=== PATIENT | male | born 1955 | race Hispanic/Latino ===

== ENCOUNTER 2016-11-27 16:11 | Emergency (ER) | payer BC ==
[2016-11-27 16:12] VITALS: BMI 24.2
[2016-11-27] MEDS ORDERED: Lidocaine 1% Inj (20ml) INFIL STA (16:31)
[2016-11-27] MEDS ORDERED: Bacitracin 500 Units/gm Oint Foilpak UD TOP STA (16:31)
[2016-11-27] MEDS ORDERED: Tetanus/Diphtheria Toxoids 0.5 ml Syringe IM ONE ×2 (16:31→16:36)
[2016-11-27 16:34] VITALS: BP 160/99; PULSE 103; RESP 20; TEMP 97.9; O2SAT 100
[2016-11-27] MEDS ORDERED: Bacitracin 500 Units/gm Oint Foilpak UD ONE (16:36)
[2016-11-27] MEDS ORDERED: Lidocaine 1% Inj (20ml) ONE (16:36)
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
== END 2016-11-27 17:47 | disposition home or self-care (01) ==
LOC: C.ER 16:11
DX: S51.812A Laceration without foreign body of left forearm, initial encounter (principal); X99.1XXA Assault by knife, initial encounter; Y92.89 Other specified places as the place of occurrence of the external cause; Z23 Encounter for immunization

== ENCOUNTER 2016-12-01 19:01 | Emergency (ER) | payer BC ==
[2016-12-01 19:01] VITALS: BMI 24.2
[2016-12-01] MEDS ORDERED: Albuterol 0.083% Inhal Sol (2.5 mg/3 mL) UD INH STA (20:12)
--- NOTE | 2016-12-01 20:19 | C.PDOC ---
History Of Present Illness 61 y/o male, past medical history of COPD, notes he ran out of medications and presents to emergency department with c/o shortness of breath. Denies any pain or fever. Chief Complaint (Nursing): Shortness Of Breath History Per: Patient History/Exam Limitations: no limitations Onset/Duration Of Symptoms: Days Current Symptoms Are (Timing): Still Present Pain Scale Rating Of: 0 Associated Symptoms: denies: Fever, Chest Pain Recent travel outside of the [place]: No Past Medical History Reviewed: Historical Data, Nursing Documentation, Vital Signs Vital Signs: Last Vital Signs Temp 97.5 F L 12/01/16 22:50 Pulse 84 12/01/16 22:50 Resp 14 12/01/16 22:50 BP 130/80 12/01/16 22:50 Pulse Ox 98 12/01/16 22:50 - Medical History PMH: Asthma, CAD, COPD, Diabetes, HTN, Hypercholesterolemia, Pancreatitis, Pneumonia - [facility] Procedures OTHER ENDOSCOPY OF SM INTEST (03/26/15) VACCINATION NEC (03/11/15) Family History: States: Hypertension - Social History Hx Tobacco Use: No Hx Alcohol Use: Yes (drinks on weekends) Hx Substance Use: No (denies plus denies smoking) - Immunization History Hx Tetanus Toxoid Vaccination: No Hx Influenza Vaccination: Yes Hx Pneumococcal Vaccination: Yes Review Of Systems Except As Marked, All Systems Reviewed And Found Negative. Constitutional: Negative for: Fever Cardiovascular: Negative for: Chest Pain Respiratory: Positive for: Shortness of Breath. Negative for: Cough Gastrointestinal: Negative for: Nausea, Vomiting, Abdominal Pain Skin: Negative for: Rash Neurological: Negative for: Headache Physical Exam - Physical Exam Appears: Non-toxic, No Acute Distress Skin: Warm, Dry Head: Atraumatic, Normacephalic Chest: Symmetrical Cardiovascular: Rhythm Regular Respiratory: Decreased Breath Sounds, Rhonchi (occasional ), No Wheezing Gastrointestinal/Abdominal: Soft, No Tenderness Extremity: Normal ROM Neurological/Psych: Oriented x3, Normal Speech ED Course And Treatment - Laboratory Results Result Diagrams: 12/01/16 20:33 12/01/16 20:33 Disposition Counseled Patient/Family Regarding: Diagnosis - Disposition Referrals: [facility] [Outside] Disposition: HOME/ ROUTINE Disposition Time: 22:37 Condition: IMPROVED Prescriptions: Albuterol Sulfate [Proventil Hfa] 6.7 gm IH Q4 #1 [id number] Instructions: Asthma (DC), Diabetes Mellitus Type 2 in Adults (DC) - Clinical Impression Clinical Impression: Asthma, Diabetes mellitus - Scribe Statement The provider has reviewed the documentation as recorded by the Scribarvind Russell All medical record entries made by the Scribe were at my direction and personally dictated by me. I have reviewed the chart and agree that the record accurately reflects my personal performance of the history, physical exam, medical decision making, and the department course for this patient. I have also personally directed, reviewed, and agree with the discharge instructions and disposition.
[2016-12-01] MEDS ORDERED: Bacitracin 500 Units/gm Oint Foilpak UD ONE (20:37)
[2016-12-01 20:38] LABS: BASO % 0.6 % (0.0-2.0); EOS # 0.2 K/uL (0.0-0.7); EOS % 3.6 % (0.0-4.0); HEMATOCRIT 44.9 % (35.0-51.0); LYMPH % 31.9 % (20.0-40.0); MEAN CELL VOLUME 89.5 fL (80.0-94.0); MEAN CORPUSCULAR HEMOGLOBIN 30.6 pg (27.0-31.0); MEAN CORPUSCULAR HGB CONC 34.1 g/dL (33.0-37.0); MEAN PLATELET VOLUME 8.5 fL (7.2-11.7); MONO # 0.5 K/uL (0.0-0.8); MONO % 7.5 % (0.0-10.0); RED CELL DISTRIBUTION WIDTH 13.3 % (11.5-14.5); WHITE BLOOD COUNT 6.2 K/uL (4.8-10.8)
[2016-12-01 20:44] LABS: CHLORIDE 93 mmol/L (98-107)
[2016-12-01 20:45] LABS: POTASSIUM 3.8 mmol/L (3.6-5.2); SODIUM 132 mmol/L (132-148)
[2016-12-01 20:47] LABS: ALB/GLOB RATIO 1.2 (1.0-2.1); ALKALINE PHOSPHATASE 97 U/L (38-126); ALT/SGPT 31 U/L (21-72); AST/SGOT 22 U/L (17-59); BILIRUBIN,TOTAL 0.6 mg/dL (0.2-1.3); BLOOD UREA NITROGEN 15 mg/dL (9-20); CARBON DIOXIDE 29 mmol/L (22-30); GFR AFRICAN-AMERICAN > 60; TOTAL PROTEIN 6.3 g/dL (6.3-8.3)
[2016-12-01 20:48] LABS: CALCIUM 8.9 mg/dl (8.6-10.4)
[2016-12-01 20:49] LABS: GLUCOSE,RANDOM 440 mg/dL (75-110)
[2016-12-01] MEDS ORDERED: Sodium Chloride 0.9% 1,000 ML IV ONE (20:51)
[2016-12-01] MEDS ORDERED: (Novolin R) Insulin Human Regular 100 units/ml vial SC ONE (20:51)
[2016-12-01 20:56] VITALS: RESP 14
[2016-12-01] MEDS ORDERED: (Novolin R) Insulin Human Regular 100 units/ml vial ONE (21:02)
[2016-12-01 22:50] VITALS: BP 130/80; PULSE 84; TEMP 97.5; O2SAT 98
--- NOTE | 2016-12-02 08:09 | RAD ---
HISTORY: COPD/ SOB COMPARISON: 07/15/2015 TECHNIQUE: Chest PA and lateral FINDINGS: LUNGS: No active pulmonary disease. PLEURA: No significant pleural effusion identified. No pneumothorax apparent. CARDIOVASCULAR: Normal. OSSEOUS STRUCTURES: Minimal thoracic inferior spondylosis - abort right lateral marginal osteophyte VISUALIZED UPPER ABDOMEN: Normal. OTHER FINDINGS: None. IMPRESSION: No active disease.
== END 2016-12-01 22:51 | disposition home or self-care (01) ==
LOC: C.ER 19:01
DX: J45.909 Unspecified asthma, uncomplicated (principal); E11.65 Type 2 diabetes mellitus with hyperglycemia
CPT/HCPCS: 71020; 80053; 82948; 83880; 85025; 96372; 99284; J7040

== ENCOUNTER 2016-12-08 09:39 | Emergency (ER) | payer BC ==
[2016-12-08 09:39] VITALS: BMI 24.2
[2016-12-08 10:00] VITALS: BP 181/102; PULSE 109; RESP 20; TEMP 98.6; O2SAT 96
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
== END 2016-12-08 11:07 | disposition home or self-care (01) ==
LOC: C.ER 09:39
DX: Z48.02 Encounter for removal of sutures (principal)

== ENCOUNTER 2017-04-13 23:46 | Emergency (ER) | payer BC ==
[2017-04-13 23:47] VITALS: BMI 24.2
[2017-04-14 00:07] VITALS: BP 162/101; PULSE 96; RESP 18; TEMP 98.6; O2SAT 97
--- NOTE | 2017-04-14 01:00 | C.PDOC ---
History Of Present Illness 62 year old male with history of HTN, Diabetes, and Asthma presents to the ED with complaints of difficulty breathing. Patient states he has had several days of trouble breathing and today went to [email or web address] to [facility] prescription but medications were not there. He notes his doctor "refuses to send the prescriptions" because he has not been seen in the office for a while. Patient denies chest pain, cough, or other associated complaints. Time Seen by Provider: 04/14/17 00:21 Chief Complaint (Nursing): Medical Clearance History Per: Patient, EMS History/Exam Limitations: no limitations Onset/Duration Of Symptoms: Intermittent Episodes (patient has history of ) Current Symptoms Are (Timing): Still Present Recent travel outside of the [place]: No Past Medical History Reviewed: Historical Data, Nursing Documentation, Vital Signs Vital Signs: Last Vital Signs Temp 98.6 F 04/14/17 00:03 Pulse 96 H 04/14/17 00:03 Resp 18 04/14/17 00:03 BP 162/101 H 04/14/17 00:03 Pulse Ox 97 04/14/17 01:06 - Medical History PMH: Asthma, CAD, COPD, Diabetes, HTN, Hypercholesterolemia, Pancreatitis, Pneumonia - [facility] Procedures OTHER ENDOSCOPY OF SM INTEST (03/26/15) VACCINATION NEC (03/11/15) Family History: States: Unknown Family Hx, Hypertension - Social History Hx Tobacco Use: No Hx Alcohol Use: Yes (drinks on weekends) Hx Substance Use: No (denies plus denies smoking) - Immunization History Hx Tetanus Toxoid Vaccination: No Hx Influenza Vaccination: No Hx Pneumococcal Vaccination: No Review Of Systems Constitutional: Negative for: Fever, Chills Respiratory: Positive for: Shortness of Breath (notes trouble breathing ). Negative for: Cough Gastrointestinal: Negative for: Nausea, Vomiting Neurological: Negative for: Weakness, Numbness Physical Exam - Physical Exam Appears: Non-toxic, No Acute Distress, Other (Patient does not appear to be in respitarory distress. He is lying completely supine in stretcher and speaking on his cell phone. ) Skin: Warm, Dry Head: Atraumatic, Normacephalic Eye(s): bilateral: Normal Inspection, PERRL, EOMI Oral Mucosa: Moist Neck: Supple Chest: Symmetrical, No Deformity Cardiovascular: Rhythm Regular, No Murmur Respiratory: Rales (left base rales ), No Rhonchi, No Wheezing Gastrointestinal/Abdominal: Soft, No Tenderness, No Distention, No Guarding, No Rebound Extremity: Normal ROM, No Tenderness Neurological/Psych: Oriented x3 Gait: Steady ED Course And Treatment O2 Sat by Pulse Oximetry: 97 (RA) Progress Note: Patient refused blood work and CXR. Patient instructed to follow up with PMD tomorrow. Disposition - Disposition Referrals: Cedric Ken MD [Staff Provider] - Disposition: HOME/ ROUTINE Disposition Time: 01:07 Condition: STABLE Instructions: Hypertension (ED), Diabetes Mellitus Type 2 in Adults (ED) Forms: [employer] (Urdu) Print Language: ALGERIAN - Clinical Impression Clinical Impression: Hypertension, Diabetes, Dyspnea - Scribe Statement The provider has reviewed the documentation as recorded by the Scribe Criselda Mejia All medical record entries made by the Scribe were at my direction and personally dictated by me. I have reviewed the chart and agree that the record accurately reflects my personal performance of the history, physical exam, medical decision making, and the department course for this patient. I have also personally directed, reviewed, and agree with the discharge instructions and disposition.
== END 2017-04-14 01:25 | disposition home or self-care (01) ==
LOC: C.ER 23:46
DX: R06.00 Dyspnea, unspecified (principal); I10 Essential (primary) hypertension; E11.9 Type 2 diabetes mellitus without complications

== ENCOUNTER 2017-04-20 17:56 | Emergency (ER) | payer BC ==
[2017-04-20 17:56] VITALS: BMI 24.2
[2017-04-20 18:01] VITALS: RESP 16; TEMP 98.4
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
[2017-04-20 19:30] VITALS: BP 122/85; PULSE 78
[2017-04-20 21:09] VITALS: O2SAT 95
== END 2017-04-20 19:29 | disposition home or self-care (01) ==
LOC: C.ER 17:56
DX: G57.92 Unspecified mononeuropathy of left lower limb (principal)

== ENCOUNTER 2017-09-02 00:21 | Emergency (ER) | payer BC ==
[2017-09-02 00:21] VITALS: BMI 24.2
[2017-09-02 00:55] VITALS: RESP 20; TEMP 98
--- NOTE | 2017-09-02 01:23 | C.PDOC ---
History Of Present Illness 62 year old male presents to the Ed c/o right costal margin and left inguinal pain for past couple of days. Patient states he was not able to sleep tonight due to his pain. While in the ED patient states he has no pain at this time. Patient denies trauma, injury, fall, nausea, vomit, diarrhea. Chief Complaint (Nursing): Abdominal Pain History Per: Patient History/Exam Limitations: no limitations Onset/Duration Of Symptoms: Days Current Symptoms Are (Timing): Still Present Location Of Pain/Discomfort: Diffuse Radiation Of Pain To:: None Quality Of Discomfort: "Pain" Exacerbating Factors: None Alleviating Factors: None Recent travel outside of the [place]: No Additional History Per: Patient Past Medical History Reviewed: Historical Data, Nursing Documentation, Vital Signs Vital Signs: Last Vital Signs Temp 98 F 09/02/17 02:51 Pulse 82 09/02/17 02:51 Resp 20 09/02/17 02:51 BP 130/78 09/02/17 02:51 Pulse Ox 94 L 09/02/17 03:24 - Medical History PMH: Asthma, CAD, COPD, Diabetes, HTN, Hypercholesterolemia, Pancreatitis, Pneumonia Denies: Chronic Kidney Disease Surgical History: No Surg Hx - [facility] Procedures OTHER ENDOSCOPY OF SM INTEST (03/26/15) VACCINATION NEC (03/11/15) Family History: States: Unknown Family Hx, Hypertension - Social History Hx Tobacco Use: No Hx Alcohol Use: Yes (drinks on weekends) Hx Substance Use: No (denies plus denies smoking) - Immunization History Hx Tetanus Toxoid Vaccination: No Hx Influenza Vaccination: No Hx Pneumococcal Vaccination: No Review Of Systems Constitutional: Negative for: Fever, Chills Cardiovascular: Positive for: Chest Pain. Negative for: Palpitations Respiratory: Negative for: Cough, Shortness of Breath Gastrointestinal: Negative for: Nausea, Vomiting, Abdominal Pain Skin: Negative for: Rash Physical Exam - Physical Exam Appears: Non-toxic, No Acute Distress Skin: Normal Color, Warm, Dry Head: Atraumatic, Normacephalic Eye(s): bilateral: Normal Inspection Nose: No Discharge, No Deformity Oral Mucosa: Moist Neck: Normal ROM, Supple Chest: Symmetrical Cardiovascular: Rhythm Regular, No Murmur Respiratory: Normal Breath Sounds, No Rales, No Rhonchi, No Wheezing Gastrointestinal/Abdominal: Soft, No Tenderness, No Guarding, No Rebound Male Genital: Normal Inspection, No Inguinal Tenderness, No Inguinal Swelling Extremity: Normal ROM, No Tenderness, No Swelling Neurological/Psych: Oriented x3, Normal Speech, Normal Cognition Gait: Steady ED Course And Treatment - Laboratory Results Result Diagrams: 09/02/17 02:07 09/02/17 02:07 O2 Sat by Pulse Oximetry: 94 (On RA) Pulse Ox Interpretation: Normal Medical Decision Making Medical Decision Making: Impresion: right costal margin pain Plan: * EKG * Labs * CXR * Potassium chloride 40 meq PO Disposition - Disposition Referrals: [facility] at [facility] [Outside] Disposition: HOME/ ROUTINE Disposition Time: 04:17 Condition: GOOD Instructions: Chest Pain That Is Not Caused by the Heart (DC) Forms: [employer] (Polish) Print Language: ZAMBIAN - Clinical Impression Clinical Impression: Atypical chest pain - Scribe Statement The provider has reviewed the documentation as recorded by the Scribe Fabian Linton All medical record entries made by the Scribe were at my direction and personally dictated by me. I have reviewed the chart and agree that the record accurately reflects my personal performance of the history, physical exam, medical decision making, and the department course for this patient. I have also personally directed, reviewed, and agree with the discharge instructions and disposition.
[2017-09-02 02:11] LABS: BASO # 0.1 K/uL (0.0-0.2); BASO % 1.4 % (0.0-2.0); EOS # 0.4 K/uL (0.0-0.7); EOS % 6.7 % (0.0-4.0); HEMOGLOBIN 14.6 g/dL (12.0-18.0); LYMPH # 1.7 K/uL (1.0-4.3); LYMPH % 32.9 % (20.0-40.0); MEAN CELL VOLUME 88.9 fL (80.0-94.0); MEAN CORPUSCULAR HEMOGLOBIN 31.6 pg (27.0-31.0); MEAN CORPUSCULAR HGB CONC 35.5 g/dL (33.0-37.0); MEAN PLATELET VOLUME 8.7 fL (7.2-11.7); MONO # 0.4 K/uL (0.0-0.8); MONO % 6.9 % (0.0-10.0); NEUT # 2.7 K/uL (1.8-7.0); NEUT % 52.1 % (50.0-75.0); RBC 4.63 Mil/uL (4.40-5.90); RED CELL DISTRIBUTION WIDTH 12.9 % (11.5-14.5); WHITE BLOOD COUNT 5.2 K/uL (4.8-10.8)
[2017-09-02 02:21] LABS: ALB/GLOB RATIO 1.2 (1.0-2.1); ALBUMIN 3.3 g/dL (3.5-5.0); ALT/SGPT 24 U/L (21-72); AST/SGOT 21 U/L (17-59); BLOOD UREA NITROGEN 19 mg/dL (9-20); CALCIUM 9.1 mg/dl (8.6-10.4); GFR AFRICAN-AMERICAN > 60; GFR NON-AFRICAN AMERICAN > 60
[2017-09-02] MEDS ORDERED: Potassium Chloride 20 mEq/15 ml LIQ UD PO STA (02:23)
[2017-09-02 02:57] VITALS: BP 130/78; PULSE 82
[2017-09-02 03:14] VITALS: O2SAT 94
== END 2017-09-02 02:51 | disposition home or self-care (01) ==
LOC: C.ER 00:21
DX: R07.89 Other chest pain (principal); I10 Essential (primary) hypertension; Z87.891 Personal history of nicotine dependence

== ENCOUNTER 2017-12-18 11:38 | Inpatient (IN) | payer BC ==
[2017-12-18 11:38] VITALS: BMI 24.2
--- NOTE | 2017-12-18 12:06 | C.PDOC ---
History Of Present Illness 62 y/o male with PMHx of asthma, COPD, hypertension, high cholesterol, and diabetes, presents to the ED complaining of chest pain that started this morning. Patient states he was lying in bed, and felt a heaviness in the middle of his chest associated with shortness of breath. Currently chest pain and SOB have improved. Patient admits to noncompliance with chronic medications since a few months ago secondary to insurance. Otherwise denies any fever, cough, dizziness, weakness, numbness, headaches, or leg pain/swelling. Patient is a very poor historian. Time Seen by Provider: 12/18/17 11:40 Chief Complaint (Nursing): Shortness Of Breath History Per: Patient History/Exam Limitations: no limitations Onset/Duration Of Symptoms: Hrs Current Symptoms Are (Timing): Better Past Medical History Reviewed: Historical Data, Nursing Documentation, Vital Signs Vital Signs: Last Vital Signs Temp 97.7 F 12/22/17 07:30 Pulse 92 H 12/22/17 07:30 Resp 20 12/22/17 07:30 BP 165/94 H 12/22/17 07:30 Pulse Ox 95 12/22/17 08:41 - Medical History PMH: Asthma, CAD, COPD, Diabetes, HTN, Hypercholesterolemia, Pancreatitis, Pneumonia Denies: Chronic Kidney Disease - [facility] Procedures OTHER ENDOSCOPY OF SM INTEST (03/26/15) VACCINATION NEC (03/11/15) Family History: States: Hypertension - Social History Hx Tobacco Use: No Hx Alcohol Use: Yes (drinks on weekends) Hx Substance Use: No (denies plus denies smoking) - Immunization History Hx Tetanus Toxoid Vaccination: No Hx Influenza Vaccination: No Hx Pneumococcal Vaccination: No Review Of Systems Except As Marked, All Systems Reviewed And Found Negative. Constitutional: Negative for: Fever Eyes: Negative for: Vision Change Cardiovascular: Negative for: Chest Pain Respiratory: Positive for: Shortness of Breath. Negative for: Cough Neurological: Negative for: Weakness, Numbness, Headache, Dizziness Physical Exam - Physical Exam Appears: Non-toxic, No Acute Distress Skin: Normal Color, Warm Head: Atraumatic, Normacephalic Eye(s): bilateral: Normal Inspection, EOMI Nose: Normal Oral Mucosa: Moist Neck: Normal ROM, Supple Chest: Symmetrical Cardiovascular: Rhythm Regular Respiratory: Decreased Breath Sounds, No Accessory Muscle Use Gastrointestinal/Abdominal: Soft, No Tenderness, No Distention Extremity: No Pedal Edema Extremity: Bilateral: Atraumatic, No Pedal Edema, Normal Color And Temperature, Normal ROM Pulses: Left Dorsalis Pedis: Normal, Right Dorsalis Pedis: Normal Neurological/Psych: Oriented x3, Normal Speech, Other (No focal deficits) ED Course And Treatment - Laboratory Results Result Diagrams: 12/19/17 17:31 12/20/17 07:52 ECG: Interpreted By Me, Viewed By Me ECG Rhythm: Sinus Rhythm (with T wave inversions), Nonspecific Changes Rate From EC O2 Sat by Pulse Oximetry: 95 (RA) Pulse Ox Interpretation: Normal - Other Rad CXR X-Ray: Read By Radiologist Interpretation: Accession No. : [id number]. Patient Name / ID : ANJU LOPEZ / [id number]. Exam Date : 12/18/2017 12:30:42 ( Approved ). Study Comment : Sex / Age : M / [id number]. Creator : Alexandr Grant MD. Dictator : Alexandr Grant MD. Track Car Operator : Head Of Ethics And Compliance : Alexandr Grant MD. Approver2 : Report Date : 12/18/2017 13:09:33. My Comment : . Chest x- ray single frontal view. History: Chest pain. Comparison: 12/01/2016. Findings: Diffuse increased interstitial lung markings in the right upper to mid lung zone and left lung base which may represent underlying interstitial infiltrate and or edema. Biapical pleural thickening with upper lobe granulomatous changes. Nodular density at the lateral aspect of the right lung base. Tortuous aorta. Degenerative changes in the spine. Impression: Diffuse increased interstitial lung markings in the right upper to mid lung zone and left lung base which may represent underlying interstitial infiltrate and or edema. Biapical pleural thickening with upper lobe granulomatous changes. Nodular density at the lateral aspect of the right lung base. Tortuous aorta. Progress Note: Initiated work up including labs, CXR, EKG, and VBG. Finger stick is 500. Patient given IV fluids and 5 units IV insulin. PO Aspirin and Norvasc 10 mg PO also given. Labs reviewed, BNP elevated at 1650. Trop negative. Repeat blood pressure remains elevated, 191/122. IV fluids discontinued. Discussed case with ED attending Dr. Lewis, who agrees with management. Ordered Clonidine 0.1 mg. Case discussed with Dr Ken, agreed upon plan and admission. Disposition Discussed With DrMilad: Cruz Frederick Comment: accepts patient for admission Counseled Patient/Family Regarding: Studies Performed, Diagnosis - Disposition Disposition: HOSPITALIZED Disposition Time: 14:37 Condition: STABLE - Clinical Impression Clinical Impression: Hypertensive emergency, Hyperglycemia, Chest pain, SOB (shortness of breath) - PA / [employer] SUPERVISOR / Resident Statement MD/DO has reviewed & agrees with the documentation as recorded. - Scribe Statement The provider has reviewed the documentation as recorded by the Scribe (Larisa Meza) All medical record entries made by the Scribe were at my direction and personally dictated by me. I have reviewed the chart and agree that the record accurately reflects my personal performance of the history, physical exam, medical decision making, and the department course for this patient. I have also personally directed, reviewed, and agree with the discharge instructions and disposition.
[2017-12-18] MEDS ORDERED: Sodium Chloride 0.9% 1,000 ML IV ONE ×2 (12:28→12:54)
[2017-12-18] MEDS ORDERED: (Novolin R) Insulin Human Regular 100 units/ml vial IV STA (12:29)
[2017-12-18 12:38] LABS: BASO % 0.9 % (0.0-2.0); EOS # 0.2 K/uL (0.0-0.7); EOS % 3.4 % (0.0-4.0); HEMOGLOBIN 13.9 g/dL (12.0-18.0); LYMPH # 1.3 K/uL (1.0-4.3); LYMPH % 25.8 % (20.0-40.0); MEAN CORPUSCULAR HEMOGLOBIN 31.7 pg (27.0-31.0); MEAN CORPUSCULAR HGB CONC 35.2 g/dL (33.0-37.0); MONO # 0.3 K/uL (0.0-0.8); MONO % 5.9 % (0.0-10.0); NEUT # 3.3 K/uL (1.8-7.0); NRBC % 0.1 % (0.0-2.0); RBC 4.39 Mil/uL (4.40-5.90); RED CELL DISTRIBUTION WIDTH 12.6 % (11.5-14.5); WHITE BLOOD COUNT 5.2 K/uL (4.8-10.8)
[2017-12-18] MEDS ORDERED: (Novolin R) Insulin Human Regular 100 units/ml vial IV ONE (12:44)
[2017-12-18 12:46] LABS: INR 0.9; PROTHROMBIN TIME 9.9 SECONDS (9.7-12.2)
[2017-12-18] MEDS ORDERED: (Novolin R) Insulin Human Regular 100 units/ml vial ONE ×3 (12:49→22:07)
[2017-12-18] MEDS ORDERED: Sodium Chloride 0.9% 1,000 ML ONE ×3 (12:49→16:25)
[2017-12-18 13:00] LABS: ALB/GLOB RATIO 0.9 (1.0-2.1); ALBUMIN 3.2 g/dL (3.5-5.0); ALT/SGPT 7 U/L (21-72); AST/SGOT 26 U/L (17-59); BLOOD UREA NITROGEN 19 mg/dL (9-20); CALCIUM 8.7 mg/dl (8.6-10.4); CK-MB 3.63 ng/mL (0.0-3.38); GFR AFRICAN-AMERICAN > 60; GFR NON-AFRICAN AMERICAN > 60; LIPASE 85 U/L (23-300)
[2017-12-18 13:04] LABS: VENOUS BLOOD GAS BASE EXCESS 8.2 mmol/L (0.0-2.0); VENOUS BLOOD GAS PCO2 60 mmHg (40-60); VENOUS BLOOD GAS PO2 25 mm/Hg (30-55); VENOUS BLOOD PH 7.38 (7.32-7.43)
--- NOTE | 2017-12-18 13:11 | RAD ---
Chest x-ray single frontal view History: Chest pain Comparison: 12/01/2016 Findings: Diffuse increased interstitial lung markings in the right upper to mid lung zone and left lung base which may represent underlying interstitial infiltrate and or edema. Biapical pleural thickening with upper lobe granulomatous changes. Nodular density at the lateral aspect of the right lung base. Tortuous aorta. Degenerative changes in the spine. Impression: Diffuse increased interstitial lung markings in the right upper to mid lung zone and left lung base which may represent underlying interstitial infiltrate and or edema. Biapical pleural thickening with upper lobe granulomatous changes. Nodular density at the lateral aspect of the right lung base. Tortuous aorta.
[2017-12-18 13:18] LABS: B-TYPE NATRIURETIC PEPTIDE 1650 pg/mL (0-900)
[2017-12-18] MEDS ORDERED: Albuterol 0.083% Inhal Sol (2.5 mg/3 mL) UD IH STA (14:39)
[2017-12-18] MEDS ORDERED: (Lantus) Insulin Glargine, Recombinant SC STA (15:28)
[2017-12-18] MEDS ORDERED: Albuterol 0.083% Inhal Sol (2.5 mg/3 mL) UD ONE (15:33)
[2017-12-18] MEDS: Sodium Chloride 0.9% 1,000 ML IV SCH (16:27)
[2017-12-18] MEDS: (Novolin R) Insulin Human Regular 100 units/ml vial SC SCH ×2 (16:27→22:02)
[2017-12-18] MEDS ORDERED: Nitroglycerin 2% Ointment Foilpak UD TOP ONE (16:30)
[2017-12-18] MEDS ORDERED: (Novolog Mix 70/30) Insulin Aspart/Insulin Aspar 100 units/ml SC ONE (17:47)
[2017-12-18] MEDS: (Novolog Mix 70/30) Insulin Aspart/Insulin Aspar 100 units/ml SC SCH (17:48)
[2017-12-18 19:33] LABS: CK-MB 2.72 ng/mL (0.0-3.38); TROPONIN I 0.045 ng/mL (0.00-0.120)
[2017-12-18] MEDS: Albuterol-Ipratrop 3 mg / 0.5 (3 ml) UD INH SCH (20:21)
[2017-12-19] MEDS: Sodium Chloride 0.9% 1,000 ML IV SCH ×2 (00:46→11:43)
[2017-12-19] MEDS ORDERED: Nitroglycerin 2% Ointment Foilpak UD TOP ONE (00:58)
[2017-12-19] MEDS ORDERED: Metoprolol Succinate 25 mg XL Tab PO ONE (01:00)
[2017-12-19 02:15] LABS: CK-MB 2.34 ng/mL (0.0-3.38); TROPONIN I 0.045 ng/mL (0.00-0.120)
[2017-12-19] MEDS ORDERED: Albuterol-Ipratrop 3 mg / 0.5 (3 ml) UD INH STA (02:37)
[2017-12-19] MEDS: Albuterol-Ipratrop 3 mg / 0.5 (3 ml) UD INH SCH ×4 (02:54→19:47)
--- NOTE | 2017-12-19 05:34 | CP.PCM.HP ---
History of Present Illness - History of Present Illness History of Present Illness: CC: shortness of breath HPI: 62 y/o male with PMHx of asthma, ? COPD, hypertension, high cholesterol, and diabetes, presents to the ED complaining of chest pain that started this morning. Patient states he was lying in bed, and felt a heaviness in the middle of his chest. At the time he also had shortness of breath. Currently chest pain and SOB have improved. Patient admits to noncompliance with chronic medications since a few months ago. Otherwise denies any fever, cough, dizziness, weakness, numbness, headaches, or leg pain/swelling. Patient is a very poor historian. Past Patient History - Infectious Disease Hx of Infectious Diseases: None - Tetanus Immunizations Tetanus Immunization: Unknown - Past Medical History & Family History Past Medical History?: Yes - Past Social History Smoking Status: Heavy Smoker > 10 Cigarettes Daily - CARDIAC Hx Hypercholesterolemia: Yes Hx Hypertension: Yes - PULMONARY Hx Asthma: Yes Hx Chronic Obstructive Pulmonary Disease (COPD): Yes Hx Pneumonia: Yes - NEUROLOGICAL Hx Neurological Disorder: No - HEENT Hx HEENT Problems: No - RENAL Hx Chronic Kidney Disease: No - ENDOCRINE/METABOLIC Hx Endocrine Disorders: Yes Hx Diabetes Mellitus Type 2: Yes - HEMATOLOGICAL/ONCOLOGICAL Hx Blood Disorders: No - INTEGUMENTARY Hx Dermatological Problems: No - MUSCULOSKELETAL/RHEUMATOLOGICAL Hx Musculoskeletal Disorders: No Hx Falls: No - GASTROINTESTINAL Hx Pancreatitis: Yes - GENITOURINARY/GYNECOLOGICAL Hx Genitourinary Disorders: No - PSYCHIATRIC Hx Substance Use: No (denies plus denies smoking) - SURGICAL HISTORY Hx Surgeries: No - ANESTHESIA Hx Anesthesia: No Hx Anesthesia Reactions: No Hx Malignant Hyperthermia: No Meds Allergies/Adverse Reactions: Allergies Allergy/AdvReac Type Severity Reaction Status Date / Time No Known Allergies Allergy Verified 12/18/17 12:12 Results - Vital Signs Recent Vital Signs: Last Vital Signs Temp 97.9 F 12/19/17 00:47 Pulse 86 12/19/17 04:00 Resp 20 12/19/17 03:13 BP 185/98 H 12/19/17 03:13 Pulse Ox 95 12/19/17 04:00 - Labs Result Diagrams: 12/18/17 12:25 12/18/17 12:25 Labs: Laboratory Results - last 24 hr 12/18/17 12/18/17 12/18/17 11:51 12:25 12:25 WBC 5.2 RBC 4.39 L Hgb 13.9 Hct 39.5 MCV 90.0 MCH 31.7 H MCHC 35.2 RDW 12.6 Plt Count 264 MPV 9.0 Neut % (Auto) 64.0 Lymph % (Auto) 25.8 Maries % (Auto) 5.9 Eos % (Auto) 3.4 Baso % (Auto) 0.9 Neut # (Auto) 3.3 Lymph # (Auto) 1.3 Maries # (Auto) 0.3 Eos # (Auto) 0.2 Baso # (Auto) 0.0 PT 9.9 INR 0.9 APTT 33 pO2 VBG pH VBG pCO2 VBG HCO3 VBG Total CO2 VBG O2 Sat (Calc) VBG Base Excess VBG Potassium Glucose Lactate Crit Value Called To Crit Value Called By Crit Value Read Back Blood Gas Notified Time Sodium Potassium Chloride Carbon Dioxide Anion Gap BUN Creatinine Est GFR ( Amer) Est GFR (Non-Af Amer) POC Glucose (mg/dL) > 500 H* Random Glucose Calcium Total Bilirubin AST ALT Alkaline Phosphatase Total Creatine Kinase CK-MB (Mass) Troponin I NT-Pro-B Natriuret Pep Total Protein Albumin Globulin Albumin/Globulin Ratio Lipase Venous Blood Potassium Alcohol, Quantitative B-Hydroxybutyrate 12/18/17 12/18/17 12/18/17 12:25 12:57 13:50 WBC RBC Hgb Hct MCV MCH MCHC RDW Plt Count MPV Neut % (Auto) Lymph % (Auto) Maries % (Auto) Eos % (Auto) Baso % (Auto) Neut # (Auto) Lymph # (Auto) Maries # (Auto) Eos # (Auto) Baso # (Auto) PT INR APTT pO2 25 L VBG pH 7.38 VBG pCO2 60 VBG HCO3 29.9 VBG Total CO2 37.3 H VBG O2 Sat (Calc) 50.4 VBG Base Excess 8.2 H VBG Potassium 4.4 Glucose 551 H* Lactate 2.1 Crit Value Called To David figueroa Crit Value Called By Eleazar walls rt Crit Value Read Back Y Blood Gas Notified Time 1303 Sodium 133 134.0 Potassium 3.7 Chloride 93 L 96.0 L Carbon Dioxide 33 H Anion Gap 11 BUN 19 Creatinine 0.8 Est GFR ( Amer) > 60 Est GFR (Non-Af Amer) > 60 POC Glucose (mg/dL) 353 H Random Glucose 527 H* D Calcium 8.7 Total Bilirubin 0.5 AST 26 ALT 7 L D Alkaline Phosphatase 101 Total Creatine Kinase 125 CK-MB (Mass) 3.63 H Troponin I 0.0440 NT-Pro-B Natriuret Pep 1650 H Total Protein 6.6 Albumin 3.2 L Globulin 3.4 Albumin/Globulin Ratio 0.9 L Lipase 85 Venous Blood Potassium 4.4 Alcohol, Quantitative < 10 B-Hydroxybutyrate 0.08 12/18/17 12/18/17 12/18/17 16:00 16:01 17:30 WBC RBC Hgb Hct MCV MCH MCHC RDW Plt Count MPV Neut % (Auto) Lymph % (Auto) Maries % (Auto) Eos % (Auto) Baso % (Auto) Neut # (Auto) Lymph # (Auto) Maries # (Auto) Eos # (Auto) Baso # (Auto) PT INR APTT pO2 VBG pH VBG pCO2 VBG HCO3 VBG Total CO2 VBG O2 Sat (Calc) VBG Base Excess VBG Potassium Glucose Lactate Crit Value Called To Crit Value Called By Crit Value Read Back Blood Gas Notified Time Sodium Potassium Chloride Carbon Dioxide Anion Gap BUN Creatinine Est GFR ( Amer) Est GFR (Non-Af Amer) POC Glucose (mg/dL) 428 H* 435 H* 492 H* Random Glucose Calcium Total Bilirubin AST ALT Alkaline Phosphatase Total Creatine Kinase CK-MB (Mass) Troponin I NT-Pro-B Natriuret Pep Total Protein Albumin Globulin Albumin/Globulin Ratio Lipase Venous Blood Potassium Alcohol, Quantitative B-Hydroxybutyrate 12/18/17 12/18/17 12/18/17 17:32 19:06 19:50 WBC RBC Hgb Hct MCV MCH MCHC RDW Plt Count MPV Neut % (Auto) Lymph % (Auto) Maries % (Auto) Eos % (Auto) Baso % (Auto) Neut # (Auto) Lymph # (Auto) Maries # (Auto) Eos # (Auto) Baso # (Auto) PT INR APTT pO2 VBG pH VBG pCO2 VBG HCO3 VBG Total CO2 VBG O2 Sat (Calc) VBG Base Excess VBG Potassium Glucose Lactate Crit Value Called To Crit Value Called By Crit Value Read Back Blood Gas Notified Time Sodium Potassium Chloride Carbon Dioxide Anion Gap BUN Creatinine Est GFR ( Amer) Est GFR (Non-Af Amer) POC Glucose (mg/dL) 481 H* 332 H Random Glucose Calcium Total Bilirubin AST ALT Alkaline Phosphatase Total Creatine Kinase 96 CK-MB (Mass) 2.72 Troponin I 0.0450 NT-Pro-B Natriuret Pep Total Protein Albumin Globulin Albumin/Globulin Ratio Lipase Venous Blood Potassium Alcohol, Quantitative B-Hydroxybutyrate 12/18/17 12/19/17 12/19/17 22:00 01:38 02:25 WBC RBC Hgb Hct MCV MCH MCHC RDW Plt Count MPV Neut % (Auto) Lymph % (Auto) Maries % (Auto) Eos % (Auto) Baso % (Auto) Neut # (Auto) Lymph # (Auto) Maries # (Auto) Eos # (Auto) Baso # (Auto) PT INR APTT pO2 VBG pH VBG pCO2 VBG HCO3 VBG Total CO2 VBG O2 Sat (Calc) VBG Base Excess VBG Potassium Glucose Lactate Crit Value Called To Crit Value Called By Crit Value Read Back Blood Gas Notified Time Sodium Potassium Chloride Carbon Dioxide Anion Gap BUN Creatinine Est GFR ( Amer) Est GFR (Non-Af Amer) POC Glucose (mg/dL) 314 H 213 H Random Glucose Calcium Total Bilirubin AST ALT Alkaline Phosphatase Total Creatine Kinase 93 CK-MB (Mass) 2.34 Troponin I 0.0450 NT-Pro-B Natriuret Pep Total Protein Albumin Globulin Albumin/Globulin Ratio Lipase Venous Blood Potassium Alcohol, Quantitative B-Hydroxybutyrate
[2017-12-19 07:08] LABS: BLOOD UREA NITROGEN 21 mg/dL (9-20); CALCIUM 8.3 mg/dl (8.6-10.4); GFR AFRICAN-AMERICAN > 60; GFR NON-AFRICAN AMERICAN > 60
[2017-12-19] MEDS: Tiotropium 18 mcg Cap For Inhalation INH SCH (07:22)
[2017-12-19] MEDS: (Novolin R) Insulin Human Regular 100 units/ml vial SC SCH ×4 (08:26→21:32)
--- NOTE | 2017-12-19 09:52 | CP.PCM.CON ---
<Gerry England - Last Filed: 12/19/17 21:58> History of Present Illness - History of Present Illness History of Present Illness: Pulmonology Consult Note- Dr. Ken's service Reason for consult: shortness of breath 62 year old male with past medical history significant for asthma/COPD, HTN, DM , hypercholesterolemia presented to the ER with complaints of shortness of breath which started a day earlier. Patient states that he was also experiencing a heaviness in his chest at the time. He states that this was occurring all at rest. He denies experiencing shortness of breath with activity. On evaluation today, patient states that his symptoms resolved. He was concerned however about elevated blood sugars. He states that he has not had any medications for the past couple of months because he has not followed with his doctor for some time. PMHx- refer to above PSHX- denies Fam Hx- denies Medications- Patient last filled medications April 2017: Symbicort 160 , Ventolin inhaler, Metformin 750 mg BID, Gabapentin 300mg daily, Norvasc 10 mg daily Social- Denies smoking, alcohol or illicit drug use. 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 Ken (Has not visited office for awhile) Review of Systems - EENT Eyes: absent: Blurred Vision, Change in Vision - Cardiovascular Cardiovascular: Dyspnea - Respiratory Respiratory: Cough. absent: Hemoptysis - Gastrointestinal Gastrointestinal: absent: Nausea, Vomiting - Psychiatric Psychiatric: absent: Anxiety, Other - Hematologic/Lymphatic Hematologic: absent: Easy Bruising, Lymphadenopathy Past Patient History - Infectious Disease Hx of Infectious Diseases: None - Tetanus Immunizations Tetanus Immunization: Unknown - Past Medical History & Family History Past Medical History?: Yes - Past Social History Smoking Status: Heavy Smoker > 10 Cigarettes Daily - CARDIAC Hx Hypercholesterolemia: Yes Hx Hypertension: Yes - PULMONARY Hx Asthma: Yes Hx Chronic Obstructive Pulmonary Disease (COPD): Yes Hx Pneumonia: Yes - NEUROLOGICAL Hx Neurological Disorder: No - HEENT Hx HEENT Problems: No - RENAL Hx Chronic Kidney Disease: No - ENDOCRINE/METABOLIC Hx Endocrine Disorders: Yes Hx Diabetes Mellitus Type 2: Yes - HEMATOLOGICAL/ONCOLOGICAL Hx Blood Disorders: No - INTEGUMENTARY Hx Dermatological Problems: No - MUSCULOSKELETAL/RHEUMATOLOGICAL Hx Musculoskeletal Disorders: No Hx Falls: No - GASTROINTESTINAL Hx Pancreatitis: Yes - GENITOURINARY/GYNECOLOGICAL Hx Genitourinary Disorders: No - PSYCHIATRIC Hx Substance Use: No (denies plus denies smoking) - SURGICAL HISTORY Hx Surgeries: No - ANESTHESIA Hx Anesthesia: No Hx Anesthesia Reactions: No Hx Malignant Hyperthermia: No Meds Allergies/Adverse Reactions: Allergies Allergy/AdvReac Type Severity Reaction Status Date / Time No Known Allergies Allergy Verified 12/18/17 12:12 - Medications Medications: Current Medications Albuterol/Ipratropium (Duoneb 3 Mg/0.5 Mg (3 Ml) Ud) 3 ml INH RQ6 [facility] Last Admin: 12/19/17 07:22 Dose: 3 ml Enoxaparin Sodium (Lovenox) 40 mg SC DAILY [facility] Gabapentin (Neurontin) 300 mg PO BID [facility] Last Admin: 12/18/17 17:52 Dose: 300 mg Sodium Chloride (Sodium Chloride 0.9%) 1,000 mls @ 100 mls/hr IV .Q10H [facility] Last Admin: 12/19/17 00:46 Dose: Not Given Insulin Aspart (Novolog Mix 70/30 (70/30 Units/Ml)) 15 units SC BID [facility] Last Admin: 12/18/17 17:48 Dose: 15 units Insulin Human Regular (Novolin R) 0 unit SC ACHS [facility] PRN Reason: Protocol Last Admin: 12/19/17 08:26 Dose: 4 unit Losartan Potassium (Cozaar) 100 mg PO DAILY [facility] Last Admin: 12/18/17 16:27 Dose: 100 mg Metformin HCl (Glucophage Xr) 750 mg PO BID [facility] Last Admin: 12/18/17 17:48 Dose: 750 mg Metoprolol Succinate (Toprol Xl) 25 mg PO DAILY [facility] Rosuvastatin Calcium (Crestor) 10 mg PO HS [facility] Last Admin: 12/18/17 22:02 Dose: 10 mg Tiotropium [place] (Spiriva) 18 mcg INH RQ24 [facility] Last Admin: 12/19/17 07:22 Dose: 18 mcg Physical Exam - Constitutional Appears: No Acute Distress - Head Exam Head Exam: ATRAUMATIC - Eye Exam Eye Exam: EOMI, Normal appearance - ENT Exam ENT Exam: Normal Exam - Neck Exam Neck exam: Positive for: Full Rom - Respiratory Exam Respiratory Exam: absent: Wheezes Additional comments: crackles noted in bilateral lung jennings - Cardiovascular Exam Cardiovascular Exam: +S1, +S2 - Extremities Exam Extremities exam: Positive for: full ROM - Back Exam Back exam: FULL ROM - Psychiatric Exam Psychiatric exam: Normal Affect, Normal Mood - Skin Skin Exam: Dry, Warm Results - Vital Signs Recent Vital Signs: Last Vital Signs Temp 97.8 F 12/19/17 07:25 Pulse 84 12/19/17 07:25 Resp 18 12/19/17 07:25 BP 161/84 H 12/19/17 07:25 Pulse Ox 97 12/19/17 07:25 - Labs Result Diagrams: 12/19/17 17:31 12/19/17 17:31 Labs: Laboratory Results - last 24 hr 12/18/17 12/18/17 12/18/17 11:51 12:25 12:25 WBC 5.2 RBC 4.39 L Hgb 13.9 Hct 39.5 MCV 90.0 MCH 31.7 H MCHC 35.2 RDW 12.6 Plt Count 264 MPV 9.0 Neut % (Auto) 64.0 Lymph % (Auto) 25.8 Jerome % (Auto) 5.9 Eos % (Auto) 3.4 Baso % (Auto) 0.9 Neut # (Auto) 3.3 Lymph # (Auto) 1.3 Jerome # (Auto) 0.3 Eos # (Auto) 0.2 Baso # (Auto) 0.0 PT 9.9 INR 0.9 APTT 33 pO2 VBG pH VBG pCO2 VBG HCO3 VBG Total CO2 VBG O2 Sat (Calc) VBG Base Excess VBG Potassium Glucose Lactate Crit Value Called To Crit Value Called By Crit Value Read Back Blood Gas Notified Time Sodium Potassium Chloride Carbon Dioxide Anion Gap BUN Creatinine Est GFR ( Amer) Est GFR (Non-Af Amer) POC Glucose (mg/dL) > 500 H* Random Glucose Calcium Total Bilirubin AST ALT Alkaline Phosphatase Total Creatine Kinase CK-MB (Mass) Troponin I NT-Pro-B Natriuret Pep Total Protein Albumin Globulin Albumin/Globulin Ratio Lipase Venous Blood Potassium Alcohol, Quantitative B-Hydroxybutyrate 12/18/17 12/18/17 12/18/17 12:25 12:57 13:50 WBC RBC Hgb Hct MCV MCH MCHC RDW Plt Count MPV Neut % (Auto) Lymph % (Auto) Jerome % (Auto) Eos % (Auto) Baso % (Auto) Neut # (Auto) Lymph # (Auto) Jerome # (Auto) Eos # (Auto) Baso # (Auto) PT INR APTT pO2 25 L VBG pH 7.38 VBG pCO2 60 VBG HCO3 29.9 VBG Total CO2 37.3 H VBG O2 Sat (Calc) 50.4 VBG Base Excess 8.2 H VBG Potassium 4.4 Glucose 551 H* Lactate 2.1 Crit Value Called To David figueroa Crit Value Called By Eleazar walls rt Crit Value Read Back Y Blood Gas Notified Time 1303 Sodium 133 134.0 Potassium 3.7 Chloride 93 L 96.0 L Carbon Dioxide 33 H Anion Gap 11 BUN 19 Creatinine 0.8 Est GFR ( Amer) > 60 Est GFR (Non-Af Amer) > 60 POC Glucose (mg/dL) 353 H Random Glucose 527 H* D Calcium 8.7 Total Bilirubin 0.5 AST 26 ALT 7 L D Alkaline Phosphatase 101 Total Creatine Kinase 125 CK-MB (Mass) 3.63 H Troponin I 0.0440 NT-Pro-B Natriuret Pep 1650 H Total Protein 6.6 Albumin 3.2 L Globulin 3.4 Albumin/Globulin Ratio 0.9 L Lipase 85 Venous Blood Potassium 4.4 Alcohol, Quantitative < 10 B-Hydroxybutyrate 0.08 12/18/17 12/18/17 12/18/17 16:00 16:01 17:30 WBC RBC Hgb Hct MCV MCH MCHC RDW Plt Count MPV Neut % (Auto) Lymph % (Auto) Jerome % (Auto) Eos % (Auto) Baso % (Auto) Neut # (Auto) Lymph # (Auto) Jerome # (Auto) Eos # (Auto) Baso # (Auto) PT INR APTT pO2 VBG pH VBG pCO2 VBG HCO3 VBG Total CO2 VBG O2 Sat (Calc) VBG Base Excess VBG Potassium Glucose Lactate Crit Value Called To Crit Value Called By Crit Value Read Back Blood Gas Notified Time Sodium Potassium Chloride Carbon Dioxide Anion Gap BUN Creatinine Est GFR ( Amer) Est GFR (Non-Af Amer) POC Glucose (mg/dL) 428 H* 435 H* 492 H* Random Glucose Calcium Total Bilirubin AST ALT Alkaline Phosphatase Total Creatine Kinase CK-MB (Mass) Troponin I NT-Pro-B Natriuret Pep Total Protein Albumin Globulin Albumin/Globulin Ratio Lipase Venous Blood Potassium Alcohol, Quantitative B-Hydroxybutyrate 12/18/17 12/18/1718 17:32 19:06 19:50 WBC RBC Hgb Hct MCV MCH MCHC RDW Plt Count MPV Neut % (Auto) Lymph % (Auto) Jerome % (Auto) Eos % (Auto) Baso % (Auto) Neut # (Auto) Lymph # (Auto) Jerome # (Auto) Eos # (Auto) Baso # (Auto) PT INR APTT pO2 VBG pH VBG pCO2 VBG HCO3 VBG Total CO2 VBG O2 Sat (Calc) VBG Base Excess VBG Potassium Glucose Lactate Crit Value Called To Crit Value Called By Crit Value Read Back Blood Gas Notified Time Sodium Potassium Chloride Carbon Dioxide Anion Gap BUN Creatinine Est GFR ( Amer) Est GFR (Non-Af Amer) POC Glucose (mg/dL) 481 H* 332 H Random Glucose Calcium Total Bilirubin AST ALT Alkaline Phosphatase Total Creatine Kinase 96 CK-MB (Mass) 2.72 Troponin I 0.0450 NT-Pro-B Natriuret Pep Total Protein Albumin Globulin Albumin/Globulin Ratio Lipase Venous Blood Potassium Alcohol, Quantitative B-Hydroxybutyrate 12/18/17 12/19/17 12/19/17 22:00 01:38 02:25 WBC RBC Hgb Hct MCV MCH MCHC RDW Plt Count MPV Neut % (Auto) Lymph % (Auto) Jerome % (Auto) Eos % (Auto) Baso % (Auto) Neut # (Auto) Lymph # (Auto) Jerome # (Auto) Eos # (Auto) Baso # (Auto) PT INR APTT pO2 VBG pH VBG pCO2 VBG HCO3 VBG Total CO2 VBG O2 Sat (Calc) VBG Base Excess VBG Potassium Glucose Lactate Crit Value Called To Crit Value Called By Crit Value Read Back Blood Gas Notified Time Sodium Potassium Chloride Carbon Dioxide Anion Gap BUN Creatinine Est GFR ( Amer) Est GFR (Non-Af Amer) POC Glucose (mg/dL) 314 H 213 H Random Glucose Calcium Total Bilirubin AST ALT Alkaline Phosphatase Total Creatine Kinase 93 CK-MB (Mass) 2.34 Troponin I 0.0450 NT-Pro-B Natriuret Pep Total Protein Albumin Globulin Albumin/Globulin Ratio Lipase Venous Blood Potassium Alcohol, Quantitative B-Hydroxybutyrate 12/19/17 12/19/17 06:22 06:48 WBC RBC Hgb Hct MCV MCH MCHC RDW Plt Count MPV Neut % (Auto) Lymph % (Auto) Jerome % (Auto) Eos % (Auto) Baso % (Auto) Neut # (Auto) Lymph # (Auto) Jerome # (Auto) Eos # (Auto) Baso # (Auto) PT INR APTT pO2 VBG pH VBG pCO2 VBG HCO3 VBG Total CO2 VBG O2 Sat (Calc) VBG Base Excess VBG Potassium Glucose Lactate Crit Value Called To Crit Value Called By Crit Value Read Back Blood Gas Notified Time Sodium 139 Potassium 3.3 L Chloride 102 Carbon Dioxide 27 Anion Gap 14 BUN 21 H Creatinine 0.9 Est GFR ( Amer) > 60 Est GFR (Non-Af Amer) > 60 POC Glucose (mg/dL) 301 H Random Glucose 301 H Calcium 8.3 L Total Bilirubin AST ALT Alkaline Phosphatase Total Creatine Kinase CK-MB (Mass) Troponin I NT-Pro-B Natriuret Pep Total Protein Albumin Globulin Albumin/Globulin Ratio Lipase Venous Blood Potassium Alcohol, Quantitative B-Hydroxybutyrate Assessment & Plan (1) Asthma with COPD Assessment and Plan: afebrile, no leukocytosis Chest XRAY confirms biapical pleural thickening with upper lobe granulomatous changes; nodular densities noted at the right lung base Pt on Duonebs and spiriva currently- Improved clinical presentation Patient has been noncompliant in following up with outpatient doctor.- Discussed importance of following up with primary physician . Status: Chronic (2) Dyspnea Assessment and Plan: On Duonebs and Spiriva- May need to adjust depending on clinical presentation EVELYNE negative x3 (though upper limits of normal) Elevated BNP F/U Echo report Mine Safety Engineer (Dr. Perez) on the case- F/U recommendations Status: Acute (3) Diabetes Assessment and Plan: Elevated blood sugars Last Hgba1c in 2014 was 12.3 Will recheck HgbA1c in the AM Status: Chronic <Cedric Ken S - Last Filed: 12/20/17 16:53> Meds - Medications Medications: Current Medications Acetaminophen (Tylenol 325mg Tab) 650 mg PO Q6 PRN PRN Reason: Pain, moderate (4-7) Last Admin: 12/19/17 10:38 Dose: 650 mg Albuterol/Ipratropium (Duoneb 3 Mg/0.5 Mg (3 Ml) Ud) 3 ml INH RQ4 [facility] Last Admin: 12/20/17 15:24 Dose: 3 ml Dextrose (Dextrose 50% Inj) 0 ml IV STAT PRN; Protocol PRN Reason: Hypoglycemia Protocol Dextrose (Glutose 15) 0 gm PO ONCE PRN; Protocol PRN Reason: Hypoglycemia Protocol Enoxaparin Sodium (Lovenox) 40 mg SC DAILY [facility] Last Admin: 12/20/17 09:50 Dose: Not Given Gabapentin (Neurontin) 300 mg PO BID [facility] Last Admin: 12/20/17 09:47 Dose: 300 mg Glucagon (Glucagen Diagnostic Kit) 0 mg IM STAT PRN; Protocol PRN Reason: Hypoglycemia Protocol Sodium Chloride (Sodium Chloride 0.9%) 1,000 mls @ 100 mls/hr IV .Q10H [facility] Last Admin: 12/19/17 11:43 Dose: Not Given Ceftriaxone Sodium 1 gm/ (Sodium Chloride) 100 mls @ 100 mls/hr IVPB DAILY [facility] PRN Reason: Protocol Last Admin: 12/20/17 09:49 Dose: Not Given Azithromycin 500 mg/ Sodium (Chloride) 250 mls @ 250 mls/hr IVPB DAILY [facility] PRN Reason: Protocol Last Admin: 12/20/17 11:00 Dose: Not Given Dextrose (Dextrose 5% In Water 1000 Ml) 1,000 mls @ 0 mls/hr IV .Q0M PRN; Protocol; Per Protocol PRN Reason: Hypoglycemia Protocol Insulin Aspart (Novolog Mix 70/30 (70/30 Units/Ml)) 20 units SC AMPM [facility] Last Admin: 12/20/17 09:48 Dose: 20 units Insulin Human Regular (Novolin R) 0 unit SC ACHS [facility] PRN Reason: Protocol Last Admin: 12/20/17 12:23 Dose: 2 unit Ipratropium [place] (Atrovent) 0.5 mg IH RQ6 PRN PRN Reason: Shortness of Breath Last Admin: 12/20/17 05:55 Dose: 0.5 mg Losartan Potassium (Cozaar) 100 mg PO DAILY [facility] Last Admin: 12/20/17 09:50 Dose: 100 mg Metformin HCl (Glucophage Xr) 750 mg PO BID [facility] Last Admin: 12/19/17 10:37 Dose: 750 mg Methylprednisolone (Solu-Medrol) 40 mg IVP Q8H [facility] Last Admin: 12/20/17 12:24 Dose: 40 mg Metoprolol Succinate (Toprol Xl) 50 mg PO DAILY [facility] Last Admin: 12/20/17 09:47 Dose: 50 mg Nitroglycerin (Nitrostat Sl Tab) 0.4 mg SL Q5M PRN PRN Reason: chest pain Last Admin: 12/19/17 17:49 Dose: 0.4 mg Rosuvastatin Calcium (Crestor) 10 mg PO HS [facility] Last Admin: 12/19/17 21:34 Dose: 10 mg Tiotropium [place] (Spiriva) 18 mcg INH RQ24 [facility] Last Admin: 12/20/17 10:18 Dose: 18 mcg Results - Vital Signs Recent Vital Signs: Last Vital Signs Temp 99.3 F 12/20/17 07:20 Pulse 87 12/20/17 15:03 Resp 22 12/20/17 13:49 BP 159/85 H 12/20/17 07:20 Pulse Ox 97 12/20/17 13:49 - Labs Result Diagrams: 12/19/17 17:31 12/20/17 07:52 Labs: Laboratory Results - last 24 hr 12/19/17 12/19/17 12/19/17 16:48 17:31 17:31 WBC 4.5 L RBC 4.31 L Hgb 13.6 Hct 38.8 MCV 90.0 MCH 31.7 H MCHC 35.2 RDW 13.0 Plt Count 283 MPV 8.4 Neut % (Auto) 76.5 H Lymph % (Auto) 16.1 L Jerome % (Auto) 6.8 Eos % (Auto) 0.2 Baso % (Auto) 0.4 Neut # (Auto) 3.4 Lymph # (Auto) 0.7 L Jerome # (Auto) 0.3 Eos # (Auto) 0.0 Baso # (Auto) 0.0 Puncture Site pCO2 pO2 HCO3 ABG pH ABG Total CO2 ABG O2 Saturation ABG Base Excess Dre Test ABG Potassium A-a O2 Difference Respiratory Index Glucose Lactate Liter Flow FiO2 Sodium 140 Potassium 3.5 L Chloride 101 Carbon Dioxide 28 Anion Gap 15 BUN 27 H Creatinine 1.0 Est GFR ( Amer) > 60 Est GFR (Non-Af Amer) > 60 POC Glucose (mg/dL) 257 H Random Glucose 239 H Hemoglobin A1c Calcium 9.3 Total Bilirubin 0.6 AST 17 D ALT 16 L D Alkaline Phosphatase 105 Total Creatine Kinase 110 CK-MB (Mass) 3.90 H Troponin I 0.0360 NT-Pro-B Natriuret Pep 1590 H Total Protein 6.7 Albumin 3.3 L Globulin 3.4 Albumin/Globulin Ratio 1.0 Arterial Blood Potassium 12/19/17 12/19/17 12/20/17 17:39 21:01 05:59 WBC RBC Hgb Hct MCV MCH MCHC RDW Plt Count MPV Neut % (Auto) Lymph % (Auto) Jerome % (Auto) Eos % (Auto) Baso % (Auto) Neut # (Auto) Lymph # (Auto) Jerome # (Auto) Eos # (Auto) Baso # (Auto) Puncture Site Right rad pCO2 33 L pO2 105 H HCO3 26.2 ABG pH 7.48 H ABG Total CO2 25.6 ABG O2 Saturation 98.7 H ABG Base Excess 1.6 Dre Test Na ABG Potassium 3.0 L A-a O2 Difference 139.0 Respiratory Index 1.3 Glucose 206 H Lactate 1.9 Liter Flow 5.0 FiO2 40.0 Sodium 139.0 Potassium Chloride 107.0 Carbon Dioxide Anion Gap BUN Creatinine Est GFR ( Amer) Est GFR (Non-Af Amer) POC Glucose (mg/dL) 258 H 110 Random Glucose Hemoglobin A1c Calcium Total Bilirubin AST ALT Alkaline Phosphatase Total Creatine Kinase CK-MB (Mass) Troponin I NT-Pro-B Natriuret Pep Total Protein Albumin Globulin Albumin/Globulin Ratio Arterial Blood Potassium 3.0 L 12/20/17 12/20/17 12/20/17 07:52 07:52 11:16 WBC RBC Hgb Hct MCV MCH MCHC RDW Plt Count MPV Neut % (Auto) Lymph % (Auto) Jerome % (Auto) Eos % (Auto) Baso % (Auto) Neut # (Auto) Lymph # (Auto) Jerome # (Auto) Eos # (Auto) Baso # (Auto) Puncture Site pCO2 pO2 HCO3 ABG pH ABG Total CO2 ABG O2 Saturation ABG Base Excess Dre Test ABG Potassium A-a O2 Difference Respiratory Index Glucose Lactate Liter Flow FiO2 Sodium 141 Potassium 4.1 Chloride 106 Carbon Dioxide 28 Anion Gap 11 BUN 32 H Creatinine 1.0 Est GFR ( Amer) > 60 Est GFR (Non-Af Amer) > 60 POC Glucose (mg/dL) 203 H Random Glucose 174 H Hemoglobin A1c 13.1 H Calcium 9.0 Total Bilirubin AST ALT Alkaline Phosphatase Total Creatine Kinase CK-MB (Mass) Troponin I NT-Pro-B Natriuret Pep Total Protein Albumin Globulin Albumin/Globulin Ratio Arterial Blood Potassium Attending/Attestation - Attestation I have personally seen and examined this patient.: Yes I have fully participated in the care of the patient.: Yes I have reviewed all pertinent clinical information: Yes Notes (Text): Patient seen and examined. 62-year-old male admitted with uncontrolled diabetes, shortness of breath and chest pain On IV steroids, nebulizer treatment and IV antibiotics Glycemic control Cardiology evaluation for chest pain
[2017-12-19] MEDS: (Novolog Mix 70/30) Insulin Aspart/Insulin Aspar 100 units/ml SC SCH ×2 (10:39→17:55)
[2017-12-19] MEDS: Enoxaparin 40 mg Syringe SC SCH (10:40)
[2017-12-19] MEDS ORDERED: (Novolog Mix 70/30) Insulin Aspart/Insulin Aspar 100 units/ml SC SCH (13:15)
[2017-12-19] MEDS ORDERED: Potassium Chloride 20 mEq ER Tab PO ONE (16:24)
[2017-12-19] MEDS ORDERED: Glucagon Recombinant 1 mg Inj IM PRN (17:17)
[2017-12-19] MEDS ORDERED: Dextrose 50% SYRINGE Inj (50 ml) IV PRN (17:17)
[2017-12-19] MEDS: Ipratropium 0.02% Inhal Soln (0.5 mg/2.5 ml) UD IH PRN (17:20)
--- NOTE | 2017-12-19 17:23 | PCM.RRT ---
<Kunalmandie,Raudel - Last Filed: 12/19/17 17:20> BORDER INSPECTOR Nurses Assessment - Situation Date: 12/19/17 Time BORDER INSPECTOR was called: 17:20 BORDER INSPECTOR Location:: T Med/Surg BORDER INSPECTOR Reason for Call: Chest Pain, Respiratory Distress - IV IV Inserted during BORDER INSPECTOR?: No - Respiratory BORDER INSPECTOR Delivery Method: Nasal Cannula @L/min, Face Mask @% Oxygen Flow Rate: 100 Received Nebulizer Treatments: Yes (atrovent) Was the Patient Ventilated with Bag/Mask 100% O2?: Yes - Medication Medications Administered During BORDER INSPECTOR: solumedrol 125mg, Nitro .4mg sublingual atrovent breathing tx - Diagnostic Test Ordered EKG: Yes Chest X-Ray: Yes CT Scan: No - Stat Labs Ordered BORDER INSPECTOR Stat Labs Ordered: TROPONIN, LACTIC ACID, ABG CPR started during BORDER INSPECTOR?: No - Cowan Coma Scale Coma Scale Eye Opening: Spontaneous Coma Scale Motor: Obeys Commands Movement Coma Scale Verbal: Oriented Coma Scale Total: 15 - Recommendations 5) BORDER INSPECTOR Level of Care Recommendations: Remain in current setting Notifications: Attending Physician, Consultations I.Reason for BORDER INSPECTOR - A) Acute Change in Patient: (Select all that apply): Staff member or family is worried about patient - Constitutional Appears: Non-toxic - Head Head Exam: ATRAUMATIC - Eyes Eye Exam: EOMI - Respiratory Exam Respiratory Exam: Wheezes (extremely tight ). absent: Clear to Ausculation Bilateral - Cardiovascular Exam Cardiovascular Exam: Tachycardia, +S1, +S2 - GI/Abdominal Exam GI & Abdominal Exam: Soft, Normal Bowel Sounds - Neurological Exam Neurological Exam: Alert, Awake, Oriented x3 - Extremities Exam Extremities Exam: Normal Inspection. absent: Calf Tenderness, Pedal Edema Plan - Assessment of Findings&Treatment Plan EKG EVELYNE ABG/shock Chest X-Ray BNP CBC CMP Gave .4 sublingual nitro gave 125mg IV Solumedrol Atrovent breathing Inital Evelyne .0440; no elevations or decreases T wave inversions on two previous EKG with LVH; no evolution of T wave changes glucose 257 echo was already done; has not been read yet will give amlodipine 10mg now solumedro 40mg Q8H as per Dr. Ken repeat EKG shows similar LVH and T wave changes breathing is better after atrovent and steroids chest sounds more open on exam <Anna Iniguez - Last Filed: 12/19/17 18:08> Attending/Attestation - Attestation I have personally seen and examined this patient.: Yes I have fully participated in the care of the patient.: Yes I have reviewed all pertinent clinical information, including history, physical exam and plan: Yes Notes (Text): Patient was seen and examined by me. BORDER INSPECTOR was called for chest pain and sob. has history of copd On examination patient was short of breath with abdominal breathing. talking in sentence. complaining of chest tightness. His BP was high and tachycardic solumedrol and Nitro s/l given. patient improve with treatment. he was feeling better.chest x ray and ABG noted. Dr Cisneros spoke to Dr Ken and Dr Perez. we will follow troponin.EKG sinus tachy with T wave abnormality.D/w The resident. i agree with the documentation
[2017-12-19 17:34] LABS: BASO % 0.4 % (0.0-2.0); EOS % 0.2 % (0.0-4.0); HEMOGLOBIN 13.6 g/dL (12.0-18.0); LYMPH # 0.7 K/uL (1.0-4.3); LYMPH % 16.1 % (20.0-40.0); MEAN CORPUSCULAR HEMOGLOBIN 31.7 pg (27.0-31.0); MEAN CORPUSCULAR HGB CONC 35.2 g/dL (33.0-37.0); MEAN PLATELET VOLUME 8.4 fL (7.2-11.7); MONO # 0.3 K/uL (0.0-0.8); MONO % 6.8 % (0.0-10.0); NEUT # 3.4 K/uL (1.8-7.0); NEUT % 76.5 % (50.0-75.0); RBC 4.31 Mil/uL (4.40-5.90); WHITE BLOOD COUNT 4.5 K/uL (4.8-10.8)
[2017-12-19 17:42] LABS: ARTERIAL BLOOD GAS HCO3 26.2 mmol/L (21-28); ARTERIAL BLOOD GAS O2 SAT 98.7 % (95-98); ARTERIAL BLOOD GAS PCO2 33 mm/Hg (35-45); ARTERIAL BLOOD GAS PH 7.48 (7.35-7.45); ARTERIAL BLOOD GAS PO2 105 mm/Hg (80-100); ARTERIAL BLOOD GAS TCO2 25.6 mmol/L (22-28)
[2017-12-19 17:46] LABS: ALBUMIN 3.3 g/dL (3.5-5.0); ALT/SGPT 16 U/L (21-72); AST/SGOT 17 U/L (17-59); BLOOD UREA NITROGEN 27 mg/dL (9-20); CALCIUM 9.3 mg/dl (8.6-10.4); GFR AFRICAN-AMERICAN > 60; GFR NON-AFRICAN AMERICAN > 60
[2017-12-19 17:57] LABS: B-TYPE NATRIURETIC PEPTIDE 1590 pg/mL (0-900)
--- NOTE | 2017-12-19 18:21 | RAD ---
HISTORY: Chest pain. COMPARISON: December 18, 2017. FINDINGS: LUNGS: Involving right upper lobe infiltrate more confluent compared to the prior study. Increased interstitial markings left upper lobe and both lower lobes are also more prominent. PLEURA: No significant pleural effusion identified, no pneumothorax apparent. CARDIOVASCULAR: Normal. OSSEOUS STRUCTURES: No significant abnormalities. VISUALIZED UPPER ABDOMEN: Normal. OTHER FINDINGS: None. IMPRESSION: Evolving, more confluent right upper lobe infiltrate suspicious for pneumonia. More prominent interstitial lung disease described in greater detail above.
[2017-12-19] MEDS: Azithromycin 500 MG in Sodium Chloride 0.9% 250 ML IVPB SCH (18:56)
--- NOTE | 2017-12-19 20:07 | CARD ---
APPROVED REPORT EXAM: Two-dimensional and M-mode echocardiogram with Doppler and color Doppler. Other Information Quality : GoodRhythm : INDICATION Chest Pain Palpitations RISK FACTORS Hyperlipidemia 2D DIMENSIONS IVSd1.0 (0.7-1.1cm)LVDd4.0 (3.9-5.9cm) PWd1.1 (0.7-1.1cm)LVDs2.7 (2.5-4.0cm) FS (%) 31.2 %LVEF (%)59.6 (>50%) M-Mode DIMENSIONS RVDd1.73 (2.1-3.2cm)Left Atrium (MM)4.32 (2.5-4.0cm) IVSd0.91 (0.7-1.1cm)Aortic Root2.48 (2.2-3.7cm) LVDd5.01 (4.0-5.6cm)Aortic Cusp Exc.1.51 (1.5-2.0cm) PWd1.06 (0.7-1.1cm)FS (%) 49 % LVDs2.55 (2.0-3.8cm)LVEF (%)80 (>50%) Aortic Valve AoV Peak Dbdaflsv169.8cm/sAoV VTI43.5cmAO Peak GR.15mmHg AO Mean GR.10mmHgAI P 1/2 Cstt001kb Mitral Valve MV E Xvanogsf030.9cm/sMV A Azdixwvj793.8cm/sE/A ratio1.3 TDI E/Lateral E'0.0E/Medial E'0.0 Tricuspid Valve TR Peak Liljgahu382aq/sTR Peak Gr.49euMvGVVV09tcZv LEFT VENTRICLE The left ventricle is normal size. There is borderline concentric left ventricular hypertrophy. Left ventricle systolic function is normal. The Ejection Fraction is 60-65%. There is normal LV segmental wall motion. The left ventricular diastolic function is normal. There is no ventricular septal defect visualized. RIGHT VENTRICLE The right ventricle is normal size. The right ventricular systolic function is normal. ATRIA The left atrium is mildly dilated. The right atrium size is normal. AORTIC VALVE The aortic valve is mildly to moderately sclerotic. The aortic valve is tri-cuspid. There is mild aortic regurgitation. There is no aortic valvular stenosis. MITRAL VALVE Mitral annular calcification is mild. There is no evidence of mitral valve prolapse. Mitral regurgitation is mild. TRICUSPID VALVE The tricuspid valve is normal in structure. There is mild tricuspid regurgitation. Right ventricular systolic pressure is estimated at 40-50 mmHg. There is moderate pulmonary hypertension. PULMONIC VALVE The pulmonary valve is normal in structure. There is no pulmonic valvular regurgitation. GREAT VESSELS The aortic root is normal in size. The ascending aorta is normal in size. The IVC is normal in size and collapses >50% with inspiration. PERICARDIAL EFFUSION There is no pericardial effusion. <Conclusion> There is borderline concentric left ventricular hypertrophy. Left ventricle systolic function is normal. The Ejection Fraction is 60-65%. The left ventricular diastolic function is normal. There is mild aortic regurgitation. Mitral regurgitation is mild. There is moderate pulmonary hypertension.
[2017-12-19] MEDS ORDERED: Metoprolol Succinate 25 mg XL Tab PO SCH (22:00)
[2017-12-19] MEDS ORDERED: (Novolog) Insulin Aspart, Recombinant 100 u/ml 10 ml vial SC SCH (22:00)
--- NOTE | 2017-12-19 23:14 | CARD ---
APPROVED REPORT EKG Measurement Heart [id number] <Conclusion> Normal sinus rhythm Possible Left atrial enlargement Left ventricular hypertrophy T wave abnormality, consider lateral ischemia Abnormal ECG
--- NOTE | 2017-12-19 23:14 | CARD ---
APPROVED REPORT EKG Measurement Heart [id number] <Conclusion> Normal sinus rhythm Possible Left atrial enlargement Left ventricular hypertrophy T wave abnormality, consider lateral ischemia Prolonged QT Abnormal ECG
--- NOTE | 2017-12-20 | CP.PCM.CON ---
History of Present Illness - History of Present Illness History of Present Illness: Patient seen and evaluated Chest pain likely Bronchitis ECHO shows normal EF Will follow Past Patient History - Infectious Disease Hx of Infectious Diseases: None - Tetanus Immunizations Tetanus Immunization: Unknown - Past Medical History & Family History Past Medical History?: Yes - Past Social History Smoking Status: Heavy Smoker > 10 Cigarettes Daily - CARDIAC Hx Hypercholesterolemia: Yes Hx Hypertension: Yes - PULMONARY Hx Asthma: Yes Hx Chronic Obstructive Pulmonary Disease (COPD): Yes Hx Pneumonia: Yes - NEUROLOGICAL Hx Neurological Disorder: No - HEENT Hx HEENT Problems: No - RENAL Hx Chronic Kidney Disease: No - ENDOCRINE/METABOLIC Hx Endocrine Disorders: Yes Hx Diabetes Mellitus Type 2: Yes - HEMATOLOGICAL/ONCOLOGICAL Hx Blood Disorders: No - INTEGUMENTARY Hx Dermatological Problems: No - MUSCULOSKELETAL/RHEUMATOLOGICAL Hx Musculoskeletal Disorders: No Hx Falls: No - GASTROINTESTINAL Hx Pancreatitis: Yes - GENITOURINARY/GYNECOLOGICAL Hx Genitourinary Disorders: No - PSYCHIATRIC Hx Substance Use: No (denies plus denies smoking) - SURGICAL HISTORY Hx Surgeries: No - ANESTHESIA Hx Anesthesia: No Hx Anesthesia Reactions: No Hx Malignant Hyperthermia: No Meds Allergies/Adverse Reactions: Allergies Allergy/AdvReac Type Severity Reaction Status Date / Time No Known Allergies Allergy Verified 12/18/17 12:12 - Medications Medications: Current Medications Acetaminophen (Tylenol 325mg Tab) 650 mg PO Q6 PRN PRN Reason: Pain, moderate (4-7) Last Admin: 12/19/17 10:38 Dose: 650 mg Albuterol/Ipratropium (Duoneb 3 Mg/0.5 Mg (3 Ml) Ud) 3 ml INH RQ6 [facility] Last Admin: 12/19/17 19:47 Dose: Not Given Dextrose (Dextrose 50% Inj) 0 ml IV STAT PRN; Protocol PRN Reason: Hypoglycemia Protocol Dextrose (Glutose 15) 0 gm PO ONCE PRN; Protocol PRN Reason: Hypoglycemia Protocol Enoxaparin Sodium (Lovenox) 40 mg SC DAILY [facility] Last Admin: 12/19/17 10:40 Dose: 40 mg Gabapentin (Neurontin) 300 mg PO BID [facility] Last Admin: 12/19/17 17:49 Dose: 300 mg Glucagon (Glucagen Diagnostic Kit) 0 mg IM STAT PRN; Protocol PRN Reason: Hypoglycemia Protocol Sodium Chloride (Sodium Chloride 0.9%) 1,000 mls @ 100 mls/hr IV .Q10H [facility] Last Admin: 12/19/17 11:43 Dose: Not Given Ceftriaxone Sodium 1 gm/ (Sodium Chloride) 100 mls @ 100 mls/hr IVPB DAILY [facility] PRN Reason: Protocol Last Admin: 12/19/17 18:56 Dose: 100 mls/hr Azithromycin 500 mg/ Sodium (Chloride) 250 mls @ 250 mls/hr IVPB DAILY [facility] PRN Reason: Protocol Last Admin: 12/19/17 18:56 Dose: 250 mls/hr Dextrose (Dextrose 5% In Water 1000 Ml) 1,000 mls @ 0 mls/hr IV .Q0M PRN; Protocol; Per Protocol PRN Reason: Hypoglycemia Protocol Insulin Aspart (Novolog Mix 70/30 (70/30 Units/Ml)) 20 units SC AMPM [facility] Last Admin: 12/19/17 17:55 Dose: 20 units Insulin Human Regular (Novolin R) 0 unit SC ACHS [facility] PRN Reason: Protocol Last Admin: 12/19/17 21:32 Dose: Not Given Ipratropium [place] (Atrovent) 0.5 mg IH RQ6 PRN PRN Reason: Shortness of Breath Last Admin: 12/19/17 17:20 Dose: 0.5 mg Losartan Potassium (Cozaar) 100 mg PO DAILY [facility] Last Admin: 12/19/17 10:37 Dose: 100 mg Metformin HCl (Glucophage Xr) 750 mg PO BID [facility] Last Admin: 12/19/17 10:37 Dose: 750 mg Methylprednisolone (Solu-Medrol) 40 mg IVP Q8H [facility] Metoprolol Succinate (Toprol Xl) 25 mg PO DAILY [facility] Last Admin: 12/19/17 21:34 Dose: 25 mg Nitroglycerin (Nitrostat Sl Tab) 0.4 mg SL Q5M PRN PRN Reason: chest pain Last Admin: 12/19/17 17:49 Dose: 0.4 mg Rosuvastatin Calcium (Crestor) 10 mg PO HS [facility] Last Admin: 12/19/17 21:34 Dose: 10 mg Tiotropium [place] (Spiriva) 18 mcg INH RQ24 [facility] Last Admin: 12/19/17 07:22 Dose: 18 mcg Results - Vital Signs Recent Vital Signs: Last Vital Signs Temp 98.2 F 12/19/17 17:00 Pulse 101 H 12/19/17 21:34 Resp 20 12/19/17 17:00 BP 157/87 H 12/19/17 21:34 Pulse Ox 98 12/19/17 17:00 - Labs Result Diagrams: 12/19/17 17:31 12/19/17 17:31 Labs: Laboratory Results - last 24 hr 12/19/17 12/19/17 12/19/17 01:38 02:25 06:22 WBC RBC Hgb Hct MCV MCH MCHC RDW Plt Count MPV Neut % (Auto) Lymph % (Auto) [place] % (Auto) Eos % (Auto) Baso % (Auto) Neut # (Auto) Lymph # (Auto) [place] # (Auto) Eos # (Auto) Baso # (Auto) Puncture Site pCO2 pO2 HCO3 ABG pH ABG Total CO2 ABG O2 Saturation ABG Base Excess Dre Test ABG Potassium A-a O2 Difference Respiratory Index Glucose Lactate Liter Flow FiO2 Sodium Potassium Chloride Carbon Dioxide Anion Gap BUN Creatinine Est GFR ( Amer) Est GFR (Non-Af Amer) POC Glucose (mg/dL) 213 H 301 H Random Glucose Calcium Total Bilirubin AST ALT Alkaline Phosphatase Total Creatine Kinase 93 CK-MB (Mass) 2.34 Troponin I 0.0450 NT-Pro-B Natriuret Pep Total Protein Albumin Globulin Albumin/Globulin Ratio Arterial Blood Potassium 12/19/17 12/19/17 12/19/17 06:48 12:00 16:48 WBC RBC Hgb Hct MCV MCH MCHC RDW Plt Count MPV Neut % (Auto) Lymph % (Auto) [place] % (Auto) Eos % (Auto) Baso % (Auto) Neut # (Auto) Lymph # (Auto) [place] # (Auto) Eos # (Auto) Baso # (Auto) Puncture Site pCO2 pO2 HCO3 ABG pH ABG Total CO2 ABG O2 Saturation ABG Base Excess Dre Test ABG Potassium A-a O2 Difference Respiratory Index Glucose Lactate Liter Flow FiO2 Sodium 139 Potassium 3.3 L Chloride 102 Carbon Dioxide 27 Anion Gap 14 BUN 21 H Creatinine 0.9 Est GFR ( Amer) > 60 Est GFR (Non-Af Amer) > 60 POC Glucose (mg/dL) 384 H 257 H Random Glucose 301 H Calcium 8.3 L Total Bilirubin AST ALT Alkaline Phosphatase Total Creatine Kinase CK-MB (Mass) Troponin I NT-Pro-B Natriuret Pep Total Protein Albumin Globulin Albumin/Globulin Ratio Arterial Blood Potassium 12/19/17 12/19/17 12/19/17 17:31 17:31 17:39 WBC 4.5 L RBC 4.31 L Hgb 13.6 Hct 38.8 MCV 90.0 MCH 31.7 H MCHC 35.2 RDW 13.0 Plt Count 283 MPV 8.4 Neut % (Auto) 76.5 H Lymph % (Auto) 16.1 L [place] % (Auto) 6.8 Eos % (Auto) 0.2 Baso % (Auto) 0.4 Neut # (Auto) 3.4 Lymph # (Auto) 0.7 L [place] # (Auto) 0.3 Eos # (Auto) 0.0 Baso # (Auto) 0.0 Puncture Site Right rad pCO2 33 L pO2 105 H HCO3 26.2 ABG pH 7.48 H ABG Total CO2 25.6 ABG O2 Saturation 98.7 H ABG Base Excess 1.6 Dre Test Na ABG Potassium 3.0 L A-a O2 Difference 139.0 Respiratory Index 1.3 Glucose 206 H Lactate 1.9 Liter Flow 5.0 FiO2 40.0 Sodium 140 139.0 Potassium 3.5 L Chloride 101 107.0 Carbon Dioxide 28 Anion Gap 15 BUN 27 H Creatinine 1.0 Est GFR ( Amer) > 60 Est GFR (Non-Af Amer) > 60 POC Glucose (mg/dL) Random Glucose 239 H Calcium 9.3 Total Bilirubin 0.6 AST 17 D ALT 16 L D Alkaline Phosphatase 105 Total Creatine Kinase 110 CK-MB (Mass) 3.90 H Troponin I 0.0360 NT-Pro-B Natriuret Pep 1590 H Total Protein 6.7 Albumin 3.3 L Globulin 3.4 Albumin/Globulin Ratio 1.0 Arterial Blood Potassium 3.0 L 12/19/17 21:01 WBC RBC Hgb Hct MCV MCH MCHC RDW Plt Count MPV Neut % (Auto) Lymph % (Auto) [place] % (Auto) Eos % (Auto) Baso % (Auto) Neut # (Auto) Lymph # (Auto) [place] # (Auto) Eos # (Auto) Baso # (Auto) Puncture Site pCO2 pO2 HCO3 ABG pH ABG Total CO2 ABG O2 Saturation ABG Base Excess Dre Test ABG Potassium A-a O2 Difference Respiratory Index Glucose Lactate Liter Flow FiO2 Sodium Potassium Chloride Carbon Dioxide Anion Gap BUN Creatinine Est GFR ( Amer) Est GFR (Non-Af Amer) POC Glucose (mg/dL) 258 H Random Glucose Calcium Total Bilirubin AST ALT Alkaline Phosphatase Total Creatine Kinase CK-MB (Mass) Troponin I NT-Pro-B Natriuret Pep Total Protein Albumin Globulin Albumin/Globulin Ratio Arterial Blood Potassium
[2017-12-20] MEDS: Albuterol-Ipratrop 3 mg / 0.5 (3 ml) UD INH SCH ×6 (02:20→23:44)
[2017-12-20] MEDS: MethylPREDNISolone 40 mg Vial IVP SCH ×3 (04:22→19:17)
[2017-12-20] MEDS: Ipratropium 0.02% Inhal Soln (0.5 mg/2.5 ml) UD IH PRN (05:55)
[2017-12-20 08:13] LABS: BLOOD UREA NITROGEN 32 mg/dL (9-20); GFR AFRICAN-AMERICAN > 60; GFR NON-AFRICAN AMERICAN > 60
[2017-12-20] MEDS: (Novolin R) Insulin Human Regular 100 units/ml vial SC SCH ×4 (08:25→22:17)
[2017-12-20] MEDS: Metoprolol Succinate 50 mg XL Tab PO SCH (09:47)
[2017-12-20] MEDS: (Novolog Mix 70/30) Insulin Aspart/Insulin Aspar 100 units/ml SC SCH ×2 (09:48→17:36)
[2017-12-20] MEDS: Enoxaparin 40 mg Syringe SC SCH (09:50)
[2017-12-20] MEDS: Tiotropium 18 mcg Cap For Inhalation INH SCH (10:18)
--- NOTE | 2017-12-20 10:18 | CP.PCM.PN ---
<Gerry England - Last Filed: 12/20/17 14:06> Subjective - Date & Time of Evaluation Date of Evaluation: 12/20/17 Time of Evaluation: 09:50 - Subjective Subjective: Pulmonology Progress Note- Dr. Ken's service Patient seen and examined in no acute distress. ANAESTHETIC TECHNICIAN was called on the patient last evening after patient experienced shortness of breath. Patient states that it felt as if an elephant was sitting on his chest. He states that he still feels this from time to time. On later evaluation at 13:15, patient states that his breathing improved. Objective - Vital Signs/Intake and Output Vital Signs (last 24 hours): Temp Pulse Resp BP Pulse Ox 99.3 F 91 H 18 159/85 H 94 L 12/20/17 07:20 12/20/17 07:20 12/20/17 07:20 12/20/17 07:20 12/20/17 07:20 Intake and Output: 12/20/17 12/20/17 06:59 18:59 Intake Total 900 Output Total 800 Balance 100 - Medications Medications: Current Medications Acetaminophen (Tylenol 325mg Tab) 650 mg PO Q6 PRN PRN Reason: Pain, moderate (4-7) Last Admin: 12/19/17 10:38 Dose: 650 mg Albuterol/Ipratropium (Duoneb 3 Mg/0.5 Mg (3 Ml) Ud) 3 ml INH RQ4 [facility] Dextrose (Dextrose 50% Inj) 0 ml IV STAT PRN; Protocol PRN Reason: Hypoglycemia Protocol Dextrose (Glutose 15) 0 gm PO ONCE PRN; Protocol PRN Reason: Hypoglycemia Protocol Enoxaparin Sodium (Lovenox) 40 mg SC DAILY [facility] Last Admin: 12/20/17 09:50 Dose: Not Given Gabapentin (Neurontin) 300 mg PO BID [facility] Last Admin: 12/20/17 09:47 Dose: 300 mg Glucagon (Glucagen Diagnostic Kit) 0 mg IM STAT PRN; Protocol PRN Reason: Hypoglycemia Protocol Sodium Chloride (Sodium Chloride 0.9%) 1,000 mls @ 100 mls/hr IV .Q10H [facility] Last Admin: 12/19/17 11:43 Dose: Not Given Ceftriaxone Sodium 1 gm/ (Sodium Chloride) 100 mls @ 100 mls/hr IVPB DAILY [facility] PRN Reason: Protocol Last Admin: 12/20/17 09:49 Dose: Not Given Azithromycin 500 mg/ Sodium (Chloride) 250 mls @ 250 mls/hr IVPB DAILY [facility] PRN Reason: Protocol Last Admin: 12/19/17 18:56 Dose: 250 mls/hr Dextrose (Dextrose 5% In Water 1000 Ml) 1,000 mls @ 0 mls/hr IV .Q0M PRN; Protocol; Per Protocol PRN Reason: Hypoglycemia Protocol Insulin Aspart (Novolog Mix 70/30 (70/30 Units/Ml)) 20 units SC AMPM [facility] Last Admin: 12/20/17 09:48 Dose: 20 units Insulin Human Regular (Novolin R) 0 unit SC ACHS [facility] PRN Reason: Protocol Last Admin: 12/20/17 08:25 Dose: Not Given Ipratropium [place] (Atrovent) 0.5 mg IH RQ6 PRN PRN Reason: Shortness of Breath Last Admin: 12/20/17 05:55 Dose: 0.5 mg Losartan Potassium (Cozaar) 100 mg PO DAILY [facility] Last Admin: 12/20/17 09:50 Dose: 100 mg Metformin HCl (Glucophage Xr) 750 mg PO BID [facility] Last Admin: 12/19/17 10:37 Dose: 750 mg Methylprednisolone (Solu-Medrol) 40 mg IVP Q8H [facility] Last Admin: 12/20/17 04:22 Dose: 40 mg Metoprolol Succinate (Toprol Xl) 50 mg PO DAILY [facility] Last Admin: 12/20/17 09:47 Dose: 50 mg Nitroglycerin (Nitrostat Sl Tab) 0.4 mg SL Q5M PRN PRN Reason: chest pain Last Admin: 12/19/17 17:49 Dose: 0.4 mg Rosuvastatin Calcium (Crestor) 10 mg PO HS [facility] Last Admin: 12/19/17 21:34 Dose: 10 mg Tiotropium [place] (Spiriva) 18 mcg INH RQ24 [facility] Last Admin: 12/19/17 07:22 Dose: 18 mcg - Labs Labs: 12/19/17 17:31 12/20/17 07:52 PT 9.9 SECONDS (9.7-12.2) 12/18/17 12:25 INR 0.9 12/18/17 12:25 APTT 33 SECONDS (21-34) 12/18/17 12:25 - Constitutional Appears: Non-toxic, No Acute Distress - Head Exam Head Exam: ATRAUMATIC, NORMAL INSPECTION - Eye Exam Eye Exam: EOMI - ENT Exam ENT Exam: Mucous Membranes Moist - Neck Exam Neck Exam: Full ROM - Respiratory Exam Respiratory Exam: Decreased Breath Sounds, Rhonchi (faint). absent: Wheezes, Respiratory Distress - Cardiovascular Exam Cardiovascular Exam: +S1, +S2 - GI/Abdominal Exam GI & Abdominal Exam: Soft - Extremities Exam Extremities Exam: Full ROM - Back Exam Back Exam: Full ROM - Neurological Exam Neurological Exam: Alert, Awake, Oriented x3 - Psychiatric Exam Psychiatric exam: Agitated - Skin Skin Exam: Dry, Warm Assessment and Plan (1) Asthma with COPD Status: Chronic (2) Dyspnea Status: Acute (3) Diabetes Status: Chronic - Assessment and Plan (Free Text) Assessment: (1) Asthma with COPD Assessment and Plan: afebrile, no leukocytosis Chest XRAY confirms biapical pleural thickening with upper lobe granulomatous changes; nodular densities noted at the right lung base Duonebs frequency increased to Q4 Solumedrol Q8H Patient has been noncompliant in following up with outpatient doctor.- Discussed importance of following up with primary physician . Monitor Status: Chronic (2) Dyspnea Assessment and Plan: On Duonebs and Spiriva- May need to adjust depending on clinical presentation EVELYNE negative x3 (though upper limits of normal) Repeat EVELYNE negative ( downtrending) Elevated BNP Echo EF 80% Employee Benefits Director (Dr. Perez) on the case- F/U recommendations Status: Acute (3) Diabetes Assessment and Plan: Elevated blood sugars Hgba1c 13.1 Patient needs better outpatient control. Will need to be on insulin therapy at home. Status: Chronic <Cedric Ken S - Last Filed: 12/20/17 16:51> Objective - Vital Signs/Intake and Output Vital Signs (last 24 hours): Temp Pulse Resp BP Pulse Ox 99.3 F 87 22 159/85 H 97 12/20/17 07:20 12/20/17 15:03 12/20/17 13:49 12/20/17 07:20 12/20/17 13:49 Intake and Output: 12/20/17 12/20/17 06:59 18:59 Intake Total 900 Output Total 800 Balance 100 - Medications Medications: Current Medications Acetaminophen (Tylenol 325mg Tab) 650 mg PO Q6 PRN PRN Reason: Pain, moderate (4-7) Last Admin: 12/19/17 10:38 Dose: 650 mg Albuterol/Ipratropium (Duoneb 3 Mg/0.5 Mg (3 Ml) Ud) 3 ml INH RQ4 [facility] Last Admin: 12/20/17 15:24 Dose: 3 ml Dextrose (Dextrose 50% Inj) 0 ml IV STAT PRN; Protocol PRN Reason: Hypoglycemia Protocol Dextrose (Glutose 15) 0 gm PO ONCE PRN; Protocol PRN Reason: Hypoglycemia Protocol Enoxaparin Sodium (Lovenox) 40 mg SC DAILY [facility] Last Admin: 12/20/17 09:50 Dose: Not Given Gabapentin (Neurontin) 300 mg PO BID [facility] Last Admin: 12/20/17 09:47 Dose: 300 mg Glucagon (Glucagen Diagnostic Kit) 0 mg IM STAT PRN; Protocol PRN Reason: Hypoglycemia Protocol Sodium Chloride (Sodium Chloride 0.9%) 1,000 mls @ 100 mls/hr IV .Q10H [facility] Last Admin: 12/19/17 11:43 Dose: Not Given Ceftriaxone Sodium 1 gm/ (Sodium Chloride) 100 mls @ 100 mls/hr IVPB DAILY [facility] PRN Reason: Protocol Last Admin: 12/20/17 09:49 Dose: Not Given Azithromycin 500 mg/ Sodium (Chloride) 250 mls @ 250 mls/hr IVPB DAILY [facility] PRN Reason: Protocol Last Admin: 12/20/17 11:00 Dose: Not Given Dextrose (Dextrose 5% In Water 1000 Ml) 1,000 mls @ 0 mls/hr IV .Q0M PRN; Protocol; Per Protocol PRN Reason: Hypoglycemia Protocol Insulin Aspart (Novolog Mix 70/30 (70/30 Units/Ml)) 20 units SC AMPM [facility] Last Admin: 12/20/17 09:48 Dose: 20 units Insulin Human Regular (Novolin R) 0 unit SC ACHS [facility] PRN Reason: Protocol Last Admin: 12/20/17 12:23 Dose: 2 unit Ipratropium [place] (Atrovent) 0.5 mg IH RQ6 PRN PRN Reason: Shortness of Breath Last Admin: 12/20/17 05:55 Dose: 0.5 mg Losartan Potassium (Cozaar) 100 mg PO DAILY [facility] Last Admin: 12/20/17 09:50 Dose: 100 mg Metformin HCl (Glucophage Xr) 750 mg PO BID [facility] Last Admin: 12/19/17 10:37 Dose: 750 mg Methylprednisolone (Solu-Medrol) 40 mg IVP Q8H [facility] Last Admin: 12/20/17 12:24 Dose: 40 mg Metoprolol Succinate (Toprol Xl) 50 mg PO DAILY [facility] Last Admin: 12/20/17 09:47 Dose: 50 mg Nitroglycerin (Nitrostat Sl Tab) 0.4 mg SL Q5M PRN PRN Reason: chest pain Last Admin: 12/19/17 17:49 Dose: 0.4 mg Rosuvastatin Calcium (Crestor) 10 mg PO HS [facility] Last Admin: 12/19/17 21:34 Dose: 10 mg Tiotropium [place] (Spiriva) 18 mcg INH RQ24 [facility] Last Admin: 12/20/17 10:18 Dose: 18 mcg - Labs Labs: 12/19/17 17:31 12/20/17 07:52 PT 9.9 SECONDS (9.7-12.2) 12/18/17 12:25 INR 0.9 12/18/17 12:25 APTT 33 SECONDS (21-34) 12/18/17 12:25 Attending/Attestation - Attestation I have personally seen and examined this patient.: Yes I have fully participated in the care of the patient.: Yes I have reviewed all pertinent clinical information, including history, physical exam and plan: Yes Notes (Text): 12/20/17 16:49 Patient seen and examined Status post rapid response yesterday for shortness of breath On IV steroids Continue nebulizer treatment Glycemic control Seen by cardiology On IV antibiotics for possible pneumonia
[2017-12-20] MEDS: Azithromycin 500 MG in Sodium Chloride 0.9% 250 ML IVPB SCH (11:00)
--- NOTE | 2017-12-20 12:36 | CARD ---
APPROVED REPORT EKG Measurement Heart [id number] <Conclusion> Sinus tachycardia Minimal voltage criteria for LVH, may be normal variant Nonspecific T wave abnormality Abnormal ECG
--- NOTE | 2017-12-20 13:54 | CP.PCM.PN ---
Subjective - Date & Time of Evaluation Date of Evaluation: 12/19/17 Time of Evaluation: 19:00 - Subjective Subjective: Patient seen and examined in no acute distress. CAR MECHANIC HELPER was called on the patient last evening after patient experienced shortness of breath. Patient states that it felt as if an elephant was sitting on his chest. He states that he still feels this from time to time. Objective - Vital Signs/Intake and Output Vital Signs (last 24 hours): Temp Pulse Resp BP Pulse Ox 99.3 F 91 H 18 159/85 H 94 L 12/20/17 07:20 12/20/17 07:20 12/20/17 07:20 12/20/17 07:20 12/20/17 07:20 Intake and Output: 12/20/17 12/20/17 06:59 18:59 Intake Total 900 Output Total 800 Balance 100 - Medications Medications: Current Medications Acetaminophen (Tylenol 325mg Tab) 650 mg PO Q6 PRN PRN Reason: Pain, moderate (4-7) Last Admin: 12/19/17 10:38 Dose: 650 mg Albuterol/Ipratropium (Duoneb 3 Mg/0.5 Mg (3 Ml) Ud) 3 ml INH RQ4 [facility] Last Admin: 12/20/17 11:00 Dose: Not Given Dextrose (Dextrose 50% Inj) 0 ml IV STAT PRN; Protocol PRN Reason: Hypoglycemia Protocol Dextrose (Glutose 15) 0 gm PO ONCE PRN; Protocol PRN Reason: Hypoglycemia Protocol Enoxaparin Sodium (Lovenox) 40 mg SC DAILY [facility] Last Admin: 12/20/17 09:50 Dose: Not Given Gabapentin (Neurontin) 300 mg PO BID [facility] Last Admin: 12/20/17 09:47 Dose: 300 mg Glucagon (Glucagen Diagnostic Kit) 0 mg IM STAT PRN; Protocol PRN Reason: Hypoglycemia Protocol Sodium Chloride (Sodium Chloride 0.9%) 1,000 mls @ 100 mls/hr IV .Q10H [facility] Last Admin: 12/19/17 11:43 Dose: Not Given Ceftriaxone Sodium 1 gm/ (Sodium Chloride) 100 mls @ 100 mls/hr IVPB DAILY [facility] PRN Reason: Protocol Last Admin: 12/20/17 09:49 Dose: Not Given Azithromycin 500 mg/ Sodium (Chloride) 250 mls @ 250 mls/hr IVPB DAILY [facility] PRN Reason: Protocol Last Admin: 12/20/17 11:00 Dose: Not Given Dextrose (Dextrose 5% In Water 1000 Ml) 1,000 mls @ 0 mls/hr IV .Q0M PRN; Protocol; Per Protocol PRN Reason: Hypoglycemia Protocol Insulin Aspart (Novolog Mix 70/30 (70/30 Units/Ml)) 20 units SC AMPM [facility] Last Admin: 12/20/17 09:48 Dose: 20 units Insulin Human Regular (Novolin R) 0 unit SC ACHS [facility] PRN Reason: Protocol Last Admin: 12/20/17 12:23 Dose: 2 unit Ipratropium [place] (Atrovent) 0.5 mg IH RQ6 PRN PRN Reason: Shortness of Breath Last Admin: 12/20/17 05:55 Dose: 0.5 mg Losartan Potassium (Cozaar) 100 mg PO DAILY [facility] Last Admin: 12/20/17 09:50 Dose: 100 mg Metformin HCl (Glucophage Xr) 750 mg PO BID [facility] Last Admin: 12/19/17 10:37 Dose: 750 mg Methylprednisolone (Solu-Medrol) 40 mg IVP Q8H [facility] Last Admin: 12/20/17 12:24 Dose: 40 mg Metoprolol Succinate (Toprol Xl) 50 mg PO DAILY [facility] Last Admin: 12/20/17 09:47 Dose: 50 mg Nitroglycerin (Nitrostat Sl Tab) 0.4 mg SL Q5M PRN PRN Reason: chest pain Last Admin: 12/19/17 17:49 Dose: 0.4 mg Rosuvastatin Calcium (Crestor) 10 mg PO HS [facility] Last Admin: 12/19/17 21:34 Dose: 10 mg Tiotropium [place] (Spiriva) 18 mcg INH RQ24 [facility] Last Admin: 12/20/17 10:18 Dose: 18 mcg - Labs Labs: 12/19/17 17:31 12/20/17 07:52 PT 9.9 SECONDS (9.7-12.2) 12/18/17 12:25 INR 0.9 12/18/17 12:25 APTT 33 SECONDS (21-34) 12/18/17 12:25
--- NOTE | 2017-12-20 18:22 | CT ---
PROCEDURE: CT Chest without contrast HISTORY: Pneumonia. COMPARISON: 04/02/2015 CT thorax 12/19/2017 single-view chest TECHNIQUE: Contiguous axial images were obtained through the chest without intravenous contrast enhancement. Sagittal and coronal reconstructions were performed. Radiation dose (DLP): 295.66 mGy-cm. This CT exam was performed using one or more of the following dose reduction techniques: Automated exposure control, adjustment of the mA and/or kV according to patient size, and/or use of iterative reconstruction technique. FINDINGS: LUNGS: Alveolar consolidative changes primarily affecting posterior segment right upper lobe. Sparing of the right middle lobe. Consolidative changes are present both lower lobes. Underlying parabronchial thickening/bronchitic changes a finding identified on the prior CT scan. MEDIASTINUM: Unremarkable thoracic aorta. No aneurysm. Normal sized heart. Main pulmonary artery unremarkable. No vascular congestion. No significant lymphadenopathy. Small mediastinal lymph nodes again identified unchanged compared to the prior study. PLEURA: Small bilateral pleural effusions. BONES: No fracture. No destructive lesion. UPPER ABDOMEN: Grossly unremarkable. OTHER FINDINGS: None. IMPRESSION: Multifocal infiltrates/pneumonia affecting right upper lobe and both lower lobes. Small bilateral pleural effusions.
[2017-12-21] MEDS: Albuterol-Ipratrop 3 mg / 0.5 (3 ml) UD INH SCH ×6 (03:13→19:26)
[2017-12-21] MEDS: MethylPREDNISolone 40 mg Vial IVP SCH ×3 (04:11→20:20)
[2017-12-21] MEDS: Sodium Chloride 0.9% 1,000 ML IV SCH (04:14)
[2017-12-21] MEDS: Tiotropium 18 mcg Cap For Inhalation INH SCH (07:27)
--- NOTE | 2017-12-21 07:53 | CP.PCM.PN ---
Subjective - Date & Time of Evaluation Date of Evaluation: 12/20/17 Time of Evaluation: 15:55 - Subjective Subjective: Patient seen and evaluated Better No cardiac intervention at this time Objective - Vital Signs/Intake and Output Vital Signs (last 24 hours): Temp Pulse Resp BP Pulse Ox 97.8 F 82 20 169/90 H 95 12/21/17 04:10 12/21/17 04:10 12/21/17 04:10 12/21/17 04:10 12/21/17 04:10 - Medications Medications: Current Medications Acetaminophen (Tylenol 325mg Tab) 650 mg PO Q6 PRN PRN Reason: Pain, moderate (4-7) Last Admin: 12/19/17 10:38 Dose: 650 mg Albuterol/Ipratropium (Duoneb 3 Mg/0.5 Mg (3 Ml) Ud) 3 ml INH RQ4 [facility] Last Admin: 12/21/17 07:27 Dose: 3 ml Dextrose (Dextrose 50% Inj) 0 ml IV STAT PRN; Protocol PRN Reason: Hypoglycemia Protocol Dextrose (Glutose 15) 0 gm PO ONCE PRN; Protocol PRN Reason: Hypoglycemia Protocol Enoxaparin Sodium (Lovenox) 40 mg SC DAILY [facility] Last Admin: 12/20/17 09:50 Dose: Not Given Gabapentin (Neurontin) 300 mg PO BID [facility] Last Admin: 12/20/17 17:36 Dose: 300 mg Glucagon (Glucagen Diagnostic Kit) 0 mg IM STAT PRN; Protocol PRN Reason: Hypoglycemia Protocol Sodium Chloride (Sodium Chloride 0.9%) 1,000 mls @ 100 mls/hr IV .Q10H [facility] Last Admin: 12/21/17 04:14 Dose: Not Given Ceftriaxone Sodium 1 gm/ (Sodium Chloride) 100 mls @ 100 mls/hr IVPB DAILY [facility] PRN Reason: Protocol Last Admin: 12/20/17 09:49 Dose: Not Given Azithromycin 500 mg/ Sodium (Chloride) 250 mls @ 250 mls/hr IVPB DAILY [facility] PRN Reason: Protocol Last Admin: 12/20/17 11:00 Dose: Not Given Dextrose (Dextrose 5% In Water 1000 Ml) 1,000 mls @ 0 mls/hr IV .Q0M PRN; Protocol; Per Protocol PRN Reason: Hypoglycemia Protocol Insulin Aspart (Novolog Mix 70/30 (70/30 Units/Ml)) 20 units SC AMPM [facility] Last Admin: 12/20/17 17:36 Dose: 20 units Insulin Human Regular (Novolin R) 0 unit SC ACHS [facility] PRN Reason: Protocol Last Admin: 12/20/17 22:17 Dose: Not Given Ipratropium [place] (Atrovent) 0.5 mg IH RQ6 PRN PRN Reason: Shortness of Breath Last Admin: 12/20/17 05:55 Dose: 0.5 mg Losartan Potassium (Cozaar) 100 mg PO DAILY [facility] Last Admin: 12/20/17 09:50 Dose: 100 mg Metformin HCl (Glucophage Xr) 750 mg PO BID [facility] Last Admin: 12/19/17 10:37 Dose: 750 mg Methylprednisolone (Solu-Medrol) 40 mg IVP Q8H [facility] Last Admin: 12/21/17 04:11 Dose: 40 mg Metoprolol Succinate (Toprol Xl) 50 mg PO DAILY [facility] Last Admin: 12/20/17 09:47 Dose: 50 mg Nitroglycerin (Nitrostat Sl Tab) 0.4 mg SL Q5M PRN PRN Reason: chest pain Last Admin: 12/19/17 17:49 Dose: 0.4 mg Rosuvastatin Calcium (Crestor) 10 mg PO HS [facility] Last Admin: 12/20/17 22:08 Dose: 10 mg Tiotropium [place] (Spiriva) 18 mcg INH RQ24 [facility] Last Admin: 12/21/17 07:27 Dose: 18 mcg - Labs Labs: 12/19/17 17:31 12/20/17 07:52 PT 9.9 SECONDS (9.7-12.2) 12/18/17 12:25 INR 0.9 12/18/17 12:25 APTT 33 SECONDS (21-34) 12/18/17 12:25
[2017-12-21] MEDS: (Novolin R) Insulin Human Regular 100 units/ml vial SC SCH ×4 (08:39→22:16)
--- NOTE | 2017-12-21 09:14 | CP.PCM.PN ---
Subjective - Date & Time of Evaluation Date of Evaluation: 12/20/17 Time of Evaluation: 18:00 - Subjective Subjective: Pt is seen and examined, feeling [place], less cough, less sob, Echo shows normal LV EF, no fever, chills Objective - Vital Signs/Intake and Output Vital Signs (last 24 hours): Temp Pulse Resp BP Pulse Ox 98.1 F 93 H 20 171/98 H 98 12/21/17 07:10 12/21/17 07:10 12/21/17 07:10 12/21/17 07:10 12/21/17 07:10 - Medications Medications: Current Medications Acetaminophen (Tylenol 325mg Tab) 650 mg PO Q6 PRN PRN Reason: Pain, moderate (4-7) Last Admin: 12/19/17 10:38 Dose: 650 mg Albuterol/Ipratropium (Duoneb 3 Mg/0.5 Mg (3 Ml) Ud) 3 ml INH RQ4 [facility] Last Admin: 12/21/17 07:27 Dose: 3 ml Dextrose (Dextrose 50% Inj) 0 ml IV STAT PRN; Protocol PRN Reason: Hypoglycemia Protocol Dextrose (Glutose 15) 0 gm PO ONCE PRN; Protocol PRN Reason: Hypoglycemia Protocol Enoxaparin Sodium (Lovenox) 40 mg SC DAILY [facility] Last Admin: 12/20/17 09:50 Dose: Not Given Gabapentin (Neurontin) 300 mg PO BID [facility] Last Admin: 12/20/17 17:36 Dose: 300 mg Glucagon (Glucagen Diagnostic Kit) 0 mg IM STAT PRN; Protocol PRN Reason: Hypoglycemia Protocol Sodium Chloride (Sodium Chloride 0.9%) 1,000 mls @ 100 mls/hr IV .Q10H [facility] Last Admin: 12/21/17 04:14 Dose: Not Given Ceftriaxone Sodium 1 gm/ (Sodium Chloride) 100 mls @ 100 mls/hr IVPB DAILY [facility] PRN Reason: Protocol Last Admin: 12/20/17 09:49 Dose: Not Given Azithromycin 500 mg/ Sodium (Chloride) 250 mls @ 250 mls/hr IVPB DAILY [facility] PRN Reason: Protocol Last Admin: 12/20/17 11:00 Dose: Not Given Dextrose (Dextrose 5% In Water 1000 Ml) 1,000 mls @ 0 mls/hr IV .Q0M PRN; Protocol; Per Protocol PRN Reason: Hypoglycemia Protocol Insulin Aspart (Novolog Mix 70/30 (70/30 Units/Ml)) 20 units SC AMPM [facility] Last Admin: 12/20/17 17:36 Dose: 20 units Insulin Human Regular (Novolin R) 0 unit SC ACHS [facility] PRN Reason: Protocol Last Admin: 12/21/17 08:39 Dose: 3 unit Ipratropium [place] (Atrovent) 0.5 mg IH RQ6 PRN PRN Reason: Shortness of Breath Last Admin: 12/20/17 05:55 Dose: 0.5 mg Losartan Potassium (Cozaar) 100 mg PO DAILY [facility] Last Admin: 12/20/17 09:50 Dose: 100 mg Metformin HCl (Glucophage Xr) 750 mg PO BID [facility] Last Admin: 12/19/17 10:37 Dose: 750 mg Methylprednisolone (Solu-Medrol) 40 mg IVP Q8H [facility] Last Admin: 12/21/17 04:11 Dose: 40 mg Metoprolol Succinate (Toprol Xl) 50 mg PO DAILY [facility] Last Admin: 12/20/17 09:47 Dose: 50 mg Nitroglycerin (Nitrostat Sl Tab) 0.4 mg SL Q5M PRN PRN Reason: chest pain Last Admin: 12/19/17 17:49 Dose: 0.4 mg Rosuvastatin Calcium (Crestor) 10 mg PO HS [facility] Last Admin: 12/20/17 22:08 Dose: 10 mg Tiotropium [place] (Spiriva) 18 mcg INH RQ24 [facility] Last Admin: 12/21/17 07:27 Dose: 18 mcg - Labs Labs: 12/19/17 17:31 12/20/17 07:52 PT 9.9 SECONDS (9.7-12.2) 12/18/17 12:25 INR 0.9 12/18/17 12:25 APTT 33 SECONDS (21-34) 12/18/17 12:25 - Constitutional Appears: No Acute Distress - Head Exam Head Exam: ATRAUMATIC, NORMAL INSPECTION, NORMOCEPHALIC - Eye Exam Eye Exam: EOMI, Normal appearance, PERRL Pupil Exam: NORMAL ACCOMODATION, PERRL - Respiratory Exam Respiratory Exam: Decreased Breath Sounds, Rales, Rhonchi - Cardiovascular Exam Cardiovascular Exam: REGULAR RHYTHM, +S1, +S2. absent: Murmur - GI/Abdominal Exam GI & Abdominal Exam: Soft, Normal Bowel Sounds. absent: Tenderness - Rectal Exam Rectal Exam: Deferred Assessment and Plan (1) Asthma with COPD Assessment & Plan: rule out pnemonia/ interstitial lung disease antibiotics steroids nebulizer Rx Status: Chronic (2) COPD exacerbation Status: Acute (3) Diabetes mellitus Assessment & Plan: Accucheck, sliding scale insuli Status: Acute (4) Hypertension Status: Chronic
--- NOTE | 2017-12-21 09:32 | CP.PCM.PN ---
<Gerry England - Last Filed: 12/21/17 14:23> Subjective - Date & Time of Evaluation Date of Evaluation: 12/21/17 Time of Evaluation: 09:55 - Subjective Subjective: Pulmonology Progress Note- Dr. Ken's service Patient seen and examined in no apparent acute distress. Patient states that he feels better today. He states that he does experience intermittent chest tightness off and on. He has been obtaining nebulizer treatments. Patient inquired about when he will be discharged home. Objective - Vital Signs/Intake and Output Vital Signs (last 24 hours): Temp Pulse Resp BP Pulse Ox 98.1 F 93 H 20 171/98 H 98 12/21/17 07:10 12/21/17 07:10 12/21/17 07:10 12/21/17 07:10 12/21/17 07:10 - Medications Medications: Current Medications Acetaminophen (Tylenol 325mg Tab) 650 mg PO Q6 PRN PRN Reason: Pain, moderate (4-7) Last Admin: 12/19/17 10:38 Dose: 650 mg Albuterol/Ipratropium (Duoneb 3 Mg/0.5 Mg (3 Ml) Ud) 3 ml INH RQ4 [facility] Last Admin: 12/21/17 07:27 Dose: 3 ml Dextrose (Dextrose 50% Inj) 0 ml IV STAT PRN; Protocol PRN Reason: Hypoglycemia Protocol Dextrose (Glutose 15) 0 gm PO ONCE PRN; Protocol PRN Reason: Hypoglycemia Protocol Enoxaparin Sodium (Lovenox) 40 mg SC DAILY [facility] Last Admin: 12/20/17 09:50 Dose: Not Given Gabapentin (Neurontin) 300 mg PO BID [facility] Last Admin: 12/20/17 17:36 Dose: 300 mg Glucagon (Glucagen Diagnostic Kit) 0 mg IM STAT PRN; Protocol PRN Reason: Hypoglycemia Protocol Sodium Chloride (Sodium Chloride 0.9%) 1,000 mls @ 100 mls/hr IV .Q10H [facility] Last Admin: 12/21/17 04:14 Dose: Not Given Ceftriaxone Sodium 1 gm/ (Sodium Chloride) 100 mls @ 100 mls/hr IVPB DAILY [facility] PRN Reason: Protocol Last Admin: 12/20/17 09:49 Dose: Not Given Azithromycin 500 mg/ Sodium (Chloride) 250 mls @ 250 mls/hr IVPB DAILY [facility] PRN Reason: Protocol Last Admin: 12/20/17 11:00 Dose: Not Given Dextrose (Dextrose 5% In Water 1000 Ml) 1,000 mls @ 0 mls/hr IV .Q0M PRN; Protocol; Per Protocol PRN Reason: Hypoglycemia Protocol Insulin Aspart (Novolog Mix 70/30 (70/30 Units/Ml)) 20 units SC AMPM [facility] Last Admin: 12/20/17 17:36 Dose: 20 units Insulin Human Regular (Novolin R) 0 unit SC ACHS [facility] PRN Reason: Protocol Last Admin: 12/21/17 08:39 Dose: 3 unit Ipratropium [place] (Atrovent) 0.5 mg IH RQ6 PRN PRN Reason: Shortness of Breath Last Admin: 12/20/17 05:55 Dose: 0.5 mg Losartan Potassium (Cozaar) 100 mg PO DAILY [facility] Last Admin: 12/20/17 09:50 Dose: 100 mg Metformin HCl (Glucophage Xr) 750 mg PO BID [facility] Last Admin: 12/19/17 10:37 Dose: 750 mg Methylprednisolone (Solu-Medrol) 40 mg IVP Q8H [facility] Last Admin: 12/21/17 04:11 Dose: 40 mg Metoprolol Succinate (Toprol Xl) 50 mg PO DAILY [facility] Last Admin: 12/20/17 09:47 Dose: 50 mg Nitroglycerin (Nitrostat Sl Tab) 0.4 mg SL Q5M PRN PRN Reason: chest pain Last Admin: 12/19/17 17:49 Dose: 0.4 mg Rosuvastatin Calcium (Crestor) 10 mg PO HS [facility] Last Admin: 12/20/17 22:08 Dose: 10 mg Tiotropium [place] (Spiriva) 18 mcg INH RQ24 [facility] Last Admin: 12/21/17 07:27 Dose: 18 mcg - Labs Labs: 12/19/17 17:31 12/20/17 07:52 PT 9.9 SECONDS (9.7-12.2) 12/18/17 12:25 INR 0.9 12/18/17 12:25 APTT 33 SECONDS (21-34) 12/18/17 12:25 - Constitutional Appears: Non-toxic, No Acute Distress - Head Exam Head Exam: ATRAUMATIC, NORMAL INSPECTION - Eye Exam Eye Exam: EOMI - ENT Exam ENT Exam: Mucous Membranes Moist - Neck Exam Neck Exam: Full ROM - Respiratory Exam Respiratory Exam: Decreased Breath Sounds, Rhonchi (slight). absent: Prolonged Expiratory Phase, Wheezes, Respiratory Distress - Cardiovascular Exam Cardiovascular Exam: +S1, +S2 - Extremities Exam Extremities Exam: Full ROM - Neurological Exam Neurological Exam: Alert, Awake, Oriented x3 - Psychiatric Exam Psychiatric exam: Normal Affect, Normal Mood - Skin Skin Exam: Dry, Warm Assessment and Plan (1) Asthma with COPD Status: Chronic (2) Dyspnea Status: Acute (3) Diabetes Status: Chronic - Assessment and Plan (Free Text) Assessment: (1) Asthma with COPD Assessment and Plan: afebrile, no leukocytosis Chest XRAY- biapical pleural thickening with upper lobe granulomatous changes; nodular densities noted at the right lung base Duonebs Q4 Solumedrol Q8H Patient has been noncompliant in following up with outpatient doctor. Discussed importance of following up with primary physician . Monitor Patient needs prescriptions upon discharge. Status: Chronic (2) Dyspnea Assessment and Plan: On Duonebs and Spiriva - Monitor EVELYNE negative x4 Elevated BNP Echo EF 80% 3Rd Grade Reading Teacher (Dr. Perez) on the case- F/U recommendations Status: Acute (3) Diabetes Assessment and Plan: Blood sugars improving Hgba1c 13.1 Patient needs better outpatient control. Will need to be on insulin therapy at home. Status: Chronic <Cedric Ken S - Last Filed: 12/21/17 17:49> Objective - Vital Signs/Intake and Output Vital Signs (last 24 hours): Temp Pulse Resp BP Pulse Ox 97.9 F 82 19 163/86 H 90 L 12/21/17 16:00 12/21/17 16:00 12/21/17 16:00 12/21/17 16:00 12/21/17 16:00 - Medications Medications: Current Medications Acetaminophen (Tylenol 325mg Tab) 650 mg PO Q6 PRN PRN Reason: Pain, moderate (4-7) Last Admin: 12/19/17 10:38 Dose: 650 mg Albuterol/Ipratropium (Duoneb 3 Mg/0.5 Mg (3 Ml) Ud) 3 ml INH RQ4 [facility] Last Admin: 12/21/17 16:05 Dose: 3 ml Azithromycin (Zithromax) 500 mg PO DAILY [facility] PRN Reason: Protocol Last Admin: 12/21/17 12:17 Dose: 500 mg Dextrose (Dextrose 50% Inj) 0 ml IV STAT PRN; Protocol PRN Reason: Hypoglycemia Protocol Dextrose (Glutose 15) 0 gm PO ONCE PRN; Protocol PRN Reason: Hypoglycemia Protocol Enoxaparin Sodium (Lovenox) 40 mg SC DAILY [facility] Last Admin: 12/21/17 10:26 Dose: 40 mg Gabapentin (Neurontin) 300 mg PO BID [facility] Last Admin: 12/21/17 10:27 Dose: 300 mg Glucagon (Glucagen Diagnostic Kit) 0 mg IM STAT PRN; Protocol PRN Reason: Hypoglycemia Protocol Sodium Chloride (Sodium Chloride 0.9%) 1,000 mls @ 100 mls/hr IV .Q10H [facility] Last Admin: 12/21/17 04:14 Dose: Not Given Ceftriaxone Sodium 1 gm/ (Sodium Chloride) 100 mls @ 100 mls/hr IVPB DAILY [facility] PRN Reason: Protocol Last Admin: 12/21/17 10:27 Dose: 100 mls/hr Dextrose (Dextrose 5% In Water 1000 Ml) 1,000 mls @ 0 mls/hr IV .Q0M PRN; Protocol; Per Protocol PRN Reason: Hypoglycemia Protocol Insulin Aspart (Novolog Mix 70/30 (70/30 Units/Ml)) 20 units SC AMPM [facility] Last Admin: 12/21/17 10:30 Dose: 20 units Insulin Human Regular (Novolin R) 0 unit SC ACHS [facility] PRN Reason: Protocol Last Admin: 12/21/17 12:18 Dose: 6 unit Ipratropium [place] (Atrovent) 0.5 mg IH RQ6 PRN PRN Reason: Shortness of Breath Last Admin: 12/20/17 05:55 Dose: 0.5 mg Losartan Potassium (Cozaar) 100 mg PO DAILY [facility] Last Admin: 12/21/17 10:27 Dose: 100 mg Metformin HCl (Glucophage Xr) 750 mg PO BID [facility] Last Admin: 12/21/17 10:26 Dose: 750 mg Methylprednisolone (Solu-Medrol) 40 mg IVP Q8H [facility] Last Admin: 12/21/17 12:59 Dose: 40 mg Metoprolol Succinate (Toprol Xl) 50 mg PO DAILY [facility] Last Admin: 12/21/17 10:27 Dose: 50 mg Nitroglycerin (Nitrostat Sl Tab) 0.4 mg SL Q5M PRN PRN Reason: chest pain Last Admin: 12/19/17 17:49 Dose: 0.4 mg Rosuvastatin Calcium (Crestor) 10 mg PO HS [facility] Last Admin: 12/20/17 22:08 Dose: 10 mg Tiotropium [place] (Spiriva) 18 mcg INH RQ24 [facility] Last Admin: 12/21/17 07:27 Dose: 18 mcg - Labs Labs: 12/19/17 17:31 12/20/17 07:52 PT 9.9 SECONDS (9.7-12.2) 12/18/17 12:25 INR 0.9 12/18/17 12:25 APTT 33 SECONDS (21-34) 12/18/17 12:25 Attending/Attestation - Attestation I have personally seen and examined this patient.: Yes I have fully participated in the care of the patient.: Yes I have reviewed all pertinent clinical information, including history, physical exam and plan: Yes Notes (Text): 12/21/17 17:48 Patient seen and examined Breathing much improved Stable from pulmonary standpoint
[2017-12-21] MEDS: Enoxaparin 40 mg Syringe SC SCH (10:26)
[2017-12-21] MEDS: Metoprolol Succinate 50 mg XL Tab PO SCH (10:27)
[2017-12-21] MEDS: (Novolog Mix 70/30) Insulin Aspart/Insulin Aspar 100 units/ml SC SCH ×2 (10:30→17:59)
[2017-12-21] MEDS ORDERED: Metoprolol Succinate 100 mg XL Tab PO SCH (18:04)
[2017-12-21] MEDS: Piperacill/Tazo 3.375gm in Dex 3.375 GM/50 ML BAG IVPB SCH (19:30)
--- NOTE | 2017-12-21 23:06 | CP.PCM.PN ---
Subjective - Date & Time of Evaluation Date of Evaluation: 12/21/17 Time of Evaluation: 15:10 - Subjective Subjective: Patient seen and evaluated Feels better Denies chest pain Objective - Vital Signs/Intake and Output Vital Signs (last 24 hours): Temp Pulse Resp BP Pulse Ox 97.9 F 82 19 163/86 H 90 L 12/21/17 16:00 12/21/17 16:00 12/21/17 16:00 12/21/17 16:00 12/21/17 16:00 - Medications Medications: Current Medications Acetaminophen (Tylenol 325mg Tab) 650 mg PO Q6 PRN PRN Reason: Pain, moderate (4-7) Last Admin: 12/19/17 10:38 Dose: 650 mg Albuterol/Ipratropium (Duoneb 3 Mg/0.5 Mg (3 Ml) Ud) 3 ml INH RQ4 [facility] Last Admin: 12/21/17 19:26 Dose: 3 ml Azithromycin (Zithromax) 500 mg PO DAILY [facility] PRN Reason: Protocol Last Admin: 12/21/17 12:17 Dose: 500 mg Dextrose (Dextrose 50% Inj) 0 ml IV STAT PRN; Protocol PRN Reason: Hypoglycemia Protocol Dextrose (Glutose 15) 0 gm PO ONCE PRN; Protocol PRN Reason: Hypoglycemia Protocol Enoxaparin Sodium (Lovenox) 40 mg SC DAILY [facility] Last Admin: 12/21/17 10:26 Dose: 40 mg Gabapentin (Neurontin) 300 mg PO BID [facility] Last Admin: 12/21/17 17:58 Dose: 300 mg Glucagon (Glucagen Diagnostic Kit) 0 mg IM STAT PRN; Protocol PRN Reason: Hypoglycemia Protocol Dextrose (Dextrose 5% In Water 1000 Ml) 1,000 mls @ 0 mls/hr IV .Q0M PRN; Protocol; Per Protocol PRN Reason: Hypoglycemia Protocol Piperacillin Sod/Tazobactam Sod (Zosyn 3.375 Gm Iv Premix) 3.375 gm in 50 mls @ 100 mls/hr IVPB Q6H [facility] PRN Reason: Protocol Last Admin: 12/21/17 19:30 Dose: 100 mls/hr Insulin Aspart (Novolog Mix 70/30 (70/30 Units/Ml)) 20 units SC AMPM [facility] Last Admin: 12/21/17 17:59 Dose: 20 units Insulin Human Regular (Novolin R) 0 unit SC ACHS [facility] PRN Reason: Protocol Last Admin: 12/21/17 22:16 Dose: Not Given Ipratropium [place] (Atrovent) 0.5 mg IH RQ6 PRN PRN Reason: Shortness of Breath Last Admin: 12/20/17 05:55 Dose: 0.5 mg Losartan Potassium (Cozaar) 100 mg PO DAILY [facility] Last Admin: 12/21/17 10:27 Dose: 100 mg Metformin HCl (Glucophage Xr) 750 mg PO BID [facility] Last Admin: 12/21/17 17:58 Dose: 750 mg Methylprednisolone (Solu-Medrol) 40 mg IVP Q8H [facility] Last Admin: 12/21/17 20:20 Dose: 40 mg Metoprolol Succinate (Toprol Xl) 100 mg PO DAILY [facility] Nitroglycerin (Nitrostat Sl Tab) 0.4 mg SL Q5M PRN PRN Reason: chest pain Last Admin: 12/19/17 17:49 Dose: 0.4 mg Rosuvastatin Calcium (Crestor) 10 mg PO HS [facility] Last Admin: 12/21/17 22:16 Dose: 10 mg Tiotropium [place] (Spiriva) 18 mcg INH RQ24 [facility] Last Admin: 12/21/17 07:27 Dose: 18 mcg - Labs Labs: 12/19/17 17:31 12/20/17 07:52 PT 9.9 SECONDS (9.7-12.2) 12/18/17 12:25 INR 0.9 12/18/17 12:25 APTT 33 SECONDS (21-34) 12/18/17 12:25
[2017-12-22] MEDS: Albuterol-Ipratrop 3 mg / 0.5 (3 ml) UD INH SCH ×4 (00:13→13:00)
[2017-12-22] MEDS: Piperacill/Tazo 3.375gm in Dex 3.375 GM/50 ML BAG IVPB SCH ×4 (00:46→13:27)
[2017-12-22 01:42] VITALS: RESP 20
[2017-12-22] MEDS: MethylPREDNISolone 40 mg Vial IVP SCH (04:36)
[2017-12-22] MEDS: Tiotropium 18 mcg Cap For Inhalation INH SCH (07:25)
[2017-12-22 08:08] VITALS: TEMP 97.7
[2017-12-22] MEDS ORDERED: Promethazine DM 6.25 mg-15 mg/5 ml Syrup PO PRN (08:24)
--- NOTE | 2017-12-22 08:31 | CP.PCM.PN ---
Subjective - Date & Time of Evaluation Date of Evaluation: 12/21/17 Time of Evaluation: 19:00 - Subjective Subjective: Pt is seen and examined, less coug, less shortnes of breath, pt is awake alert, his B.p is hogh Objective - Vital Signs/Intake and Output Vital Signs (last 24 hours): Temp Pulse Resp BP Pulse Ox 97.7 F 92 H 20 165/94 H 96 12/22/17 07:30 12/22/17 07:30 12/22/17 07:30 12/22/17 07:30 12/22/17 07:30 Intake and Output: 12/22/17 12/22/17 06:59 18:59 Intake Total 50 Balance 50 - Medications Medications: Current Medications Acetaminophen (Tylenol 325mg Tab) 650 mg PO Q6 PRN PRN Reason: Pain, moderate (4-7) Last Admin: 12/19/17 10:38 Dose: 650 mg Albuterol/Ipratropium (Duoneb 3 Mg/0.5 Mg (3 Ml) Ud) 3 ml INH RQ4 [facility] Last Admin: 12/22/17 07:25 Dose: 3 ml Azithromycin (Zithromax) 500 mg PO DAILY [facility] PRN Reason: Protocol Last Admin: 12/21/17 12:17 Dose: 500 mg Benzocaine/Menthol (Cepacol Sore Throat) 1 sundar MT Q2 [facility] Dextrose (Dextrose 50% Inj) 0 ml IV STAT PRN; Protocol PRN Reason: Hypoglycemia Protocol Dextrose (Glutose 15) 0 gm PO ONCE PRN; Protocol PRN Reason: Hypoglycemia Protocol Enoxaparin Sodium (Lovenox) 40 mg SC DAILY [facility] Last Admin: 12/21/17 10:26 Dose: 40 mg Gabapentin (Neurontin) 300 mg PO BID [facility] Last Admin: 12/21/17 17:58 Dose: 300 mg Glucagon (Glucagen Diagnostic Kit) 0 mg IM STAT PRN; Protocol PRN Reason: Hypoglycemia Protocol Dextrose (Dextrose 5% In Water 1000 Ml) 1,000 mls @ 0 mls/hr IV .Q0M PRN; Protocol; Per Protocol PRN Reason: Hypoglycemia Protocol Piperacillin Sod/Tazobactam Sod (Zosyn 3.375 Gm Iv Premix) 3.375 gm in 50 mls @ 100 mls/hr IVPB Q6H [facility] PRN Reason: Protocol Last Admin: 12/22/17 06:32 Dose: Not Given Insulin Aspart (Novolog Mix 70/30 (70/30 Units/Ml)) 20 units SC AMPM [facility] Last Admin: 12/21/17 17:59 Dose: 20 units Insulin Human Regular (Novolin R) 0 unit SC ACHS [facility] PRN Reason: Protocol Last Admin: 12/21/17 22:16 Dose: Not Given Ipratropium [place] (Atrovent) 0.5 mg IH RQ6 PRN PRN Reason: Shortness of Breath Last Admin: 12/20/17 05:55 Dose: 0.5 mg Losartan Potassium (Cozaar) 100 mg PO DAILY [facility] Last Admin: 12/21/17 10:27 Dose: 100 mg Metformin HCl (Glucophage Xr) 750 mg PO BID [facility] Last Admin: 12/21/17 17:58 Dose: 750 mg Methylprednisolone (Solu-Medrol) 40 mg IVP Q8H [facility] Last Admin: 12/22/17 04:36 Dose: 40 mg Metoprolol Succinate (Toprol Xl) 100 mg PO DAILY [facility] Nitroglycerin (Nitrostat Sl Tab) 0.4 mg SL Q5M PRN PRN Reason: chest pain Last Admin: 12/19/17 17:49 Dose: 0.4 mg Prednisone (Prednisone Tab) 40 mg PO DAILY [facility] Promethazine HCl/Dextromethorphan (Phenergan Dm Syrup) 5 ml PO Q6H PRN PRN Reason: Cough Rosuvastatin Calcium (Crestor) 10 mg PO HS [facility] Last Admin: 12/21/17 22:16 Dose: 10 mg Tiotropium [place] (Spiriva) 18 mcg INH RQ24 [facility] Last Admin: 12/22/17 07:25 Dose: 18 mcg - Labs Labs: 12/19/17 17:31 12/20/17 07:52 PT 9.9 SECONDS (9.7-12.2) 12/18/17 12:25 INR 0.9 12/18/17 12:25 APTT 33 SECONDS (21-34) 12/18/17 12:25 - Constitutional Appears: No Acute Distress - Head Exam Head Exam: ATRAUMATIC, NORMAL INSPECTION, NORMOCEPHALIC - Eye Exam Eye Exam: EOMI, Normal appearance, PERRL Pupil Exam: NORMAL ACCOMODATION, PERRL - Respiratory Exam Respiratory Exam: Clear to Ausculation Bilateral, NORMAL BREATHING PATTERN - Cardiovascular Exam Cardiovascular Exam: REGULAR RHYTHM, +S1, +S2. absent: Murmur - GI/Abdominal Exam GI & Abdominal Exam: Soft, Normal Bowel Sounds. absent: Tenderness - Rectal Exam Rectal Exam: Deferred Assessment and Plan (1) Asthma with COPD Status: Chronic (2) COPD exacerbation Status: Acute (3) Diabetes mellitus Status: Acute (4) Hypertension Status: Chronic
[2017-12-22 08:38] VITALS: O2SAT 95
[2017-12-22] MEDS: Benzocaine/Menthol (Cepacol) Lozenge MT PRN ×2 (08:38→13:27)
[2017-12-22] MEDS: (Novolin R) Insulin Human Regular 100 units/ml vial SC SCH ×2 (08:40→11:58)
[2017-12-22 08:52] VITALS: PULSE 86
[2017-12-22] MEDS: (Novolog Mix 70/30) Insulin Aspart/Insulin Aspar 100 units/ml SC SCH (09:21)
[2017-12-22] MEDS: Enoxaparin 40 mg Syringe SC SCH (09:21)
[2017-12-22 09:34] VITALS: BP 184/102
--- NOTE | 2017-12-23 09:25 | CP.PCM.DIS ---
Provider - Provider Date of Admission: 12/20/17 08:30 Attending physician: Cruz Frederick MD Time Spent in preparation of Discharge (in minutes): 45 Diagnosis - Discharge Diagnosis (1) Asthma with COPD Status: Chronic (2) COPD exacerbation Status: Acute (3) Diabetes mellitus Status: Acute (4) Hypertension Status: Chronic Hospital Course - Lab Results Lab Results: Most Recent Lab Values WBC 4.5 K/uL (4.8-10.8) L 12/19/17 17:31 RBC 4.31 Mil/uL (4.40-5.90) L 12/19/17 17:31 Hgb 13.6 g/dL (12.0-18.0) 12/19/17 17:31 Hct 38.8 % (35.0-51.0) 12/19/17 17:31 MCV 90.0 fL (80.0-94.0) 12/19/17 17:31 MCH 31.7 pg (27.0-31.0) H 12/19/17 17:31 MCHC 35.2 g/dL (33.0-37.0) 12/19/17 17:31 RDW 13.0 % (11.5-14.5) 12/19/17 17:31 Plt Count 283 K/uL (130-400) 12/19/17 17:31 MPV 8.4 fL (7.2-11.7) 12/19/17 17:31 Neut % (Auto) 76.5 % (50.0-75.0) H 12/19/17 17:31 Lymph % (Auto) 16.1 % (20.0-40.0) L 12/19/17 17:31 [place] % (Auto) 6.8 % (0.0-10.0) 12/19/17 17:31 Eos % (Auto) 0.2 % (0.0-4.0) 12/19/17 17:31 Baso % (Auto) 0.4 % (0.0-2.0) 12/19/17 17:31 Neut # (Auto) 3.4 K/uL (1.8-7.0) 12/19/17 17:31 Lymph # (Auto) 0.7 K/uL (1.0-4.3) L 12/19/17 17:31 [place] # (Auto) 0.3 K/uL (0.0-0.8) 12/19/17 17:31 Eos # (Auto) 0.0 K/uL (0.0-0.7) 12/19/17 17:31 Baso # (Auto) 0.0 K/uL (0.0-0.2) 12/19/17 17:31 PT 9.9 SECONDS (9.7-12.2) 12/18/17 12:25 INR 0.9 12/18/17 12:25 APTT 33 SECONDS (21-34) 12/18/17 12:25 Puncture Site Right rad 12/19/17 17:39 pCO2 33 mm/Hg (35-45) L 12/19/17 17:39 pO2 105 mm/Hg (80-100) H 12/19/17 17:39 HCO3 26.2 mmol/L (21-28) 12/19/17 17:39 ABG pH 7.48 (7.35-7.45) H 12/19/17 17:39 ABG Total CO2 25.6 mmol/L (22-28) 12/19/17 17:39 ABG O2 Saturation 98.7 % (95-98) H 12/19/17 17:39 ABG Base Excess 1.6 mmol/L (-2.0-3.0) 12/19/17 17:39 Dre Test Na 12/19/17 17:39 ABG Potassium 3.0 mmol/L (3.6-5.2) L 12/19/17 17:39 VBG pH 7.38 (7.32-7.43) 12/18/17 12:57 VBG pCO2 60 mmHg (40-60) 12/18/17 12:57 VBG HCO3 29.9 mmol/L 12/18/17 12:57 VBG Total CO2 37.3 mmol/L (22-28) H 12/18/17 12:57 VBG O2 Sat (Calc) 50.4 % (40-65) 12/18/17 12:57 VBG Base Excess 8.2 mmol/L (0.0-2.0) H 12/18/17 12:57 VBG Potassium 4.4 mmol/L (3.6-5.2) 12/18/17 12:57 A-a O2 Difference 139.0 mm/Hg 12/19/17 17:39 Respiratory Index 1.3 12/19/17 17:39 Sodium 139.0 mmol/l (132-148) 12/19/17 17:39 Chloride 107.0 mmol/L (98-107) 12/19/17 17:39 Glucose 206 mg/dl (75-110) H 12/19/17 17:39 Lactate 1.9 mmol/L (0.7-2.1) 12/19/17 17:39 Liter Flow 5.0 12/19/17 17:39 FiO2 40.0 % 12/19/17 17:39 Crit Value Called To David [email or web address] 12/18/17 12:57 Crit Value Called By Eleazar walls rt 12/18/17 12:57 Crit Value Read Back Y 12/18/17 12:57 Blood Gas Notified Time 1303 12/18/17 12:57 Sodium 141 mmol/L (132-148) 12/20/17 07:52 Potassium 4.1 mmol/L (3.6-5.2) 12/20/17 07:52 Chloride 106 mmol/L (98-107) 12/20/17 07:52 Carbon Dioxide 28 mmol/L (22-30) 12/20/17 07:52 Anion Gap 11 (10-20) 12/20/17 07:52 BUN 32 mg/dL (9-20) H 12/20/17 07:52 Creatinine 1.0 mg/dL (0.8-1.5) 12/20/17 07:52 Est GFR ( Amer) > 60 12/20/17 07:52 Est GFR (Non-Af Amer) > 60 12/20/17 07:52 POC Glucose (mg/dL) 345 mg/dL (65-110) H 12/22/17 11:21 Random Glucose 174 mg/dL (75-110) H 12/20/17 07:52 Hemoglobin A1c 13.1 % (4.2-6.5) H 12/20/17 07:52 Calcium 9.0 mg/dl (8.6-10.4) 12/20/17 07:52 Total Bilirubin 0.6 mg/dL (0.2-1.3) 12/19/17 17:31 AST 17 U/L (17-59) D 12/19/17 17:31 ALT 16 U/L (21-72) L D 12/19/17 17:31 Alkaline Phosphatase 105 U/L (38-126) 12/19/17 17:31 Total Creatine Kinase 110 U/L (55-170) 12/19/17 17:31 CK-MB (Mass) 3.90 ng/mL (0.0-3.38) H 12/19/17 17:31 Troponin I 0.0360 ng/mL (0.00-0.120) 12/19/17 17:31 NT-Pro-B Natriuret Pep 1590 pg/mL (0-900) H 12/19/17 17:31 Total Protein 6.7 g/dL (6.3-8.3) 12/19/17 17:31 Albumin 3.3 g/dL (3.5-5.0) L 12/19/17 17:31 Globulin 3.4 gm/dL (2.2-3.9) 12/19/17 17:31 Albumin/Globulin Ratio 1.0 (1.0-2.1) 12/19/17 17:31 Lipase 85 U/L (23-300) 12/18/17 12:25 Arterial Blood Potassium 3.0 mmol/L (3.6-5.2) L 12/19/17 17:39 Venous Blood Potassium 4.4 mmol/L (3.6-5.2) 12/18/17 12:57 Alcohol, Quantitative < 10 mg/dl (0-10) 12/18/17 12:25 B-Hydroxybutyrate 0.08 mM (0.02-0.27) 12/18/17 12:25 - Hospital Course Hospital Course: Pt is seen and evaluated, is for discharge Discharge Exam - Head Exam Head Exam: ATRAUMATIC, NORMAL INSPECTION, NORMOCEPHALIC Discharge Plan - Discharge Medications Prescriptions: Losartan [Cozaar] 100 mg PO DAILY #30 tab Albuterol/Ipratropium [Duoneb 3 mg/0.5 mg (3 ml) UD] 3 ml INH RQ4 PRN #60 neb PRN Reason: Shortness Of Breath metFORMIN ER [glucoPHAGE XR] 750 mg PO BID #60 ter Mask, Face [Nebulizer Aerosol Mask Adult] 1 dev XX PRN PRN #1 dev PRN Reason: Shortness Of Breath Gabapentin [Neurontin] 300 mg PO BID #60 cap predniSONE [predniSONE Tab] 10 mg PO DAILY #30 tab Albuterol Sulfate [Proventil Hfa] 6.7 gm IH PRN PRN #1 hfa.aer.ad PRN Reason: Shortness Of Breath Nebulizer Accessories [Reusable Nebulizer Kit] 1 each MC QID PRN #1 kit PRN Reason: Shortness Of Breath Tiotropium [Spiriva] 18 mcg INH RQ24 #30 cap Metoprolol Succinate [Toprol XL] 100 mg PO DAILY #30 tab Nebulizer [Truneb Nebulizer] 1 each MC QID PRN #1 each PRN Reason: Shortness Of Breath Azithromycin [Zithromax] 500 mg PO DAILY #5 tab - Follow Up Plan Condition: STABLE Disposition: AGAINST MEDICAL ADVICE
== END 2017-12-22 13:39 | disposition left against medical advice (07) | DRG 191 ==
LOC: C.ER 11:38 → C.9E 14:37 → C.6T 21:40 → OBSVTOIN 12-20 08:30
PROVIDERS: ADMIT Internal Medicine; ATTEND Internal Medicine
DX: J44.1 Chronic obstructive pulmonary disease with (acute) exacerbation (principal); I16.1 Hypertensive emergency; E11.65 Type 2 diabetes mellitus with hyperglycemia; I10 Essential (primary) hypertension; I25.10 Atherosclerotic heart disease of native coronary artery without angina pectoris; E78.00 Pure hypercholesterolemia, unspecified; F17.210 Nicotine dependence, cigarettes, uncomplicated; Z79.84 Long term (current) use of oral hypoglycemic drugs; Z79.899 Other long term (current) drug therapy; Z87.01 Personal history of pneumonia (recurrent); Z91.19 Patient's noncompliance with other medical treatment and regimen

== ENCOUNTER 2017-12-23 11:44 | Inpatient (IN) | payer BC ==
[2017-12-23 11:44] VITALS: BMI 24.2
[2017-12-23] MEDS ORDERED: Albuterol-Ipratrop 3 mg / 0.5 (3 ml) UD INH STA (11:56)
[2017-12-23] MEDS ORDERED: Albuterol-Ipratrop 3 mg / 0.5 (3 ml) UD ONE ×2 (12:02→17:05)
--- NOTE | 2017-12-23 12:18 | RAD ---
PROCEDURE: CHEST RADIOGRAPH, 1 VIEW HISTORY: SOB COMPARISON: Chest radiograph dated 12/19/2017 FINDINGS: LUNGS: Improved right lung aeration with a few residual patchy nodular infiltrates in the peripheral right upper lobe and medial right lower lobe. PLEURA: No pneumothorax or pleural fluid seen. CARDIOVASCULAR: Atherosclerotic aortic calcifications. Cardiomediastinal silhouette within normal limits. OSSEOUS STRUCTURES: Unchanged. VISUALIZED UPPER ABDOMEN: Normal. OTHER FINDINGS: None. IMPRESSION: Improved right lung aeration with a few residual patchy nodular infiltrates in the peripheral right upper lobe and medial right lower lobe.
[2017-12-23 12:20] LABS: BASO % 0.3 % (0.0-2.0); EOS % 0.3 % (0.0-4.0); HEMOGLOBIN 12.4 g/dL (12.0-18.0); LYMPH % 9.8 % (20.0-40.0); MEAN CELL VOLUME 91.6 fL (80.0-94.0); MEAN CORPUSCULAR HEMOGLOBIN 31.6 pg (27.0-31.0); MEAN CORPUSCULAR HGB CONC 34.6 g/dL (33.0-37.0); MEAN PLATELET VOLUME 9.3 fL (7.2-11.7); MONO # 0.8 K/uL (0.0-0.8); MONO % 7.7 % (0.0-10.0); NEUT # 8.6 K/uL (1.8-7.0); NEUT % 81.9 % (50.0-75.0); PLATELET COUNT 351 K/uL (130-400); RBC 3.91 Mil/uL (4.40-5.90); RED CELL DISTRIBUTION WIDTH 12.7 % (11.5-14.5)
[2017-12-23 12:26] LABS: WHITE BLOOD COUNT 10.5 K/uL (4.8-10.8)
--- NOTE | 2017-12-23 12:28 | C.PDOC ---
History Of Present Illness 62 y/o male brought to ED by EMS for left sided chest "pressure" like pain associated with sob since approx 7 am today. Patient was given ASA and Nitro in the field with improvement of his chest pain after nitro. Patient was discharged from [facility] yesterday after being admitted for uncontrolled HTN, Asthma/ COPD exacerbation. He denies cough, fever, abdominal pain, nausea/ vomiting or any other complaints at this time. Time Seen by Provider: 12/23/17 11:48 Chief Complaint (Nursing): Chest Pain History Per: Patient, EMS History/Exam Limitations: no limitations Onset/Duration Of Symptoms: Hrs Current Symptoms Are (Timing): Better Severity: Moderate Quality: Pressure, "Pain" Associated Symptoms: denies: Nausea Past Medical History Reviewed: Historical Data, Nursing Documentation, Vital Signs Vital Signs: Last Vital Signs Temp 97.3 F L 12/26/17 07:00 Pulse 77 12/26/17 13:56 Resp 18 12/26/17 13:56 BP 164/75 H 12/26/17 13:56 Pulse Ox 95 12/26/17 13:56 - Medical History PMH: Asthma, CAD, COPD, Diabetes, HTN, Hypercholesterolemia, Pancreatitis, Pneumonia Surgical History: No Surg Hx - [facility] Procedures OTHER ENDOSCOPY OF SM INTEST (03/26/15) VACCINATION NEC (03/11/15) Family History: States: Hypertension - Social History Hx Tobacco Use: No Hx Alcohol Use: Yes (drinks on weekends) Hx Substance Use: No (denies plus denies smoking) - Immunization History Hx Tetanus Toxoid Vaccination: No Hx Influenza Vaccination: No Hx Pneumococcal Vaccination: No Review Of Systems Constitutional: Negative for: Fever, Chills Cardiovascular: Positive for: Chest Pain. Negative for: Palpitations Respiratory: Positive for: Shortness of Breath, Wheezing. Negative for: Cough Gastrointestinal: Negative for: Nausea, Vomiting, Abdominal Pain Skin: Negative for: Rash Physical Exam - Physical Exam Appears: Well, Non-toxic, Other (in mild discomfort ) Skin: Warm, Dry, No Rash Eye(s): bilateral: Normal Inspection Oral Mucosa: Moist Neck: Supple Chest: Symmetrical Cardiovascular: Rhythm Regular Respiratory: No Accessory Muscle Use, Rales (Mild at B/L bases), No Rhonchi, Wheezing (scattered expiratory ) Gastrointestinal/Abdominal: Normal Exam, Bowel Sounds, Soft, No Tenderness Extremity: Pedal Edema (Trace pitting edema B/L LEs), No Calf Tenderness, No Deformity Pulses: Left Dorsalis Pedis: Normal, Right Dorsalis Pedis: Normal Neurological/Psych: Oriented x3 ED Course And Treatment - Laboratory Results Result Diagrams: 12/23/17 12:15 12/23/17 12:15 ECG: Interpreted By Me, Viewed By Me (NSR 82 bpm, normal axis, T wave inversions I, aVL, no acute ST changes) ECG Interpretation: Abnormal O2 Sat by Pulse Oximetry: 83 (RA) Pulse Ox Interpretation: Abnormal - Other Rad cxr X-Ray: Viewed By Me, Read By Radiologist Interpretation: Accession No. : [id number]. Patient Name / ID : ANJU LOPEZ / [id number]. Exam Date : 12/23/2017 11:57:35 ( Approved ). Study Comment : Sex / Age : M / [id number]. Creator : Frandy Mazariegos MD. Dictator : Frandy Mazariegos MD. Dormitory Counselor : Wood Finisher : Frandy Mazariegos MD. Approver2 : Report Date : 12/23/2017 12:17:01. My Comment : . PROCEDURE: CHEST RADIOGRAPH, 1 VIEW. HISTORY: SOB. COMPARISON: Chest radiograph dated 12/19/2017. FINDINGS: LUNGS: Improved right lung aeration with a few residual patchy nodular infiltrates in the peripheral right upper lobe and medial right lower lobe. PLEURA: No pneumothorax or pleural fluid seen. CARDIOVASCULAR: Atherosclerotic aortic calcifications. Cardiomediastinal silhouette within normal limits. OSSEOUS STRUCTURES: Unchanged. VISUALIZED UPPER ABDOMEN: Normal. OTHER FINDINGS: None. IMPRESSION: Improved right lung aeration with a few residual patchy nodular infiltrates in the peripheral right upper lobe and medial right lower lobe. Progress Note: Blood work, EKG, CXR, ordered and reviewed. Patient given IV solumedrol and neb treatments. During prior admission, patient was getting IV Zosyn for pneumonia - Zosyn ordered. Reevaluation Time: 13:10 Reassessment Condition: Improved (Patient states he feels a little better. On exam, he has decreased wheezng B/L and improved air entry B/L.) - Physician Consult Information Physician Contacted: Cedric Ken Outcome Of Conversation: Discussed patient with Dr. Ken, he agrees with admission - would like admission under Dr. Frederick for pneumonia, COPD exacerbation. Patient apparently signed out AMA yesterday, as not discharged. Disposition - Disposition Disposition: HOSPITALIZED Disposition Time: 13:18 Condition: STABLE - Clinical Impression Clinical Impression: Elevated brain natriuretic peptide (BNP) level, Dyspnea, COPD exacerbation, Chest pain, Pneumonia - Scribe Statement The provider has reviewed the documentation as recorded by the Scribarvind Goldstein All medical record entries made by the Scribe were at my direction and personally dictated by me. I have reviewed the chart and agree that the record accurately reflects my personal performance of the history, physical exam, medical decision making, and the department course for this patient. I have also personally directed, reviewed, and agree with the discharge instructions and disposition. Decision To Admit - Pt Status Changed To: Hospital Disposition Of: Inpatient - Admit Certification Admit to Inpatient:: After my assessment, the patient will require hospitalization for at least two midnights. This is because of the severity of symptoms shown, intensity of services needed, and/or the medical risk in this patient being treated as an outpatient. - InPatient: Physician Admission Certification: I certify that this patient requires 2 or more midnights of care for the following reason:: see notes - . Bed Request Type: Telemetry (see notes) Admitting Physician: Cruz Frederick Patient Diagnosis: COPD exacerbation, Chest pain, Elevated brain natriuretic peptide (BNP) level, Dyspnea, Pneumonia
[2017-12-23 12:29] LABS: PROTHROMBIN TIME 11.3 SECONDS (9.7-12.2)
[2017-12-23 12:34] LABS: ABG ALLEN TEST POS; ARTERIAL BLOOD GAS HCO3 28.3 mmol/L (21-28); ARTERIAL BLOOD GAS O2 SAT 95.7 % (95-98); ARTERIAL BLOOD GAS PCO2 39 mm/Hg (35-45); ARTERIAL BLOOD GAS PH 7.47 (7.35-7.45); ARTERIAL BLOOD GAS PO2 63 mm/Hg (80-100); ARTERIAL BLOOD GAS TCO2 29.6 mmol/L (22-28)
[2017-12-23 12:44] LABS: ALT/SGPT 11 U/L (21-72); AST/SGOT 24 U/L (17-59); BLOOD UREA NITROGEN 31 mg/dL (9-20); GFR AFRICAN-AMERICAN > 60; GFR NON-AFRICAN AMERICAN > 60
[2017-12-23 12:47] LABS: B-TYPE NATRIURETIC PEPTIDE 5080 pg/mL (0-900); BANDS 2 % (0-2); CK-MB 6.56 ng/mL (0.0-3.38); LYMPHOCYTE 8 % (20-40); MONOCYTE 8 % (0-10); NEUTROPHIL 81 % (50-75); PLATELET ESTIMATE NORMAL (NORMAL); REACTIVE LYMPHOCYTES 1 % (0-0); TOTAL CELLS COUNTED 100
[2017-12-23] MEDS ORDERED: Piperacillin/Tazobact 3.375 gm 100 ML IVPB STA (13:20)
[2017-12-23] MEDS ORDERED: Albuterol 0.083% Inhal Sol (2.5 mg/3 mL) UD IH PRN ×2 (13:26→16:50)
[2017-12-23] MEDS ORDERED: (Novolin R) Insulin Human Regular 100 units/ml vial IV STA (13:27)
[2017-12-23] MEDS ORDERED: Piperacillin/Tazobact 3.375 gm 100 ML IVPB ONE (14:27)
[2017-12-23] MEDS ORDERED: (Novolin R) Insulin Human Regular 100 units/ml vial ONE (14:28)
[2017-12-23] MEDS ORDERED: Nitroglycerin 2% Ointment Foilpak UD TOP ONE ×3 (15:45→17:23)
[2017-12-23] MEDS ORDERED: Piperacillin/Tazobact 3.375 GM in Sodium Chloride 100 ML IVPB SCH (17:00)
[2017-12-23] MEDS: Albuterol-Ipratrop 3 mg / 0.5 (3 ml) UD INH PRN (17:03)
[2017-12-23] MEDS: Metoprolol Succinate 100 mg XL Tab PO SCH (17:56)
[2017-12-23] MEDS: guaiFENesin 600 mg ER Tab PO SCH (17:56)
[2017-12-23 20:17] LABS: CK-MB 5.76 ng/mL (0.0-3.38); TROPONIN I 0.035 ng/mL (0.00-0.120)
[2017-12-23] MEDS: (Novolog) Insulin Aspart, Recombinant 100 u/ml 10 ml vial SC SCH (21:30)
[2017-12-23] MEDS: Piperacillin/Tazobact 3.375 GM in Sodium Chloride 100 ML IVPB SCH (21:30)
--- NOTE | 2017-12-24 00:20 | CP.PCM.HP ---
History of Present Illness - History of Present Illness History of Present Illness: CC: Chest pain HPI: 62 y/o male brought to ED by EMS for left sided chest "pressure" pain associated with sob since 7 am this morning. Patient was given aspirin and Nitro on route with improvement after nitro. Patient was discharged from hospital yesterday after being admitted for uncontrolled HTN, Asthma and COPD. Patient denies cough, fever, abdominal pain or any other complaints at this time. Present on Admission - Present on Admission Any Indicators Present on Admission: No Past Patient History - Infectious Disease Hx of Infectious Diseases: None - Tetanus Immunizations Tetanus Immunization: Unknown - Past Medical History & Family History Past Medical History?: Yes - Past Social History Smoking Status: Never Smoked - CARDIAC Hx Hypercholesterolemia: Yes Hx Hypertension: Yes - PULMONARY Hx Asthma: Yes Hx Chronic Obstructive Pulmonary Disease (COPD): Yes Hx Pneumonia: Yes - NEUROLOGICAL Hx Neurological Disorder: No - HEENT Hx HEENT Problems: No - RENAL Hx Chronic Kidney Disease: No - ENDOCRINE/METABOLIC Hx Diabetes Mellitus Type 2: Yes - HEMATOLOGICAL/ONCOLOGICAL Hx Blood Disorders: No - INTEGUMENTARY Hx Dermatological Problems: No - MUSCULOSKELETAL/RHEUMATOLOGICAL Hx Musculoskeletal Disorders: No Hx Falls: No - GASTROINTESTINAL Hx Pancreatitis: Yes - GENITOURINARY/GYNECOLOGICAL Hx Genitourinary Disorders: No - PSYCHIATRIC Hx Substance Use: No - SURGICAL HISTORY Hx Surgeries: No - ANESTHESIA Hx Anesthesia: No Hx Anesthesia Reactions: No Hx Malignant Hyperthermia: No Meds Allergies/Adverse Reactions: Allergies Allergy/AdvReac Type Severity Reaction Status Date / Time No Known Allergies Allergy Verified 12/18/17 12:12 Results - Vital Signs Recent Vital Signs: Last Vital Signs Temp 97.6 F 12/23/17 17:52 Pulse 84 12/23/17 18:35 Resp 18 12/23/17 17:52 BP 186/98 H 12/23/17 17:52 Pulse Ox 95 12/23/17 17:52 - Labs Result Diagrams: 12/23/17 12:15 12/23/17 12:15 Labs: Laboratory Results - last 24 hr 12/23/17 12/23/17 12/23/17 12:15 12:15 12:15 WBC 10.5 D RBC 3.91 L Hgb 12.4 Hct 35.8 MCV 91.6 MCH 31.6 H MCHC 34.6 RDW 12.7 Plt Count 351 MPV 9.3 Neut % (Auto) 81.9 H Lymph % (Auto) 9.8 L [place] % (Auto) 7.7 Eos % (Auto) 0.3 Baso % (Auto) 0.3 Neut # (Auto) 8.6 H Lymph # (Auto) 1.0 [place] # (Auto) 0.8 Eos # (Auto) 0.0 Baso # (Auto) 0.0 Neutrophils % (Manual) 81 H Band Neutrophils % 2 Lymphocytes % (Manual) 8 L Reactive Lymphs % 1 H Monocytes % (Manual) 8 Platelet Estimate Normal RBC Morphology Normal PT 11.3 INR 1.0 APTT 30 Puncture Site pCO2 pO2 HCO3 ABG pH ABG Total CO2 ABG O2 Saturation ABG Base Excess Dre Test ABG Potassium A-a O2 Difference Respiratory Index Glucose Lactate FiO2 Sodium 138 Potassium 3.9 Chloride 98 Carbon Dioxide 33 H Anion Gap 12 BUN 31 H Creatinine 0.9 Est GFR ( Amer) > 60 Est GFR (Non-Af Amer) > 60 POC Glucose (mg/dL) Random Glucose 307 H Calcium 9.0 Total Bilirubin 0.2 AST 24 ALT 11 L D Alkaline Phosphatase 85 Total Creatine Kinase 107 CK-MB (Mass) 6.56 H Troponin I 0.0370 NT-Pro-B Natriuret Pep 5080 H Total Protein 5.9 L Albumin 3.0 L Globulin 2.9 Albumin/Globulin Ratio 1.0 Arterial Blood Potassium 12/23/17 12/23/17 12/23/17 12:30 19:05 19:06 WBC RBC Hgb Hct MCV MCH MCHC RDW Plt Count MPV Neut % (Auto) Lymph % (Auto) [place] % (Auto) Eos % (Auto) Baso % (Auto) Neut # (Auto) Lymph # (Auto) [place] # (Auto) Eos # (Auto) Baso # (Auto) Neutrophils % (Manual) Band Neutrophils % Lymphocytes % (Manual) Reactive Lymphs % Monocytes % (Manual) Platelet Estimate RBC Morphology PT INR APTT Puncture Site Rra pCO2 39 pO2 63 L HCO3 28.3 H ABG pH 7.47 H ABG Total CO2 29.6 H ABG O2 Saturation 95.7 ABG Base Excess 4.5 H Dre Test Pos ABG Potassium 3.6 A-a O2 Difference 38.0 Respiratory Index 0.6 Glucose 335 H Lactate 2.4 H FiO2 21.0 Sodium 137.0 Potassium Chloride 103.0 Carbon Dioxide Anion Gap BUN Creatinine Est GFR ( Amer) Est GFR (Non-Af Amer) POC Glucose (mg/dL) 418 H* 421 H* Random Glucose Calcium Total Bilirubin AST ALT Alkaline Phosphatase Total Creatine Kinase CK-MB (Mass) Troponin I NT-Pro-B Natriuret Pep Total Protein Albumin Globulin Albumin/Globulin Ratio Arterial Blood Potassium 3.6 12/23/17 12/23/17 19:41 20:53 WBC RBC Hgb Hct MCV MCH MCHC RDW Plt Count MPV Neut % (Auto) Lymph % (Auto) [place] % (Auto) Eos % (Auto) Baso % (Auto) Neut # (Auto) Lymph # (Auto) [place] # (Auto) Eos # (Auto) Baso # (Auto) Neutrophils % (Manual) Band Neutrophils % Lymphocytes % (Manual) Reactive Lymphs % Monocytes % (Manual) Platelet Estimate RBC Morphology PT INR APTT Puncture Site pCO2 pO2 HCO3 ABG pH ABG Total CO2 ABG O2 Saturation ABG Base Excess Dre Test ABG Potassium A-a O2 Difference Respiratory Index Glucose Lactate FiO2 Sodium Potassium Chloride Carbon Dioxide Anion Gap BUN Creatinine Est GFR ( Amer) Est GFR (Non-Af Amer) POC Glucose (mg/dL) 437 H* Random Glucose Calcium Total Bilirubin AST ALT Alkaline Phosphatase Total Creatine Kinase 106 CK-MB (Mass) 5.76 H Troponin I 0.0350 NT-Pro-B Natriuret Pep Total Protein Albumin Globulin Albumin/Globulin Ratio Arterial Blood Potassium
--- NOTE | 2017-12-24 03:04 | PCM.RRT ---
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
[2017-12-24 03:47] LABS: CK-MB 4.34 ng/mL (0.0-3.38); TROPONIN I 0.038 ng/mL (0.00-0.120)
[2017-12-24] MEDS: Piperacillin/Tazobact 3.375 GM in Sodium Chloride 100 ML IVPB SCH ×5 (03:52→23:25)
--- NOTE | 2017-12-24 04:16 | PCM.FALL ---
Post Fall Progress Note - Post Fall Fall Date: 12/24/17 Description of Fall: Todd joseph was called for patient. Patient was seen and examined. Patient was walking to the bathroom, and when turning corner, lost balance and fell backwards on to buttocks. Patient denies buttock pain, back pain, hip pain. Patient complains of chest pain (reason patient was admitted). Patient denies dizziness, changes in vision, headaches, nausea, vomiting. Vitals were taken- BP 190/100, HR 73, T97.6, O2 sat 94% and glucose was 334. Patient alert, oriented x3. Patient examined, no tenderness, ecchymosis, lacerations, or abrasions noted. Patient transferred to bed, 1:1 ordered, avasys now in room. - Post Fall Exam Vital Sign: Temp Pulse Resp BP Pulse Ox 97.6 F 63 20 186/98 H 91 L 12/23/17 23:13 12/24/17 00:54 12/23/17 23:13 12/23/17 17:52 12/23/17 23:13 Nose Exam: Negative for: Discharge, Bleeding Skin Exam: Negative for: Colour, Lacerations, Grazes, Bruising Mouth Exam: Negative for: Tongue bitten Chest Exam: Negative for: Difficulty breathing Abdomen Exam: Negative for: Tenderness Leg Exam: Negative for: Deformity Other pertinent findings: unstable gait Impression/Plan: Todd joseph was called for patient. Patient was seen and examined. Patient was walking to the bathroom, and when turning corner, lost balance and fell backwards on to buttocks. Patient denies buttock pain, back pain, hip pain. Patient complains of chest pain (reason patient was admitted). Patient denies dizziness, changes in vision, headaches, nausea, vomiting. Vitals were taken- BP 190/100, HR 73, T97.6, O2 sat 94% and glucose was 334. Patient alert, oriented x3. Patient examined, no tenderness, ecchymosis, lacerations, or abrasions noted. Patient transferred to bed, 1:1 ordered, avasys now in room.
[2017-12-24] MEDS: Albuterol-Ipratrop 3 mg / 0.5 (3 ml) UD INH PRN ×3 (07:41→19:56)
--- NOTE | 2017-12-24 07:50 | CP.PCM.CON ---
History of Present Illness - History of Present Illness History of Present Illness: Recurrent admission for chest pain Trops negative ECHO: Normal EF Will consider Cath Vs. Stress test Past Patient History - Infectious Disease Hx of Infectious Diseases: None - Tetanus Immunizations Tetanus Immunization: Unknown - Past Medical History & Family History Past Medical History?: Yes - Past Social History Smoking Status: Never Smoked - CARDIAC Hx Hypercholesterolemia: Yes Hx Hypertension: Yes - PULMONARY Hx Asthma: Yes Hx Chronic Obstructive Pulmonary Disease (COPD): Yes Hx Pneumonia: Yes - NEUROLOGICAL Hx Neurological Disorder: No - HEENT Hx HEENT Problems: No - RENAL Hx Chronic Kidney Disease: No - ENDOCRINE/METABOLIC Hx Diabetes Mellitus Type 2: Yes - HEMATOLOGICAL/ONCOLOGICAL Hx Blood Disorders: No - INTEGUMENTARY Hx Dermatological Problems: No - MUSCULOSKELETAL/RHEUMATOLOGICAL Hx Musculoskeletal Disorders: No Hx Falls: No - GASTROINTESTINAL Hx Pancreatitis: Yes - GENITOURINARY/GYNECOLOGICAL Hx Genitourinary Disorders: No - PSYCHIATRIC Hx Substance Use: No - SURGICAL HISTORY Hx Surgeries: No - ANESTHESIA Hx Anesthesia: No Hx Anesthesia Reactions: No Hx Malignant Hyperthermia: No Meds Allergies/Adverse Reactions: Allergies Allergy/AdvReac Type Severity Reaction Status Date / Time No Known Allergies Allergy Verified 12/18/17 12:12 - Medications Medications: Current Medications Albuterol Sulfate (Albuterol 0.083% Inhal Evelyn (2.5 Mg/3 Ml) Ud) 2.5 mg IH RQ2 PRN PRN Reason: Wheezing Albuterol/Ipratropium (Duoneb 3 Mg/0.5 Mg (3 Ml) Ud) 3 ml INH RQ4 PRN PRN Reason: Shortness of Breath Last Admin: 12/24/17 07:41 Dose: 3 ml Clonidine HCl (Catapres) 0.2 mg PO Q8 [facility] Last Admin: 12/24/17 06:00 Dose: 0.2 mg Enoxaparin Sodium (Lovenox) 40 mg SC DAILY [facility] Gabapentin (Neurontin) 300 mg PO BID [facility] Last Admin: 12/23/17 18:52 Dose: 300 mg Guaifenesin (Mucinex La) 600 mg PO BID [facility] Last Admin: 12/23/17 17:56 Dose: 600 mg Azithromycin 500 mg/ Sodium (Chloride) 250 mls @ 250 mls/hr IVPB DAILY [facility] PRN Reason: Protocol Piperacillin Sod/Tazobactam (Sod 3.375 gm/ Sodium Chloride) 100 mls @ 200 mls/ hr IVPB Q6H [facility] PRN Reason: Protocol Last Admin: 12/24/17 03:52 Dose: 200 mls/hr Insulin Aspart (Novolog) 0 unit SC ACHS [facility] PRN Reason: Protocol Last Admin: 12/23/17 21:30 Dose: 4 udtablet Lorazepam (Ativan) 0.5 mg PO TID PRN PRN Reason: Anxiety Last Admin: 12/24/17 02:59 Dose: 0.5 mg Losartan Potassium (Cozaar) 100 mg PO DAILY [facility] Last Admin: 12/23/17 17:57 Dose: 100 mg Metformin HCl (Glucophage Xr) 750 mg PO BID [facility] Last Admin: 12/23/17 18:52 Dose: 750 mg Metoprolol Succinate (Toprol Xl) 100 mg PO DAILY [facility] Last Admin: 12/23/17 17:56 Dose: 100 mg Tiotropium [place] (Spiriva) 18 mcg INH RQ24 [facility] Results - Vital Signs Recent Vital Signs: Last Vital Signs Temp 97.8 F 12/24/17 04:55 Pulse 62 12/24/17 07:04 Resp 20 12/24/17 04:55 BP 178/94 H 12/24/17 04:55 Pulse Ox 97 12/24/17 04:55 - Labs Result Diagrams: 12/23/17 12:15 12/23/17 12:15 Labs: Laboratory Results - last 24 hr 12/23/17 12/23/17 12/23/17 12:15 12:15 12:15 WBC 10.5 D RBC 3.91 L Hgb 12.4 Hct 35.8 MCV 91.6 MCH 31.6 H MCHC 34.6 RDW 12.7 Plt Count 351 MPV 9.3 Neut % (Auto) 81.9 H Lymph % (Auto) 9.8 L [place] % (Auto) 7.7 Eos % (Auto) 0.3 Baso % (Auto) 0.3 Neut # (Auto) 8.6 H Lymph # (Auto) 1.0 [place] # (Auto) 0.8 Eos # (Auto) 0.0 Baso # (Auto) 0.0 Neutrophils % (Manual) 81 H Band Neutrophils % 2 Lymphocytes % (Manual) 8 L Reactive Lymphs % 1 H Monocytes % (Manual) 8 Platelet Estimate Normal RBC Morphology Normal PT 11.3 INR 1.0 APTT 30 Puncture Site pCO2 pO2 HCO3 ABG pH ABG Total CO2 ABG O2 Saturation ABG Base Excess Dre Test ABG Potassium A-a O2 Difference Respiratory Index Glucose Lactate FiO2 Sodium 138 Potassium 3.9 Chloride 98 Carbon Dioxide 33 H Anion Gap 12 BUN 31 H Creatinine 0.9 Est GFR ( Amer) > 60 Est GFR (Non-Af Amer) > 60 POC Glucose (mg/dL) Random Glucose 307 H Calcium 9.0 Total Bilirubin 0.2 AST 24 ALT 11 L D Alkaline Phosphatase 85 Total Creatine Kinase 107 CK-MB (Mass) 6.56 H Troponin I 0.0370 NT-Pro-B Natriuret Pep 5080 H Total Protein 5.9 L Albumin 3.0 L Globulin 2.9 Albumin/Globulin Ratio 1.0 Arterial Blood Potassium 12/23/17 12/23/17 12/23/17 12:30 19:05 19:06 WBC RBC Hgb Hct MCV MCH MCHC RDW Plt Count MPV Neut % (Auto) Lymph % (Auto) [place] % (Auto) Eos % (Auto) Baso % (Auto) Neut # (Auto) Lymph # (Auto) [place] # (Auto) Eos # (Auto) Baso # (Auto) Neutrophils % (Manual) Band Neutrophils % Lymphocytes % (Manual) Reactive Lymphs % Monocytes % (Manual) Platelet Estimate RBC Morphology PT INR APTT Puncture Site Rra pCO2 39 pO2 63 L HCO3 28.3 H ABG pH 7.47 H ABG Total CO2 29.6 H ABG O2 Saturation 95.7 ABG Base Excess 4.5 H Dre Test Pos ABG Potassium 3.6 A-a O2 Difference 38.0 Respiratory Index 0.6 Glucose 335 H Lactate 2.4 H FiO2 21.0 Sodium 137.0 Potassium Chloride 103.0 Carbon Dioxide Anion Gap BUN Creatinine Est GFR ( Amer) Est GFR (Non-Af Amer) POC Glucose (mg/dL) 418 H* 421 H* Random Glucose Calcium Total Bilirubin AST ALT Alkaline Phosphatase Total Creatine Kinase CK-MB (Mass) Troponin I NT-Pro-B Natriuret Pep Total Protein Albumin Globulin Albumin/Globulin Ratio Arterial Blood Potassium 3.6 12/23/17 12/23/17 12/24/17 19:41 20:53 02:01 WBC RBC Hgb Hct MCV MCH MCHC RDW Plt Count MPV Neut % (Auto) Lymph % (Auto) [place] % (Auto) Eos % (Auto) Baso % (Auto) Neut # (Auto) Lymph # (Auto) [place] # (Auto) Eos # (Auto) Baso # (Auto) Neutrophils % (Manual) Band Neutrophils % Lymphocytes % (Manual) Reactive Lymphs % Monocytes % (Manual) Platelet Estimate RBC Morphology PT INR APTT Puncture Site pCO2 pO2 HCO3 ABG pH ABG Total CO2 ABG O2 Saturation ABG Base Excess Dre Test ABG Potassium A-a O2 Difference Respiratory Index Glucose Lactate FiO2 Sodium Potassium Chloride Carbon Dioxide Anion Gap BUN Creatinine Est GFR ( Amer) Est GFR (Non-Af Amer) POC Glucose (mg/dL) 437 H* 345 H Random Glucose Calcium Total Bilirubin AST ALT Alkaline Phosphatase Total Creatine Kinase 106 CK-MB (Mass) 5.76 H Troponin I 0.0350 NT-Pro-B Natriuret Pep Total Protein Albumin Globulin Albumin/Globulin Ratio Arterial Blood Potassium 12/24/17 12/24/17 02:28 03:17 WBC RBC Hgb Hct MCV MCH MCHC RDW Plt Count MPV Neut % (Auto) Lymph % (Auto) [place] % (Auto) Eos % (Auto) Baso % (Auto) Neut # (Auto) Lymph # (Auto) [place] # (Auto) Eos # (Auto) Baso # (Auto) Neutrophils % (Manual) Band Neutrophils % Lymphocytes % (Manual) Reactive Lymphs % Monocytes % (Manual) Platelet Estimate RBC Morphology PT INR APTT Puncture Site pCO2 pO2 HCO3 ABG pH ABG Total CO2 ABG O2 Saturation ABG Base Excess Dre Test ABG Potassium A-a O2 Difference Respiratory Index Glucose Lactate FiO2 Sodium Potassium Chloride Carbon Dioxide Anion Gap BUN Creatinine Est GFR ( Amer) Est GFR (Non-Af Amer) POC Glucose (mg/dL) 334 H Random Glucose Calcium Total Bilirubin AST ALT Alkaline Phosphatase Total Creatine Kinase 77 CK-MB (Mass) 4.34 H Troponin I 0.0380 NT-Pro-B Natriuret Pep Total Protein Albumin Globulin Albumin/Globulin Ratio Arterial Blood Potassium
[2017-12-24] MEDS ORDERED: Nitroglycerin 2% Ointment Foilpak UD TOP ONE (08:30)
[2017-12-24] MEDS: (Novolog) Insulin Aspart, Recombinant 100 u/ml 10 ml vial SC SCH ×4 (08:48→23:00)
[2017-12-24] MEDS: Enoxaparin 40 mg Syringe SC SCH ×2 (10:00→10:04)
[2017-12-24] MEDS: Azithromycin 500 MG in Sodium Chloride 0.9% 250 ML IVPB SCH (10:03)
[2017-12-24] MEDS: Metoprolol Succinate 100 mg XL Tab PO SCH (10:03)
[2017-12-24] MEDS: guaiFENesin 600 mg ER Tab PO SCH ×2 (10:03→17:44)
--- NOTE | 2017-12-24 12:26 | CP.PCM.CON ---
History of Present Illness - History of Present Illness History of Present Illness: Reason for consultation: shortness of breath 62-year-old male who was recently admitted and treated for COPD/pneumonia, uncontrolled diabetes and chest pain and signed out AMA. Presented to emergency [place] with left-sided chest pressure associated with shortness of breath. Denies cough, denies fever chills Review of Systems - Review of Systems All systems: reviewed and no additional remarkable complaints except (chest pain and shortness of breath) Past Patient History - Infectious Disease Hx of Infectious Diseases: None - Tetanus Immunizations Tetanus Immunization: Unknown - Past Medical History & Family History Past Medical History?: Yes - Past Social History Smoking Status: Never Smoked - CARDIAC Hx Hypercholesterolemia: Yes Hx Hypertension: Yes - PULMONARY Hx Asthma: Yes Hx Chronic Obstructive Pulmonary Disease (COPD): Yes Hx Pneumonia: Yes - NEUROLOGICAL Hx Neurological Disorder: No - HEENT Hx HEENT Problems: No - RENAL Hx Chronic Kidney Disease: No - ENDOCRINE/METABOLIC Hx Diabetes Mellitus Type 2: Yes - HEMATOLOGICAL/ONCOLOGICAL Hx Blood Disorders: No - INTEGUMENTARY Hx Dermatological Problems: No - MUSCULOSKELETAL/RHEUMATOLOGICAL Hx Musculoskeletal Disorders: No Hx Falls: No - GASTROINTESTINAL Hx Pancreatitis: Yes - GENITOURINARY/GYNECOLOGICAL Hx Genitourinary Disorders: No - PSYCHIATRIC Hx Substance Use: No - SURGICAL HISTORY Hx Surgeries: No - ANESTHESIA Hx Anesthesia: No Hx Anesthesia Reactions: No Hx Malignant Hyperthermia: No Meds Allergies/Adverse Reactions: Allergies Allergy/AdvReac Type Severity Reaction Status Date / Time No Known Allergies Allergy Verified 12/18/17 12:12 - Medications Medications: Current Medications Albuterol Sulfate (Albuterol 0.083% Inhal Evelyn (2.5 Mg/3 Ml) Ud) 2.5 mg IH RQ2 PRN PRN Reason: Wheezing Albuterol/Ipratropium (Duoneb 3 Mg/0.5 Mg (3 Ml) Ud) 3 ml INH RQ4 PRN PRN Reason: Shortness of Breath Last Admin: 12/24/17 07:41 Dose: 3 ml Clonidine HCl (Catapres) 0.2 mg PO Q8 [facility] Last Admin: 12/24/17 06:00 Dose: 0.2 mg Enoxaparin Sodium (Lovenox) 40 mg SC DAILY [facility] Last Admin: 12/24/17 10:04 Dose: 40 mg Gabapentin (Neurontin) 300 mg PO BID [facility] Last Admin: 12/24/17 10:19 Dose: 300 mg Guaifenesin (Mucinex [place]) 600 mg PO BID [facility] Last Admin: 12/24/17 10:03 Dose: 600 mg Azithromycin 500 mg/ Sodium (Chloride) 250 mls @ 250 mls/hr IVPB DAILY [facility] PRN Reason: Protocol Last Admin: 12/24/17 10:03 Dose: 250 mls/hr Piperacillin Sod/Tazobactam (Sod 3.375 gm/ Sodium Chloride) 100 mls @ 200 mls/ hr IVPB Q6H [facility] PRN Reason: Protocol Last Admin: 12/24/17 10:00 Dose: 200 mls/hr Insulin Aspart (Novolog) 0 unit SC ACHS [facility] PRN Reason: Protocol Last Admin: 12/24/17 08:48 Dose: 4 units Lorazepam (Ativan) 0.5 mg PO TID PRN PRN Reason: Anxiety Last Admin: 12/24/17 02:59 Dose: 0.5 mg Losartan Potassium (Cozaar) 100 mg PO DAILY [facility] Last Admin: 12/24/17 10:03 Dose: 100 mg Metformin HCl (Glucophage Xr) 750 mg PO BID [facility] Last Admin: 12/24/17 10:03 Dose: 750 mg Metoprolol Succinate (Toprol Xl) 100 mg PO DAILY [facility] Last Admin: 12/24/17 10:03 Dose: 100 mg Tiotropium [place] (Spiriva) 18 mcg INH RQ24 [facility] Physical Exam - Head Exam Head Exam: ATRAUMATIC, NORMOCEPHALIC - ENT Exam ENT Exam: Mucous Membranes Moist - Neck Exam Neck exam: Positive for: Normal Inspection - Respiratory Exam Respiratory Exam: Decreased Breath Sounds - Cardiovascular Exam Cardiovascular Exam: REGULAR RHYTHM - GI/Abdominal Exam GI & Abdominal Exam: Normal Bowel Sounds - Extremities Exam Extremities exam: Positive for: normal inspection Results - Vital Signs Recent Vital Signs: Last Vital Signs Temp 97.9 F 12/24/17 07:25 Pulse 70 12/24/17 11:51 Resp 20 12/24/17 07:25 BP 144/81 12/24/17 11:51 Pulse Ox 98 12/24/17 07:25 - Labs Result Diagrams: 12/23/17 12:15 12/23/17 12:15 Labs: Laboratory Results - last 24 hr 12/23/17 12/23/17 12/23/17 12:15 12:15 12:15 WBC 10.5 D RBC 3.91 L Hgb 12.4 Hct 35.8 MCV 91.6 MCH 31.6 H MCHC 34.6 RDW 12.7 Plt Count 351 MPV 9.3 Neut % (Auto) 81.9 H Lymph % (Auto) 9.8 L [place] % (Auto) 7.7 Eos % (Auto) 0.3 Baso % (Auto) 0.3 Neut # (Auto) 8.6 H Lymph # (Auto) 1.0 [place] # (Auto) 0.8 Eos # (Auto) 0.0 Baso # (Auto) 0.0 Neutrophils % (Manual) 81 H Band Neutrophils % 2 Lymphocytes % (Manual) 8 L Reactive Lymphs % 1 H Monocytes % (Manual) 8 Platelet Estimate Normal RBC Morphology Normal PT 11.3 INR 1.0 APTT 30 Puncture Site pCO2 pO2 HCO3 ABG pH ABG Total CO2 ABG O2 Saturation ABG Base Excess Dre Test ABG Potassium A-a O2 Difference Respiratory Index Glucose Lactate FiO2 Sodium 138 Potassium 3.9 Chloride 98 Carbon Dioxide 33 H Anion Gap 12 BUN 31 H Creatinine 0.9 Est GFR ( Amer) > 60 Est GFR (Non-Af Amer) > 60 POC Glucose (mg/dL) Random Glucose 307 H Calcium 9.0 Total Bilirubin 0.2 AST 24 ALT 11 L D Alkaline Phosphatase 85 Total Creatine Kinase 107 CK-MB (Mass) 6.56 H Troponin I 0.0370 NT-Pro-B Natriuret Pep 5080 H Total Protein 5.9 L Albumin 3.0 L Globulin 2.9 Albumin/Globulin Ratio 1.0 Arterial Blood Potassium 12/23/17 12/23/17 12/23/17 12:30 19:05 19:06 WBC RBC Hgb Hct MCV MCH MCHC RDW Plt Count MPV Neut % (Auto) Lymph % (Auto) [place] % (Auto) Eos % (Auto) Baso % (Auto) Neut # (Auto) Lymph # (Auto) [place] # (Auto) Eos # (Auto) Baso # (Auto) Neutrophils % (Manual) Band Neutrophils % Lymphocytes % (Manual) Reactive Lymphs % Monocytes % (Manual) Platelet Estimate RBC Morphology PT INR APTT Puncture Site Rra pCO2 39 pO2 63 L HCO3 28.3 H ABG pH 7.47 H ABG Total CO2 29.6 H ABG O2 Saturation 95.7 ABG Base Excess 4.5 H Dre Test Pos ABG Potassium 3.6 A-a O2 Difference 38.0 Respiratory Index 0.6 Glucose 335 H Lactate 2.4 H FiO2 21.0 Sodium 137.0 Potassium Chloride 103.0 Carbon Dioxide Anion Gap BUN Creatinine Est GFR ( Amer) Est GFR (Non-Af Amer) POC Glucose (mg/dL) 418 H* 421 H* Random Glucose Calcium Total Bilirubin AST ALT Alkaline Phosphatase Total Creatine Kinase CK-MB (Mass) Troponin I NT-Pro-B Natriuret Pep Total Protein Albumin Globulin Albumin/Globulin Ratio Arterial Blood Potassium 3.6 12/23/17 12/23/17 12/24/17 19:41 20:53 02:01 WBC RBC Hgb Hct MCV MCH MCHC RDW Plt Count MPV Neut % (Auto) Lymph % (Auto) [place] % (Auto) Eos % (Auto) Baso % (Auto) Neut # (Auto) Lymph # (Auto) [place] # (Auto) Eos # (Auto) Baso # (Auto) Neutrophils % (Manual) Band Neutrophils % Lymphocytes % (Manual) Reactive Lymphs % Monocytes % (Manual) Platelet Estimate RBC Morphology PT INR APTT Puncture Site pCO2 pO2 HCO3 ABG pH ABG Total CO2 ABG O2 Saturation ABG Base Excess Dre Test ABG Potassium A-a O2 Difference Respiratory Index Glucose Lactate FiO2 Sodium Potassium Chloride Carbon Dioxide Anion Gap BUN Creatinine Est GFR ( Amer) Est GFR (Non-Af Amer) POC Glucose (mg/dL) 437 H* 345 H Random Glucose Calcium Total Bilirubin AST ALT Alkaline Phosphatase Total Creatine Kinase 106 CK-MB (Mass) 5.76 H Troponin I 0.0350 NT-Pro-B Natriuret Pep Total Protein Albumin Globulin Albumin/Globulin Ratio Arterial Blood Potassium 12/24/17 12/24/17 12/24/17 02:28 03:17 06:02 WBC RBC Hgb Hct MCV MCH MCHC RDW Plt Count MPV Neut % (Auto) Lymph % (Auto) [place] % (Auto) Eos % (Auto) Baso % (Auto) Neut # (Auto) Lymph # (Auto) [place] # (Auto) Eos # (Auto) Baso # (Auto) Neutrophils % (Manual) Band Neutrophils % Lymphocytes % (Manual) Reactive Lymphs % Monocytes % (Manual) Platelet Estimate RBC Morphology PT INR APTT Puncture Site pCO2 pO2 HCO3 ABG pH ABG Total CO2 ABG O2 Saturation ABG Base Excess Dre Test ABG Potassium A-a O2 Difference Respiratory Index Glucose Lactate FiO2 Sodium Potassium Chloride Carbon Dioxide Anion Gap BUN Creatinine Est GFR ( Amer) Est GFR (Non-Af Amer) POC Glucose (mg/dL) 334 H 253 H Random Glucose Calcium Total Bilirubin AST ALT Alkaline Phosphatase Total Creatine Kinase 77 CK-MB (Mass) 4.34 H Troponin I 0.0380 NT-Pro-B Natriuret Pep Total Protein Albumin Globulin Albumin/Globulin Ratio Arterial Blood Potassium 12/24/17 11:03 WBC RBC Hgb Hct MCV MCH MCHC RDW Plt Count MPV Neut % (Auto) Lymph % (Auto) [place] % (Auto) Eos % (Auto) Baso % (Auto) Neut # (Auto) Lymph # (Auto) [place] # (Auto) Eos # (Auto) Baso # (Auto) Neutrophils % (Manual) Band Neutrophils % Lymphocytes % (Manual) Reactive Lymphs % Monocytes % (Manual) Platelet Estimate RBC Morphology PT INR APTT Puncture Site pCO2 pO2 HCO3 ABG pH ABG Total CO2 ABG O2 Saturation ABG Base Excess Dre Test ABG Potassium A-a O2 Difference Respiratory Index Glucose Lactate FiO2 Sodium Potassium Chloride Carbon Dioxide Anion Gap BUN Creatinine Est GFR ( Amer) Est GFR (Non-Af Amer) POC Glucose (mg/dL) 169 H Random Glucose Calcium Total Bilirubin AST ALT Alkaline Phosphatase Total Creatine Kinase CK-MB (Mass) Troponin I NT-Pro-B Natriuret Pep Total Protein Albumin Globulin Albumin/Globulin Ratio Arterial Blood Potassium Assessment & Plan (1) Exacerbation of asthma Status: Acute Comment: THE PATIENT WITH HISTORY OF SMOKING UNDERLYING COPD cannot be ruled out. Continue nebulizent. Continue spiriva. IV antibiotics. Glycemic control
[2017-12-24] MEDS: Tiotropium 18 mcg Cap For Inhalation INH SCH (20:00)
[2017-12-25] MEDS: Albuterol-Ipratrop 3 mg / 0.5 (3 ml) UD INH PRN ×2 (01:47→15:43)
[2017-12-25] MEDS: Piperacillin/Tazobact 3.375 GM in Sodium Chloride 100 ML IVPB SCH ×4 (04:52→22:50)
[2017-12-25] MEDS: Tiotropium 18 mcg Cap For Inhalation INH SCH (07:39)
[2017-12-25] MEDS ORDERED: Nitroglycerin 2% Ointment Foilpak UD TOP ONE (08:00)
[2017-12-25] MEDS: (Novolog) Insulin Aspart, Recombinant 100 u/ml 10 ml vial SC SCH ×4 (08:28→22:30)
--- NOTE | 2017-12-25 09:40 | CP.PCM.PN ---
Subjective - Date & Time of Evaluation Date of Evaluation: 12/24/17 Time of Evaluation: 16:10 - Subjective Subjective: Patient seen and evaluated Still has some dyspnea Objective - Vital Signs/Intake and Output Vital Signs (last 24 hours): Temp Pulse Resp BP Pulse Ox 98.2 F 75 18 206/121 H 97 12/25/17 07:00 12/25/17 07:08 12/25/17 07:00 12/25/17 07:00 12/25/17 07:00 Intake and Output: 12/25/17 12/25/17 06:59 18:59 Intake Total 580 Output Total 900 Balance -320 - Medications Medications: Current Medications Albuterol Sulfate (Albuterol 0.083% Inhal Evelyn (2.5 Mg/3 Ml) Ud) 2.5 mg IH RQ2 PRN PRN Reason: Wheezing Last Admin: 12/25/17 07:39 Dose: 2.5 mg Albuterol/Ipratropium (Duoneb 3 Mg/0.5 Mg (3 Ml) Ud) 3 ml INH RQ4 PRN PRN Reason: Shortness of Breath Last Admin: 12/25/17 01:47 Dose: 3 ml Clonidine HCl (Catapres) 0.2 mg PO Q8 [facility] Last Admin: 12/25/17 05:58 Dose: 0.2 mg Enoxaparin Sodium (Lovenox) 40 mg SC DAILY [facility] Last Admin: 12/24/17 10:00 Dose: Not Given Gabapentin (Neurontin) 300 mg PO BID [facility] Last Admin: 12/24/17 17:46 Dose: 300 mg Guaifenesin (Mucinex [place]) 600 mg PO BID [facility] Last Admin: 12/24/17 17:44 Dose: 600 mg Azithromycin 500 mg/ Sodium (Chloride) 250 mls @ 250 mls/hr IVPB DAILY [facility] PRN Reason: Protocol Last Admin: 12/24/17 10:03 Dose: 250 mls/hr Piperacillin Sod/Tazobactam (Sod 3.375 gm/ Sodium Chloride) 100 mls @ 200 mls/ hr IVPB Q6H [facility] PRN Reason: Protocol Last Admin: 12/25/17 04:52 Dose: Not Given Insulin Aspart (Novolog) 0 unit SC ACHS [facility] PRN Reason: Protocol Last Admin: 12/25/17 08:28 Dose: 4 units Lorazepam (Ativan) 0.5 mg PO TID PRN PRN Reason: Anxiety Last Admin: 12/24/17 02:59 Dose: 0.5 mg Losartan Potassium (Cozaar) 100 mg PO DAILY [facility] Last Admin: 12/24/17 10:03 Dose: 100 mg Metformin HCl (Glucophage Xr) 750 mg PO BID [facility] Last Admin: 12/24/17 17:44 Dose: 750 mg Metoprolol Succinate (Toprol Xl) 100 mg PO DAILY [facility] Last Admin: 12/24/17 10:03 Dose: 100 mg Tiotropium [place] (Spiriva) 18 mcg INH RQ24 [facility] Last Admin: 12/25/17 07:39 Dose: 18 mcg - Labs Labs: 12/23/17 12:15 12/23/17 12:15 PT 11.3 SECONDS (9.7-12.2) 12/23/17 12:15 INR 1.0 12/23/17 12:15 APTT 30 SECONDS (21-34) 12/23/17 12:15
[2017-12-25] MEDS: Azithromycin 500 MG in Sodium Chloride 0.9% 250 ML IVPB SCH (10:41)
[2017-12-25] MEDS: Enoxaparin 40 mg Syringe SC SCH (10:43)
[2017-12-25] MEDS: guaiFENesin 600 mg ER Tab PO SCH ×3 (10:47→18:21)
[2017-12-25] MEDS: Metoprolol Succinate 100 mg XL Tab PO SCH (10:47)
--- NOTE | 2017-12-25 15:46 | CARD ---
APPROVED REPORT EKG Measurement Heart [id number] <Conclusion> Normal sinus rhythm Possible Left atrial enlargement Nonspecific T wave abnormality Abnormal ECG
--- NOTE | 2017-12-25 16:54 | RAD ---
HISTORY: sob COMPARISON: Comparison is made with 12/23/2017 TECHNIQUE: Chest PA and lateral FINDINGS: LUNGS: There are bibasilar opacities larger on the right may represent atelectasis or small infiltrates. PLEURA: Small right pleural effusion is noted in the lateral view. CARDIOVASCULAR: Normal. OSSEOUS STRUCTURES: No significant abnormalities. VISUALIZED UPPER ABDOMEN: Normal. OTHER FINDINGS: None. IMPRESSION: Bibasilar and lower lobe opacities may represent atelectasis or infiltrates. Small pleural effusion on the right seen in the lateral view
--- NOTE | 2017-12-25 17:06 | CP.PCM.PN ---
Subjective - Date & Time of Evaluation Date of Evaluation: 12/25/17 Time of Evaluation: 14:20 - Subjective Subjective: patient seen and examined Lying comfortably in no acute distress dyspnea on exertion Afebrile no chest pain wants to go home Continue antibiotics Continue nebulizer treatment Objective - Vital Signs/Intake and Output Vital Signs (last 24 hours): Temp Pulse Resp BP Pulse Ox 98.2 F 76 18 169/87 H 97 12/25/17 07:00 12/25/17 12:25 12/25/17 07:00 12/25/17 12:25 12/25/17 07:00 Intake and Output: 12/25/17 12/25/17 06:59 18:59 Intake Total 580 400 Output Total 900 Balance -320 400 - Medications Medications: Current Medications Albuterol Sulfate (Albuterol 0.083% Inhal [place] (2.5 Mg/3 Ml) Ud) 2.5 mg IH RQ2 PRN PRN Reason: Wheezing Last Admin: 12/25/17 07:39 Dose: 2.5 mg Albuterol/Ipratropium (Duoneb 3 Mg/0.5 Mg (3 Ml) Ud) 3 ml INH RQ4 PRN PRN Reason: Shortness of Breath Last Admin: 12/25/17 15:43 Dose: 3 ml Clonidine HCl (Catapres-Tts3 0.3 Mg/24 Hr) 1 patch TD Q7D@1000 [facility] Last Admin: 12/25/17 14:00 Dose: 1 patch Enoxaparin Sodium (Lovenox) 40 mg SC DAILY [facility] Last Admin: 12/25/17 10:43 Dose: Not Given Gabapentin (Neurontin) 300 mg PO BID [facility] Last Admin: 12/25/17 10:47 Dose: 300 mg Guaifenesin (Mucinex [place]) 600 mg PO BID [facility] Last Admin: 12/25/17 10:52 Dose: Not Given Azithromycin 500 mg/ Sodium (Chloride) 250 mls @ 250 mls/hr IVPB DAILY [facility] PRN Reason: Protocol Last Admin: 12/25/17 10:41 Dose: Not Given Piperacillin Sod/Tazobactam (Sod 3.375 gm/ Sodium Chloride) 100 mls @ 200 mls/ hr IVPB Q6H [facility] PRN Reason: Protocol Last Admin: 12/25/17 10:42 Dose: Not Given Insulin Aspart (Novolog) 0 unit SC ACHS [facility] PRN Reason: Protocol Last Admin: 12/25/17 14:00 Dose: 4 units Lorazepam (Ativan) 0.5 mg PO BID [facility] Losartan Potassium (Cozaar) 100 mg PO DAILY [facility] Last Admin: 12/25/17 10:47 Dose: 100 mg Metformin HCl (Glucophage Xr) 750 mg PO BID [facility] Last Admin: 12/25/17 10:47 Dose: 750 mg Metoprolol Succinate (Toprol Xl) 100 mg PO DAILY [facility] Last Admin: 12/25/17 10:47 Dose: 100 mg Tiotropium [place] (Spiriva) 18 mcg INH RQ24 [facility] Last Admin: 12/25/17 07:39 Dose: 18 mcg - Labs Labs: 12/23/17 12:15 12/23/17 12:15 PT 11.3 SECONDS (9.7-12.2) 12/23/17 12:15 INR 1.0 12/23/17 12:15 APTT 30 SECONDS (21-34) 12/23/17 12:15 Assessment and Plan (1) Exacerbation of asthma Status: Acute
--- NOTE | 2017-12-25 22:13 | CP.PCM.PN ---
Subjective - Date & Time of Evaluation Date of Evaluation: 12/25/17 Time of Evaluation: 16:15 - Subjective Subjective: Patient seen and evaluated Denies chest pain Still some dyspnea Objective - Vital Signs/Intake and Output Vital Signs (last 24 hours): Temp Pulse Resp BP Pulse Ox 98.2 F 76 18 169/87 H 97 12/25/17 07:00 12/25/17 12:25 12/25/17 07:00 12/25/17 12:25 12/25/17 07:00 Intake and Output: 12/25/17 12/26/17 18:59 06:59 Intake Total 400 Balance 400 - Medications Medications: Current Medications Albuterol Sulfate (Albuterol 0.083% Inhal Evelyn (2.5 Mg/3 Ml) Ud) 2.5 mg IH RQ2 PRN PRN Reason: Wheezing Last Admin: 12/25/17 07:39 Dose: 2.5 mg Albuterol/Ipratropium (Duoneb 3 Mg/0.5 Mg (3 Ml) Ud) 3 ml INH RQ4 PRN PRN Reason: Shortness of Breath Last Admin: 12/25/17 15:43 Dose: 3 ml Clonidine HCl (Catapres-Tts3 0.3 Mg/24 Hr) 1 patch TD Q7D@1000 [facility] Last Admin: 12/25/17 14:00 Dose: 1 patch Enoxaparin Sodium (Lovenox) 40 mg SC DAILY [facility] Last Admin: 12/25/17 10:43 Dose: Not Given Gabapentin (Neurontin) 300 mg PO BID [facility] Last Admin: 12/25/17 18:21 Dose: 300 mg Guaifenesin (Mucinex La) 600 mg PO BID [facility] Last Admin: 12/25/17 18:21 Dose: 600 mg Azithromycin 500 mg/ Sodium (Chloride) 250 mls @ 250 mls/hr IVPB DAILY [facility] PRN Reason: Protocol Last Admin: 12/25/17 10:41 Dose: Not Given Piperacillin Sod/Tazobactam (Sod 3.375 gm/ Sodium Chloride) 100 mls @ 200 mls/ hr IVPB Q6H [facility] PRN Reason: Protocol Last Admin: 12/25/17 17:30 Dose: Not Given Insulin Aspart (Novolog) 0 unit SC ACHS [facility] PRN Reason: Protocol Last Admin: 12/25/17 18:34 Dose: 2 units Lorazepam (Ativan) 0.5 mg PO BID [facility] Last Admin: 12/25/17 18:20 Dose: 0.5 mg Losartan Potassium (Cozaar) 100 mg PO DAILY [facility] Last Admin: 12/25/17 10:47 Dose: 100 mg Metformin HCl (Glucophage Xr) 750 mg PO BID [facility] Last Admin: 12/25/17 18:21 Dose: 750 mg Metoprolol Succinate (Toprol Xl) 100 mg PO DAILY [facility] Last Admin: 12/25/17 10:47 Dose: 100 mg Tiotropium [place] (Spiriva) 18 mcg INH RQ24 [facility] Last Admin: 12/25/17 07:39 Dose: 18 mcg - Labs Labs: 12/23/17 12:15 12/23/17 12:15 PT 11.3 SECONDS (9.7-12.2) 12/23/17 12:15 INR 1.0 12/23/17 12:15 APTT 30 SECONDS (21-34) 12/23/17 12:15
[2017-12-26] MEDS: Piperacillin/Tazobact 3.375 GM in Sodium Chloride 100 ML IVPB SCH ×2 (04:45→09:37)
[2017-12-26] MEDS: Albuterol-Ipratrop 3 mg / 0.5 (3 ml) UD INH PRN (07:40)
[2017-12-26] MEDS: Tiotropium 18 mcg Cap For Inhalation INH SCH (07:40)
[2017-12-26] MEDS: (Novolog) Insulin Aspart, Recombinant 100 u/ml 10 ml vial SC SCH ×2 (08:17→13:06)
[2017-12-26 08:41] VITALS: RESP 18; TEMP 97.3
[2017-12-26] MEDS: Azithromycin 500 MG in Sodium Chloride 0.9% 250 ML IVPB SCH (09:37)
[2017-12-26] MEDS: Enoxaparin 40 mg Syringe SC SCH (10:13)
[2017-12-26] MEDS: Metoprolol Succinate 100 mg XL Tab PO SCH (10:17)
[2017-12-26] MEDS: guaiFENesin 600 mg ER Tab PO SCH (10:18)
--- NOTE | 2017-12-26 13:06 | CP.PCM.PN ---
Subjective - Date & Time of Evaluation Date of Evaluation: 12/26/17 Time of Evaluation: 10:45 - Subjective Subjective: patient seen today, awake, alert, ox3, denies any chest pain, sob, palpitations , dizziness, headache, N/V/D , wants to go home minimal sob notes with activity at bedside spo2 95% RA BP -STABLE Objective - Vital Signs/Intake and Output Vital Signs (last 24 hours): Temp Pulse Resp BP Pulse Ox 97.3 F L 82 18 190/100 H 83 L 12/26/17 07:00 12/26/17 07:27 12/26/17 07:00 12/26/17 07:00 12/26/17 12:55 Intake and Output: 12/26/17 12/26/17 06:59 18:59 Intake Total 450 Balance 450 - Medications Medications: Current Medications Albuterol Sulfate (Albuterol 0.083% Inhal Evelyn (2.5 Mg/3 Ml) Ud) 2.5 mg IH RQ2 PRN PRN Reason: Wheezing Last Admin: 12/25/17 07:39 Dose: 2.5 mg Albuterol/Ipratropium (Duoneb 3 Mg/0.5 Mg (3 Ml) Ud) 3 ml INH RQ4 PRN PRN Reason: Shortness of Breath Last Admin: 12/26/17 07:40 Dose: 3 ml Clonidine HCl (Catapres-Tts3 0.3 Mg/24 Hr) 1 patch TD Q7D@1000 [facility] Last Admin: 12/25/17 14:00 Dose: 1 patch Enoxaparin Sodium (Lovenox) 40 mg SC DAILY [facility] Last Admin: 12/26/17 10:13 Dose: Not Given Gabapentin (Neurontin) 300 mg PO BID [facility] Last Admin: 12/26/17 10:17 Dose: 300 mg Guaifenesin (Mucinex La) 600 mg PO BID [facility] Last Admin: 12/26/17 10:18 Dose: 600 mg Azithromycin 500 mg/ Sodium (Chloride) 250 mls @ 250 mls/hr IVPB DAILY [facility] PRN Reason: Protocol Last Admin: 12/26/17 09:37 Dose: Not Given Piperacillin Sod/Tazobactam (Sod 3.375 gm/ Sodium Chloride) 100 mls @ 200 mls/ hr IVPB Q6H [facility] PRN Reason: Protocol Last Admin: 12/26/17 09:37 Dose: Not Given Insulin Aspart (Novolog) 0 unit SC ACHS [facility] PRN Reason: Protocol Last Admin: 12/26/17 08:17 Dose: Not Given Lorazepam (Ativan) 0.5 mg PO BID [facility] Last Admin: 12/26/17 10:18 Dose: 0.5 mg Losartan Potassium (Cozaar) 100 mg PO DAILY [facility] Last Admin: 12/26/17 10:18 Dose: 100 mg Metformin HCl (Glucophage Xr) 750 mg PO BID [facility] Last Admin: 12/26/17 10:17 Dose: 750 mg Metoprolol Succinate (Toprol Xl) 100 mg PO DAILY [facility] Last Admin: 12/26/17 10:17 Dose: 100 mg Tiotropium [place] (Spiriva) 18 mcg INH RQ24 [facility] Last Admin: 12/26/17 07:40 Dose: 18 mcg - Labs Labs: 12/23/17 12:15 12/23/17 12:15 PT 11.3 SECONDS (9.7-12.2) 12/23/17 12:15 INR 1.0 12/23/17 12:15 APTT 30 SECONDS (21-34) 12/23/17 12:15 - Constitutional Appears: Well, No Acute Distress - Respiratory Exam Respiratory Exam: Rhonchi, NORMAL BREATHING PATTERN - Cardiovascular Exam Cardiovascular Exam: REGULAR RHYTHM, +S1, +S2 - Neurological Exam Neurological Exam: Alert, Awake, Oriented x3 Assessment and Plan - Assessment and Plan (Free Text) Assessment: a/P 62 yr old male with pmhx of Asthma, CAD, COPD, Diabetes, HTN, Hypercholesterolemia, admitted with exc. copd and pneumonia Patient clinically improved with steroids and antibiotics repeat cxr- Bibasilar and lower lobe opacities may represent atelectasis or infiltrates. Small pleural effusion on the right seen in the lateral view seen by Dr. Ken cleared for discharge home today and continue predinisone taper dose and antibiotics Seen by Dr. Amaral, cleared for d/c D/w Dr. Frederick, stable for discharge home today and f/u with Dr. Frederick office and Dr. Ken office in 1 week Discharge plan discussed with patient , who understands and agrees with plan patient instructed to returns to ED if symptoms return s
--- NOTE | 2017-12-26 13:50 | PCM.PSYCH ---
Initial Psychiatric Evaluation - Initial Psychiatric Evaluation Type of Admission: Voluntary Legal Status: Capacity Chief Complaint (in patient's own words): "I'm fine" History of Present Illness and Precipitating Events: The patient is seen, chart reviewed and case discussed. This is a 52-year-old male, , lives with , has an adult child., Unemployed. Consultation was requested for his psych symptoms. The patient currently denies any symptoms; he denies feeling suicidal, homicidal , having hallucinations and no delusions elicited. He admits to feeling anxious a little bit and sometimes depressed. He also apologized for his outburst recently. He is oriented and alert. He knows his conditions and agrees with treatment. He agrees that he can and will seek treatment if he has psychiatric symptoms again. Past psych history: denies Family psych history unknown Medical history: Diabetes, asthma, high blood pressure Current Medications: Active Medications Generic Name Dose Route Start Last Admin Trade Name Freq PRN Reason Stop Dose Admin Albuterol Sulfate 2.5 mg 12/23/17 16:50 12/25/17 07:39 Albuterol 0.083% Inhal Evelyn (2.5 Mg/3 Ml) Ud IH 2.5 mg RQ2 PRN Administration Wheezing Albuterol/Ipratropium 3 ml 12/23/17 16:43 12/26/17 07:40 Duoneb 3 Mg/0.5 Mg (3 Ml) Ud INH 3 ml RQ4 PRN Administration Shortness of Breath Clonidine HCl 1 patch 12/25/17 13:00 12/25/17 14:00 Catapres-Tts3 0.3 Mg/24 Hr TD 1 patch Q7D@1000 [facility]EVIN Administration Enoxaparin Sodium 40 mg 12/24/17 10:00 12/26/17 10:13 Lovenox SC Not Given DAILY [facility]EV[facility] Gabapentin 300 mg 12/24/17 18:00 12/26/17 10:17 Neurontin PO 300 mg BID [facility]IN Administration Guaifenesin 600 mg 12/23/17 18:00 12/26/17 10:18 Mucinex La PO 600 mg BID [facility]IN Administration Azithromycin 500 mg/ Sodium 250 mls @ 250 mls/hr 12/24/17 10:00 12/26/17 09: 37 Chloride IVPB Not Given DAILY [facility] Protocol Piperacillin Sod/Tazobactam 100 mls @ 200 mls/hr 12/23/17 22:30 12/26/17 09: 37 Sod 3.375 gm/ Sodium Chloride IVPB Not Given Q6H KEVIN Protocol Insulin Aspart 0 unit 12/23/17 22:00 12/26/17 13:06 Novolog SC 4 units ACHS [facility]EVIN Administration Protocol Lorazepam 0.5 mg 12/25/17 18:00 12/26/17 10:18 Ativan PO 0.5 mg BID [facility]EV[facility] Administration Losartan Potassium 100 mg 12/23/17 16:45 12/26/17 10:18 Cozaar PO 100 mg DAILY [facility] Administration Metformin HCl 750 mg 12/23/17 18:00 12/26/17 10:17 Glucophage Xr PO 750 mg BID [facility] Administration Metoprolol Succinate 100 mg 12/23/17 16:45 12/26/17 10:17 Toprol Xl PO 100 mg DAILY [facility] Administration Tiotropium [place] 18 mcg 12/24/17 08:00 12/26/17 07:40 Spiriva INH 18 mcg RQ24 [facility]EVIN Administration Past Psychiatric History - Past Psychiatric History Previous Treatment History: None Pertinent Medical Hx (Current Medical&Sleep Prob, Allergies): Allergies Allergy/AdvReac Type Severity Reaction Status Date / Time No Known Allergies Allergy Verified 12/18/17 12:12 Albuterol Sulfate [Proventil Hfa] 6.7 gm IH PRN PRN #1 hfa.aer.ad 12/22/17 Albuterol/Ipratropium [Duoneb 3 mg/0.5 mg (3 ml) UD] 3 ml INH RQ4 PRN #60 neb Azithromycin [Zithromax] 500 mg PO DAILY #5 tab 12/22/17 Gabapentin [Neurontin] 300 mg PO BID #60 cap 12/22/17 Losartan [Cozaar] 100 mg PO DAILY #30 tab 12/22/17 Mask, Face [Nebulizer Aerosol Mask Adult] 1 dev XX PRN PRN #1 dev 12/22/17 Metoprolol Succinate [Toprol XL] 100 mg PO DAILY #30 tab 12/22/17 Nebulizer Accessories [Reusable Nebulizer Kit] 1 each QID PRN #1 kit Nebulizer [Truneb Nebulizer] 1 each QID PRN #1 each 12/22/17 Tiotropium [Spiriva] 18 mcg INH RQ24 #30 cap 12/22/17 metFORMIN ER [glucoPHAGE XR] 750 mg PO BID #60 ter 12/22/17 predniSONE [predniSONE Tab] 10 mg PO DAILY #30 tab 12/22/17 cloNIDine 0.3 mg/24 hr [catapres-TTS3 0.3 mg/24 hr] 1 patch TD Q7D@1000 #4 patch 12/26/17 Review of Systems - Psychiatric Psychiatric: Abnormal Sleep Pattern, Anxiety. absent: Depression, Hallucinations, Homicidal Ideation, Hopelessness, Paranoia, Suicidal Ideation Mental Status Examination - Personal Presentation Personal Presentation: Looks stated age - Affect Affect: Constricted - Motor Activity Motor Activity: Calm - Reliability in Providing Information Reliability in Providing Information: Good - Speech Speech: Organized - Mood Mood: Depressed (mild), Anxious - Formal Thought Process Formal Thought Process: No Impairment - Hallucinations/Delusions Hallucinations: Visual - Cognitive Functions Orientation: Person, Place, Situation, Time Sensorium: Alert Attention/Concentration: Easily distracted Estimate of Intelligence: Average Judgement: Intact, as evidence by: Insight regarding need for hospitalization Memory: Recent intact, as evidence by: Ability to recall events of the day, Remote intact, as evidenced by: Abilit to recall sig. life events - Risk Risk: Diminished functioning - Strength & Assets Inventory Strength & Assets Inventory: Cooperative DSM 5 DX - DSM 5 DSM 5 Diagnosis: Depressive d/o - unspecified - Recommended/Plan of Treatment Treatment Recommendations and Plan of Treatment: No medication treatment needed How to get support outside discussed Support and psychoed given Cleared for d/c 31 min
[2017-12-26 13:57] VITALS: BP 164/75; PULSE 77
[2017-12-26 15:00] VITALS: O2SAT 83
--- NOTE | 2017-12-26 23:43 | CP.PCM.DIS ---
Provider - Provider Date of Admission: 12/23/17 13:18 Attending physician: Cruz Frederick MD Time Spent in preparation of Discharge (in minutes): 45 Hospital Course - Lab Results Lab Results: Most Recent Lab Values WBC 10.5 K/uL (4.8-10.8) D 12/23/17 12:15 RBC 3.91 Mil/uL (4.40-5.90) L 12/23/17 12:15 Hgb 12.4 g/dL (12.0-18.0) 12/23/17 12:15 Hct 35.8 % (35.0-51.0) 12/23/17 12:15 MCV 91.6 fL (80.0-94.0) 12/23/17 12:15 MCH 31.6 pg (27.0-31.0) H 12/23/17 12:15 MCHC 34.6 g/dL (33.0-37.0) 12/23/17 12:15 RDW 12.7 % (11.5-14.5) 12/23/17 12:15 Plt Count 351 K/uL (130-400) 12/23/17 12:15 MPV 9.3 fL (7.2-11.7) 12/23/17 12:15 Neut % (Auto) 81.9 % (50.0-75.0) H 12/23/17 12:15 Lymph % (Auto) 9.8 % (20.0-40.0) L 12/23/17 12:15 [place] % (Auto) 7.7 % (0.0-10.0) 12/23/17 12:15 Eos % (Auto) 0.3 % (0.0-4.0) 12/23/17 12:15 Baso % (Auto) 0.3 % (0.0-2.0) 12/23/17 12:15 Neut # (Auto) 8.6 K/uL (1.8-7.0) H 12/23/17 12:15 Lymph # (Auto) 1.0 K/uL (1.0-4.3) 12/23/17 12:15 [place] # (Auto) 0.8 K/uL (0.0-0.8) 12/23/17 12:15 Eos # (Auto) 0.0 K/uL (0.0-0.7) 12/23/17 12:15 Baso # (Auto) 0.0 K/uL (0.0-0.2) 12/23/17 12:15 Neutrophils % (Manual) 81 % (50-75) H 12/23/17 12:15 Band Neutrophils % 2 % (0-2) 12/23/17 12:15 Lymphocytes % (Manual) 8 % (20-40) L 12/23/17 12:15 Reactive Lymphs % 1 % (0-0) H 12/23/17 12:15 Monocytes % (Manual) 8 % (0-10) 12/23/17 12:15 Platelet Estimate Normal (NORMAL) 12/23/17 12:15 RBC Morphology Normal 12/23/17 12:15 PT 11.3 SECONDS (9.7-12.2) 12/23/17 12:15 INR 1.0 12/23/17 12:15 APTT 30 SECONDS (21-34) 12/23/17 12:15 Puncture Site Rra 12/23/17 12:30 pCO2 39 mm/Hg (35-45) 12/23/17 12:30 pO2 63 mm/Hg (80-100) L 12/23/17 12:30 HCO3 28.3 mmol/L (21-28) H 12/23/17 12:30 ABG pH 7.47 (7.35-7.45) H 12/23/17 12:30 ABG Total CO2 29.6 mmol/L (22-28) H 12/23/17 12:30 ABG O2 Saturation 95.7 % (95-98) 12/23/17 12:30 ABG Base Excess 4.5 mmol/L (-2.0-3.0) H 12/23/17 12:30 Dre Test Pos 12/23/17 12:30 ABG Potassium 3.6 mmol/L (3.6-5.2) 12/23/17 12:30 A-a O2 Difference 38.0 mm/Hg 12/23/17 12:30 Respiratory Index 0.6 12/23/17 12:30 Sodium 137.0 mmol/l (132-148) 12/23/17 12:30 Chloride 103.0 mmol/L (98-107) 12/23/17 12:30 Glucose 335 mg/dl (75-110) H 12/23/17 12:30 Lactate 2.4 mmol/L (0.7-2.1) H 12/23/17 12:30 FiO2 21.0 % 12/23/17 12:30 Sodium 138 mmol/L (132-148) 12/23/17 12:15 Potassium 3.9 mmol/L (3.6-5.2) 12/23/17 12:15 Chloride 98 mmol/L (98-107) 12/23/17 12:15 Carbon Dioxide 33 mmol/L (22-30) H 12/23/17 12:15 Anion Gap 12 (10-20) 12/23/17 12:15 BUN 31 mg/dL (9-20) H 12/23/17 12:15 Creatinine 0.9 mg/dL (0.8-1.5) 12/23/17 12:15 Est GFR ( Amer) > 60 12/23/17 12:15 Est GFR (Non-Af Amer) > 60 12/23/17 12:15 POC Glucose (mg/dL) 292 mg/dL (65-110) H 12/26/17 11:28 Random Glucose 307 mg/dL (75-110) H 12/23/17 12:15 Calcium 9.0 mg/dl (8.6-10.4) 12/23/17 12:15 Total Bilirubin 0.2 mg/dL (0.2-1.3) 12/23/17 12:15 AST 24 U/L (17-59) 12/23/17 12:15 ALT 11 U/L (21-72) L D 12/23/17 12:15 Alkaline Phosphatase 85 U/L (38-126) 12/23/17 12:15 Total Creatine Kinase 77 U/L (55-170) 12/24/17 03:17 CK-MB (Mass) 4.34 ng/mL (0.0-3.38) H 12/24/17 03:17 Troponin I 0.0380 ng/mL (0.00-0.120) 12/24/17 03:17 NT-Pro-B Natriuret Pep 5080 pg/mL (0-900) H 12/23/17 12:15 Total Protein 5.9 g/dL (6.3-8.3) L 12/23/17 12:15 Albumin 3.0 g/dL (3.5-5.0) L 12/23/17 12:15 Globulin 2.9 gm/dL (2.2-3.9) 12/23/17 12:15 Albumin/Globulin Ratio 1.0 (1.0-2.1) 12/23/17 12:15 Arterial Blood Potassium 3.6 mmol/L (3.6-5.2) 12/23/17 12:30 - Hospital Course Hospital Course: a/P 62 yr old male with pmhx of Asthma, CAD, COPD, Diabetes, HTN, Hypercholesterolemia, admitted with exc. copd and pneumonia Patient clinically improved with steroids and antibiotics repeat cxr- Bibasilar and lower lobe opacities may represent atelectasis or infiltrates. Small pleural effusion on the right seen in the lateral view seen by Dr. Ken cleared for discharge home today and continue predinisone taper dose and antibiotics Seen by Dr. Amaral, cleared for d/c stable for discharge home today and f/u with me in office and Dr. Ken office in 1 week Discharge plan discussed with patient , who understands and agrees with plan patient instructed to returns to ED if symptoms return s Discharge Exam - Head Exam Head Exam: ATRAUMATIC, NORMOCEPHALIC - Eye Exam Eye Exam: Normal appearance - ENT Exam ENT Exam: Mucous Membranes Moist - GI/Abdominal Exam GI & Abdominal Exam: Normal Bowel Sounds - Rectal Exam Rectal Exam: Deferred - Exam Exam: Circumcision, NORMAL INSPECTION External exam: NORMAL EXTERNAL EXAM Speculum exam: NORMAL SPECULUM EXAM Bimanual exam: NORMAL BIMANUAL EXAM Discharge Plan - Discharge Medications Prescriptions: cloNIDine 0.3 mg/24 hr [catapres-TTS3 0.3 mg/24 hr] 1 patch TD Q7D@1000 #4 patch - Follow Up Plan Condition: STABLE Disposition: HOME/ ROUTINE Instructions: Heart Healthy Diet, Carbohydrate Counting Diet, Pneumonia, Adult (DC), Diabetes Diet , Chest Pain (DC), Exacerbation of COPD (DC), Clonidine Additional Instructions: Please follow up with Dr. Frederick office in 5 days f/u with Dr. Ken office in 2 weeks- call and make appointment continue medication as per med. rec. 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
== END 2017-12-26 14:00 | disposition home or self-care (01) | DRG 190 ==
LOC: C.ER 11:44 → C.9E 13:18 → C.6T 14:31
PROVIDERS: ADMIT Internal Medicine; ATTEND Internal Medicine
DX: J44.0 Chronic obstructive pulmonary disease with (acute) lower respiratory infection (principal); J18.9 Pneumonia, unspecified organism; J45.901 Unspecified asthma with (acute) exacerbation; J44.1 Chronic obstructive pulmonary disease with (acute) exacerbation; J90 Pleural effusion, not elsewhere classified; F32.9 Major depressive disorder, single episode, unspecified; E11.9 Type 2 diabetes mellitus without complications; E78.00 Pure hypercholesterolemia, unspecified; I10 Essential (primary) hypertension; I25.10 Atherosclerotic heart disease of native coronary artery without angina pectoris

== ENCOUNTER 2018-02-19 15:36 | Inpatient (IN) | payer BC ==
[2018-02-19 15:39] VITALS: BMI 18.1
[2018-02-19] MEDS ORDERED: Labetalol 25mg/5ml Syringe IVP STA (15:42)
[2018-02-19] MEDS ORDERED: Iodixanol 320 MG/ML 100 ML BOTTLE IV ONE (15:51)
[2018-02-19 15:56] LABS: BASO # 0.1 K/uL (0.0-0.2); BASO % 0.5 % (0.0-2.0); EOS # 0.2 K/uL (0.0-0.7); EOS % 1.9 % (0.0-4.0); LYMPH % 9.6 % (20.0-40.0); MEAN CORPUSCULAR HEMOGLOBIN 30.6 pg (27.0-31.0); MEAN CORPUSCULAR HGB CONC 34.7 g/dL (33.0-37.0); MONO # 0.5 K/uL (0.0-0.8); MONO % 5.2 % (0.0-10.0); NEUT # 8.4 K/uL (1.8-7.0); NEUT % 82.8 % (50.0-75.0); PLATELET COUNT 267 K/uL (130-400); RBC 4.99 Mil/uL (4.40-5.90); RED CELL DISTRIBUTION WIDTH 13.4 % (11.5-14.5); WHITE BLOOD COUNT 10.1 K/uL (4.8-10.8)
[2018-02-19 16:00] LABS: HEMOGLOBIN 15.3 g/dL (12.0-18.0); MEAN CELL VOLUME 88.3 fL (80.0-94.0)
[2018-02-19 16:04] LABS: INR 0.9; PROTHROMBIN TIME 9.9 SECONDS (9.7-12.2)
--- NOTE | 2018-02-19 16:08 | CT ---
Date of service: 02/19/2018 PROCEDURE: CT HEAD WITHOUT CONTRAST. HISTORY: Code Stroke COMPARISON: None available. TECHNIQUE: Axial computed tomography images were obtained through the head/brain without intravenous contrast. Radiation dose: Total exam DLP = 810.78 mGy-cm. This CT exam was performed using one or more of the following dose reduction techniques: Automated exposure control, adjustment of the mA and/or kV according to patient size, and/or use of iterative reconstruction technique. FINDINGS: HEMORRHAGE: No intracranial hemorrhage. BRAIN: Diffuse cerebral atrophy and chronic microangiopathy white-matter related changes appear throughout the cerebrum. Lucencies in the bilateral basal ganglia and thalami likely reflect chronic lacunes although dilated favored perivascular spaces may be present intermixed at the bilateral basal ganglia. Posterior fossa contents appear unremarkable there is no mass effect. VENTRICLES: Unremarkable. No hydrocephalus. CALVARIUM: Unremarkable. PARANASAL SINUSES: Limited bilateral maxillary MASTOID AIR CELLS: Unremarkable as visualized. No inflammatory changes. OTHER FINDINGS: None. IMPRESSION: Age related neuro degenerative findings are identified as discussed above and appear age-appropriate. No mass effect or cortical edema. No intracranial hemorrhage Further, bithalamic and bilateral basal ganglia chronic lacunes are identified. Follow-up CT or MRI can be utilized as clinically warranted. Findings were discussed with Dr. Gamez with written down read back verification 02/19/2018 4:07 p.m..
--- NOTE | 2018-02-19 16:13 | C.PDOC ---
History Of Present Illness 62 year old male presents to the emergency department with onset of left-sided facial droop, and weakness of left arm and leg 2 hours prior to arrival.. Patient is currently living in a motel with his , who called EMS when he was experiencing these symptoms. He reports recent hiccupping, but denies headache, chest pain, shortness of breath. He states that he has been falling a lot but denies any recent head injury. His past medical history includes asthma , CAD, COPD, HTN, and hypercholesterolemia. He claims that he has been compliant with his HTN medications but cannot tell me what they are, and as per EMS the only medications seen at his motel residence were Metformin and Gabapentin. Patient does not recall when his last PMD appointment was and cannot tell us his doctor's name. Patient's finger stick glucose was 500, and his initial blood pressure was obtained to be 168/137. Time Seen by Provider: 02/19/18 15:42 Chief Complaint (Nursing): Weakness/Neurological Deficit History Per: Patient, EMS, Family () Onset/Duration Of Symptoms: Hrs Current Symptoms Are (Timing): Still Present Past Medical History Reviewed: Historical Data, Nursing Documentation, Vital Signs Vital Signs: Last Vital Signs Temp 99.0 F 02/19/18 16:13 Pulse 83 02/19/18 18:27 Resp 17 02/19/18 18:27 BP 145/88 02/19/18 18:27 Pulse Ox 97 02/19/18 18:27 - Medical History PMH: Asthma, CAD, COPD, Diabetes, HTN, Hypercholesterolemia, Pancreatitis, Pneumonia Denies: Chronic Kidney Disease Surgical History: No Surg Hx - [facility] Procedures OTHER ENDOSCOPY OF SM INTEST (03/26/15) VACCINATION NEC (03/11/15) Family History: States: No Known Family Hx, Hypertension - Social History Hx Tobacco Use: No Hx Alcohol Use: Yes (drinks on weekends) Hx Substance Use: No - Immunization History Hx Tetanus Toxoid Vaccination: No Hx Influenza Vaccination: No Hx Pneumococcal Vaccination: No Review Of Systems Cardiovascular: Negative for: Chest Pain, Palpitations Respiratory: Negative for: Shortness of Breath Gastrointestinal: Positive for: Other (hiccups). Negative for: Abdominal Pain Neurological: Positive for: Weakness (left-sided), Other (facial droop, increased falls.). Negative for: Headache Physical Exam - Physical Exam Appears: Non-toxic, No Acute Distress Skin: Warm, Dry Head: Atraumatic, Normacephalic Eye(s): bilateral: Normal Inspection, PERRL, EOMI Nose: Normal Neck: Normal, Trachea Midline, Supple, No Other (carotid bruits) Chest: Symmetrical Cardiovascular: Rhythm Regular, No Murmur Respiratory: Normal Breath Sounds, No Rales, No Rhonchi, No Wheezing Gastrointestinal/Abdominal: Normal Exam, Soft, No Tenderness, No Guarding, No Rebound Extremity: Normal ROM, No Tenderness Extremity: Left: Limited ROM To Joint (contracture of right 4th and 5th fingers and left 5th finger chronic), Right: Limited ROM To Joint, Bilateral: Normal Color And Temperature Pulses: Left Carotid: Normal, Right Carotid: Normal Neurological/Psych: Oriented x3, Normal Speech, Normal Cognition, No Normal Cranial Nerves (left facial droop), No Normal Motor (weakness left arm and leg, not flaccid), Normal Sensation, Normal Reflexes, Other (left-sided facial droop , no drift on peripheral exam, no ataxia) Gait: Unable To Assess Other Neurological Findings: Facial Palsy (left) Extremity: Right: No Drift, Left: No Drift, Upper: No Drift, Lower: No Drift ED Course And Treatment - Laboratory Results Result Diagrams: 02/19/18 15:50 02/19/18 15:50 Lab Interpretation: Abnormal (elevated lipids, Glucose 531, K+ 3.1, normal troponin) ECG: Interpreted By Me ECG Rhythm: Sinus Rhythm (with left axis), Nonspecific Changes (T wave changes) ECG Interpretation: No Acute Changes - Radiology CXR: Viewed By Me, Read By Radiologist CXR Interpretation: Yes: No Acute Disease - CT Scan/US Head Other Rad Studies (CT/US): Read By Radiologist, Radiology Report Reviewed CT/US Interpretation: IMPRESSION: Age related neuro degenerative findings are identified as discussed above and appear age-appropriate. No mass effect or cortical edema. No intracranial hemorrhage Further, bithalamic and bilateral basal ganglia chronic lacunes are identified. Follow-up CT or MRI can be utilized as clinically warranted. CT Angio Other Rad Studies (CT/US): Read By Radiologist, Radiology Report Reviewed CT/US Interpretation: IMPRESSION: Unremarkable CTA of the head and neck. No occlusion or significant stenosis identified. No arteriovascular malformation appreciable. Incidental bilateral thyroid cysts or nodules for which follow-up ultrasonography can be performed on elective basis. Probable large sebaceous cyst 2.7 x 2.1 cm at the posterior left neck/ shoulder subdermal/subcutaneous space. Progress Note: Plan: BBK Type and Screen. CTA Head/Neck Code Stroke. CT Head w/o Contrast (Code Stroke). EKG. CMP. Hemoglobin A1C. Lipid Panel. Troponin I. Stroke Team Consult. CBC. PTT. Prothrombin Time. CXR. Trandate 20mg IVP Reevaluation Time: 17:53 Reassessment Condition: Improved - Physician Consult Information Outcome Of Conversation: Case discussed with Dr Soria. Patient with uncontrolled hypertension and diabetes most likely a poor candidate for TPA. Will allow conservative hypertension and treat with Plavix and ASA to anticoagulate and Insulin to control blood sugar. Dr Sandy Guzmán agrees to admit to his service. Dr Sequeira consulted for ICU evaluation. NIHSS Stroke Scale 2 - Date/Time Evaluation Performed Date Performed: 02/19/18 Time Performed: 15:40 When Was NIHSS Performed: Baseline - How Severe is the Stroke Level of Consciousness: 0=Alert LOC to Questions: 0=Both comments correct LOC to commands: 0=Obeys both correctly Best Gaze: 0=Normal Visual: 0=No visual loss Facial: 1=Minor asymmetry Motor Arm - Left: 0=No drift Motor Arm - Right: 0=No drift Motor Leg - Left: 0=No drift Motor Leg - Right: 0=No drift Limb Ataxia: 0=Absent Sensory: 0=Normal Best Language: 0=No aphasia Dysarthia: 1=Mild to moderate slurring Extinction & Inattention (Neglect): 0=Normal, no object Score: 2 NIHSS Stroke Scale 3 - Date/Time Evaluation Performed Date Performed: 02/19/18 Time Performed: 15:40 - How Severe is the Stroke Level of Consciousness: 0=Alert LOC to Questions: 0=Both comments correct LOC to commands: 0=Obeys both correctly Best Gaze: 0=Normal Visual: 0=No visual loss Facial: 1=Minor asymmetry Motor Arm - Left: 0=No drift Motor Arm - Right: 0=No drift Motor Leg - Left: 0=No drift Motor Leg - Right: 0=No drift Limb Ataxia: 0=Absent Sensory: 0=Normal Best Language: 0=No aphasia Dysarthia: 1=Mild to moderate slurring Extinction & Inattention (Neglect): 0=Normal, no object Score: 2 Severity Of Stroke: 1-4 = Minor Stroke rTPA Inclusion/Exclusion - Inclusion Criteria for Altepase Patient is 18 years or Older: Yes The Clinical Diagnosis of Ischemic Stroke That is Causing a Potentially Disabling Neurological Deficit: Yes Time of Onset is Well Established to be Less Than 270 Minute Before Treatment Would Begin: Yes Risk/Benefit Discussed With Patient/Family Member Present: No - Exclusion Criteria for Altepase Uncontrolled Hypertension at Time of Treatment (Systolic BP above 185 or Diastolic BP above 110 mmHg): No Active Internal Bleeding: No Known Bleeding Diathesis Including but Not Limited to: Platelets Below 100,000/ mm,PTT Above 40 sec After Heparin Use, Current Use of Oral Anitcoagulant With INR Greater Than 1.7 or PT Greater Than 15 secs: No Evidence of an Intracranial Hemorrhage: No Evidence of Major Acute Infarct With Signs Greater Than 1/3 MCA Territory: No Suspicion of Subarachnoid Hemorrhage on Pretreatment Evaluation Even if CT Head Negative For Hemorrhage: No - Warning to TPA With Conditions Following Conditions Weighed Against Anticipated Benefit: Yes Condition: Stroke Serevity Too Mild, Glucose Above 400 mg/dl Disposition - Disposition Disposition: HOSPITALIZED Disposition Time: 18:42 Condition: CRITICAL - POA Present On Arrival: Poor Glycemic Control - Clinical Impression Clinical Impression: CVA (cerebral vascular accident) - Scribe Statement The provider has reviewed the documentation as recorded by the Scribe (Keanu Gomez) Provider Attestation: All medical record entries made by the Scribe were at my direction and personally dictated by me. I have reviewed the chart and agree that the record accurately reflects my personal performance of the history, physical exam, medical decision making, and the department course for this patient. I have also personally directed, reviewed, and agree with the discharge instructions and disposition. Addendum Addendum: 02/19/18 18:41 Patient now with flaccid left arm and leg. BP remains 157/110. Patient awake c/ o weakness of arm and leg. Face remains drooped with slurred speech. Discussed with DR Soria. Will start Integrelin and admit to ICU.
[2018-02-19 16:15] LABS: ALB/GLOB RATIO 1.3 (1.0-2.1); ALBUMIN 3.6 g/dL (3.5-5.0); ALT/SGPT 29 U/L (21-72); AST/SGOT 19 U/L (17-59); BLOOD UREA NITROGEN 20 mg/dL (9-20); CALCIUM 9.2 mg/dl (8.6-10.4); GFR AFRICAN-AMERICAN > 60; GFR NON-AFRICAN AMERICAN 56; HDL CHOLESTEROL 69 mg/dL (30-70)
--- NOTE | 2018-02-19 16:18 | CT ---
Date of service: 02/19/2018 PROCEDURE: CT Angiography of the Brain and Neck. HISTORY: Code stroke, left facial and extremety weakness COMPARISON: None available. TECHNIQUE: CT angiography of the intracranial and neck arteries was performed. Coronal and sagittal maximum intensity projection reformatted images were generated. Contrast Dose: Visipaque 320, 100 cc Radiation dose:Total exam DLP = 407.27 mGy-cm. This CT exam was performed using one or more of the following dose reduction techniques: Automated exposure control, adjustment of the mA and/or kV according to patient size, and/or use of iterative reconstruction technique. FINDINGS: INTERNAL CEREBRAL ARTERIES: Unremarkable. The skull base, petrous, cavernous and supraclinoid segments are bilaterally widely patent. ANTERIOR CEREBRAL ARTERIES: Unremarkable. A1 and A2 segments are widely patent. Smaller distal branches unremarkable, as visualized. MIDDLE CEREBRAL ARTERIES: Unremarkable. M1 and M2 segments are widely patent. Perisylvian branches grossly symmetric. POSTERIOR CIRCULATION: Basilar Artery: Unremarkable. Distal Vertebral Arteries: Right dominant vertebrobasilar circulation. Hypoplastic distal left vertebral artery identified. Posterior Cerebral Arteries: Unremarkable. Posterior Inferior Cerebellar Arteries: Unremarkable. NECK CTA: Common Carotid arteries: The bilateral common carotid appear widely patent from their origins to their bifurcations with no significant stenosis appreciated. No evidence to suggest common carotid artery dissection. Internal Carotid arteries: No significant stenosis is appreciated throughout the cervical internal carotid artery segments bilaterally and there is no evidence of dissection either. External Carotid arteries: Appear unremarkable bilaterally. Vertebral arteries: The bilateral vertebral arteries appear normal in caliber from their origins to their junction with the basilar artery. No significant stenosis or definite pattern of dissection. ANEURYSM/ VASCULAR MALFORMATIONS: None. OTHER FINDINGS: Incidental note is made of multiple small lucencies scattered throughout both lobes of thyroid gland. . IMPRESSION: Unremarkable CTA of the head and neck. No occlusion or significant stenosis identified. No arteriovascular malformation appreciable. Incidental bilateral thyroid cysts or nodules for which follow-up ultrasonography can be performed on elective basis. Probable large sebaceous cyst 2.7 x 2.1 cm at the posterior left neck/ shoulder subdermal/subcutaneous space.
[2018-02-19 16:21] LABS: LDL CHOLESTEROL 202 mg/dL (0-129)
[2018-02-19 16:33] LABS: BANDS 2 % (0-2); EOSINOPHIL 1 % (0-4); LYMPHOCYTE 10 % (20-40); MONOCYTE 7 % (0-10); NEUTROPHIL 80 % (50-75); PLATELET ESTIMATE NORMAL (NORMAL); TOTAL CELLS COUNTED 100
[2018-02-19 16:34] LABS: LARGE PLATELETS PRESENT; OVALOCYTES SLIGHT; POIKILOCYTOSIS SLIGHT
[2018-02-19] MEDS ORDERED: (Novolin R) Insulin Human Regular 100 units/ml vial IV ONE (16:41)
[2018-02-19] MEDS ORDERED: Sodium Chloride 0.9% 1,000 ML IV ONE (16:50)
[2018-02-19] MEDS ORDERED: (Novolin R) Insulin Human Regular 100 units/ml vial ONE (16:52)
--- NOTE | 2018-02-19 17:26 | RAD ---
Date of service: 02/19/2018 HISTORY: Code Stroke COMPARISON: Chest radiographs 12/25/2017. FINDINGS: LUNGS: Interval resolution of prior bibasilar airspace disease. No acute infiltrate identified bilaterally. PLEURA: No significant pleural effusion identified, no pneumothorax apparent. CARDIOVASCULAR: Normal. OSSEOUS STRUCTURES: No significant abnormalities. VISUALIZED UPPER ABDOMEN: Normal. OTHER FINDINGS: None. IMPRESSION: Interval resolution bilateral basilar airspace disease. No acute cardiopulmonary disease appreciated.
[2018-02-19] MEDS ORDERED: Sodium Chloride 0.9% 1,000 ML ONE (17:55)
[2018-02-19] MEDS ORDERED: Eptifibatide 20 mg/10mL Inj IV STA (18:31)
[2018-02-19] MEDS ORDERED: Dextrose 50% SYRINGE Inj (50 ml) IV PRN (18:41)
[2018-02-19] MEDS ORDERED: Glucagon Recombinant 1 mg Inj IM PRN (18:41)
[2018-02-19] MEDS ORDERED: Eptifibatide 20 mg/10mL Inj IVP ONE (18:53)
[2018-02-19] MEDS: Eptifibatide 0.75 mg/ml 75 MG/100 ML BOTTLE IV SCH (19:00)
--- NOTE | 2018-02-19 19:22 | CP.PCM.CON ---
History of Present Illness - History of Present Illness History of Present Illness: 62 M with h/o DM, HTN, COPD, non compliant, h/o prior strokes, lives with is GF in [facility], GF noticed left sided facial droop, left arm and leg weakness around 1:30 pm as documented in record, patient is poor historian and gets agitated often, but mentions was able to walk this morning when he woke up. BIBA in ER slight weakness noticed in left arm, left leg and facial droop on left side. BP was high and labetalol was given in ER. ICU consult called. At time of my eval patient able to talk slight weakness noticed on left side of face, but patient was not able to move left arm and left leg, left arm 0/5, left arm 1/5, had sensations b/l. Patient at this time as already given asa, plavix 300mg, insulin for hyperglycemia, saline running. PMH as above PSH none Social live with GF in [facility], denies alcohol, smoking Allergies NKDA Family history not contributory Review of Systems - Review of Systems All systems: reviewed and no additional remarkable complaints except (HPI) Past Patient History - Infectious Disease Hx of Infectious Diseases: None - Tetanus Immunizations Tetanus Immunization: Unknown - Past Medical History & Family History Past Medical History?: Yes - CARDIAC Hx Hypercholesterolemia: Yes Hx Hypertension: Yes - PULMONARY Hx Asthma: Yes Hx Chronic Obstructive Pulmonary Disease (COPD): Yes Hx Pneumonia: Yes - NEUROLOGICAL Hx Neurological Disorder: No - HEENT Hx HEENT Problems: No - RENAL Hx Chronic Kidney Disease: No - ENDOCRINE/METABOLIC Hx Endocrine Disorders: Yes Hx Diabetes Mellitus Type 2: Yes - HEMATOLOGICAL/ONCOLOGICAL Hx Blood Disorders: No - INTEGUMENTARY Hx Dermatological Problems: No - MUSCULOSKELETAL/RHEUMATOLOGICAL Hx Musculoskeletal Disorders: No Hx Falls: No - GASTROINTESTINAL Hx Pancreatitis: Yes - GENITOURINARY/GYNECOLOGICAL Hx Genitourinary Disorders: No - PSYCHIATRIC Hx Substance Use: No - SURGICAL HISTORY Hx Surgeries: No - ANESTHESIA Hx Anesthesia: No Hx Anesthesia Reactions: No Hx Malignant Hyperthermia: No Meds Allergies/Adverse Reactions: Allergies Allergy/AdvReac Type Severity Reaction Status Date / Time No Known Allergies Allergy Verified 02/19/18 15:39 - Medications Medications: Current Medications Aspirin (Aspirin Chewable) 81 mg PO DAILY KEVIN Clopidogrel Bisulfate (Plavix) 75 mg PO DAILY KEVIN Dextrose (Dextrose 50% Inj) 0 ml IV STAT PRN; Protocol PRN Reason: Hypoglycemia Protocol Dextrose (Glutose 15) 0 gm PO ONCE PRN; Protocol PRN Reason: Hypoglycemia Protocol Glucagon (Glucagen Diagnostic Kit) 0 mg IM STAT PRN; Protocol PRN Reason: Hypoglycemia Protocol Heparin Sodium (Porcine) (Heparin) 5,000 units SC Q8 KEVIN Sodium Chloride (Sodium Chloride 0.9%) 1,000 mls @ 100 mls/hr IV .Q10H ONE Stop: 02/20/18 02:49 Last Admin: 02/19/18 17:00 Dose: 100 mls/hr Eptifibatide (Integrilin) 75 mg in 100 mls @ 8.687 mls/hr IV .[id number] KEVIN PRN Reason: 2 MCG/KG/MIN Dextrose (Dextrose 5% In Water 1000 Ml) 1,000 mls @ 0 mls/hr IV .Q0M PRN; Protocol; Per Protocol PRN Reason: Hypoglycemia Protocol Insulin Human Regular (Novolin R) 0 unit SC Q6 KEVIN PRN Reason: Protocol Pantoprazole Sodium (Protonix Inj) 40 mg IVP DAILY KEVIN Rosuvastatin Calcium (Crestor) 5 mg PO HS KEVIN Physical Exam - Additional Findings Additional findings: * HEENT able to follow fingers but mentions uses glasses * Neck supple * Chest Clear * CVS regular, no gallop or rub * PA soft, nt bs present * Ext no edema * Skin poor turgor, clinically dry * FERRULER Mild slurring of speech, tongue deviating to left, able to follow finger with both eyes, left arm 0/5, right arm Results - Vital Signs Recent Vital Signs: Last Vital Signs Temp 99.0 F 02/19/18 16:13 Pulse 83 02/19/18 18:27 Resp 17 02/19/18 18:27 BP 145/88 02/19/18 18:27 Pulse Ox 97 02/19/18 18:27 - Labs Result Diagrams: 02/19/18 15:50 02/19/18 15:50 Labs: Laboratory Results - last 24 hr 02/19/18 02/19/18 02/19/18 15:50 15:50 15:50 WBC 10.1 RBC 4.99 Hgb 15.3 D Hct 44.0 MCV 88.3 D MCH 30.6 MCHC 34.7 RDW 13.4 Plt Count 267 MPV 9.0 Neut % (Auto) 82.8 H Lymph % (Auto) 9.6 L Ralls % (Auto) 5.2 Eos % (Auto) 1.9 Baso % (Auto) 0.5 Neut # (Auto) 8.4 H Lymph # (Auto) 1.0 Ralls # (Auto) 0.5 Eos # (Auto) 0.2 Baso # (Auto) 0.1 Neutrophils % (Manual) 80 H Band Neutrophils % 2 Lymphocytes % (Manual) 10 L Monocytes % (Manual) 7 Eosinophils % (Manual) 1 Platelet Estimate Normal Large Platelets Present Poikilocytosis (manual Slight Ovalocytes Slight PT 9.9 INR 0.9 APTT 30 Sodium 139 Potassium 3.1 L Chloride 97 L Carbon Dioxide 33 H Anion Gap 13 BUN 20 Creatinine 1.3 Est GFR ( Amer) > 60 Est GFR (Non-Af Amer) 56 Random Glucose 531 H* D Hemoglobin A1c Calcium 9.2 Total Bilirubin 0.5 AST 19 ALT 29 Alkaline Phosphatase 128 H D Troponin I 0.0510 Total Protein 6.2 L Albumin 3.6 Globulin 2.7 Albumin/Globulin Ratio 1.3 Triglycerides 302 H D Cholesterol 363 H LDL Cholesterol Direct 202 H HDL Cholesterol 69 Blood Type Antibody Screen 02/19/18 02/19/18 16:00 16:48 WBC RBC Hgb Hct MCV MCH MCHC RDW Plt Count MPV Neut % (Auto) Lymph % (Auto) Ralls % (Auto) Eos % (Auto) Baso % (Auto) Neut # (Auto) Lymph # (Auto) Ralls # (Auto) Eos # (Auto) Baso # (Auto) Neutrophils % (Manual) Band Neutrophils % Lymphocytes % (Manual) Monocytes % (Manual) Eosinophils % (Manual) Platelet Estimate Large Platelets Poikilocytosis (manual Ovalocytes PT INR APTT Sodium Potassium Chloride Carbon Dioxide Anion Gap BUN Creatinine Est GFR ( Amer) Est GFR (Non-Af Amer) Random Glucose Hemoglobin A1c 13.0 H Calcium Total Bilirubin AST ALT Alkaline Phosphatase Troponin I Total Protein Albumin Globulin Albumin/Globulin Ratio Triglycerides Cholesterol LDL Cholesterol Direct HDL Cholesterol Blood Type A POSITIVE Antibody Screen Negative Assessment & Plan - Assessment and Plan (Free Text) Assessment: * CVA with waxing and waning symptoms likely due to BP changes, will need to keep permissive HTN close to 110-130 diastolic, will discuss with neurology. * Hyperglycemia, uncontrolled DM a1c is 13 * COPD, pulm htn * Prior lacunar strokes * Clinical dehydration Plan: * Dual antiplatelet, statin, currently also on integrillin * Head low, permissive htn, neurochecks, * IVF NS * Echo, MRI of brain * Neurology already on consult * GI/DVT prophylaxis * Maintain Euglycemia * Speech, swallow eval, PT/OT * See orders for detail.
[2018-02-20] MEDS ORDERED: (Novolin R) Insulin Human Regular 100 units/ml vial SC ONE (00:07)
[2018-02-20] MEDS: (Novolin R) Insulin Human Regular 100 units/ml vial SC SCH ×4 (00:10→17:45)
[2018-02-20] MEDS: Sodium Chloride 0.9% 1,000 ML IV SCH ×2 (00:17→17:52)
[2018-02-20 02:02] LABS: BARBITURATES, UR NEGATIVE (NEGATIVE); BENZODIAZEPINES, UR NEGATIVE (NEGATIVE); OPIATES, UR NEGATIVE (NEGATIVE); PHENCYCLIDINE, UR NEGATIVE (NEGATIVE)
[2018-02-20] MEDS: Eptifibatide 0.75 mg/ml 75 MG/100 ML BOTTLE IV SCH (06:05)
[2018-02-20 06:14] LABS: BASO # 0.1 K/uL (0.0-0.2); BASO % 1.1 % (0.0-2.0); EOS # 0.4 K/uL (0.0-0.7); HEMOGLOBIN 13.5 g/dL (12.0-18.0); LYMPH # 1.6 K/uL (1.0-4.3); LYMPH % 19.6 % (20.0-40.0); MEAN CELL VOLUME 88.2 fL (80.0-94.0); MEAN CORPUSCULAR HEMOGLOBIN 30.4 pg (27.0-31.0); MEAN CORPUSCULAR HGB CONC 34.5 g/dL (33.0-37.0); MEAN PLATELET VOLUME 8.8 fL (7.2-11.7); MONO # 0.5 K/uL (0.0-0.8); MONO % 6.6 % (0.0-10.0); NEUT # 5.6 K/uL (1.8-7.0); NEUT % 67.7 % (50.0-75.0); NRBC % 0.1 % (0.0-2.0); RBC 4.43 Mil/uL (4.40-5.90); RED CELL DISTRIBUTION WIDTH 13.4 % (11.5-14.5); WHITE BLOOD COUNT 8.3 K/uL (4.8-10.8)
[2018-02-20 06:44] LABS: ALB/GLOB RATIO 1.3 (1.0-2.1); ALT/SGPT 27 U/L (21-72); AST/SGOT 22 U/L (17-59); BLOOD UREA NITROGEN 21 mg/dL (9-20); CALCIUM 8.5 mg/dl (8.6-10.4); GFR AFRICAN-AMERICAN > 60; GFR NON-AFRICAN AMERICAN > 60
--- NOTE | 2018-02-20 08:01 | CP.CCUPN ---
CCU Subjective - Physician Review Subjective (Free Text): Hudson Albarran DO PGY-1, ICU progress note for Dr. Mazariegos Pt was seen and examined at bedside. Pt is a poor historian, and does not want to answer all of my questions. Pt is complaining of pains in his left arm and left leg. He can only describe the pain as sharp, nonradiating and gradually increasing in intensity. He states that his diffuse headache, which came on last night, has improved. Pt remains unable to move his left upper and lower extremities, with left sided facial droop and left sided tongue deviation. He denies fever, chest pain, palpitations, sob, abdominal pain, n/v/d. Pt has not had a bowel movement in a few days, which he states is normal for him as he suffers from constipation. A 12-point ROS was reviewed and is otherwise unremarkable. CCU Objective - Vital Signs / Intake & Output Vital Signs (Last 4 hours): Vital Signs Pulse Resp BP Pulse Ox 02/20/18 07:00 81 15 99 02/20/18 06:18 84 15 192/113 H 99 02/20/18 06:02 78 14 181/111 H 02/20/18 06:00 79 15 02/20/18 05:02 81 14 201/113 H 02/20/18 05:00 84 15 02/20/18 04:02 85 17 193/113 H 94 L Intake and Output (Last 8hrs): Intake & Output 02/19/18 02/20/18 02/20/18 22:59 06:59 14:59 Intake Total 326.1 580.9 60 Output Total 0 300 Balance 326.1 280.9 60 Weight 54.295 kg 54.295 kg Intake: Intake, IV Amount 326.1 580.9 60 Left Antecubital 300 520 60 Lt AC 26.1 60.9 0 Output: Urine 0 300 Condom 0 300 Other: Voiding Method Urinal - Physical Exam Head: Positive for: Atraumatic, Normocephalic Pupils: Negative for: PERRL (right pupil is round and reactive to light, left pupil is asymmetrical but reactive to light) Extroacular Muscles: Positive for: EOMI Conjunctiva: Positive for: Injected (left conjuntiva) Nose (External): Positive for: Abrasion (puntacte abrasion to light side) Respiratory/Chest: Positive for: Clear to Auscultation, Good Air Exchange. Negative for: Respiratory Distress, Accessory Muscle Use Cardiovascular: Positive for: Regular Rate and Rhythm, Normal S1, S2, Peripheal Pulses Present. Negative for: Tachycardic, Rub, Gallop Abdomen: Positive for: Tenderness (mild diffuse abdominal tenderness), Normal Bowel Sounds (in all 4 quadrants), Guarding (voluntary). Negative for: Distention, Rebound Upper Extremity: Positive for: NORMAL PULSES. Negative for: Normal Inspection ( (+) left upper extremity is internally rotated and hand is flexed; (+) large bruise to the right lateral upper extremity), Edema Lower Extremity: Positive for: NORMAL PULSES. Negative for: Normal Inspection ( (+) left lower extremity is extended and hypertonic), Edema Neurological: Positive for: GCS=15, Normal Sensory Function (in bilaterally upper and lower extremities), Other ((+) left sided babinski sign). Negative for: CN II-XII Intact (normal except: (+) left sided facial droop, 0/5 strength in deltoid, left sided tongue deviation. Unable to evaluate CN IX and X as pt is uncooperative. ), Motor Func Grossly Intact (0/5 strength in left upper and lower extremities) Skin: Positive for: Warm, Dry Psychiatric: Positive for: Alert, Oriented x 3 - Medications Active Medications: Active Medications Generic Name Dose Route Start Last Admin Trade Name Freq PRN Reason Stop Dose Admin Aspirin 300 mg 02/20/18 10:00 Aspirin Supp ID DAILY KEVIN Dextrose 0 ml 02/19/18 18:41 Dextrose 50% Inj IV STAT PRN Hypoglycemia Protocol Protocol Dextrose 0 gm 02/19/18 18:41 Glutose 15 PO ONCE PRN Hypoglycemia Protocol Protocol Glucagon 0 mg 02/19/18 18:41 Glucagen Diagnostic Kit IM STAT PRN Hypoglycemia Protocol Protocol Heparin Sodium (Porcine) 5,000 units 02/19/18 22:00 02/20/18 06:04 Heparin SC 5,000 units Q8 KEVIN Administration Dextrose 1,000 mls @ 0 mls/hr 02/19/18 18:41 Dextrose 5% In Water 1000 Ml IV .Q0M PRN Hypoglycemia Protocol Protocol Per Protocol Sodium Chloride 1,000 mls @ 60 mls/hr 02/20/18 00:15 02/20/18 00:17 Sodium Chloride 0.9% IV 60 mls/hr .[id number] KEVIN Administration Potassium Chloride 20 meq in 100 mls @ 50 mls/hr 02/20/18 08:00 02/20/18 07: 46 Potassium Chloride 20 Meq/100 Ml IVPB 02/20/18 09:59 50 mls/hr ONCE ONE Administration Insulin Human Regular 0 unit 02/20/18 00:00 02/20/18 06:04 Novolin R SC 2 u Q6 KEVIN Administration Protocol Pantoprazole Sodium 40 mg 02/20/18 10:00 Protonix Inj IVP DAILY KEVIN Rosuvastatin Calcium 5 mg 02/19/18 22:00 02/19/18 21:52 Crestor PO 5 mg HS KEVNI Administration - Patient Studies Lab Studies: Lab Studies 02/20/18 02/20/18 02/20/18 Range/Units 06:43 06:43 06:43 WBC (4.8-10.8) K/uL RBC (4.40-5.90) Mil/uL Hgb (12.0-18.0) g/dL Hct (35.0-51.0) % MCV (80.0-94.0) fL MCH (27.0-31.0) pg MCHC (33.0-37.0) g/dL RDW (11.5-14.5) % Plt Count (130-400) K/uL MPV (7.2-11.7) fL Neut % (Auto) (50.0-75.0) % Lymph % (Auto) (20.0-40.0) % Runnels % (Auto) (0.0-10.0) % Eos % (Auto) (0.0-4.0) % Baso % (Auto) (0.0-2.0) % Neut # (Auto) (1.8-7.0) K/uL Lymph # (Auto) (1.0-4.3) K/uL Runnels # (Auto) (0.0-0.8) K/uL Eos # (Auto) (0.0-0.7) K/uL Baso # (Auto) (0.0-0.2) K/uL Neutrophils % (Manual) (50-75) % Band Neutrophils % (0-2) % Lymphocytes % (Manual) (20-40) % Monocytes % (Manual) (0-10) % Eosinophils % (Manual) (0-4) % Platelet Estimate (NORMAL) Large Platelets Poikilocytosis (manual Ovalocytes PT (9.7-12.2) SECONDS INR APTT (21-34) SECONDS Sodium (132-148) mmol/L Potassium (3.6-5.2) mmol/L Chloride (98-107) mmol/L Carbon Dioxide (22-30) mmol/L Anion Gap (10-20) BUN (9-20) mg/dL Creatinine (0.8-1.5) mg/dL Est GFR ( Amer) Est GFR (Non-Af Amer) Random Glucose (75-110) mg/dL Hemoglobin A1c (4.2-6.5) % Calcium (8.6-10.4) mg/dl Phosphorus (2.5-4.5) mg/dL Magnesium (1.6-2.3) mg/dL Total Bilirubin (0.2-1.3) mg/dL AST (17-59) U/L ALT (21-72) U/L Alkaline Phosphatase (38-126) U/L Troponin I (0.00-0.120) ng/mL C-React Prot High Sens 9.83 H (1.00-3.00) mg/L Total Protein (6.3-8.3) g/dL Albumin (3.5-5.0) g/dL Globulin (2.2-3.9) gm/dL Albumin/Globulin Ratio (1.0-2.1) Triglycerides (0-149) mg/dL Cholesterol (0-199) mg/dL LDL Cholesterol Direct (0-129) mg/dL HDL Cholesterol (30-70) mg/dL 25-OH Vitamin D Total < 12.8 L (30.0-100.0) NG/ML TSH 3rd Generation 0.62 (0.46-4.68) mIU/L Urine Opiates Screen (NEGATIVE) Urine Methadone Screen (NEGATIVE) Ur Barbiturates Screen (NEGATIVE) Ur Phencyclidine Scrn (NEGATIVE) Ur Amphetamines Screen (NEGATIVE) U Benzodiazepines Scrn (NEGATIVE) U Oth Cocaine Metabols (NEGATIVE) U Cannabinoids Screen (NEGATIVE) Blood Type Antibody Screen 08/06/18 08/06/18 08/06/18 Range/Units 06:08 06:08 01:24 WBC 8.3 (4.8-10.8) K/uL RBC 4.43 (4.40-5.90) Mil/uL Hgb 13.5 (12.0-18.0) g/dL Hct 39.1 (35.0-51.0) % MCV 88.2 (80.0-94.0) fL MCH 30.4 (27.0-31.0) pg MCHC 34.5 (33.0-37.0) g/dL RDW 13.4 (11.5-14.5) % Plt Count 257 (130-400) K/uL MPV 8.8 (7.2-11.7) fL Neut % (Auto) 67.7 (50.0-75.0) % Lymph % (Auto) 19.6 L (20.0-40.0) % Runnels % (Auto) 6.6 (0.0-10.0) % Eos % (Auto) 5.0 H (0.0-4.0) % Baso % (Auto) 1.1 (0.0-2.0) % Neut # (Auto) 5.6 (1.8-7.0) K/uL Lymph # (Auto) 1.6 (1.0-4.3) K/uL Runnels # (Auto) 0.5 (0.0-0.8) K/uL Eos # (Auto) 0.4 (0.0-0.7) K/uL Baso # (Auto) 0.1 (0.0-0.2) K/uL Neutrophils % (Manual) (50-75) % Band Neutrophils % (0-2) % Lymphocytes % (Manual) (20-40) % Monocytes % (Manual) (0-10) % Eosinophils % (Manual) (0-4) % Platelet Estimate (NORMAL) Large Platelets Poikilocytosis (manual Ovalocytes PT (9.7-12.2) SECONDS INR APTT (21-34) SECONDS Sodium 144 (132-148) mmol/L Potassium 2.7 L (3.6-5.2) mmol/L Chloride 105 (98-107) mmol/L Carbon Dioxide 34 H (22-30) mmol/L Anion Gap 7 L (10-20) BUN 21 H (9-20) mg/dL Creatinine 1.0 (0.8-1.5) mg/dL Est GFR ( Amer) > 60 Est GFR (Non-Af Amer) > 60 Random Glucose 171 H (75-110) mg/dL Hemoglobin A1c (4.2-6.5) % Calcium 8.5 L (8.6-10.4) mg/dl Phosphorus 2.6 (2.5-4.5) mg/dL Magnesium 2.0 (1.6-2.3) mg/dL Total Bilirubin 0.5 (0.2-1.3) mg/dL AST 22 (17-59) U/L ALT 27 (21-72) U/L Alkaline Phosphatase 98 (38-126) U/L Troponin I 0.0900 (0.00-0.120) ng/mL C-React Prot High Sens (1.00-3.00) mg/L Total Protein 5.5 L (6.3-8.3) g/dL Albumin 3.0 L (3.5-5.0) g/dL Globulin 2.4 (2.2-3.9) gm/dL Albumin/Globulin Ratio 1.3 (1.0-2.1) Triglycerides (0-149) mg/dL Cholesterol (0-199) mg/dL LDL Cholesterol Direct (0-129) mg/dL HDL Cholesterol (30-70) mg/dL 25-OH Vitamin D Total (30.0-100.0) NG/ML TSH 3rd Generation (0.46-4.68) mIU/L Urine Opiates Screen Negative (NEGATIVE) Urine Methadone Screen Negative (NEGATIVE) Ur Barbiturates Screen Negative (NEGATIVE) Ur Phencyclidine Scrn Negative (NEGATIVE) Ur Amphetamines Screen Negative (NEGATIVE) U Benzodiazepines Scrn Negative (NEGATIVE) U Oth Cocaine Metabols Negative (NEGATIVE) U Cannabinoids Screen Negative (NEGATIVE) Blood Type Antibody Screen 02/19/18 02/19/18 02/19/18 Range/Units 16:48 16:00 15:50 WBC (4.8-10.8) K/uL RBC (4.40-5.90) Mil/uL Hgb (12.0-18.0) g/dL Hct (35.0-51.0) % MCV (80.0-94.0) fL MCH (27.0-31.0) pg MCHC (33.0-37.0) g/dL RDW (11.5-14.5) % Plt Count (130-400) K/uL MPV (7.2-11.7) fL Neut % (Auto) (50.0-75.0) % Lymph % (Auto) (20.0-40.0) % Runnels % (Auto) (0.0-10.0) % Eos % (Auto) (0.0-4.0) % Baso % (Auto) (0.0-2.0) % Neut # (Auto) (1.8-7.0) K/uL Lymph # (Auto) (1.0-4.3) K/uL Runnels # (Auto) (0.0-0.8) K/uL Eos # (Auto) (0.0-0.7) K/uL Baso # (Auto) (0.0-0.2) K/uL Neutrophils % (Manual) (50-75) % Band Neutrophils % (0-2) % Lymphocytes % (Manual) (20-40) % Monocytes % (Manual) (0-10) % Eosinophils % (Manual) (0-4) % Platelet Estimate (NORMAL) Large Platelets Poikilocytosis (manual Ovalocytes PT (9.7-12.2) SECONDS INR APTT (21-34) SECONDS Sodium 139 (132-148) mmol/L Potassium 3.1 L (3.6-5.2) mmol/L Chloride 97 L (98-107) mmol/L Carbon Dioxide 33 H (22-30) mmol/L Anion Gap 13 (10-20) BUN 20 (9-20) mg/dL Creatinine 1.3 (0.8-1.5) mg/dL Est GFR ( Amer) > 60 Est GFR (Non-Af Amer) 56 Random Glucose 531 H* D (75-110) mg/dL Hemoglobin A1c 13.0 H (4.2-6.5) % Calcium 9.2 (8.6-10.4) mg/dl Phosphorus (2.5-4.5) mg/dL Magnesium (1.6-2.3) mg/dL Total Bilirubin 0.5 (0.2-1.3) mg/dL AST 19 (17-59) U/L ALT 29 (21-72) U/L Alkaline Phosphatase 128 H D (38-126) U/L Troponin I 0.0510 (0.00-0.120) ng/mL C-React Prot High Sens (1.00-3.00) mg/L Total Protein 6.2 L (6.3-8.3) g/dL Albumin 3.6 (3.5-5.0) g/dL Globulin 2.7 (2.2-3.9) gm/dL Albumin/Globulin Ratio 1.3 (1.0-2.1) Triglycerides 302 H D (0-149) mg/dL Cholesterol 363 H (0-199) mg/dL LDL Cholesterol Direct 202 H (0-129) mg/dL HDL Cholesterol 69 (30-70) mg/dL 25-OH Vitamin D Total (30.0-100.0) NG/ML TSH 3rd Generation (0.46-4.68) mIU/L Urine Opiates Screen (NEGATIVE) Urine Methadone Screen (NEGATIVE) Ur Barbiturates Screen (NEGATIVE) Ur Phencyclidine Scrn (NEGATIVE) Ur Amphetamines Screen (NEGATIVE) U Benzodiazepines Scrn (NEGATIVE) U Oth Cocaine Metabols (NEGATIVE) U Cannabinoids Screen (NEGATIVE) Blood Type A POSITIVE Antibody Screen Negative 02/19/18 02/19/18 Range/Units 15:50 15:50 WBC 10.1 (4.8-10.8) K/uL RBC 4.99 (4.40-5.90) Mil/uL Hgb 15.3 D (12.0-18.0) g/dL Hct 44.0 (35.0-51.0) % MCV 88.3 D (80.0-94.0) fL MCH 30.6 (27.0-31.0) pg MCHC 34.7 (33.0-37.0) g/dL RDW 13.4 (11.5-14.5) % Plt Count 267 (130-400) K/uL MPV 9.0 (7.2-11.7) fL Neut % (Auto) 82.8 H (50.0-75.0) % Lymph % (Auto) 9.6 L (20.0-40.0) % Runnels % (Auto) 5.2 (0.0-10.0) % Eos % (Auto) 1.9 (0.0-4.0) % Baso % (Auto) 0.5 (0.0-2.0) % Neut # (Auto) 8.4 H (1.8-7.0) K/uL Lymph # (Auto) 1.0 (1.0-4.3) K/uL Runnels # (Auto) 0.5 (0.0-0.8) K/uL Eos # (Auto) 0.2 (0.0-0.7) K/uL Baso # (Auto) 0.1 (0.0-0.2) K/uL Neutrophils % (Manual) 80 H (50-75) % Band Neutrophils % 2 (0-2) % Lymphocytes % (Manual) 10 L (20-40) % Monocytes % (Manual) 7 (0-10) % Eosinophils % (Manual) 1 (0-4) % Platelet Estimate Normal (NORMAL) Large Platelets Present Poikilocytosis (manual Slight Ovalocytes Slight PT 9.9 (9.7-12.2) SECONDS INR 0.9 APTT 30 (21-34) SECONDS Sodium (132-148) mmol/L Potassium (3.6-5.2) mmol/L Chloride (98-107) mmol/L Carbon Dioxide (22-30) mmol/L Anion Gap (10-20) BUN (9-20) mg/dL Creatinine (0.8-1.5) mg/dL Est GFR ( Amer) Est GFR (Non-Af Amer) Random Glucose (75-110) mg/dL Hemoglobin A1c (4.2-6.5) % Calcium (8.6-10.4) mg/dl Phosphorus (2.5-4.5) mg/dL Magnesium (1.6-2.3) mg/dL Total Bilirubin (0.2-1.3) mg/dL AST (17-59) U/L ALT (21-72) U/L Alkaline Phosphatase (38-126) U/L Troponin I (0.00-0.120) ng/mL C-React Prot High Sens (1.00-3.00) mg/L Total Protein (6.3-8.3) g/dL Albumin (3.5-5.0) g/dL Globulin (2.2-3.9) gm/dL Albumin/Globulin Ratio (1.0-2.1) Triglycerides (0-149) mg/dL Cholesterol (0-199) mg/dL LDL Cholesterol Direct (0-129) mg/dL HDL Cholesterol (30-70) mg/dL 25-OH Vitamin D Total (30.0-100.0) NG/ML TSH 3rd Generation (0.46-4.68) mIU/L Urine Opiates Screen (NEGATIVE) Urine Methadone Screen (NEGATIVE) Ur Barbiturates Screen (NEGATIVE) Ur Phencyclidine Scrn (NEGATIVE) Ur Amphetamines Screen (NEGATIVE) U Benzodiazepines Scrn (NEGATIVE) U Oth Cocaine Metabols (NEGATIVE) U Cannabinoids Screen (NEGATIVE) Blood Type Antibody Screen Laboratory Results - last 24 hr 02/19/18 02/19/18 02/19/18 15:50 15:50 15:50 WBC 10.1 RBC 4.99 Hgb 15.3 D Hct 44.0 MCV 88.3 D MCH 30.6 MCHC 34.7 RDW 13.4 Plt Count 267 MPV 9.0 Neut % (Auto) 82.8 H Lymph % (Auto) 9.6 L Runnels % (Auto) 5.2 Eos % (Auto) 1.9 Baso % (Auto) 0.5 Neut # (Auto) 8.4 H Lymph # (Auto) 1.0 Runnels # (Auto) 0.5 Eos # (Auto) 0.2 Baso # (Auto) 0.1 Neutrophils % (Manual) 80 H Band Neutrophils % 2 Lymphocytes % (Manual) 10 L Monocytes % (Manual) 7 Eosinophils % (Manual) 1 Platelet Estimate Normal Large Platelets Present Poikilocytosis (manual Slight Ovalocytes Slight PT 9.9 INR 0.9 APTT 30 Sodium 139 Potassium 3.1 L Chloride 97 L Carbon Dioxide 33 H Anion Gap 13 BUN 20 Creatinine 1.3 Est GFR ( Amer) > 60 Est GFR (Non-Af Amer) 56 Random Glucose 531 H* D Hemoglobin A1c Calcium 9.2 Phosphorus Magnesium Total Bilirubin 0.5 AST 19 ALT 29 Alkaline Phosphatase 128 H D Troponin I 0.0510 C-React Prot High Sens Total Protein 6.2 L Albumin 3.6 Globulin 2.7 Albumin/Globulin Ratio 1.3 Triglycerides 302 H D Cholesterol 363 H LDL Cholesterol Direct 202 H HDL Cholesterol 69 25-OH Vitamin D Total TSH 3rd Generation Urine Opiates Screen Urine Methadone Screen Ur Barbiturates Screen Ur Phencyclidine Scrn Ur Amphetamines Screen U Benzodiazepines Scrn U Oth Cocaine Metabols U Cannabinoids Screen Blood Type Antibody Screen 02/19/18 02/19/18 02/20/18 16:00 16:48 01:24 WBC RBC Hgb Hct MCV MCH MCHC RDW Plt Count MPV Neut % (Auto) Lymph % (Auto) Runnels % (Auto) Eos % (Auto) Baso % (Auto) Neut # (Auto) Lymph # (Auto) Runnels # (Auto) Eos # (Auto) Baso # (Auto) Neutrophils % (Manual) Band Neutrophils % Lymphocytes % (Manual) Monocytes % (Manual) Eosinophils % (Manual) Platelet Estimate Large Platelets Poikilocytosis (manual Ovalocytes PT INR APTT Sodium Potassium Chloride Carbon Dioxide Anion Gap BUN Creatinine Est GFR ( Amer) Est GFR (Non-Af Amer) Random Glucose Hemoglobin A1c 13.0 H Calcium Phosphorus Magnesium Total Bilirubin AST ALT Alkaline Phosphatase Troponin I C-React Prot High Sens Total Protein Albumin Globulin Albumin/Globulin Ratio Triglycerides Cholesterol LDL Cholesterol Direct HDL Cholesterol 25-OH Vitamin D Total TSH 3rd Generation Urine Opiates Screen Negative Urine Methadone Screen Negative Ur Barbiturates Screen Negative Ur Phencyclidine Scrn Negative Ur Amphetamines Screen Negative U Benzodiazepines Scrn Negative U Oth Cocaine Metabols Negative U Cannabinoids Screen Negative Blood Type A POSITIVE Antibody Screen Negative 02/20/18 02/20/18 02/20/18 06:08 06:08 06:43 WBC 8.3 RBC 4.43 Hgb 13.5 Hct 39.1 MCV 88.2 MCH 30.4 MCHC 34.5 RDW 13.4 Plt Count 257 MPV 8.8 Neut % (Auto) 67.7 Lymph % (Auto) 19.6 L Runnels % (Auto) 6.6 Eos % (Auto) 5.0 H Baso % (Auto) 1.1 Neut # (Auto) 5.6 Lymph # (Auto) 1.6 Runnels # (Auto) 0.5 Eos # (Auto) 0.4 Baso # (Auto) 0.1 Neutrophils % (Manual) Band Neutrophils % Lymphocytes % (Manual) Monocytes % (Manual) Eosinophils % (Manual) Platelet Estimate Large Platelets Poikilocytosis (manual Ovalocytes PT INR APTT Sodium 144 Potassium 2.7 L Chloride 105 Carbon Dioxide 34 H Anion Gap 7 L BUN 21 H Creatinine 1.0 Est GFR ( Amer) > 60 Est GFR (Non-Af Amer) > 60 Random Glucose 171 H Hemoglobin A1c Calcium 8.5 L Phosphorus 2.6 Magnesium 2.0 Total Bilirubin 0.5 AST 22 ALT 27 Alkaline Phosphatase 98 Troponin I 0.0900 C-React Prot High Sens Total Protein 5.5 L Albumin 3.0 L Globulin 2.4 Albumin/Globulin Ratio 1.3 Triglycerides Cholesterol LDL Cholesterol Direct HDL Cholesterol 25-OH Vitamin D Total TSH 3rd Generation 0.62 Urine Opiates Screen Urine Methadone Screen Ur Barbiturates Screen Ur Phencyclidine Scrn Ur Amphetamines Screen U Benzodiazepines Scrn U Oth Cocaine Metabols U Cannabinoids Screen Blood Type Antibody Screen 02/20/18 02/20/18 06:43 06:43 WBC RBC Hgb Hct MCV MCH MCHC RDW Plt Count MPV Neut % (Auto) Lymph % (Auto) Runnels % (Auto) Eos % (Auto) Baso % (Auto) Neut # (Auto) Lymph # (Auto) Runnels # (Auto) Eos # (Auto) Baso # (Auto) Neutrophils % (Manual) Band Neutrophils % Lymphocytes % (Manual) Monocytes % (Manual) Eosinophils % (Manual) Platelet Estimate Large Platelets Poikilocytosis (manual Ovalocytes PT INR APTT Sodium Potassium Chloride Carbon Dioxide Anion Gap BUN Creatinine Est GFR ( Amer) Est GFR (Non-Af Amer) Random Glucose Hemoglobin A1c Calcium Phosphorus Magnesium Total Bilirubin AST ALT Alkaline Phosphatase Troponin I C-React Prot High Sens 9.83 H Total Protein Albumin Globulin Albumin/Globulin Ratio Triglycerides Cholesterol LDL Cholesterol Direct HDL Cholesterol 25-OH Vitamin D Total < 12.8 L TSH 3rd Generation Urine Opiates Screen Urine Methadone Screen Ur Barbiturates Screen Ur Phencyclidine Scrn Ur Amphetamines Screen U Benzodiazepines Scrn U Oth Cocaine Metabols U Cannabinoids Screen Blood Type Antibody Screen EKG/Cardiology Studies: Cardiology / EKG Studies 02/19/18 15:41 ELECTROCARDIOGRAM Stat Comment: Mode Of Transportation: BED Reason For Exam: CODE STROKE Fingerstick Blood Sugar Results: 202 Review of Systems - Review of Systems All systems: reviewed and no additional remarkable complaints except (see HPI) Critical Care Progress Note - Prophylaxis GI Prophylaxis GI: PPI - Prophylaxis DVT Prophylaxis DVT: Heparin SQ - Nutrition Nutrition: Nutrition Category Date Time Status NPO Diet [DIET] Diets 02/20/18 Dinner Active Assessment/Plan - Assessment and Plan (Free Text) Assessment: This is a 62 y/o male with PMHx of DM, HTN, COPD, non-compliant, h/o prior strokes who was BIBA on 02/19 after his girlfriend noticed left sided facial droop , left arm and leg weakness earlier that started earlier that afternoon. In the ER, pt was noticed to have weakness in left arm, left leg and facial droop on left side. BP was high and labetalol was given. Head CT was negative for intracranial hemorrhage, chronic changes (see report). Head and Neck CTA shows No occlusion or significant stenosis identified; No arteriovascular malformation appreciable. Pt received ASA, plavix, insulin for hyperglycemia ( 531), saline. Neuro was consulted, who placed the pt on an integrilin gtt. ICU consult called for close monitoring of BP, cardiovascular and neurovascular symptoms while on integrilin gtt. On the night of 02/19, pt noted a headache while on the integrilin gtt. Head CT was done, which showed similar findings, as well as showing lesion suspicious for neoplasm of infectious/inflammatory process. Pt is currently off of integrilin gtt, and continues to have 0/5 strength in upper and lower extremities, with globally intact sensation. Plan: Neuro: - Head CT (02/19): Age related neuro degenerative findings are identified as discussed above and appear age-appropriate. No mass effect or cortical edema. No intracranial hemorrhage Further, bithalamic and bilateral basal ganglia chronic lacunes are identified - Head/Neck CTA (02/19): as above - Head CT (02/20): similar to prior studies, chronic changes; lesion suspicious for neoplasm or infectious/inflammatory process. - f/u brain MRI - f/u neurology recs - HoB >30 degrees - home gabapentin Cardio: - Echocardiogram (12/18/17) shows LVEF of 60-65%, borderline concentric left ventricular hypertrophy, mild AR and MR, Moderate pulmonary hypertension. - maintain DBP>110 as per neuro - continue ASA, home statin, HTN meds after swallow eval by speech therapist - troponin negative x2 Pulm: - continue home duonebs, spiriva - NC as needed - maintain spo2>95% - CXR (8/5) shows no acute cardiopulmonary disease appreciated. GI: - diffuse abdominal tenderness on exam, in setting of ischemic cva - abd/pelv ct without po or iv contrast ordered to r/o ischemic colitis, will follow up results - NPO until swallow eval by speech therapist is completed - protonix for pud ppx Renal: - BUN/Cr is wnl - maintain euvolemia - replete electrolytes as needed Heme: - H/h is stable - PT/INR/PTT are WNL ID: - no leukocytosis - no signs of infection, pt afebrile Endo: - HgbA1c is 13.0 - ISS low - maintain euglycemia - accucheck q6h PPX: protonix for pud; heparin for vte Dispo: Pt is medically safe and stable for transfer to telemetry Case was reviewed and discussed with attending physician, Dr. Mazariegos
[2018-02-20 08:06] LABS: FOLATE > 20.0 ng/mL
--- NOTE | 2018-02-20 08:21 | CT ---
Date of service: 02/19/2018 PROCEDURE: CT HEAD WITHOUT CONTRAST. HISTORY: new onset headache, on integrillin drip COMPARISON: None available. TECHNIQUE: Axial computed tomography images were obtained through the head/brain without intravenous contrast. Radiation dose: Total exam DLP = 995 mGy-cm. This CT exam was performed using one or more of the following dose reduction techniques: Automated exposure control, adjustment of the mA and/or kV according to patient size, and/or use of iterative reconstruction technique. FINDINGS: HEMORRHAGE: No intracranial hemorrhage. BRAIN: Cerebral and cerebellar atrophy. Scattered focal lucencies in the subcortical and periventricular white matter suggestive for chronic microvascular ischemic change. Old basal ganglia lacunar infarcts noted with old thalamic lacunar infarcts noted bilaterally. 1.5 x 1.0 centimeter rounded density with peripheral increased attenuation seen within the right parietal occipital lobe series 4, image 26. Underlying lesion cannot be excluded. Further evaluation with contrast-enhanced CT or MRI would helpful for further evaluation. VENTRICLES: Unremarkable. No hydrocephalus. CALVARIUM: Unremarkable. PARANASAL SINUSES: Mucosal thickening of the paranasal sinuses. Mucosal retention cysts and/or polyps the left maxillary sinus. MASTOID AIR CELLS: Unremarkable as visualized. No inflammatory changes. OTHER FINDINGS: None. IMPRESSION: 1.5 x 1.0 centimeter rounded density with peripheral increased attenuation in the right parietal occipital lobe on series 4, image 26. Underlying lesion cannot be excluded. Further evaluation with contrast-enhanced MRI and or contrast-enhanced CT would be helpful for further evaluation if clinically indicated. These findings were preliminarily reported at 12:04 a.m. on 02/20/[address] Benny Moses from [employer].
[2018-02-20] MEDS ORDERED: Albuterol-Ipratrop 3 mg / 0.5 (3 ml) UD INH PRN (08:30)
--- NOTE | 2018-02-20 08:50 | CT ---
Date of service: 02/20/2018 PROCEDURE: CT HEAD WITHOUT CONTRAST. HISTORY: CVA COMPARISON: 02/19/2018 TECHNIQUE: Axial computed tomography images were obtained through the head/brain without intravenous contrast. Radiation dose: Total exam DLP = 1543.51 mGy-cm. This CT exam was performed using one or more of the following dose reduction techniques: Automated exposure control, adjustment of the mA and/or kV according to patient size, and/or use of iterative reconstruction technique. FINDINGS: HEMORRHAGE: No intracranial hemorrhage. BRAIN: There is a rounded area of low attenuation in the right occipital parietal region with a thin rim of hyper density unchanged grossly from the previous head CT examination. This is suspicious for either neoplasm or infection/ inflammation. Evaluation with gadolinium enhanced magnetic resonance imaging is advised. No other intracranial mass is identified. No atrophy. Mild to moderate periventricular white matter lucency with patchy deep/ subcortical lucency consistent with chronic microvascular ischemic change. Old right pulmonic lacunar infarct and bilateral basal ganglia lacunar infarcts. No evidence of acute infarct. . VENTRICLES: Unremarkable. No hydrocephalus. CALVARIUM: Unremarkable. PARANASAL SINUSES: Unremarkable as visualized. No significant inflammatory changes. MASTOID AIR CELLS: Unremarkable as visualized. No inflammatory changes. OTHER FINDINGS: None. IMPRESSION: Rounded area of low attenuation with a thin hyperdense rim in the right occipital parietal region unchanged from prior examination. Suspicious for neoplasm or infectious/inflammatory lesion peer recommend further evaluation with gadolinium enhanced magnetic resonance imaging. Bilateral old basal ganglia/ thalamic lacunar infarcts. Chronic white matter ischemic change. No evidence of acute infarct.
[2018-02-20 12:41] LABS: BLOOD UREA NITROGEN 21 mg/dL (9-20); CALCIUM 8.7 mg/dl (8.6-10.4); GFR AFRICAN-AMERICAN > 60; GFR NON-AFRICAN AMERICAN > 60
--- NOTE | 2018-02-20 14:54 | MRI ---
Date of service: 02/20/2018 PROCEDURE: MRI BRAIN WITHOUT CONTRAST HISTORY: Left-sided weakness. COMPARISON: Comparison made with prior CT scan brain 02/19/18 TECHNIQUE: Multiplanar, multisequence MR images of the brain were obtained without intravenous contrast enhancement. FINDINGS: HEMORRHAGE: Small elliptical shaped focus of bright T1 and bright T2 signal in the right occipito parietal watershed zone surrounded by a irregular rim of dark T2 signal. Findings most likely represents evolving late subacute hemorrhagic focus with peripheral hemosiderin and central methemoglobin. DWI: There is a small elliptical shaped acute infarct in the right posterolateral basal ganglia. BRAIN PARENCHYMA: In addition, moderate diffuse/ confluent chronic periventricular white matter ischemic changes seen extending peripherally into the deep and subcortical white matter both cerebral hemispheres. Chronic appearing infarct changes both basal as well as brainstem. Moderate generalized volume loss ganglia. No obvious parenchymal nor extra-axial mass or collection seen on this noncontrast study. VENTRICLES: No obstructive hydrocephalus. CRANIUM: Unremarkable. ORBITS: Borderline exophthalmos however orbits and contents otherwise unremarkable. . PARANASAL SINUSES/MASTOIDS: Partial opacification few ethmoid air cells. There is also small focus polypoid like mucosal thickening left maxillary antrum. VASCULAR SYSTEM: Skull base flow voids intact. OTHER FINDINGS: None. IMPRESSION: There is a small acute right basal ganglia infarct. Probable small evolving late subacute hemorrhage right occipito parietal watershed zone. Moderate chronic white matter ischemic changes with lacunar type infarct changes both basal ganglia and brainstem Moderate generalized volume loss. Note these findings were discussed with ICU Nurse Didier at approximately 2:45 p.m. with written down and read back verification
[2018-02-20] MEDS: niCARdipine IV 25 MG in Sodium Chloride 0.9% 240 ML IV SCH ×2 (15:30→21:02)
--- NOTE | 2018-02-20 16:24 | CT ---
Date of service: 02/20/2018 PROCEDURE: CT Abdomen and Pelvis without intravenous contrast HISTORY: abd pain hx of cva COMPARISON: 03/21/2015 TECHNIQUE: Without contrast.. Contrast dose: 0 Radiation dose: Total exam DLP = 850.72 mGy-cm. This CT exam was performed using one or more of the following dose reduction techniques: Automated exposure control, adjustment of the mA and/or kV according to patient size, and/or use of iterative reconstruction technique. FINDINGS: LOWER THORAX: Unremarkable. LIVER: Unremarkable. No gross lesion or ductal dilatation. GALLBLADDER AND BILE DUCTS: Unremarkable. PANCREAS: Unremarkable. No gross lesion or ductal dilatation. SPLEEN: Unremarkable. ADRENALS: Unremarkable. No mass. KIDNEYS AND URETERS: Unremarkable. No hydronephrosis. No solid mass. VASCULATURE: Unremarkable. No aortic aneurysm. BOWEL: Moderate retained feces. No bowel obstruction. Mild sigmoid diverticulosis without evidence of diverticulitis. APPENDIX: Not identified. No secondary findings to suggest acute appendicitis. PERITONEUM: Unremarkable. No free fluid. No free air. LYMPH NODES: Unremarkable. No enlarged lymph nodes. BLADDER: Unremarkable. REPRODUCTIVE: Normal prostate BONES: No acute fracture. OTHER FINDINGS: None. IMPRESSION: Retained feces. Sigmoid diverticulosis without evidence of diverticulitis. No additional abnormality.
--- NOTE | 2018-02-20 19:17 | CP.PCM.CON ---
History of Present Illness - History of Present Illness History of Present Illness: Neurology Consultation Note: Mr. Whelan is a 62-year-old man with a past medical history of hypertension, DM , COPD, who presented to the ED yesterday with complaints of the sudden onset of left side weakness. On exam, initial exam, he had weakness of the left side , but his symptoms improved to an NIHSS of 2. He was not a good candidate for IV tPA due to rapid improvement of symptoms and was nearing the 3 hour time window. Furthermore, his diastolic BP was in the 130's range and was difficult to control. CT scan of the head showed multiple prior ischemic strokes and he would be contraindicated for the 4.5 hour time window for IV tPA. Therefore, it was recommended that he be given Plavix and Aspirin. However, prior to receiving the medications. He became significantly weaker on the left side and had left facial droop/weakness and could not swallow. He was therefor started on IV antiplatelet agent (Integrillin). After integrillin was stopped, repeat CT head was done and did not show any significant changes, but there was concern for a possible right occipital mass. MRI was subsequently done without contrast and demonstrated a rounded area with some hemosiderin deposits. The patient is currently in the ICU and was given Ativan due to agitation prior to MRI. He answers questions appropriately, but he is dysarthric. Review of Systems - Review of Systems All systems: reviewed and no additional remarkable complaints except Past Patient History - Infectious Disease Hx of Infectious Diseases: None - Tetanus Immunizations Tetanus Immunization: Unknown - Past Medical History & Family History Past Medical History?: Yes - Past Social History Smoking Status: Never Smoked - CARDIAC Hx Hypertension: Yes - PULMONARY Hx Chronic Obstructive Pulmonary Disease (COPD): Yes - NEUROLOGICAL Hx Neurological Disorder: No - HEENT Hx HEENT Problems: No - RENAL Hx Chronic Kidney Disease: No - ENDOCRINE/METABOLIC Hx Diabetes Mellitus Type 2: Yes - HEMATOLOGICAL/ONCOLOGICAL Hx Blood Disorders: No - INTEGUMENTARY Hx Dermatological Problems: No - MUSCULOSKELETAL/RHEUMATOLOGICAL Hx Musculoskeletal Disorders: Yes Hx Falls: Yes - GASTROINTESTINAL Hx Gastrointestinal Disorders: Yes Hx Pancreatitis: Yes - GENITOURINARY/GYNECOLOGICAL Hx Genitourinary Disorders: No - PSYCHIATRIC Hx Psychophysiologic Disorder: No Hx Substance Use: No - SURGICAL HISTORY Hx Surgeries: Yes Other/Comment: endoscopy of small intestines 03/26/15-per medical record - ANESTHESIA Hx Anesthesia: Yes Hx Anesthesia Reactions: No Hx Malignant Hyperthermia: No Meds Allergies/Adverse Reactions: Allergies Allergy/AdvReac Type Severity Reaction Status Date / Time No Known Allergies Allergy Verified 02/19/18 15:39 - Medications Medications: Current Medications Acetaminophen (Tylenol 650 Mg Supp) 650 mg DE Q6H PRN PRN Reason: Pain, Mild (1-3) Albuterol/Ipratropium (Duoneb 3 Mg/0.5 Mg (3 Ml) Ud) 3 ml INH RQ4 PRN PRN Reason: Shortness of Breath Dextrose (Dextrose 50% Inj) 0 ml IV STAT PRN; Protocol PRN Reason: Hypoglycemia Protocol Dextrose (Glutose 15) 0 gm PO ONCE PRN; Protocol PRN Reason: Hypoglycemia Protocol Gabapentin (Neurontin) 300 mg PO BID KEVIN Last Admin: 02/20/18 17:36 Dose: Not Given Glucagon (Glucagen Diagnostic Kit) 0 mg IM STAT PRN; Protocol PRN Reason: Hypoglycemia Protocol Dextrose (Dextrose 5% In Water 1000 Ml) 1,000 mls @ 0 mls/hr IV .Q0M PRN; Protocol; Per Protocol PRN Reason: Hypoglycemia Protocol Sodium Chloride (Sodium Chloride 0.9%) 1,000 mls @ 60 mls/hr IV .[id number] KEVIN Last Admin: 02/20/18 17:52 Dose: 60 mls/hr Potassium Chloride (Potassium Chloride 20 Meq/100 Ml) 20 meq in 100 mls @ 50 mls/hr IVPB Q2H KEVIN Last Admin: 02/20/18 09:14 Dose: 50 mls/hr Nicardipine HCl 25 mg/ Sodium (Chloride) 250 mls @ 50 mls/hr IV .Q5H KEVIN; 5 MG/ HR PRN Reason: Protocol Last Titration: 02/20/18 18:45 Dose: 2.5 mg/hr, 25 mls/hr Insulin Human Regular (Novolin R) 0 unit SC Q6 KEVIN PRN Reason: Protocol Last Admin: 02/20/18 17:45 Dose: 1 u Lorazepam (Ativan) 1 mg IVP ONCE PRN PRN Reason: Agitation Last Admin: 02/20/18 13:28 Dose: 1 mg Losartan Potassium (Cozaar) 25 mg PO BID KEVIN Last Admin: 02/20/18 17:36 Dose: Not Given Pantoprazole Sodium (Protonix Inj) 40 mg IVP DAILY KEVIN Last Admin: 02/20/18 09:14 Dose: 40 mg Rosuvastatin Calcium (Crestor) 20 mg PO HS KEVIN Tiotropium [place] (Spiriva) 18 mcg INH RQ24 KEVIN Physical Exam - Neurological Exam Additional comments: AAOX3, speech if fluent, but dysarthric, CN 2-12 are intact, left facial droop, left upper and lower extremity hemiplegia and with decreased sensation. Right side is normal in strength. NIHSS = 11 Results - Vital Signs Recent Vital Signs: Last Vital Signs Temp 98.5 F 02/20/18 16:00 Pulse 78 02/20/18 18:00 Resp 14 02/20/18 18:00 BP 152/88 H 02/20/18 17:35 Pulse Ox 99 02/20/18 18:00 - Labs Result Diagrams: 02/20/18 06:08 02/20/18 12:03 Labs: Laboratory Results - last 24 hr 02/19/18 02/20/18 02/20/18 18:20 00:04 01:24 WBC RBC Hgb Hct MCV MCH MCHC RDW Plt Count MPV Neut % (Auto) Lymph % (Auto) Coffey % (Auto) Eos % (Auto) Baso % (Auto) Neut # (Auto) Lymph # (Auto) Coffey # (Auto) Eos # (Auto) Baso # (Auto) ESR Sodium Potassium Chloride Carbon Dioxide Anion Gap BUN Creatinine Est GFR ( Amer) Est GFR (Non-Af Amer) POC Glucose (mg/dL) 226 H 305 H Random Glucose Calcium Phosphorus Magnesium Total Bilirubin AST ALT Alkaline Phosphatase Troponin I C-React Prot High Sens Total Protein Albumin Globulin Albumin/Globulin Ratio Vitamin B12 25-OH Vitamin D Total Folate Homocysteine TSH 3rd Generation Urine Opiates Screen Negative Urine Methadone Screen Negative Ur Barbiturates Screen Negative Ur Phencyclidine Scrn Negative Ur Amphetamines Screen Negative U Benzodiazepines Scrn Negative U Oth Cocaine Metabols Negative U Cannabinoids Screen Negative 02/20/18 02/20/18 02/20/18 06:08 06:08 06:43 WBC 8.3 RBC 4.43 Hgb 13.5 Hct 39.1 MCV 88.2 MCH 30.4 MCHC 34.5 RDW 13.4 Plt Count 257 MPV 8.8 Neut % (Auto) 67.7 Lymph % (Auto) 19.6 L Coffey % (Auto) 6.6 Eos % (Auto) 5.0 H Baso % (Auto) 1.1 Neut # (Auto) 5.6 Lymph # (Auto) 1.6 Coffey # (Auto) 0.5 Eos # (Auto) 0.4 Baso # (Auto) 0.1 ESR Sodium 144 Potassium 2.7 L Chloride 105 Carbon Dioxide 34 H Anion Gap 7 L BUN 21 H Creatinine 1.0 Est GFR ( Amer) > 60 Est GFR (Non-Af Amer) > 60 POC Glucose (mg/dL) Random Glucose 171 H Calcium 8.5 L Phosphorus 2.6 Magnesium 2.0 Total Bilirubin 0.5 AST 22 ALT 27 Alkaline Phosphatase 98 Troponin I 0.0900 C-React Prot High Sens Total Protein 5.5 L Albumin 3.0 L Globulin 2.4 Albumin/Globulin Ratio 1.3 Vitamin B12 775 25-OH Vitamin D Total Folate > 20.0 Homocysteine 2.3 L TSH 3rd Generation 0.62 Urine Opiates Screen Urine Methadone Screen Ur Barbiturates Screen Ur Phencyclidine Scrn Ur Amphetamines Screen U Benzodiazepines Scrn U Oth Cocaine Metabols U Cannabinoids Screen 02/20/18 02/20/18 02/20/18 06:43 06:43 06:43 WBC RBC Hgb Hct MCV MCH MCHC RDW Plt Count MPV Neut % (Auto) Lymph % (Auto) [place]offey % (Auto) Eos % (Auto) Baso % (Auto) Neut # (Auto) Lymph # (Auto) Coffey # (Auto) Eos # (Auto) Baso # (Auto) ESR 25 H Sodium Potassium Chloride Carbon Dioxide Anion Gap BUN Creatinine Est GFR ( Amer) Est GFR (Non-Af Amer) POC Glucose (mg/dL) Random Glucose Calcium Phosphorus Magnesium Total Bilirubin AST ALT Alkaline Phosphatase Troponin I C-React Prot High Sens 9.83 H Total Protein Albumin Globulin Albumin/Globulin Ratio Vitamin B12 25-OH Vitamin D Total < 12.8 L Folate Homocysteine TSH 3rd Generation Urine Opiates Screen Urine Methadone Screen Ur Barbiturates Screen Ur Phencyclidine Scrn Ur Amphetamines Screen U Benzodiazepines Scrn U Oth Cocaine Metabols U Cannabinoids Screen 02/20/18 02/20/18 11:25 12:03 WBC RBC Hgb Hct MCV MCH MCHC RDW Plt Count MPV Neut % (Auto) Lymph % (Auto) Coffey % (Auto) Eos % (Auto) Baso % (Auto) Neut # (Auto) Lymph # (Auto) Coffey # (Auto) Eos # (Auto) Baso # (Auto) ESR Sodium 144 Potassium 3.5 L Chloride 107 Carbon Dioxide 28 Anion Gap 12 BUN 21 H Creatinine 0.9 Est GFR ( Amer) > 60 Est GFR (Non-Af Amer) > 60 POC Glucose (mg/dL) 147 H Random Glucose 146 H Calcium 8.7 Phosphorus Magnesium Total Bilirubin AST ALT Alkaline Phosphatase Troponin I C-React Prot High Sens Total Protein Albumin Globulin Albumin/Globulin Ratio Vitamin B12 25-OH Vitamin D Total Folate Homocysteine TSH 3rd Generation Urine Opiates Screen Urine Methadone Screen Ur Barbiturates Screen Ur Phencyclidine Scrn Ur Amphetamines Screen U Benzodiazepines Scrn U Oth Cocaine Metabols U Cannabinoids Screen Assessment & Plan (1) CVA (cerebral vascular accident) Assessment and Plan: The MRI of the brain appears to have a late subacute area of possible blood versus a rounded mass measuring about 1.5 cm. This requires follow-up with a repeat CT scan of the head tonight to ensure that it is not a bleed and that it is not expanding. Clinically, the patient is unchanged. He continues to be hypertensive with diastolic in the 105-115 mm Hg range. I recommend the followin. ICU and Q1 hour neuro-checks 2. Repeat CT scan non-contrast at 10 PM 3. Hold anticoagulants and antiplatelet agents until further notice 4. PT/OT eval and treatment 5. Fluids with NS at 100 mL/hr 6. Keep head of bed at 30 degrees 7. Repeat MRI of the brain with contrast in 48 hours. Thank you. Status: Acute Priority: High
--- NOTE | 2018-02-20 19:24 | CP.PCM.HP ---
Past Patient History - Infectious Disease Hx of Infectious Diseases: None - Tetanus Immunizations Tetanus Immunization: Unknown - Past Medical History & Family History Past Medical History?: Yes - Past Social History Smoking Status: Never Smoked - CARDIAC Hx Hypertension: Yes - PULMONARY Hx Chronic Obstructive Pulmonary Disease (COPD): Yes - NEUROLOGICAL Hx Neurological Disorder: No - HEENT Hx HEENT Problems: No - RENAL Hx Chronic Kidney Disease: No - ENDOCRINE/METABOLIC Hx Diabetes Mellitus Type 2: Yes - HEMATOLOGICAL/ONCOLOGICAL Hx Blood Disorders: No - INTEGUMENTARY Hx Dermatological Problems: No - MUSCULOSKELETAL/RHEUMATOLOGICAL Hx Musculoskeletal Disorders: Yes Hx Falls: Yes - GASTROINTESTINAL Hx Gastrointestinal Disorders: Yes Hx Pancreatitis: Yes - GENITOURINARY/GYNECOLOGICAL Hx Genitourinary Disorders: No - PSYCHIATRIC Hx Psychophysiologic Disorder: No Hx Substance Use: No - SURGICAL HISTORY Hx Surgeries: Yes Other/Comment: endoscopy of small intestines 03/26/15-per medical record - ANESTHESIA Hx Anesthesia: Yes Hx Anesthesia Reactions: No Hx Malignant Hyperthermia: No Meds Allergies/Adverse Reactions: Allergies Allergy/AdvReac Type Severity Reaction Status Date / Time No Known Allergies Allergy Verified 02/19/18 15:39 Physical Exam - Constitutional Appears: Well - Head Exam Head Exam: ATRAUMATIC, NORMAL INSPECTION, NORMOCEPHALIC - Eye Exam Eye Exam: EOMI, Normal appearance, PERRL Pupil Exam: NORMAL ACCOMODATION, PERRL - ENT Exam ENT Exam: Mucous Membranes Moist, Normal Exam - Neck Exam Neck exam: Positive for: Normal Inspection - Respiratory Exam Respiratory Exam: Decreased Breath Sounds - Cardiovascular Exam Cardiovascular Exam: REGULAR RHYTHM, +S1, +S2 - GI/Abdominal Exam GI & Abdominal Exam: Diminished Bowel Sounds, Soft - Rectal Exam Rectal Exam: Deferred Results - Vital Signs Recent Vital Signs: Last Vital Signs Temp 98.5 F 02/20/18 16:00 Pulse 78 02/20/18 18:00 Resp 14 02/20/18 18:00 BP 152/88 H 02/20/18 17:35 Pulse Ox 99 02/20/18 18:00 - Labs Result Diagrams: 02/20/18 06:08 02/20/18 12:03 Labs: Laboratory Results - last 24 hr 02/19/18 02/20/18 02/20/18 18:20 00:04 01:24 WBC RBC Hgb Hct MCV MCH MCHC RDW Plt Count MPV Neut % (Auto) Lymph % (Auto) Morgan % (Auto) Eos % (Auto) Baso % (Auto) Neut # (Auto) Lymph # (Auto) Morgan # (Auto) Eos # (Auto) Baso # (Auto) ESR Sodium Potassium Chloride Carbon Dioxide Anion Gap BUN Creatinine Est GFR ( Amer) Est GFR (Non-Af Amer) POC Glucose (mg/dL) 226 H 305 H Random Glucose Calcium Phosphorus Magnesium Total Bilirubin AST ALT Alkaline Phosphatase Troponin I C-React Prot High Sens Total Protein Albumin Globulin Albumin/Globulin Ratio Vitamin B12 25-OH Vitamin D Total Folate Homocysteine TSH 3rd Generation Urine Opiates Screen Negative Urine Methadone Screen Negative Ur Barbiturates Screen Negative Ur Phencyclidine Scrn Negative Ur Amphetamines Screen Negative U Benzodiazepines Scrn Negative U Oth Cocaine Metabols Negative U Cannabinoids Screen Negative 02/20/18 02/20/18 02/20/18 06:08 06:08 06:43 WBC 8.3 RBC 4.43 Hgb 13.5 Hct 39.1 MCV 88.2 MCH 30.4 MCHC 34.5 RDW 13.4 Plt Count 257 MPV 8.8 Neut % (Auto) 67.7 Lymph % (Auto) 19.6 L [place] % (Auto) 6.6 Eos % (Auto) 5.0 H Baso % (Auto) 1.1 Neut # (Auto) 5.6 Lymph # (Auto) 1.6 Morgan # (Auto) 0.5 Eos # (Auto) 0.4 Baso # (Auto) 0.1 ESR Sodium 144 Potassium 2.7 L Chloride 105 Carbon Dioxide 34 H Anion Gap 7 L BUN 21 H Creatinine 1.0 Est GFR ( Amer) > 60 Est GFR (Non-Af Amer) > 60 POC Glucose (mg/dL) Random Glucose 171 H Calcium 8.5 L Phosphorus 2.6 Magnesium 2.0 Total Bilirubin 0.5 AST 22 ALT 27 Alkaline Phosphatase 98 Troponin I 0.0900 C-React Prot High Sens Total Protein 5.5 L Albumin 3.0 L Globulin 2.4 Albumin/Globulin Ratio 1.3 Vitamin B12 775 25-OH Vitamin D Total Folate > 20.0 Homocysteine 2.3 L TSH 3rd Generation 0.62 Urine Opiates Screen Urine Methadone Screen Ur Barbiturates Screen Ur Phencyclidine Scrn Ur Amphetamines Screen U Benzodiazepines Scrn U Oth Cocaine Metabols U Cannabinoids Screen 02/20/18 02/20/18 02/20/18 06:43 06:43 06:43 WBC RBC Hgb Hct MCV MCH MCHC RDW Plt Count MPV Neut % (Auto) Lymph % (Auto) [place] % (Auto) Eos % (Auto) Baso % (Auto) Neut # (Auto) Lymph # (Auto) Morgan # (Auto) Eos # (Auto) Baso # (Auto) ESR 25 H Sodium Potassium Chloride Carbon Dioxide Anion Gap BUN Creatinine Est GFR ( Amer) Est GFR (Non-Af Amer) POC Glucose (mg/dL) Random Glucose Calcium Phosphorus Magnesium Total Bilirubin AST ALT Alkaline Phosphatase Troponin I C-React Prot High Sens 9.83 H Total Protein Albumin Globulin Albumin/Globulin Ratio Vitamin B12 25-OH Vitamin D Total < 12.8 L Folate Homocysteine TSH 3rd Generation Urine Opiates Screen Urine Methadone Screen Ur Barbiturates Screen Ur Phencyclidine Scrn Ur Amphetamines Screen U Benzodiazepines Scrn U Oth Cocaine Metabols U Cannabinoids Screen 02/20/18 02/20/18 11:25 12:03 WBC RBC Hgb Hct MCV MCH MCHC RDW Plt Count MPV Neut % (Auto) Lymph % (Auto) [place] % (Auto) Eos % (Auto) Baso % (Auto) Neut # (Auto) Lymph # (Auto) Morgan # (Auto) Eos # (Auto) Baso # (Auto) ESR Sodium 144 Potassium 3.5 L Chloride 107 Carbon Dioxide 28 Anion Gap 12 BUN 21 H Creatinine 0.9 Est GFR ( Amer) > 60 Est GFR (Non-Af Amer) > 60 POC Glucose (mg/dL) 147 H Random Glucose 146 H Calcium 8.7 Phosphorus Magnesium Total Bilirubin AST ALT Alkaline Phosphatase Troponin I C-React Prot High Sens Total Protein Albumin Globulin Albumin/Globulin Ratio Vitamin B12 25-OH Vitamin D Total Folate Homocysteine TSH 3rd Generation Urine Opiates Screen Urine Methadone Screen Ur Barbiturates Screen Ur Phencyclidine Scrn Ur Amphetamines Screen U Benzodiazepines Scrn U Oth Cocaine Metabols U Cannabinoids Screen
--- NOTE | 2018-02-21 00:01 | CARD ---
APPROVED REPORT Date of service: 02/19/2018 EKG Measurement Heart [id number] <Conclusion> Normal sinus rhythm Possible Left atrial enlargement Left axis deviation Nonspecific T wave abnormality Prolonged QT Abnormal ECG
[2018-02-21] MEDS: (Novolin R) Insulin Human Regular 100 units/ml vial SC SCH ×5 (00:02→22:25)
[2018-02-21] MEDS: niCARdipine IV 25 MG in Sodium Chloride 0.9% 240 ML IV SCH ×7 (02:00→22:00)
--- NOTE | 2018-02-21 06:29 | CP.PCM.PN ---
Subjective - Date & Time of Evaluation Date of Evaluation: 02/21/18 Time of Evaluation: 06:26 - Subjective Subjective: Mr. Whelan was seen and examined at the bedside in ICU. He is awake, alert, but easily agitated. He refused to answer questions and follow any commands. He with mild dysarythria, but able to yell and scream. He refused to listen to any reasoning and very preoccupied with his oral intake. He can spontaneously move all his right side extremities with left remains flaccid. He remains on SCD for DVT prophylaxis and Nicardipine for blood pressure control. There was no untoward events overnight. Objective - Vital Signs/Intake and Output Vital Signs (last 24 hours): Temp Pulse Resp BP Pulse Ox 97.7 F 89 15 160/85 H 96 02/20/18 20:00 02/21/18 04:00 02/21/18 04:00 02/21/18 04:00 02/21/18 04:00 Intake and Output: 02/20/18 02/21/18 18:59 06:59 Intake Total 1085 600 Output Total 200 200 Balance 885 400 - Medications Medications: Current Medications Acetaminophen (Tylenol 650 Mg Supp) 650 mg VT Q6H PRN PRN Reason: Pain, Mild (1-3) Albuterol/Ipratropium (Duoneb 3 Mg/0.5 Mg (3 Ml) Ud) 3 ml INH RQ4 PRN PRN Reason: Shortness of Breath Dextrose (Dextrose 50% Inj) 0 ml IV STAT PRN; Protocol PRN Reason: Hypoglycemia Protocol Dextrose (Glutose 15) 0 gm PO ONCE PRN; Protocol PRN Reason: Hypoglycemia Protocol Gabapentin (Neurontin) 300 mg PO BID REPLACED BY [facility] Last Admin: 02/20/18 17:36 Dose: Not Given Glucagon (Glucagen Diagnostic Kit) 0 mg IM STAT PRN; Protocol PRN Reason: Hypoglycemia Protocol Dextrose (Dextrose 5% In Water 1000 Ml) 1,000 mls @ 0 mls/hr IV .Q0M PRN; Protocol; Per Protocol PRN Reason: Hypoglycemia Protocol Sodium Chloride (Sodium Chloride 0.9%) 1,000 mls @ 60 mls/hr IV .[id number] REPLACED BY [facility] Last Admin: 02/20/18 17:52 Dose: 60 mls/hr Potassium Chloride (Potassium Chloride 20 Meq/100 Ml) 20 meq in 100 mls @ 50 mls/hr IVPB Q2H KEVIN Last Admin: 02/20/18 09:14 Dose: 50 mls/hr Nicardipine HCl 25 mg/ Sodium (Chloride) 250 mls @ 50 mls/hr IV .Q5H KEVIN; 5 MG/ HR PRN Reason: Protocol Last Titration: 02/21/18 06:16 Dose: 2.5 mg/hr, 25 mls/hr Insulin Human Regular (Novolin R) 0 unit SC Q6 KEVIN PRN Reason: Protocol Last Admin: 02/21/18 00:02 Dose: 1 u Lorazepam (Ativan) 1 mg IVP ONCE PRN PRN Reason: Agitation Last Admin: 02/20/18 13:28 Dose: 1 mg Losartan Potassium (Cozaar) 25 mg PO BID KEVIN Last Admin: 02/20/18 17:36 Dose: Not Given Pantoprazole Sodium (Protonix Inj) 40 mg IVP DAILY REPLACED BY [facility] Last Admin: 02/20/18 09:14 Dose: 40 mg Rosuvastatin Calcium (Crestor) 20 mg PO HS REPLACED BY [facility] Last Admin: 02/20/18 22:22 Dose: 20 mg Tiotropium [place] (Spiriva) 18 mcg INH RQ24 KEVIN - Labs Labs: 02/20/18 06:08 02/20/18 12:03 PT 9.9 SECONDS (9.7-12.2) 02/19/18 15:50 INR 0.9 02/19/18 15:50 APTT 30 SECONDS (21-34) 02/19/18 15:50 - Constitutional Appears: No Acute Distress - Head Exam Head Exam: NORMAL INSPECTION - Neurological Exam Neurological Exam: Awake Neuro motor strength exam: Left Upper Extremity: 0, Right Upper Extremity: 4, Left Lower Extremity: 0, Right Lower Extremity: 4 Additional comments: awake, easily agitated, refused to answer any questions and follow commands. Assessment and Plan (1) CVA (cerebral vascular accident) Assessment & Plan: Case discussed with Dr. Soria, continue all current medical, physical, occupational, and speech therapies. Pending CTH results. Recommend blood pressure control, keep head of bed elevated at least 30 degrees, repeat MRI of the brain in 48 hours. Status: Acute
[2018-02-21 06:39] LABS: INR 0.9; PROTHROMBIN TIME 10.1 SECONDS (9.7-12.2)
[2018-02-21 06:41] LABS: BASO # 0.1 K/uL (0.0-0.2); BASO % 0.8 % (0.0-2.0); EOS # 0.5 K/uL (0.0-0.7); EOS % 7.4 % (0.0-4.0); HEMOGLOBIN 13.4 g/dL (12.0-18.0); LYMPH # 1.2 K/uL (1.0-4.3); LYMPH % 18.2 % (20.0-40.0); MEAN CELL VOLUME 88.7 fL (80.0-94.0); MEAN CORPUSCULAR HEMOGLOBIN 30.8 pg (27.0-31.0); MEAN CORPUSCULAR HGB CONC 34.7 g/dL (33.0-37.0); MEAN PLATELET VOLUME 8.7 fL (7.2-11.7); MONO # 0.5 K/uL (0.0-0.8); NEUT # 4.3 K/uL (1.8-7.0); NEUT % 66.6 % (50.0-75.0); NRBC % 0.1 % (0.0-2.0); RBC 4.36 Mil/uL (4.40-5.90); RED CELL DISTRIBUTION WIDTH 13.5 % (11.5-14.5); WHITE BLOOD COUNT 6.5 K/uL (4.8-10.8)
[2018-02-21 06:44] LABS: ALB/GLOB RATIO 1.2 (1.0-2.1); ALBUMIN 2.9 g/dL (3.5-5.0); ALT/SGPT 28 U/L (21-72); AST/SGOT 19 U/L (17-59); BLOOD UREA NITROGEN 18 mg/dL (9-20); CALCIUM 8.3 mg/dl (8.6-10.4); GFR AFRICAN-AMERICAN > 60; GFR NON-AFRICAN AMERICAN > 60
[2018-02-21] MEDS: Tiotropium 18 mcg Cap For Inhalation INH SCH (08:18)
--- NOTE | 2018-02-21 08:21 | CP.CCUPN ---
<AvisHudson - Last Filed: 02/21/18 13:54> CCU Subjective - Physician Review Subjective (Free Text): Hudson Albarran DO PGY-1, ICU progress note for Dr. Ken Pt was seen and examined at bedside. Pt has no complaints at this time. Pt remains unable to move his left upper and lower extremities, with left sided facial droop and left sided tongue deviation. He denies fever, dizziness, new weakness, chest pain, palpitations, sob, abdominal pain, n/v/d, any new paresthesias. Pt has been urinating well. A 12-point ROS was reviewed and is otherwise unremarkable. CCU Objective - Vital Signs / Intake & Output Intake and Output (Last 8hrs): Intake & Output 02/20/18 02/21/18 02/21/18 22:59 06:59 14:59 Intake Total 730 930 Output Total 200 250 Balance 530 680 Intake: IV 50 200 Intake, IV Amount 680 730 Left Antecubital 530 480 Right Forearm 150 250 Oral 0 0 Output: Urine 200 250 Urine, Voided 200 250 Other: # Bowel Movements 0 0 - Physical Exam Head: Positive for: Atraumatic, Normocephalic Pupils: Negative for: PERRL (right pupil is round and reactive to light, left pupil is asymmetrical but reactive to light) Extroacular Muscles: Positive for: EOMI Conjunctiva: Positive for: Injected (bilaterally) Mouth: Positive for: Moist Mucous Membranes Nose (External): Positive for: Abrasion (punctate abrasion to right side) Respiratory/Chest: Positive for: Clear to Auscultation, Good Air Exchange. Negative for: Respiratory Distress, Accessory Muscle Use Cardiovascular: Positive for: Regular Rate and Rhythm, Normal S1, S2, Peripheal Pulses Present. Negative for: Tachycardic, Rub, Gallop Abdomen: Positive for: Normal Bowel Sounds (in all 4 quadrants). Negative for: Tenderness, Distention, Rebound, Guarding Upper Extremity: Positive for: NORMAL PULSES. Negative for: Normal Inspection ( (+) chronic bilateral 5th digit flexion), Edema Lower Extremity: Positive for: NORMAL PULSES. Negative for: Normal Inspection, Edema Neurological: Positive for: GCS=15, Normal Sensory Function (in bilaterally upper and lower extremities), Other ((+) left sided babinski sign). Negative for: CN II-XII Intact (normal except: (+) left sided facial droop, 0/5 strength in deltoid, left sided tongue deviation. Unable to evaluate CN IX and X as pt is uncooperative. ), Motor Func Grossly Intact (0/5 strength in left upper and lower extremities) Skin: Positive for: Warm, Dry, Other ( (+) large healing bruise to the right lateral upper extremity) Psychiatric: Positive for: Alert, Oriented x 3 - Medications Active Medications: Active Medications Generic Name Dose Route Start Last Admin Trade Name Freq PRN Reason Stop Dose Admin Acetaminophen 650 mg 02/20/18 10:00 Tylenol 650 Mg Supp LA Q6H PRN Pain, Mild (1-3) Albuterol/Ipratropium 3 ml 02/20/18 08:30 Duoneb 3 Mg/0.5 Mg (3 Ml) Ud INH RQ4 PRN Shortness of Breath Dextrose 0 ml 02/19/18 18:41 Dextrose 50% Inj IV STAT PRN Hypoglycemia Protocol Protocol Dextrose 0 gm 02/19/18 18:41 Glutose 15 PO ONCE PRN Hypoglycemia Protocol Protocol Gabapentin 300 mg 02/20/18 10:00 02/20/18 17:36 Neurontin PO Not Given BID KEVIN Glucagon 0 mg 02/19/18 18:41 Glucagen Diagnostic Kit IM STAT PRN Hypoglycemia Protocol Protocol Dextrose 1,000 mls @ 0 mls/hr 02/19/18 18:41 Dextrose 5% In Water 1000 Ml IV .Q0M PRN Hypoglycemia Protocol Protocol Per Protocol Sodium Chloride 1,000 mls @ 60 mls/hr 02/20/18 00:15 02/20/18 17:52 Sodium Chloride 0.9% IV 60 mls/hr .[id number] KEVIN Administration Potassium Chloride 20 meq in 100 mls @ 50 mls/hr 02/20/18 10:00 02/20/18 09: 14 Potassium Chloride 20 Meq/100 Ml IVPB 50 mls/hr Q2H KEVIN Administration Nicardipine HCl 25 mg/ Sodium 250 mls @ 50 mls/hr 02/20/18 16:00 02/21/18 07: 22 Chloride IV Not Given .Q5H KEVIN Protocol 5 MG/HR Insulin Human Regular 0 unit 02/20/18 00:00 02/21/18 00:02 Novolin R SC 1 u Q6 KEVIN Administration Protocol Lorazepam 1 mg 08/06/18 12:53 02/20/18 13:28 Ativan IVP 1 mg ONCE PRN Administration Agitation Losartan Potassium 25 mg 02/20/18 18:00 02/20/18 17:36 Cozaar PO Not Given BID KEVIN Pantoprazole Sodium 40 mg 02/20/18 10:00 02/20/18 09:14 Protonix Inj IVP 40 mg DAILY KEVIN Administration Rosuvastatin Calcium 20 mg 02/20/18 22:00 02/20/18 22:22 Crestor PO 20 mg HS KEVIN Administration Tiotropium Lee 18 mcg 02/21/18 08:30 02/21/18 08:18 Spiriva INH 18 mcg RQ24 KEVIN Administration - Patient Studies Lab Studies: Microbiology Studies 02/19/18 20:37 MRSA Culture (Admit) - Final Nose MRSA NOT DETECTED Lab Studies 02/21/18 02/21/18 02/21/18 Range/Units 06:27 06:27 06:27 WBC 6.5 (4.8-10.8) K/uL RBC 4.36 L (4.40-5.90) Mil/uL Hgb 13.4 (12.0-18.0) g/dL Hct 38.7 (35.0-51.0) % MCV 88.7 (80.0-94.0) fL MCH 30.8 (27.0-31.0) pg MCHC 34.7 (33.0-37.0) g/dL RDW 13.5 (11.5-14.5) % Plt Count 247 (130-400) K/uL MPV 8.7 (7.2-11.7) fL Neut % (Auto) 66.6 (50.0-75.0) % Lymph % (Auto) 18.2 L (20.0-40.0) % [place] % (Auto) 7.0 (0.0-10.0) % Eos % (Auto) 7.4 H (0.0-4.0) % Baso % (Auto) 0.8 (0.0-2.0) % Neut # (Auto) 4.3 (1.8-7.0) K/uL Lymph # (Auto) 1.2 (1.0-4.3) K/uL [place] # (Auto) 0.5 (0.0-0.8) K/uL Eos # (Auto) 0.5 (0.0-0.7) K/uL Baso # (Auto) 0.1 (0.0-0.2) K/uL ESR (0-15) mm/hr PT 10.1 (9.7-12.2) SECONDS INR 0.9 APTT 30 (21-34) SECONDS Sodium 143 (132-148) mmol/L Potassium 3.1 L (3.6-5.2) mmol/L Chloride 107 (98-107) mmol/L Carbon Dioxide 29 (22-30) mmol/L Anion Gap 10 (10-20) BUN 18 (9-20) mg/dL Creatinine 0.9 (0.8-1.5) mg/dL Est GFR ( Amer) > 60 Est GFR (Non-Af Amer) > 60 POC Glucose (mg/dL) (65-110) mg/dL Random Glucose 176 H (75-110) mg/dL Calcium 8.3 L (8.6-10.4) mg/dl Phosphorus 2.8 (2.5-4.5) mg/dL Magnesium 1.9 (1.6-2.3) mg/dL Total Bilirubin 0.4 (0.2-1.3) mg/dL AST 19 (17-59) U/L ALT 28 (21-72) U/L Alkaline Phosphatase 101 (38-126) U/L Total Protein 5.3 L (6.3-8.3) g/dL Albumin 2.9 L (3.5-5.0) g/dL Globulin 2.4 (2.2-3.9) gm/dL Albumin/Globulin Ratio 1.2 (1.0-2.1) Homocysteine (6.6-14.8) umol/L 02/20/18 02/20/18 02/20/18 Range/Units 12:03 11:25 06:43 WBC (4.8-10.8) K/uL RBC (4.40-5.90) Mil/uL Hgb (12.0-18.0) g/dL Hct (35.0-51.0) % MCV (80.0-94.0) fL MCH (27.0-31.0) pg MCHC (33.0-37.0) g/dL RDW (11.5-14.5) % Plt Count (130-400) K/uL MPV (7.2-11.7) fL Neut % (Auto) (50.0-75.0) % Lymph % (Auto) (20.0-40.0) % [place] % (Auto) (0.0-10.0) % Eos % (Auto) (0.0-4.0) % Baso % (Auto) (0.0-2.0) % Neut # (Auto) (1.8-7.0) K/uL Lymph # (Auto) (1.0-4.3) K/uL [place] # (Auto) (0.0-0.8) K/uL Eos # (Auto) (0.0-0.7) K/uL Baso # (Auto) (0.0-0.2) K/uL ESR 25 H (0-15) mm/hr PT (9.7-12.2) SECONDS INR APTT (21-34) SECONDS Sodium 144 (132-148) mmol/L Potassium 3.5 L (3.6-5.2) mmol/L Chloride 107 (98-107) mmol/L Carbon Dioxide 28 (22-30) mmol/L Anion Gap 12 (10-20) BUN 21 H (9-20) mg/dL Creatinine 0.9 (0.8-1.5) mg/dL Est GFR ( Amer) > 60 Est GFR (Non-Af Amer) > 60 POC Glucose (mg/dL) 147 H (65-110) mg/dL Random Glucose 146 H (75-110) mg/dL Calcium 8.7 (8.6-10.4) mg/dl Phosphorus (2.5-4.5) mg/dL Magnesium (1.6-2.3) mg/dL Total Bilirubin (0.2-1.3) mg/dL AST (17-59) U/L ALT (21-72) U/L Alkaline Phosphatase (38-126) U/L Total Protein (6.3-8.3) g/dL Albumin (3.5-5.0) g/dL Globulin (2.2-3.9) gm/dL Albumin/Globulin Ratio (1.0-2.1) Homocysteine (6.6-14.8) umol/L 02/20/18 02/20/18 02/19/18 Range/Units 06:43 00:04 18:20 WBC (4.8-10.8) K/uL RBC (4.40-5.90) Mil/uL Hgb (12.0-18.0) g/dL Hct (35.0-51.0) % MCV (80.0-94.0) fL MCH (27.0-31.0) pg MCHC (33.0-37.0) g/dL RDW (11.5-14.5) % Plt Count (130-400) K/uL MPV (7.2-11.7) fL Neut % (Auto) (50.0-75.0) % Lymph % (Auto) (20.0-40.0) % [place] % (Auto) (0.0-10.0) % Eos % (Auto) (0.0-4.0) % Baso % (Auto) (0.0-2.0) % Neut # (Auto) (1.8-7.0) K/uL Lymph # (Auto) (1.0-4.3) K/uL [place] # (Auto) (0.0-0.8) K/uL Eos # (Auto) (0.0-0.7) K/uL Baso # (Auto) (0.0-0.2) K/uL ESR (0-15) mm/hr PT (9.7-12.2) SECONDS INR APTT (21-34) SECONDS Sodium (132-148) mmol/L Potassium (3.6-5.2) mmol/L Chloride (98-107) mmol/L Carbon Dioxide (22-30) mmol/L Anion Gap (10-20) BUN (9-20) mg/dL Creatinine (0.8-1.5) mg/dL Est GFR ( Amer) Est GFR (Non-Af Amer) POC Glucose (mg/dL) 305 H 226 H (65-110) mg/dL Random Glucose (75-110) mg/dL Calcium (8.6-10.4) mg/dl Phosphorus (2.5-4.5) mg/dL Magnesium (1.6-2.3) mg/dL Total Bilirubin (0.2-1.3) mg/dL AST (17-59) U/L ALT (21-72) U/L Alkaline Phosphatase (38-126) U/L Total Protein (6.3-8.3) g/dL Albumin (3.5-5.0) g/dL Globulin (2.2-3.9) gm/dL Albumin/Globulin Ratio (1.0-2.1) Homocysteine 2.3 L (6.6-14.8) umol/L Laboratory Results - last 24 hr 02/19/18 02/20/18 02/20/18 18:20 00:04 06:43 WBC RBC Hgb Hct MCV MCH MCHC RDW Plt Count MPV Neut % (Auto) Lymph % (Auto) [place] % (Auto) Eos % (Auto) Baso % (Auto) Neut # (Auto) Lymph # (Auto) [place] # (Auto) Eos # (Auto) Baso # (Auto) ESR PT INR APTT Sodium Potassium Chloride Carbon Dioxide Anion Gap BUN Creatinine Est GFR ( Amer) Est GFR (Non-Af Amer) POC Glucose (mg/dL) 226 H 305 H Random Glucose Calcium Phosphorus Magnesium Total Bilirubin AST ALT Alkaline Phosphatase Total Protein Albumin Globulin Albumin/Globulin Ratio Homocysteine 2.3 L 02/20/18 02/20/18 02/20/18 06:43 11:25 12:03 WBC RBC Hgb Hct MCV MCH MCHC RDW Plt Count MPV Neut % (Auto) Lymph % (Auto) [place] % (Auto) Eos % (Auto) Baso % (Auto) Neut # (Auto) Lymph # (Auto) [place] # (Auto) Eos # (Auto) Baso # (Auto) ESR 25 H PT INR APTT Sodium 144 Potassium 3.5 L Chloride 107 Carbon Dioxide 28 Anion Gap 12 BUN 21 H Creatinine 0.9 Est GFR ( Amer) > 60 Est GFR (Non-Af Amer) > 60 POC Glucose (mg/dL) 147 H Random Glucose 146 H Calcium 8.7 Phosphorus Magnesium Total Bilirubin AST ALT Alkaline Phosphatase Total Protein Albumin Globulin Albumin/Globulin Ratio Homocysteine 02/21/18 02/21/18 02/21/18 06:27 06:27 06:27 WBC 6.5 RBC 4.36 L Hgb 13.4 Hct 38.7 MCV 88.7 MCH 30.8 MCHC 34.7 RDW 13.5 Plt Count 247 MPV 8.7 Neut % (Auto) 66.6 Lymph % (Auto) 18.2 L [place] % (Auto) 7.0 Eos % (Auto) 7.4 H Baso % (Auto) 0.8 Neut # (Auto) 4.3 Lymph # (Auto) 1.2 [place] # (Auto) 0.5 Eos # (Auto) 0.5 Baso # (Auto) 0.1 ESR PT 10.1 INR 0.9 APTT 30 Sodium 143 Potassium 3.1 L Chloride 107 Carbon Dioxide 29 Anion Gap 10 BUN 18 Creatinine 0.9 Est GFR ( Amer) > 60 Est GFR (Non-Af Amer) > 60 POC Glucose (mg/dL) Random Glucose 176 H Calcium 8.3 L Phosphorus 2.8 Magnesium 1.9 Total Bilirubin 0.4 AST 19 ALT 28 Alkaline Phosphatase 101 Total Protein 5.3 L Albumin 2.9 L Globulin 2.4 Albumin/Globulin Ratio 1.2 Homocysteine Fingerstick Blood Sugar Results: 184 Review of Systems - Review of Systems All systems: reviewed and no additional remarkable complaints except (as per HPI ) Critical Care Progress Note - Prophylaxis GI Prophylaxis GI: PPI - Prophylaxis DVT Prophylaxis DVT: SCDs - Nutrition Nutrition: Nutrition Category Date Time Status NPO Diet [DIET] Diets 02/20/18 Dinner Active Assessment/Plan - Assessment and Plan (Free Text) Assessment: This is a 62 y/o male with PMHx of DM, HTN, COPD, non-compliant, h/o prior strokes who was BIBA on 02/19 after his girlfriend noticed left sided facial droop , left arm and leg weakness earlier that started earlier that afternoon. In the ER, pt was noticed to have weakness in left arm, left leg and facial droop on left side. BP was high and labetalol was given. Head CT was negative for intracranial hemorrhage, chronic changes (see report). Head and Neck CTA shows No occlusion or significant stenosis identified; No arteriovascular malformation appreciable. Pt received ASA, plavix, insulin for hyperglycemia ( 531), saline. Neuro was consulted, who placed the pt on an integrilin gtt. ICU consult called for close monitoring of BP, cardiovascular and neurovascular symptoms while on integrilin gtt. On the night of 02/19, pt noted a headache while on the integrilin gtt (which was discontinued). Head CT was done, which showed similar findings, as well as showing lesion suspicious for neoplasm of infectious/inflammatory process. Brain MRI (02/20): Small acute right basal ganglia infarct. Probably evolving late subacute hemorrhage right occipito parietal watershed zone. Pt is currently off of all anticoagulation medications , and continues to have 0/5 strength in upper and lower extremities, with globally intact sensation. Pt's BP is being managed between sbp 140-160 while on cardene gtt, with repeat brain MRI pending. Plan: Neuro: - Brain MRI (02/19): Small acute right basal ganglia infarct. Probably evolving late subacute hemorrhage right occipito parietal watershed zone. - f/u brain MRI scheduled for 02/22/18 - HoB >30 degrees - home gabapentin - f/u neurology recs Cardio: - maintain MAP>65 mmHg - continue statin - continue nicardipine gtt to maintain SBP between 140 and 160; meanwhile Pulm: - continue home duonebs, spiriva - NC as needed - maintain spo2>95% GI: - Abd/Pelv CT: Retained feces. Sigmoid diverticulosis without evidence of diverticulitis. No additional abnormality. - CLD as pt passed bedside swallow eval; formal speech therapist swallow eval pending - protonix for pud ppx Renal: - BUN/Cr is wnl - maintain euvolemia - replete electrolytes as needed Heme: - H/h is stable - PT/INR/PTT are WNL - SCDs for vte ppx - hold all anticoagulation ID: - no leukocytosis - no signs of infection, pt afebrile - MRSA (nares) culture shows no growth Endo: - HgbA1c is 13.0 - ISS increased to medium to obtain better control of blood glucose - maintain euglycemia - accucheck q6h PPX: protonix for pud; SCDs for vte Dispo: Continue to monitor in ICU as pt is on nicardipine gtt Case was reviewed and discussed with attending physician, Dr. Ken <Cedric Ken - Last Filed: 02/21/18 16:57> CCU Objective - Vital Signs / Intake & Output Vital Signs (Last 4 hours): Vital Signs Pulse Resp BP Pulse Ox 02/21/18 13:01 81 15 158/98 H 93 L 02/21/18 13:00 80 15 92 L Intake and Output (Last 8hrs): Intake & Output 02/21/18 02/21/18 02/21/18 06:59 14:59 22:59 Intake Total 930 605 Output Total 250 400 Balance 680 205 Weight 122 lb 14.4 oz Intake: IV 200 20 Intake, IV Amount 730 585 Left Antecubital 480 460 Right Forearm 250 125 Oral 0 Output: Urine 250 400 Urine, Voided 250 400 Other: # Bowel Movements 0 - Medications Active Medications: Active Medications Generic Name Dose Route Start Last Admin Trade Name Freq PRN Reason Stop Dose Admin Albuterol/Ipratropium 3 ml 02/21/18 11:00 02/21/18 15:53 Duoneb 3 Mg/0.5 Mg (3 Ml) Ud INH 3 ml RQ6 KEVIN Administration Bisacodyl 5 mg 02/21/18 09:32 02/21/18 11:54 Dulcolax PO 5 mg DAILY PRN Administration Constipation Dextrose 0 ml 02/19/18 18:41 Dextrose 50% Inj IV STAT PRN Hypoglycemia Protocol Protocol Dextrose 0 gm 02/19/18 18:41 Glutose 15 PO ONCE PRN Hypoglycemia Protocol Protocol Docusate Sodium 100 mg 02/21/18 10:00 02/21/18 11:54 Colace PO 100 mg BID KEVIN Administration Gabapentin 300 mg 02/20/18 10:00 02/21/18 09:10 Neurontin PO 300 mg BID KEVIN Administration Glucagon 0 mg 02/19/18 18:41 Glucagen Diagnostic Kit IM STAT PRN Hypoglycemia Protocol Protocol Dextrose 1,000 mls @ 0 mls/hr 02/19/18 18:41 Dextrose 5% In Water 1000 Ml IV .Q0M PRN Hypoglycemia Protocol Protocol Per Protocol Sodium Chloride 1,000 mls @ 60 mls/hr 02/20/18 00:15 02/21/18 13:42 Sodium Chloride 0.9% IV 60 mls/hr .[id number] KEVIN Administration Nicardipine HCl 25 mg/ Sodium 250 mls @ 50 mls/hr 02/20/18 16:00 02/21/18 11: 00 Chloride IV 0 mg/hr .Q5H KEVIN 0 mls/hr Protocol Titration 5 MG/HR Insulin Human Regular 0 unit 02/21/18 16:30 Novolin R SC ACHS KEVIN Protocol Lorazepam 1 mg 02/20/18 12:53 02/20/18 13:28 Ativan IVP 1 mg ONCE PRN Administration Agitation Losartan Potassium 25 mg 02/20/18 18:00 02/21/18 09:09 Cozaar PO 25 mg BID KEVIN Administration Pantoprazole Sodium 40 mg 02/20/18 10:00 02/21/18 09:10 Protonix Inj IVP 40 mg DAILY KEVIN Administration Rosuvastatin Calcium 20 mg 02/20/18 22:00 02/20/18 22:22 Crestor PO 20 mg HS KEVIN Administration Tiotropium Lee 18 mcg 02/21/18 08:30 02/21/18 08:18 Spiriva INH 18 mcg RQ24 KEVIN Administration - Patient Studies Lab Studies: Microbiology Studies 02/19/18 20:37 MRSA Culture (Admit) - Final Nose MRSA NOT DETECTED Lab Studies 02/21/18 02/21/18 02/21/18 Range/Units 16:24 11:45 06:27 WBC (4.8-10.8) K/uL RBC (4.40-5.90) Mil/uL Hgb (12.0-18.0) g/dL Hct (35.0-51.0) % MCV (80.0-94.0) fL MCH (27.0-31.0) pg MCHC (33.0-37.0) g/dL RDW (11.5-14.5) % Plt Count (130-400) K/uL MPV (7.2-11.7) fL Neut % (Auto) (50.0-75.0) % Lymph % (Auto) (20.0-40.0) % [place] % (Auto) (0.0-10.0) % Eos % (Auto) (0.0-4.0) % Baso % (Auto) (0.0-2.0) % Neut # (Auto) (1.8-7.0) K/uL Lymph # (Auto) (1.0-4.3) K/uL [place] # (Auto) (0.0-0.8) K/uL Eos # (Auto) (0.0-0.7) K/uL Baso # (Auto) (0.0-0.2) K/uL PT (9.7-12.2) SECONDS INR APTT (21-34) SECONDS Sodium 143 (132-148) mmol/L Potassium 3.1 L (3.6-5.2) mmol/L Chloride 107 (98-107) mmol/L Carbon Dioxide 29 (22-30) mmol/L Anion Gap 10 (10-20) BUN 18 (9-20) mg/dL Creatinine 0.9 (0.8-1.5) mg/dL Est GFR ( Amer) > 60 Est GFR (Non-Af Amer) > 60 POC Glucose (mg/dL) 145 H 242 H (65-110) mg/dL Random Glucose 176 H (75-110) mg/dL Calcium 8.3 L (8.6-10.4) mg/dl Phosphorus 2.8 (2.5-4.5) mg/dL Magnesium 1.9 (1.6-2.3) mg/dL Total Bilirubin 0.4 (0.2-1.3) mg/dL AST 19 (17-59) U/L ALT 28 (21-72) U/L Alkaline Phosphatase 101 (38-126) U/L Total Protein 5.3 L (6.3-8.3) g/dL Albumin 2.9 L (3.5-5.0) g/dL Globulin 2.4 (2.2-3.9) gm/dL Albumin/Globulin Ratio 1.2 (1.0-2.1) 02/21/18 02/21/18 02/21/18 Range/Units 06:27 06:27 06:11 WBC 6.5 (4.8-10.8) K/uL RBC 4.36 L (4.40-5.90) Mil/uL Hgb 13.4 (12.0-18.0) g/dL Hct 38.7 (35.0-51.0) % MCV 88.7 (80.0-94.0) fL MCH 30.8 (27.0-31.0) pg MCHC 34.7 (33.0-37.0) g/dL RDW 13.5 (11.5-14.5) % Plt Count 247 (130-400) K/uL MPV 8.7 (7.2-11.7) fL Neut % (Auto) 66.6 (50.0-75.0) % Lymph % (Auto) 18.2 L (20.0-40.0) % [place] % (Auto) 7.0 (0.0-10.0) % Eos % (Auto) 7.4 H (0.0-4.0) % Baso % (Auto) 0.8 (0.0-2.0) % Neut # (Auto) 4.3 (1.8-7.0) K/uL Lymph # (Auto) 1.2 (1.0-4.3) K/uL [place] # (Auto) 0.5 (0.0-0.8) K/uL Eos # (Auto) 0.5 (0.0-0.7) K/uL Baso # (Auto) 0.1 (0.0-0.2) K/uL PT 10.1 (9.7-12.2) SECONDS INR 0.9 APTT 30 (21-34) SECONDS Sodium (132-148) mmol/L Potassium (3.6-5.2) mmol/L Chloride (98-107) mmol/L Carbon Dioxide (22-30) mmol/L Anion Gap (10-20) BUN (9-20) mg/dL Creatinine (0.8-1.5) mg/dL Est GFR ( Amer) Est GFR (Non-Af Amer) POC Glucose (mg/dL) 217 H (65-110) mg/dL Random Glucose (75-110) mg/dL Calcium (8.6-10.4) mg/dl Phosphorus (2.5-4.5) mg/dL Magnesium (1.6-2.3) mg/dL Total Bilirubin (0.2-1.3) mg/dL AST (17-59) U/L ALT (21-72) U/L Alkaline Phosphatase (38-126) U/L Total Protein (6.3-8.3) g/dL Albumin (3.5-5.0) g/dL Globulin (2.2-3.9) gm/dL Albumin/Globulin Ratio (1.0-2.1) 02/20/18 02/20/18 02/20/18 Range/Units 23:55 17:39 05:39 WBC (4.8-10.8) K/uL RBC (4.40-5.90) Mil/uL Hgb (12.0-18.0) g/dL Hct (35.0-51.0) % MCV (80.0-94.0) fL MCH (27.0-31.0) pg MCHC (33.0-37.0) g/dL RDW (11.5-14.5) % Plt Count (130-400) K/uL MPV (7.2-11.7) fL Neut % (Auto) (50.0-75.0) % Lymph % (Auto) (20.0-40.0) % [place] % (Auto) (0.0-10.0) % Eos % (Auto) (0.0-4.0) % Baso % (Auto) (0.0-2.0) % Neut # (Auto) (1.8-7.0) K/uL Lymph # (Auto) (1.0-4.3) K/uL [place] # (Auto) (0.0-0.8) K/uL Eos # (Auto) (0.0-0.7) K/uL Baso # (Auto) (0.0-0.2) K/uL PT (9.7-12.2) SECONDS INR APTT (21-34) SECONDS Sodium (132-148) mmol/L Potassium (3.6-5.2) mmol/L Chloride (98-107) mmol/L Carbon Dioxide (22-30) mmol/L Anion Gap (10-20) BUN (9-20) mg/dL Creatinine (0.8-1.5) mg/dL Est GFR ( Amer) Est GFR (Non-Af Amer) POC Glucose (mg/dL) 184 H 175 H 202 H (65-110) mg/dL Random Glucose (75-110) mg/dL Calcium (8.6-10.4) mg/dl Phosphorus (2.5-4.5) mg/dL Magnesium (1.6-2.3) mg/dL Total Bilirubin (0.2-1.3) mg/dL AST (17-59) U/L ALT (21-72) U/L Alkaline Phosphatase (38-126) U/L Total Protein (6.3-8.3) g/dL Albumin (3.5-5.0) g/dL Globulin (2.2-3.9) gm/dL Albumin/Globulin Ratio (1.0-2.1) 02/19/18 02/19/18 Range/Units 15:36 15:35 WBC (4.8-10.8) K/uL RBC (4.40-5.90) Mil/uL Hgb (12.0-18.0) g/dL Hct (35.0-51.0) % MCV (80.0-94.0) fL MCH (27.0-31.0) pg MCHC (33.0-37.0) g/dL RDW (11.5-14.5) % Plt Count (130-400) K/uL MPV (7.2-11.7) fL Neut % (Auto) (50.0-75.0) % Lymph % (Auto) (20.0-40.0) % [place] % (Auto) (0.0-10.0) % Eos % (Auto) (0.0-4.0) % Baso % (Auto) (0.0-2.0) % Neut # (Auto) (1.8-7.0) K/uL Lymph # (Auto) (1.0-4.3) K/uL [place] # (Auto) (0.0-0.8) K/uL Eos # (Auto) (0.0-0.7) K/uL Baso # (Auto) (0.0-0.2) K/uL PT (9.7-12.2) SECONDS INR APTT (21-34) SECONDS Sodium (132-148) mmol/L Potassium (3.6-5.2) mmol/L Chloride (98-107) mmol/L Carbon Dioxide (22-30) mmol/L Anion Gap (10-20) BUN (9-20) mg/dL Creatinine (0.8-1.5) mg/dL Est GFR ( Amer) Est GFR (Non-Af Amer) POC Glucose (mg/dL) > 500 H* 480 H* (65-110) mg/dL Random Glucose (75-110) mg/dL Calcium (8.6-10.4) mg/dl Phosphorus (2.5-4.5) mg/dL Magnesium (1.6-2.3) mg/dL Total Bilirubin (0.2-1.3) mg/dL AST (17-59) U/L ALT (21-72) U/L Alkaline Phosphatase (38-126) U/L Total Protein (6.3-8.3) g/dL Albumin (3.5-5.0) g/dL Globulin (2.2-3.9) gm/dL Albumin/Globulin Ratio (1.0-2.1) Laboratory Results - last 24 hr 02/19/18 02/19/18 02/20/18 15:35 15:36 05:39 WBC RBC Hgb Hct MCV MCH MCHC RDW Plt Count MPV Neut % (Auto) Lymph % (Auto) [place] % (Auto) Eos % (Auto) Baso % (Auto) Neut # (Auto) Lymph # (Auto) [place] # (Auto) Eos # (Auto) Baso # (Auto) PT INR APTT Sodium Potassium Chloride Carbon Dioxide Anion Gap BUN Creatinine Est GFR ( Amer) Est GFR (Non-Af Amer) POC Glucose (mg/dL) 480 H* > 500 H* 202 H Random Glucose Calcium Phosphorus Magnesium Total Bilirubin AST ALT Alkaline Phosphatase Total Protein Albumin Globulin Albumin/Globulin Ratio 02/20/18 02/20/18 02/21/18 17:39 23:55 06:11 WBC RBC Hgb Hct MCV MCH MCHC RDW Plt Count MPV Neut % (Auto) Lymph % (Auto) [place] % (Auto) Eos % (Auto) Baso % (Auto) Neut # (Auto) Lymph # (Auto) [place] # (Auto) Eos # (Auto) Baso # (Auto) PT INR APTT Sodium Potassium Chloride Carbon Dioxide Anion Gap BUN Creatinine Est GFR ( Amer) Est GFR (Non-Af Amer) POC Glucose (mg/dL) 175 H 184 H 217 H Random Glucose Calcium Phosphorus Magnesium Total Bilirubin AST ALT Alkaline Phosphatase Total Protein Albumin Globulin Albumin/Globulin Ratio 02/21/18 02/21/18 02/21/18 06:27 06:27 06:27 WBC 6.5 RBC 4.36 L Hgb 13.4 Hct 38.7 MCV 88.7 MCH 30.8 MCHC 34.7 RDW 13.5 Plt Count 247 MPV 8.7 Neut % (Auto) 66.6 Lymph % (Auto) 18.2 L [place] % (Auto) 7.0 Eos % (Auto) 7.4 H Baso % (Auto) 0.8 Neut # (Auto) 4.3 Lymph # (Auto) 1.2 [place] # (Auto) 0.5 Eos # (Auto) 0.5 Baso # (Auto) 0.1 PT 10.1 INR 0.9 APTT 30 Sodium 143 Potassium 3.1 L Chloride 107 Carbon Dioxide 29 Anion Gap 10 BUN 18 Creatinine 0.9 Est GFR ( Amer) > 60 Est GFR (Non-Af Amer) > 60 POC Glucose (mg/dL) Random Glucose 176 H Calcium 8.3 L Phosphorus 2.8 Magnesium 1.9 Total Bilirubin 0.4 AST 19 ALT 28 Alkaline Phosphatase 101 Total Protein 5.3 L Albumin 2.9 L Globulin 2.4 Albumin/Globulin Ratio 1.2 02/21/18 02/21/18 11:45 16:24 WBC RBC Hgb Hct MCV MCH MCHC RDW Plt Count MPV Neut % (Auto) Lymph % (Auto) [place] % (Auto) Eos % (Auto) Baso % (Auto) Neut # (Auto) Lymph # (Auto) [place] # (Auto) Eos # (Auto) Baso # (Auto) PT INR APTT Sodium Potassium Chloride Carbon Dioxide Anion Gap BUN Creatinine Est GFR ( Amer) Est GFR (Non-Af Amer) POC Glucose (mg/dL) 242 H 145 H Random Glucose Calcium Phosphorus Magnesium Total Bilirubin AST ALT Alkaline Phosphatase Total Protein Albumin Globulin Albumin/Globulin Ratio Critical Care Progress Note - Nutrition Nutrition: Nutrition Category Date Time Status Liquid Diet [DIET] Diets 02/21/18 Breakfast Active Attending/Attestation - Attestation I have personally seen and examined this patient.: Yes I have fully participated in the care of the patient.: Yes I have reviewed all pertinent clinical information: Yes Notes (Text): 02/21/18 16:54 PATIENT SEEN AND EXAMINED Chart reviewed and previous events noted Admitted with left-sided weakness/CVA MRI showed small haemorrhage Continue treatment for COPD Repeat MRI in a.m.
--- NOTE | 2018-02-21 08:56 | CT ---
Date of service: 02/20/2018 PROCEDURE: CT HEAD WITHOUT CONTRAST. HISTORY: f/u head ct for occipital hemorrhage COMPARISON: CT head dated 02/19/2018 TECHNIQUE: Axial computed tomography images were obtained through the head/brain without intravenous contrast. Radiation dose: Total exam DLP = 1091 mGy-cm. This CT exam was performed using one or more of the following dose reduction techniques: Automated exposure control, adjustment of the mA and/or kV according to patient size, and/or use of iterative reconstruction technique. FINDINGS: HEMORRHAGE: No intracranial hemorrhage. BRAIN: Mild diffuse cerebral atrophy present consistent with the patient's age. Multiple small hypodensities in the basal ganglia consistent with lacunar infarctions. Mild diffuse heterogeneity of the white matter attenuation consistent with chronic white matter ischemic changes. Again identified is nonspecific rounded hypodensity measuring 10 millimeters seen in the right occipital lobe. VENTRICLES: Mild diffuse compensatory enlargement. CALVARIUM: Unremarkable. PARANASAL SINUSES: Unremarkable as visualized. No significant inflammatory changes. MASTOID AIR CELLS: Unremarkable as visualized. No inflammatory changes. OTHER FINDINGS: None. IMPRESSION: Nonspecific round right occipital lobe hypodensity measuring 10 millimeters, unchanged. This is of uncertain clinical etiology and may represent a focal area of subacute or chronic ischemia versus underlying lesion. Further evaluation with MRI of the brain with contrast may be helpful for further evaluation if clinically indicated. Age related atrophy and chronic white matter ischemic changes. These findings were preliminarily reported at 10:25 p.m. on 02/20/[address] Aurora Catherine from [employer].
[2018-02-21] MEDS: Potassium Chloride 20 mEq/15 ml LIQ UD PO SCH ×2 (09:10→13:41)
[2018-02-21] MEDS ORDERED: Bisacodyl 5mg EC Tab PO PRN (09:32)
[2018-02-21] MEDS: Albuterol-Ipratrop 3 mg / 0.5 (3 ml) UD INH SCH ×3 (12:00→19:14)
[2018-02-21] MEDS: Sodium Chloride 0.9% 1,000 ML IV SCH (13:42)
[2018-02-21] MEDS ORDERED: (Novolin R) Insulin Human Regular 100 units/ml vial SC SCH (14:43)
--- NOTE | 2018-02-21 20:45 | CP.PCM.PN ---
Subjective - Date & Time of Evaluation Date of Evaluation: 02/21/18 Time of Evaluation: 12:40 - Subjective Subjective: clinically same Objective - Vital Signs/Intake and Output Vital Signs (last 24 hours): Temp Pulse Resp BP Pulse Ox 99.1 F 95 H 17 161/80 H 92 L 02/21/18 16:00 02/21/18 18:00 02/21/18 18:00 02/21/18 18:00 02/21/18 18:00 Intake and Output: 02/21/18 02/22/18 18:59 06:59 Intake Total 1915 85 Output Total 400 Balance 1515 85 - Medications Medications: Current Medications Albuterol/Ipratropium (Duoneb 3 Mg/0.5 Mg (3 Ml) Ud) 3 ml INH RQ6 [facility] Last Admin: 02/21/18 19:14 Dose: 3 ml Bisacodyl (Dulcolax) 5 mg PO DAILY PRN PRN Reason: Constipation Last Admin: 02/21/18 11:54 Dose: 5 mg Dextrose (Dextrose 50% Inj) 0 ml IV STAT PRN; Protocol PRN Reason: Hypoglycemia Protocol Dextrose (Glutose 15) 0 gm PO ONCE PRN; Protocol PRN Reason: Hypoglycemia Protocol Docusate Sodium (Colace) 100 mg PO BID [facility] Last Admin: 02/21/18 17:50 Dose: 100 mg Gabapentin (Neurontin) 300 mg PO BID [facility] Last Admin: 02/21/18 17:50 Dose: 300 mg Glucagon (Glucagen Diagnostic Kit) 0 mg IM STAT PRN; Protocol PRN Reason: Hypoglycemia Protocol Dextrose (Dextrose 5% In Water 1000 Ml) 1,000 mls @ 0 mls/hr IV .Q0M PRN; Protocol; Per Protocol PRN Reason: Hypoglycemia Protocol Sodium Chloride (Sodium Chloride 0.9%) 1,000 mls @ 60 mls/hr IV .[id number] [facility] Last Admin: 02/21/18 13:42 Dose: 60 mls/hr Nicardipine HCl 25 mg/ Sodium (Chloride) 250 mls @ 50 mls/hr IV .Q5H KEVIN; 5 MG/ HR PRN Reason: Protocol Last Admin: 02/21/18 19:29 Dose: Not Given Insulin Human Regular (Novolin R) 0 unit SC ACHS [facility] PRN Reason: Protocol Last Admin: 02/21/18 17:48 Dose: Not Given Lorazepam (Ativan) 1 mg IVP ONCE PRN PRN Reason: Agitation Last Admin: 02/20/18 13:28 Dose: 1 mg Losartan Potassium (Cozaar) 25 mg PO BID [facility] Last Admin: 02/21/18 17:50 Dose: 25 mg Pantoprazole Sodium (Protonix Inj) 40 mg IVP DAILY [facility] Last Admin: 02/21/18 09:10 Dose: 40 mg Rosuvastatin Calcium (Crestor) 20 mg PO HS [facility] Last Admin: 02/20/18 22:22 Dose: 20 mg Tiotropium [place] (Spiriva) 18 mcg INH RQ24 [facility] Last Admin: 02/21/18 08:18 Dose: 18 mcg - Labs Labs: 02/21/18 06:27 02/21/18 06:27 PT 10.1 SECONDS (9.7-12.2) 02/21/18 06:27 INR 0.9 02/21/18 06:27 APTT 30 SECONDS (21-34) 02/21/18 06:27 - Constitutional Appears: Well - Head Exam Head Exam: ATRAUMATIC, NORMAL INSPECTION, NORMOCEPHALIC - Eye Exam Eye Exam: EOMI, Normal appearance, PERRL Pupil Exam: NORMAL ACCOMODATION, PERRL - ENT Exam ENT Exam: Mucous Membranes Moist, Normal Exam - Neck Exam Neck Exam: Full ROM, Normal Inspection. absent: Lymphadenopathy - Respiratory Exam Respiratory Exam: Decreased Breath Sounds - Cardiovascular Exam Cardiovascular Exam: REGULAR RHYTHM, +S1, +S2 - GI/Abdominal Exam GI & Abdominal Exam: Soft, Diminished Bowel Sounds - Rectal Exam Rectal Exam: Deferred
[2018-02-22] MEDS: Albuterol-Ipratrop 3 mg / 0.5 (3 ml) UD INH SCH ×4 (01:09→20:21)
[2018-02-22] MEDS: Sodium Chloride 0.9% 1,000 ML IV SCH ×2 (02:15→06:30)
[2018-02-22] MEDS: niCARdipine IV 25 MG in Sodium Chloride 0.9% 240 ML IV SCH ×4 (03:00→13:11)
--- NOTE | 2018-02-22 06:23 | CP.PCM.PN ---
Subjective - Date & Time of Evaluation Date of Evaluation: 02/22/18 Time of Evaluation: 06:22 - Subjective Subjective: Mr. Whelan was seen and examined at the bedside in ICU. He is awake, alert, but easily agitated. He is more cooperative this am, but claims of feeling tired.He can spontaneously move all his right side extremities with left remains flaccid with left side neglect. He remains on SCD for DVT prophylaxis and Nicardipine for blood pressure control. There was no untoward events overnight. Objective - Vital Signs/Intake and Output Vital Signs (last 24 hours): Temp Pulse Resp BP Pulse Ox 98.6 F 87 18 158/89 H 90 L 02/21/18 20:00 02/21/18 21:00 02/21/18 21:00 02/21/18 21:00 02/21/18 21:00 Intake and Output: 02/21/18 02/22/18 18:59 06:59 Intake Total 1915 1535 Output Total 400 1800 Balance 1515 -265 - Medications Medications: Current Medications Albuterol/Ipratropium (Duoneb 3 Mg/0.5 Mg (3 Ml) Ud) 3 ml INH RQ6 [facility] Last Admin: 02/22/18 01:09 Dose: 3 ml Bisacodyl (Dulcolax) 5 mg PO DAILY PRN PRN Reason: Constipation Last Admin: 02/21/18 11:54 Dose: 5 mg Dextrose (Dextrose 50% Inj) 0 ml IV STAT PRN; Protocol PRN Reason: Hypoglycemia Protocol Dextrose (Glutose 15) 0 gm PO ONCE PRN; Protocol PRN Reason: Hypoglycemia Protocol Docusate Sodium (Colace) 100 mg PO BID [facility] Last Admin: 02/21/18 17:50 Dose: 100 mg Gabapentin (Neurontin) 300 mg PO BID [facility] Last Admin: 02/21/18 17:50 Dose: 300 mg Glucagon (Glucagen Diagnostic Kit) 0 mg IM STAT PRN; Protocol PRN Reason: Hypoglycemia Protocol Dextrose (Dextrose 5% In Water 1000 Ml) 1,000 mls @ 0 mls/hr IV .Q0M PRN; Protocol; Per Protocol PRN Reason: Hypoglycemia Protocol Sodium Chloride (Sodium Chloride 0.9%) 1,000 mls @ 60 mls/hr IV .[id number] [facility] Last Admin: 08/08/18 02:15 Dose: Not Given Nicardipine HCl 25 mg/ Sodium (Chloride) 250 mls @ 50 mls/hr IV .Q5H KEVIN; 5 MG/ HR PRN Reason: Protocol Last Admin: 02/22/18 03:00 Dose: Not Given Insulin Human Regular (Novolin R) 0 unit SC ACHS [facility] PRN Reason: Protocol Last Admin: 02/21/18 22:25 Dose: Not Given Lorazepam (Ativan) 1 mg IVP ONCE PRN PRN Reason: Agitation Last Admin: 02/20/18 13:28 Dose: 1 mg Losartan Potassium (Cozaar) 25 mg PO BID [facility] Last Admin: 02/21/18 17:50 Dose: 25 mg Pantoprazole Sodium (Protonix Inj) 40 mg IVP DAILY [facility] Last Admin: 02/21/18 09:10 Dose: 40 mg Rosuvastatin Calcium (Crestor) 20 mg PO HS [facility] Last Admin: 02/21/18 22:24 Dose: 20 mg Tiotropium [place] (Spiriva) 18 mcg INH RQ24 [facility] Last Admin: 02/21/18 08:18 Dose: 18 mcg - Labs Labs: 02/21/18 06:27 02/21/18 06:27 PT 10.1 SECONDS (9.7-12.2) 02/21/18 06:27 INR 0.9 02/21/18 06:27 APTT 30 SECONDS (21-34) 02/21/18 06:27 - Constitutional Appears: No Acute Distress - Head Exam Head Exam: NORMAL INSPECTION - Eye Exam Pupil Exam: Miosis, PERRL Additional comments: 2 mm. - Neurological Exam Neurological Exam: Alert, Awake Neuro motor strength exam: Left Upper Extremity: 0, Right Upper Extremity: 4, Left Lower Extremity: 0, Right Lower Extremity: 4 Additional comments: neurological unchanged from previous examination. Assessment and Plan (1) CVA (cerebral vascular accident) Assessment & Plan: Continue all current medical, physical, occupational, and speech therapies. Pending MRI of the brain with contrast. Recommend blood pressure and glycemic control, keep head of bed elevated at least 30 degrees, normothermia. Status: Acute
[2018-02-22 06:25] LABS: BASO # 0.1 K/uL (0.0-0.2); BASO % 0.8 % (0.0-2.0); EOS # 0.3 K/uL (0.0-0.7); EOS % 3.4 % (0.0-4.0); HEMOGLOBIN 13.1 g/dL (12.0-18.0); LYMPH % 13.5 % (20.0-40.0); MEAN CELL VOLUME 88.7 fL (80.0-94.0); MEAN CORPUSCULAR HEMOGLOBIN 30.7 pg (27.0-31.0); MEAN CORPUSCULAR HGB CONC 34.6 g/dL (33.0-37.0); MEAN PLATELET VOLUME 8.9 fL (7.2-11.7); MONO # 0.7 K/uL (0.0-0.8); MONO % 8.7 % (0.0-10.0); NEUT # 5.6 K/uL (1.8-7.0); NEUT % 73.6 % (50.0-75.0); RBC 4.26 Mil/uL (4.40-5.90); RED CELL DISTRIBUTION WIDTH 13.4 % (11.5-14.5); WHITE BLOOD COUNT 7.7 K/uL (4.8-10.8)
[2018-02-22 06:41] LABS: PROTHROMBIN TIME 10.8 SECONDS (9.7-12.2)
[2018-02-22 06:43] LABS: ALB/GLOB RATIO 1.2 (1.0-2.1); ALBUMIN 3.1 g/dL (3.5-5.0); ALT/SGPT 20 U/L (21-72); AST/SGOT 19 U/L (17-59); BLOOD UREA NITROGEN 12 mg/dL (9-20); CALCIUM 8.4 mg/dl (8.6-10.4); GFR AFRICAN-AMERICAN > 60; GFR NON-AFRICAN AMERICAN > 60
[2018-02-22] MEDS: (Novolin R) Insulin Human Regular 100 units/ml vial SC SCH ×4 (07:50→21:23)
[2018-02-22] MEDS: Tiotropium 18 mcg Cap For Inhalation INH SCH (07:55)
--- NOTE | 2018-02-22 09:53 | CP.CCUPN ---
<Hudson Albarran - Last Filed: 02/22/18 15:13> CCU Subjective - Physician Review Subjective (Free Text): Hudson Albarran DO PGY-1, ICU progress note for Dr. Ken Pt was seen and examined at bedside. Pt reports painful left hand swelling since last night. He states that the pain is localized to his hand, sharp, 8/10 , nonradiating. Pt states that the pain has not worsened and is the same as it was yesterday. He denies any loss of sensation to the left hand, or numbness or tingling. Pt remains unable to move his left upper and lower extremities, with left sided facial droop and left sided tongue deviation. He denies fever, headche, visual changes, lightheadedness, dizziness, new weakness, chest pain, palpitations, sob, abdominal pain, n/v/d. A 12-point ROS was reviewed and is otherwise unremarkable. CCU Objective - Vital Signs / Intake & Output Vital Signs (Last 4 hours): Vital Signs Pulse Resp BP Pulse Ox 02/22/18 08:01 86 18 146/82 97 02/22/18 08:00 87 17 97 02/22/18 07:00 87 18 143/79 90 L 02/22/18 06:00 85 15 147/79 90 L Intake and Output (Last 8hrs): Intake & Output 02/21/18 02/22/18 02/22/18 22:59 06:59 14:59 Intake Total 1440 1210 85 Output Total 450 2000 Balance 990 -790 85 Weight 54.89 kg Intake: IV 230 250 Intake, IV Amount 630 780 85 Left Antecubital 480 480 60 Lt AC 150 300 25 Oral 580 180 Output: Urine 450 2000 Urine, Voided 450 2000 Other: # Voids Urine, Voided 1 1 # Bowel Movements 0 0 - Physical Exam Head: Positive for: Atraumatic, Normocephalic Pupils: Negative for: PERRL (right pupil is round and reactive to light, left pupil is asymmetrical but reactive to light) Extroacular Muscles: Positive for: EOMI Conjunctiva: Positive for: Injected (bilaterally) Mouth: Positive for: Moist Mucous Membranes Nose (External): Positive for: Abrasion (punctate abrasion to right side) Neck: Positive for: Normal Range of Motion Respiratory/Chest: Positive for: Clear to Auscultation, Good Air Exchange. Negative for: Respiratory Distress, Accessory Muscle Use Cardiovascular: Positive for: Regular Rate and Rhythm, Normal S1, S2. Negative for: Tachycardic, Rub, Gallop Abdomen: Positive for: Normal Bowel Sounds (in all 4 quadrants). Negative for: Tenderness, Distention, Rebound, Guarding Upper Extremity: Positive for: NORMAL PULSES ((+) 3+ radial pulses bilaterally; unable to assess left ulnar pulse due to pain), Swelling ((+) non-pitting swelling to left hand, (+) warm to touch, (-) erythema, (-) pallor). Negative for: Normal Inspection ((+) chronic bilateral 5th digit flexion), Edema Lower Extremity: Positive for: NORMAL PULSES. Negative for: Normal Inspection, Edema Neurological: Positive for: GCS=15, Normal Sensory Function (in bilaterally upper and lower extremities), Other ((+) left sided babinski sign). Negative for: CN II-XII Intact (normal except: (+) left sided facial droop, 0/5 strength in deltoid, left sided tongue deviation. Unable to evaluate CN IX and X as pt is uncooperative. ), Motor Func Grossly Intact (0/5 strength in left upper and lower extremities) Skin: Positive for: Warm, Dry, Other ( (+) healing bruise to the right lateral upper extremity) Psychiatric: Positive for: Alert, Oriented x 3 - Medications Active Medications: Active Medications Generic Name Dose Route Start Last Admin Trade Name Freq PRN Reason Stop Dose Admin Albuterol/Ipratropium 3 ml 02/21/18 11:00 02/22/18 07:55 Duoneb 3 Mg/0.5 Mg (3 Ml) Ud INH 3 ml RQ6 KEVIN Administration Bisacodyl 5 mg 02/21/18 09:32 02/21/18 11:54 Dulcolax PO 5 mg DAILY PRN Administration Constipation Dextrose 0 ml 02/19/18 18:41 Dextrose 50% Inj IV STAT PRN Hypoglycemia Protocol Protocol Dextrose 0 gm 02/19/18 18:41 Glutose 15 PO ONCE PRN Hypoglycemia Protocol Protocol Docusate Sodium 100 mg 02/21/18 10:00 02/21/18 17:50 Colace PO 100 mg BID KEVIN Administration Gabapentin 300 mg 02/20/18 10:00 02/21/18 17:50 Neurontin PO 300 mg BID KEVIN Administration Glucagon 0 mg 02/19/18 18:41 Glucagen Diagnostic Kit IM STAT PRN Hypoglycemia Protocol Protocol Dextrose 1,000 mls @ 0 mls/hr 02/19/18 18:41 Dextrose 5% In Water 1000 Ml IV .Q0M PRN Hypoglycemia Protocol Protocol Per Protocol Sodium Chloride 1,000 mls @ 60 mls/hr 02/20/18 00:15 02/22/18 06:30 Sodium Chloride 0.9% IV 60 mls/hr .[id number] KEVIN Administration Nicardipine HCl 25 mg/ Sodium 250 mls @ 50 mls/hr 02/20/18 16:00 02/22/18 04: 30 Chloride IV 2.5 mg/hr .Q5H KEVIN 25 mls/hr Protocol Administration 5 MG/HR Insulin Human Regular 0 unit 02/21/18 16:30 02/21/18 22:25 Novolin R SC Not Given ACHS KEVIN Protocol Lorazepam 1 mg 02/20/18 12:53 02/20/18 13:28 Ativan IVP 1 mg ONCE PRN Administration Agitation Losartan Potassium 25 mg 02/20/18 18:00 02/21/18 17:50 Cozaar PO 25 mg BID KEVIN Administration Pantoprazole Sodium 40 mg 02/20/18 10:00 02/21/18 09:10 Protonix Inj IVP 40 mg DAILY KEVIN Administration Rosuvastatin Calcium 20 mg 02/20/18 22:00 02/21/18 22:24 Crestor PO 20 mg HS KEVIN Administration Tiotropium Dudley 18 mcg 02/21/18 08:30 02/22/18 07:55 Spiriva INH 18 mcg RQ24 KEVIN Administration - Patient Studies Lab Studies: Lab Studies 02/22/18 02/22/18 02/22/18 Range/Units 07:32 06:22 06:22 WBC (4.8-10.8) K/uL RBC (4.40-5.90) Mil/uL Hgb (12.0-18.0) g/dL Hct (35.0-51.0) % MCV (80.0-94.0) fL MCH (27.0-31.0) pg MCHC (33.0-37.0) g/dL RDW (11.5-14.5) % Plt Count (130-400) K/uL MPV (7.2-11.7) fL Neut % (Auto) (50.0-75.0) % Lymph % (Auto) (20.0-40.0) % Robertson % (Auto) (0.0-10.0) % Eos % (Auto) (0.0-4.0) % Baso % (Auto) (0.0-2.0) % Neut # (Auto) (1.8-7.0) K/uL Lymph # (Auto) (1.0-4.3) K/uL Robertson # (Auto) (0.0-0.8) K/uL Eos # (Auto) (0.0-0.7) K/uL Baso # (Auto) (0.0-0.2) K/uL PT 10.8 (9.7-12.2) SECONDS INR 1.0 APTT 31 (21-34) SECONDS Sodium 137 (132-148) mmol/L Potassium 3.4 L (3.6-5.2) mmol/L Chloride 103 (98-107) mmol/L Carbon Dioxide 27 (22-30) mmol/L Anion Gap 9 L (10-20) BUN 12 (9-20) mg/dL Creatinine 0.8 (0.8-1.5) mg/dL Est GFR ( Amer) > 60 Est GFR (Non-Af Amer) > 60 POC Glucose (mg/dL) 232 H (65-110) mg/dL Random Glucose 235 H (75-110) mg/dL Calcium 8.4 L (8.6-10.4) mg/dl Phosphorus 2.8 (2.5-4.5) mg/dL Magnesium 1.7 (1.6-2.3) mg/dL Total Bilirubin 0.6 (0.2-1.3) mg/dL AST 19 (17-59) U/L ALT 20 L D (21-72) U/L Alkaline Phosphatase 107 (38-126) U/L Total Protein 5.7 L (6.3-8.3) g/dL Albumin 3.1 L (3.5-5.0) g/dL Globulin 2.6 (2.2-3.9) gm/dL Albumin/Globulin Ratio 1.2 (1.0-2.1) 02/22/18 02/21/18 02/21/18 Range/Units 06:22 21:16 16:24 WBC 7.7 (4.8-10.8) K/uL RBC 4.26 L (4.40-5.90) Mil/uL Hgb 13.1 (12.0-18.0) g/dL Hct 37.8 (35.0-51.0) % MCV 88.7 (80.0-94.0) fL MCH 30.7 (27.0-31.0) pg MCHC 34.6 (33.0-37.0) g/dL RDW 13.4 (11.5-14.5) % Plt Count 232 (130-400) K/uL MPV 8.9 (7.2-11.7) fL Neut % (Auto) 73.6 (50.0-75.0) % Lymph % (Auto) 13.5 L (20.0-40.0) % Robertson % (Auto) 8.7 (0.0-10.0) % Eos % (Auto) 3.4 (0.0-4.0) % Baso % (Auto) 0.8 (0.0-2.0) % Neut # (Auto) 5.6 (1.8-7.0) K/uL Lymph # (Auto) 1.0 (1.0-4.3) K/uL Robertson # (Auto) 0.7 (0.0-0.8) K/uL Eos # (Auto) 0.3 (0.0-0.7) K/uL Baso # (Auto) 0.1 (0.0-0.2) K/uL PT (9.7-12.2) SECONDS INR APTT (21-34) SECONDS Sodium (132-148) mmol/L Potassium (3.6-5.2) mmol/L Chloride (98-107) mmol/L Carbon Dioxide (22-30) mmol/L Anion Gap (10-20) BUN (9-20) mg/dL Creatinine (0.8-1.5) mg/dL Est GFR ( Amer) Est GFR (Non-Af Amer) POC Glucose (mg/dL) 288 H 145 H (65-110) mg/dL Random Glucose (75-110) mg/dL Calcium (8.6-10.4) mg/dl Phosphorus (2.5-4.5) mg/dL Magnesium (1.6-2.3) mg/dL Total Bilirubin (0.2-1.3) mg/dL AST (17-59) U/L ALT (21-72) U/L Alkaline Phosphatase (38-126) U/L Total Protein (6.3-8.3) g/dL Albumin (3.5-5.0) g/dL Globulin (2.2-3.9) gm/dL Albumin/Globulin Ratio (1.0-2.1) 02/21/18 02/21/18 02/20/18 Range/Units 11:45 06:11 23:55 WBC (4.8-10.8) K/uL RBC (4.40-5.90) Mil/uL Hgb (12.0-18.0) g/dL Hct (35.0-51.0) % MCV (80.0-94.0) fL MCH (27.0-31.0) pg MCHC (33.0-37.0) g/dL RDW (11.5-14.5) % Plt Count (130-400) K/uL MPV (7.2-11.7) fL Neut % (Auto) (50.0-75.0) % Lymph % (Auto) (20.0-40.0) % Robertson % (Auto) (0.0-10.0) % Eos % (Auto) (0.0-4.0) % Baso % (Auto) (0.0-2.0) % Neut # (Auto) (1.8-7.0) K/uL Lymph # (Auto) (1.0-4.3) K/uL Robertson # (Auto) (0.0-0.8) K/uL Eos # (Auto) (0.0-0.7) K/uL Baso # (Auto) (0.0-0.2) K/uL PT (9.7-12.2) SECONDS INR APTT (21-34) SECONDS Sodium (132-148) mmol/L Potassium (3.6-5.2) mmol/L Chloride (98-107) mmol/L Carbon Dioxide (22-30) mmol/L Anion Gap (10-20) BUN (9-20) mg/dL Creatinine (0.8-1.5) mg/dL Est GFR ( Amer) Est GFR (Non-Af Amer) POC Glucose (mg/dL) 242 H 217 H 184 H (65-110) mg/dL Random Glucose (75-110) mg/dL Calcium (8.6-10.4) mg/dl Phosphorus (2.5-4.5) mg/dL Magnesium (1.6-2.3) mg/dL Total Bilirubin (0.2-1.3) mg/dL AST (17-59) U/L ALT (21-72) U/L Alkaline Phosphatase (38-126) U/L Total Protein (6.3-8.3) g/dL Albumin (3.5-5.0) g/dL Globulin (2.2-3.9) gm/dL Albumin/Globulin Ratio (1.0-2.1) 02/20/18 02/20/18 02/19/18 Range/Units 17:39 05:39 15:36 WBC (4.8-10.8) K/uL RBC (4.40-5.90) Mil/uL Hgb (12.0-18.0) g/dL Hct (35.0-51.0) % MCV (80.0-94.0) fL MCH (27.0-31.0) pg MCHC (33.0-37.0) g/dL RDW (11.5-14.5) % Plt Count (130-400) K/uL MPV (7.2-11.7) fL Neut % (Auto) (50.0-75.0) % Lymph % (Auto) (20.0-40.0) % Robertson % (Auto) (0.0-10.0) % Eos % (Auto) (0.0-4.0) % Baso % (Auto) (0.0-2.0) % Neut # (Auto) (1.8-7.0) K/uL Lymph # (Auto) (1.0-4.3) K/uL Robertson # (Auto) (0.0-0.8) K/uL Eos # (Auto) (0.0-0.7) K/uL Baso # (Auto) (0.0-0.2) K/uL PT (9.7-12.2) SECONDS INR APTT (21-34) SECONDS Sodium (132-148) mmol/L Potassium (3.6-5.2) mmol/L Chloride (98-107) mmol/L Carbon Dioxide (22-30) mmol/L Anion Gap (10-20) BUN (9-20) mg/dL Creatinine (0.8-1.5) mg/dL Est GFR ( Amer) Est GFR (Non-Af Amer) POC Glucose (mg/dL) 175 H 202 H > 500 H* (65-110) mg/dL Random Glucose (75-110) mg/dL Calcium (8.6-10.4) mg/dl Phosphorus (2.5-4.5) mg/dL Magnesium (1.6-2.3) mg/dL Total Bilirubin (0.2-1.3) mg/dL AST (17-59) U/L ALT (21-72) U/L Alkaline Phosphatase (38-126) U/L Total Protein (6.3-8.3) g/dL Albumin (3.5-5.0) g/dL Globulin (2.2-3.9) gm/dL Albumin/Globulin Ratio (1.0-2.1) 02/19/18 Range/Units 15:35 WBC (4.8-10.8) K/uL RBC (4.40-5.90) Mil/uL Hgb (12.0-18.0) g/dL Hct (35.0-51.0) % MCV (80.0-94.0) fL MCH (27.0-31.0) pg MCHC (33.0-37.0) g/dL RDW (11.5-14.5) % Plt Count (130-400) K/uL MPV (7.2-11.7) fL Neut % (Auto) (50.0-75.0) % Lymph % (Auto) (20.0-40.0) % Robertson % (Auto) (0.0-10.0) % Eos % (Auto) (0.0-4.0) % Baso % (Auto) (0.0-2.0) % Neut # (Auto) (1.8-7.0) K/uL Lymph # (Auto) (1.0-4.3) K/uL Robertson # (Auto) (0.0-0.8) K/uL Eos # (Auto) (0.0-0.7) K/uL Baso # (Auto) (0.0-0.2) K/uL PT (9.7-12.2) SECONDS INR APTT (21-34) SECONDS Sodium (132-148) mmol/L Potassium (3.6-5.2) mmol/L Chloride (98-107) mmol/L Carbon Dioxide (22-30) mmol/L Anion Gap (10-20) BUN (9-20) mg/dL Creatinine (0.8-1.5) mg/dL Est GFR ( Amer) Est GFR (Non-Af Amer) POC Glucose (mg/dL) 480 H* (65-110) mg/dL Random Glucose (75-110) mg/dL Calcium (8.6-10.4) mg/dl Phosphorus (2.5-4.5) mg/dL Magnesium (1.6-2.3) mg/dL Total Bilirubin (0.2-1.3) mg/dL AST (17-59) U/L ALT (21-72) U/L Alkaline Phosphatase (38-126) U/L Total Protein (6.3-8.3) g/dL Albumin (3.5-5.0) g/dL Globulin (2.2-3.9) gm/dL Albumin/Globulin Ratio (1.0-2.1) Laboratory Results - last 24 hr 02/19/18 02/19/18 02/20/18 15:35 15:36 05:39 WBC RBC Hgb Hct MCV MCH MCHC RDW Plt Count MPV Neut % (Auto) Lymph % (Auto) Robertson % (Auto) Eos % (Auto) Baso % (Auto) Neut # (Auto) Lymph # (Auto) Robertson # (Auto) Eos # (Auto) Baso # (Auto) PT INR APTT Sodium Potassium Chloride Carbon Dioxide Anion Gap BUN Creatinine Est GFR ( Amer) Est GFR (Non-Af Amer) POC Glucose (mg/dL) 480 H* > 500 H* 202 H Random Glucose Calcium Phosphorus Magnesium Total Bilirubin AST ALT Alkaline Phosphatase Total Protein Albumin Globulin Albumin/Globulin Ratio 02/20/18 02/20/18 02/21/18 17:39 23:55 06:11 WBC RBC Hgb Hct MCV MCH MCHC RDW Plt Count MPV Neut % (Auto) Lymph % (Auto) Robertson % (Auto) Eos % (Auto) Baso % (Auto) Neut # (Auto) Lymph # (Auto) Robertson # (Auto) Eos # (Auto) Baso # (Auto) PT INR APTT Sodium Potassium Chloride Carbon Dioxide Anion Gap BUN Creatinine Est GFR ( Amer) Est GFR (Non-Af Amer) POC Glucose (mg/dL) 175 H 184 H 217 H Random Glucose Calcium Phosphorus Magnesium Total Bilirubin AST ALT Alkaline Phosphatase Total Protein Albumin Globulin Albumin/Globulin Ratio 02/21/18 02/21/18 02/21/18 11:45 16:24 21:16 WBC RBC Hgb Hct MCV MCH MCHC RDW Plt Count MPV Neut % (Auto) Lymph % (Auto) Robertson % (Auto) Eos % (Auto) Baso % (Auto) Neut # (Auto) Lymph # (Auto) Robertson # (Auto) Eos # (Auto) Baso # (Auto) PT INR APTT Sodium Potassium Chloride Carbon Dioxide Anion Gap BUN Creatinine Est GFR ( Amer) Est GFR (Non-Af Amer) POC Glucose (mg/dL) 242 H 145 H 288 H Random Glucose Calcium Phosphorus Magnesium Total Bilirubin AST ALT Alkaline Phosphatase Total Protein Albumin Globulin Albumin/Globulin Ratio 02/22/18 02/22/18 02/22/18 06:22 06:22 06:22 WBC 7.7 RBC 4.26 L Hgb 13.1 Hct 37.8 MCV 88.7 MCH 30.7 MCHC 34.6 RDW 13.4 Plt Count 232 MPV 8.9 Neut % (Auto) 73.6 Lymph % (Auto) 13.5 L Robertson % (Auto) 8.7 Eos % (Auto) 3.4 Baso % (Auto) 0.8 Neut # (Auto) 5.6 Lymph # (Auto) 1.0 Robertson # (Auto) 0.7 Eos # (Auto) 0.3 Baso # (Auto) 0.1 PT 10.8 INR 1.0 APTT 31 Sodium 137 Potassium 3.4 L Chloride 103 Carbon Dioxide 27 Anion Gap 9 L BUN 12 Creatinine 0.8 Est GFR ( Amer) > 60 Est GFR (Non-Af Amer) > 60 POC Glucose (mg/dL) Random Glucose 235 H Calcium 8.4 L Phosphorus 2.8 Magnesium 1.7 Total Bilirubin 0.6 AST 19 ALT 20 L D Alkaline Phosphatase 107 Total Protein 5.7 L Albumin 3.1 L Globulin 2.6 Albumin/Globulin Ratio 1.2 02/22/18 07:32 WBC RBC Hgb Hct MCV MCH MCHC RDW Plt Count MPV Neut % (Auto) Lymph % (Auto) Robertson % (Auto) Eos % (Auto) Baso % (Auto) Neut # (Auto) Lymph # (Auto) Robertson # (Auto) Eos # (Auto) Baso # (Auto) PT INR APTT Sodium Potassium Chloride Carbon Dioxide Anion Gap BUN Creatinine Est GFR ( Amer) Est GFR (Non-Af Amer) POC Glucose (mg/dL) 232 H Random Glucose Calcium Phosphorus Magnesium Total Bilirubin AST ALT Alkaline Phosphatase Total Protein Albumin Globulin Albumin/Globulin Ratio Fingerstick Blood Sugar Results: 288 Critical Care Progress Note - Nutrition Nutrition: Nutrition Category Date Time Status Heart Healthy Diet [DIET] Diets 02/21/18 Dinner Active Assessment/Plan - Assessment and Plan (Free Text) Assessment: This is a 62 y/o male with PMHx of DM, HTN, COPD, non-compliant, h/o prior strokes who was BIBA on 02/19 after his girlfriend noticed left sided facial droop , left arm and leg weakness earlier that started earlier that afternoon. In the ER, pt was noticed to have weakness in left arm, left leg and facial droop on left side. BP was high and labetalol was given. Head CT was negative for intracranial hemorrhage, chronic changes (see report). Head and Neck CTA shows No occlusion or significant stenosis identified; No arteriovascular malformation appreciable. Pt received ASA, plavix, insulin for hyperglycemia ( 531), saline. Neuro was consulted, who placed the pt on an integrilin gtt. ICU consult called for close monitoring of BP, cardiovascular and neurovascular symptoms while on integrilin gtt. On the night of 02/19, pt noted a headache while on the integrilin gtt (which was discontinued). Head CT was done, which showed similar findings, as well as showing lesion suspicious for neoplasm of infectious/inflammatory process. Brain MRI (02/20): Small acute right basal ganglia infarct. Probably evolving late subacute hemorrhage right occipito parietal watershed zone. Pt is currently off of all anticoagulation medications , and continues to have 0/5 strength in upper and lower extremities, with globally intact sensation. Pt is being weaned off of the nicardipine gtt. BP is being managed with oral antihypertensive medications. Plan: Neuro: - Brain MRI (02/19): Small acute right basal ganglia infarct. Probably evolving late subacute hemorrhage right occipito parietal watershed zone. - f/u brain MRI scheduled for today; ativan prn for mri - HoB >30 degrees - home gabapentin - f/u neurology recs Cardio: - maintain MAP>65 mmHg - continue statin - wean off of nicardipine - losartan 25 mg PO BID, hydralazine 25 mg PO QID for hypertension (maintain SBP between 140 and 160) Pulm: - continue home duonebs, spiriva - NC as needed - maintain spo2>95% GI: - HHD; solid foods with thin liquids as per speech therapy - protonix for pud ppx Renal: - BUN/Cr is wnl - maintain euvolemia - replete electrolytes as needed Heme: - H/h is stable - PT/INR/PTT are WNL - SCDs for vte ppx - continue to hold all anticoagulation until brain MRI results ID: - no leukocytosis - no signs of infection, pt afebrile - MRSA (nares) culture shows no growth Endo: - HgbA1c is 13.0 - ISS increased to medium to obtain better control of blood glucose - maintain euglycemia - accucheck q6h MSK: - elevate left hand to attempt to alleviate swelling and pain - radial artery pulse is 3+ at wrist - dopplar study if symptoms do not improve - good capillary refill PPX: protonix for pud; SCDs for vte Dispo: Pt is clinically safe and stable to transfer to telemetry Case was reviewed and discussed with attending physician, Dr. eKn <Cedric Ken - Last Filed: 02/22/18 16:48> CCU Objective - Vital Signs / Intake & Output Vital Signs (Last 4 hours): Vital Signs Pulse Resp BP Pulse Ox 02/22/18 15:00 98 H 20 149/90 96 02/22/18 14:01 101 H 24 157/78 H 92 L 02/22/18 14:00 102 H 16 93 L 02/22/18 13:01 88 18 154/90 H 92 L 02/22/18 13:00 87 19 92 L Intake and Output (Last 8hrs): Intake & Output 02/22/18 02/22/18 02/22/18 06:59 14:59 22:59 Intake Total 1210 1071 Output Total 1999 450 Balance -790 621 Weight 121 lb 0.18 oz Intake: IV 250 136 Intake, IV Amount 780 380 Left Antecubital 480 280 Lt AC 300 100 Oral 180 555 Output: Urine 1999 450 Urine, Voided 1999 450 Other: # Voids Urine, Voided 1 1 # Bowel Movements 0 0 - Medications Active Medications: Active Medications Generic Name Dose Route Start Last Admin Trade Name Freq PRN Reason Stop Dose Admin Albuterol/Ipratropium 3 ml 02/21/18 11:00 02/22/18 13:44 Duoneb 3 Mg/0.5 Mg (3 Ml) Ud INH 3 ml RQ6 KEVIN Administration Bisacodyl 5 mg 02/21/18 09:32 02/21/18 11:54 Dulcolax PO 5 mg DAILY PRN Administration Constipation Dextrose 0 ml 02/19/18 18:41 Dextrose 50% Inj IV STAT PRN Hypoglycemia Protocol Protocol Dextrose 0 gm 02/19/18 18:41 Glutose 15 PO ONCE PRN Hypoglycemia Protocol Protocol Docusate Sodium 100 mg 02/21/18 10:00 02/22/18 10:33 Colace PO 100 mg BID KEVIN Administration Gabapentin 300 mg 02/20/18 10:00 02/22/18 10:33 Neurontin PO 300 mg BID KEVIN Administration Glucagon 0 mg 02/19/18 18:41 Glucagen Diagnostic Kit IM STAT PRN Hypoglycemia Protocol Protocol Hydralazine HCl 25 mg 02/22/18 14:00 02/22/18 13:01 Apresoline PO 25 mg QID KEVIN Administration Dextrose 1,000 mls @ 0 mls/hr 02/19/18 18:41 Dextrose 5% In Water 1000 Ml IV .Q0M PRN Hypoglycemia Protocol Protocol Per Protocol Insulin Human Regular 0 unit 02/21/18 16:30 02/22/18 13:01 Novolin R SC 4 u ACHS KEVIN Administration Protocol Lorazepam 1 mg 02/22/18 13:23 02/22/18 15:03 Ativan IVP 02/22/18 20:00 1 mg ONCE PRN Administration Anxiety Losartan Potassium 25 mg 02/20/18 18:00 02/22/18 10:33 Cozaar PO 25 mg BID KEVIN Administration Pantoprazole Sodium 40 mg 02/20/18 10:00 02/22/18 10:33 Protonix Inj IVP 40 mg DAILY KEVIN Administration Rosuvastatin Calcium 20 mg 02/20/18 22:00 02/21/18 22:24 Crestor PO 20 mg HS KEVIN Administration Tiotropium Dudley 18 mcg 02/21/18 08:30 02/22/18 07:55 Spiriva INH 18 mcg RQ24 KEVIN Administration - Patient Studies Lab Studies: Lab Studies 02/22/18 02/22/18 02/22/18 Range/Units 11:32 07:32 06:22 WBC (4.8-10.8) K/uL RBC (4.40-5.90) Mil/uL Hgb (12.0-18.0) g/dL Hct (35.0-51.0) % MCV (80.0-94.0) fL MCH (27.0-31.0) pg MCHC (33.0-37.0) g/dL RDW (11.5-14.5) % Plt Count (130-400) K/uL MPV (7.2-11.7) fL Neut % (Auto) (50.0-75.0) % Lymph % (Auto) (20.0-40.0) % Robertson % (Auto) (0.0-10.0) % Eos % (Auto) (0.0-4.0) % Baso % (Auto) (0.0-2.0) % Neut # (Auto) (1.8-7.0) K/uL Lymph # (Auto) (1.0-4.3) K/uL Robertson # (Auto) (0.0-0.8) K/uL Eos # (Auto) (0.0-0.7) K/uL Baso # (Auto) (0.0-0.2) K/uL PT (9.7-12.2) SECONDS INR APTT (21-34) SECONDS Sodium 137 (132-148) mmol/L Potassium 3.4 L (3.6-5.2) mmol/L Chloride 103 (98-107) mmol/L Carbon Dioxide 27 (22-30) mmol/L Anion Gap 9 L (10-20) BUN 12 (9-20) mg/dL Creatinine 0.8 (0.8-1.5) mg/dL Est GFR ( Amer) > 60 Est GFR (Non-Af Amer) > 60 POC Glucose (mg/dL) 267 H 232 H (65-110) mg/dL Random Glucose 235 H (75-110) mg/dL Calcium 8.4 L (8.6-10.4) mg/dl Phosphorus 2.8 (2.5-4.5) mg/dL Magnesium 1.7 (1.6-2.3) mg/dL Total Bilirubin 0.6 (0.2-1.3) mg/dL AST 19 (17-59) U/L ALT 20 L D (21-72) U/L Alkaline Phosphatase 107 (38-126) U/L Total Protein 5.7 L (6.3-8.3) g/dL Albumin 3.1 L (3.5-5.0) g/dL Globulin 2.6 (2.2-3.9) gm/dL Albumin/Globulin Ratio 1.2 (1.0-2.1) 02/22/18 02/22/18 02/21/18 Range/Units 06:22 06:22 21:16 WBC 7.7 (4.8-10.8) K/uL RBC 4.26 L (4.40-5.90) Mil/uL Hgb 13.1 (12.0-18.0) g/dL Hct 37.8 (35.0-51.0) % MCV 88.7 (80.0-94.0) fL MCH 30.7 (27.0-31.0) pg MCHC 34.6 (33.0-37.0) g/dL RDW 13.4 (11.5-14.5) % Plt Count 232 (130-400) K/uL MPV 8.9 (7.2-11.7) fL Neut % (Auto) 73.6 (50.0-75.0) % Lymph % (Auto) 13.5 L (20.0-40.0) % Robertson % (Auto) 8.7 (0.0-10.0) % Eos % (Auto) 3.4 (0.0-4.0) % Baso % (Auto) 0.8 (0.0-2.0) % Neut # (Auto) 5.6 (1.8-7.0) K/uL Lymph # (Auto) 1.0 (1.0-4.3) K/uL Robertson # (Auto) 0.7 (0.0-0.8) K/uL Eos # (Auto) 0.3 (0.0-0.7) K/uL Baso # (Auto) 0.1 (0.0-0.2) K/uL PT 10.8 (9.7-12.2) SECONDS INR 1.0 APTT 31 (21-34) SECONDS Sodium (132-148) mmol/L Potassium (3.6-5.2) mmol/L Chloride (98-107) mmol/L Carbon Dioxide (22-30) mmol/L Anion Gap (10-20) BUN (9-20) mg/dL Creatinine (0.8-1.5) mg/dL Est GFR ( Amer) Est GFR (Non-Af Amer) POC Glucose (mg/dL) 288 H (65-110) mg/dL Random Glucose (75-110) mg/dL Calcium (8.6-10.4) mg/dl Phosphorus (2.5-4.5) mg/dL Magnesium (1.6-2.3) mg/dL Total Bilirubin (0.2-1.3) mg/dL AST (17-59) U/L ALT (21-72) U/L Alkaline Phosphatase (38-126) U/L Total Protein (6.3-8.3) g/dL Albumin (3.5-5.0) g/dL Globulin (2.2-3.9) gm/dL Albumin/Globulin Ratio (1.0-2.1) Laboratory Results - last 24 hr 02/21/18 02/22/18 02/22/18 21:16 06:22 06:22 WBC 7.7 RBC 4.26 L Hgb 13.1 Hct 37.8 MCV 88.7 MCH 30.7 MCHC 34.6 RDW 13.4 Plt Count 232 MPV 8.9 Neut % (Auto) 73.6 Lymph % (Auto) 13.5 L Robertson % (Auto) 8.7 Eos % (Auto) 3.4 Baso % (Auto) 0.8 Neut # (Auto) 5.6 Lymph # (Auto) 1.0 Robertson # (Auto) 0.7 Eos # (Auto) 0.3 Baso # (Auto) 0.1 PT 10.8 INR 1.0 APTT 31 Sodium Potassium Chloride Carbon Dioxide Anion Gap BUN Creatinine Est GFR ( Amer) Est GFR (Non-Af Amer) POC Glucose (mg/dL) 288 H Random Glucose Calcium Phosphorus Magnesium Total Bilirubin AST ALT Alkaline Phosphatase Total Protein Albumin Globulin Albumin/Globulin Ratio 02/22/18 02/22/18 02/22/18 06:22 07:32 11:32 WBC RBC Hgb Hct MCV MCH MCHC RDW Plt Count MPV Neut % (Auto) Lymph % (Auto) Robertson % (Auto) Eos % (Auto) Baso % (Auto) Neut # (Auto) Lymph # (Auto) Robertson # (Auto) Eos # (Auto) Baso # (Auto) PT INR APTT Sodium 137 Potassium 3.4 L Chloride 103 Carbon Dioxide 27 Anion Gap 9 L BUN 12 Creatinine 0.8 Est GFR ( Amer) > 60 Est GFR (Non-Af Amer) > 60 POC Glucose (mg/dL) 232 H 267 H Random Glucose 235 H Calcium 8.4 L Phosphorus 2.8 Magnesium 1.7 Total Bilirubin 0.6 AST 19 ALT 20 L D Alkaline Phosphatase 107 Total Protein 5.7 L Albumin 3.1 L Globulin 2.6 Albumin/Globulin Ratio 1.2 Critical Care Progress Note - Nutrition Nutrition: Nutrition Category Date Time Status Heart Healthy Diet [DIET] Diets 02/22/18 Dinner Active Attending/Attestation - Attestation I have personally seen and examined this patient.: Yes I have fully participated in the care of the patient.: Yes I have reviewed all pertinent clinical information: Yes Notes (Text): 02/22/18 16:46 patient seen and examined Repeat MRI noted No shortness of breath Swelling of left hand noted Stable for transfer to floor Continue present treatment for now
[2018-02-22] MEDS ORDERED: Potassium Chloride 20 mEq/15 ml LIQ UD PO ONE (11:00)
--- NOTE | 2018-02-22 12:41 | CP.PCM.PN ---
Subjective - Date & Time of Evaluation Date of Evaluation: 02/22/18 Time of Evaluation: 13:00 - Subjective Subjective: clinically same Objective - Vital Signs/Intake and Output Vital Signs (last 24 hours): Temp Pulse Resp BP Pulse Ox 98.2 F 88 18 140/79 99 02/22/18 08:00 02/22/18 11:00 02/22/18 11:00 02/22/18 11:00 02/22/18 11:33 Intake and Output: 02/22/18 02/22/18 06:59 18:59 Intake Total 1880 781 Output Total 2450 200 Balance -570 581 - Medications Medications: Current Medications Albuterol/Ipratropium (Duoneb 3 Mg/0.5 Mg (3 Ml) Ud) 3 ml INH RQ6 [facility] Last Admin: 02/22/18 07:55 Dose: 3 ml Bisacodyl (Dulcolax) 5 mg PO DAILY PRN PRN Reason: Constipation Last Admin: 02/21/18 11:54 Dose: 5 mg Dextrose (Dextrose 50% Inj) 0 ml IV STAT PRN; Protocol PRN Reason: Hypoglycemia Protocol Dextrose (Glutose 15) 0 gm PO ONCE PRN; Protocol PRN Reason: Hypoglycemia Protocol Docusate Sodium (Colace) 100 mg PO BID [facility] Last Admin: 02/22/18 10:33 Dose: 100 mg Gabapentin (Neurontin) 300 mg PO BID [facility] Last Admin: 02/22/18 10:33 Dose: 300 mg Glucagon (Glucagen Diagnostic Kit) 0 mg IM STAT PRN; Protocol PRN Reason: Hypoglycemia Protocol Hydralazine HCl (Apresoline) 25 mg PO QID [facility] Dextrose (Dextrose 5% In Water 1000 Ml) 1,000 mls @ 0 mls/hr IV .Q0M PRN; Protocol; Per Protocol PRN Reason: Hypoglycemia Protocol Nicardipine HCl 25 mg/ Sodium (Chloride) 250 mls @ 50 mls/hr IV .Q5H KEVIN; 5 MG/ HR PRN Reason: Protocol Last Titration: 02/22/18 12:33 Dose: 0.5 mg/hr, 5 mls/hr Insulin Human Regular (Novolin R) 0 unit SC ACHS KEVIN PRN Reason: Protocol Last Admin: 02/22/18 07:50 Dose: 3 u Lorazepam (Ativan) 1 mg IVP ONCE PRN PRN Reason: Agitation Last Admin: 02/20/18 13:28 Dose: 1 mg Losartan Potassium (Cozaar) 25 mg PO BID [facility] Last Admin: 02/22/18 10:33 Dose: 25 mg Pantoprazole Sodium (Protonix Inj) 40 mg IVP DAILY [facility] Last Admin: 02/22/18 10:33 Dose: 40 mg Rosuvastatin Calcium (Crestor) 20 mg PO HS [facility] Last Admin: 02/21/18 22:24 Dose: 20 mg Tiotropium [place] (Spiriva) 18 mcg INH RQ24 [facility] Last Admin: 02/22/18 07:55 Dose: 18 mcg - Labs Labs: 02/22/18 06:22 02/22/18 06:22 PT 10.8 SECONDS (9.7-12.2) 02/22/18 06:22 INR 1.0 02/22/18 06:22 APTT 31 SECONDS (21-34) 02/22/18 06:22
[2018-02-22] MEDS ORDERED: Gadodiamide 287 MG/ML VIAL (15ML) IV ONE (13:09)
--- NOTE | 2018-02-22 16:29 | MRI ---
Date of service: 02/22/2018 PROCEDURE: MRI BRAIN WITH AND WITHOUT CONTRAST HISTORY: R/O brain mass COMPARISON: Noncontrast brain MRI 02/20/2018. TECHNIQUE: Multiplanar, multisequence MR images of the brain were obtained with and without intravenous contrast enhancement. FINDINGS: HEMORRHAGE: A small area of bright T1 and T2 ovoid signal is appreciated at the right parietal occipital distribution once again and is stable in size. This corresponds to a small air pre dominant lucency in prior head CT 02/20/2018 with trace hyperdensity at the inferior-most margins. While technically is it corresponds to a late subacute phase of hemosiderin degradation, it appears older based on CT resolved. A tiny may be more appropriately characterized as early chronic as result. DWI: Subacute infarction is identified at the right basal ganglia/ thalamic border once again. No new infarct is appreciated exclusive of this area. T2 shine through effects are appreciated a small hemorrhagic infarct in the right parieto-occipital junction described above. BRAIN PARENCHYMA: No definitive suspicious intracranial enhancement is identified with artifact appreciated at the anterior portion the corpus callosum in the axial T1 weighted post gadolinium enhanced images. Diffuse cerebral atrophy chronic microangiopathy are reiterated. VENTRICLES: Unremarkable. No hydrocephalus. CRANIUM: Unremarkable. ORBITS: Grossly unremarkable. PARANASAL SINUSES/MASTOIDS: Clear VASCULAR SYSTEM: Skull base flow voids intact. OTHER FINDINGS: None . IMPRESSION: 1. No suspicious intracranial enhancement to suggest enhancing metastasis. Therefore the small likely early chronic hemorrhagic collection of the right parieto-occipital junction may reflect a hemorrhagic infarct. 2. Subacute infarct right basal ganglia/thalamic junction reiterated. 3. No definite interval new acute findings. Note, this study is a post gadolinium enhanced brain MRI with only a few added sequences performed preliminarily for comparison purposes.
[2018-02-22] MEDS: Ciprofloxacin 400mg/200ml D5W 400 MG/200 ML BAG IVPB SCH (17:07)
[2018-02-23] MEDS: Acetaminophen 650mg/20.3ml solution UD PO PRN (00:33)
[2018-02-23] MEDS: Albuterol-Ipratrop 3 mg / 0.5 (3 ml) UD INH SCH ×4 (01:27→20:17)
[2018-02-23] MEDS: Ciprofloxacin 400mg/200ml D5W 400 MG/200 ML BAG IVPB SCH ×2 (04:18→17:00)
--- NOTE | 2018-02-23 06:22 | CP.PCM.PN ---
Addendum entered and electronically signed by All Gore 02/23/18 06: 38: Assessment/ Plan: Will start on depakote 1000 mg IVPB for one dose to assist with his restlessness / agitation. Depakote 500 mg PO Q 12 starting this afternoon. Original Note: <All Gore - Last Filed: 02/23/18 06:34> Subjective - Date & Time of Evaluation Date of Evaluation: 02/23/18 Time of Evaluation: 06:17 - Subjective Subjective: Mr. Whelan was seen and examined at the bedside in ICU. He is alert, awake with periods of confusion to time and person. He easily gets agitated if he cannot answer any questions. He denies any headache, dizziness, blurred vision, but with left side neglect. He remains with left side flaccidity with left hand starting to be contracted. Once he is awake, he starts screaming, yelling, with hallucinations. He claims of seeing other people in his room.. He was given ativan last night. With his restlessness, attempting to remove all color television console monitor leads, right hand mitten applied. He has the multiple bruises in his body.MRI of the brain with contrast showed No suspicious intracranial enhancement to suggest enhancing metastasis. Therefore the small likely early chronic hemorrhagic collection of the right parieto-occipital junction may reflect a hemorrhagic infarct. Subacute infarct right basal ganglia/thalamic junction reiterated. No definite interval new acute findings. Note, this study is a post gadolinium enhanced brain MRI with only a few added sequences performed preliminarily for comparison purposes. He had an episode of hypertension episode last night which apresoline was given. Objective - Vital Signs/Intake and Output Vital Signs (last 24 hours): Temp Pulse Resp BP Pulse Ox 98.1 F 81 18 167/101 H 95 02/23/18 03:30 02/23/18 03:30 02/23/18 03:30 02/23/18 03:30 02/23/18 03:30 Intake and Output: 02/22/18 02/23/18 18:59 06:59 Intake Total 1631 Output Total 650 Balance 981 - Medications Medications: Current Medications Acetaminophen (Tylenol 650mg/20.3ml Solution Ud) 650 mg PO Q6 PRN PRN Reason: for generalized pain Last Admin: 02/23/18 00:33 Dose: 650 mg Albuterol/Ipratropium (Duoneb 3 Mg/0.5 Mg (3 Ml) Ud) 3 ml INH RQ6 [facility] Last Admin: 02/23/18 01:27 Dose: 3 ml Bisacodyl (Dulcolax) 5 mg PO DAILY PRN PRN Reason: Constipation Last Admin: 02/21/18 11:54 Dose: 5 mg Dextrose (Dextrose 50% Inj) 0 ml IV STAT PRN; Protocol PRN Reason: Hypoglycemia Protocol Dextrose (Glutose 15) 0 gm PO ONCE PRN; Protocol PRN Reason: Hypoglycemia Protocol Docusate Sodium (Colace) 100 mg PO BID [facility] Last Admin: 02/22/18 17:22 Dose: 100 mg Gabapentin (Neurontin) 300 mg PO BID [facility] Last Admin: 02/22/18 17:22 Dose: 300 mg Glucagon (Glucagen Diagnostic Kit) 0 mg IM STAT PRN; Protocol PRN Reason: Hypoglycemia Protocol Hydralazine HCl (Apresoline) 25 mg PO QID [facility] Last Admin: 02/22/18 21:20 Dose: 25 mg Ciprofloxacin (Cipro 400mg/200ml Dsw) 400 mg in 200 mls @ 133 mls/hr IVPB Q12H KEVIN PRN Reason: Protocol Last Admin: 02/23/18 04:18 Dose: 133 mls/hr Insulin Human Regular (Novolin R) 0 unit SC ACHS KEVIN PRN Reason: Protocol Last Admin: 02/22/18 21:23 Dose: Not Given Lorazepam (Ativan) 1 mg IVP Q8H PRN PRN Reason: Anxiety Last Admin: 02/23/18 00:32 Dose: 1 mg Losartan Potassium (Cozaar) 25 mg PO BID [facility] Last Admin: 02/22/18 17:22 Dose: 25 mg Pantoprazole Sodium (Protonix Inj) 40 mg IVP DAILY [facility] Last Admin: 02/22/18 10:33 Dose: 40 mg Rosuvastatin Calcium (Crestor) 20 mg PO HS [facility] Last Admin: 02/22/18 21:29 Dose: 20 mg Tiotropium [place] (Spiriva) 18 mcg INH RQ24 [facility] Last Admin: 02/22/18 07:55 Dose: 18 mcg - Labs Labs: 02/22/18 06:22 02/22/18 06:22 PT 10.8 SECONDS (9.7-12.2) 02/22/18 06:22 INR 1.0 02/22/18 06:22 APTT 31 SECONDS (21-34) 02/22/18 06:22 - Constitutional Appears: No Acute Distress - Head Exam Head Exam: NORMAL INSPECTION - Eye Exam Pupil Exam: Miosis Additional comments: 2 mm right eye - Neurological Exam Neurological Exam: Alert, Awake Neuro motor strength exam: Left Upper Extremity: 0, Right Upper Extremity: 4, Left Lower Extremity: 0, Right Lower Extremity: 4 Additional comments: alert, agitated, restless, was able to follow commands during assessment, sensation remains intact. Assessment and Plan (1) CVA (cerebral vascular accident) Assessment & Plan: Continue all current medical, physical, occupational, speech therapies. Recommend to hold any anticoagulant due to hemorrhage noted in the MRI, will follow up a CTH in 48 hours, hand brace to the left hand, ICU team to manage blood pressure, keep head of bed elevated at least 30 degrees. Status: Acute <Tinoco,Gautami - Last Filed: 02/23/18 09:00> Objective - Vital Signs/Intake and Output Vital Signs (last 24 hours): Temp Pulse Resp BP Pulse Ox 98.1 F 89 19 177/103 H 99 02/23/18 03:30 02/23/18 07:40 02/23/18 07:35 02/23/18 07:35 02/23/18 07:35 Intake and Output: 02/23/18 02/23/18 06:59 18:59 Intake Total 450 Output Total 700 Balance -250 - Medications Medications: Current Medications Acetaminophen (Tylenol 650mg/20.3ml Solution Ud) 650 mg PO Q6 PRN PRN Reason: for generalized pain Last Admin: 02/23/18 00:33 Dose: 650 mg Albuterol/Ipratropium (Duoneb 3 Mg/0.5 Mg (3 Ml) Ud) 3 ml INH RQ6 [facility] Last Admin: 02/23/18 07:31 Dose: 3 ml Bisacodyl (Dulcolax) 5 mg PO DAILY PRN PRN Reason: Constipation Last Admin: 02/21/18 11:54 Dose: 5 mg Dextrose (Dextrose 50% Inj) 0 ml IV STAT PRN; Protocol PRN Reason: Hypoglycemia Protocol Dextrose (Glutose 15) 0 gm PO ONCE PRN; Protocol PRN Reason: Hypoglycemia Protocol Docusate Sodium (Colace) 100 mg PO BID [facility] Last Admin: 02/22/18 17:22 Dose: 100 mg Gabapentin (Neurontin) 300 mg PO BID [facility] Last Admin: 02/22/18 17:22 Dose: 300 mg Glucagon (Glucagen Diagnostic Kit) 0 mg IM STAT PRN; Protocol PRN Reason: Hypoglycemia Protocol Hydralazine HCl (Apresoline) 25 mg PO QID [facility] Last Admin: 02/22/18 21:20 Dose: 25 mg Ciprofloxacin (Cipro 400mg/200ml Dsw) 400 mg in 200 mls @ 133 mls/hr IVPB Q12H KEVIN PRN Reason: Protocol Last Admin: 02/23/18 04:18 Dose: 133 mls/hr Insulin Human Regular (Novolin R) 0 unit SC ACHS KEVIN PRN Reason: Protocol Last Admin: 02/22/18 21:23 Dose: Not Given Lorazepam (Ativan) 1 mg IVP Q8H PRN PRN Reason: Anxiety Last Admin: 02/23/18 00:32 Dose: 1 mg Losartan Potassium (Cozaar) 25 mg PO BID [facility] Last Admin: 02/22/18 17:22 Dose: 25 mg Pantoprazole Sodium (Protonix Inj) 40 mg IVP DAILY [facility] Last Admin: 02/22/18 10:33 Dose: 40 mg Rosuvastatin Calcium (Crestor) 20 mg PO HS [facility] Last Admin: 02/22/18 21:29 Dose: 20 mg Tiotropium [place] (Spiriva) 18 mcg INH RQ24 [facility] Last Admin: 02/23/18 07:31 Dose: 18 mcg - Labs Labs: 02/23/18 06:21 02/23/18 06:21 PT 10.7 SECONDS (9.7-12.2) 02/23/18 06:21 INR 1.0 02/23/18 06:21 APTT 29 SECONDS (21-34) 02/23/18 06:21 Assessment and Plan - Assessment and Plan (Free Text) Plan: will discontinue depakote at this time as seroquel is superior to depakote for agitation related to stroke located in the right parietal regions thank you dr tinoco
[2018-02-23 06:28] LABS: BASO % 0.8 % (0.0-2.0); EOS # 0.4 K/uL (0.0-0.7); EOS % 6.3 % (0.0-4.0); LYMPH # 1.4 K/uL (1.0-4.3); LYMPH % 21.8 % (20.0-40.0); MEAN CELL VOLUME 89.4 fL (80.0-94.0); MEAN CORPUSCULAR HEMOGLOBIN 30.2 pg (27.0-31.0); MEAN CORPUSCULAR HGB CONC 33.8 g/dL (33.0-37.0); MEAN PLATELET VOLUME 9.2 fL (7.2-11.7); MONO # 0.7 K/uL (0.0-0.8); MONO % 10.6 % (0.0-10.0); NEUT # 3.9 K/uL (1.8-7.0); NEUT % 60.5 % (50.0-75.0); RBC 3.96 Mil/uL (4.40-5.90); RED CELL DISTRIBUTION WIDTH 13.2 % (11.5-14.5); WHITE BLOOD COUNT 6.5 K/uL (4.8-10.8)
[2018-02-23 06:34] LABS: PROTHROMBIN TIME 10.7 SECONDS (9.7-12.2)
[2018-02-23 06:51] LABS: ALB/GLOB RATIO 1.1 (1.0-2.1); ALBUMIN 2.8 g/dL (3.5-5.0); ALT/SGPT 24 U/L (21-72); AST/SGOT 18 U/L (17-59); BLOOD UREA NITROGEN 13 mg/dL (9-20); CALCIUM 8.5 mg/dl (8.6-10.4); GFR AFRICAN-AMERICAN > 60; GFR NON-AFRICAN AMERICAN > 60
[2018-02-23] MEDS: Tiotropium 18 mcg Cap For Inhalation INH SCH (07:31)
[2018-02-23] MEDS ORDERED: Valproate 1,000 MG in Sodium Chloride 0.9% 100 ML IVPB ONE (08:00)
[2018-02-23] MEDS: (Novolin R) Insulin Human Regular 100 units/ml vial SC SCH ×4 (08:30→21:27)
--- NOTE | 2018-02-23 17:27 | CP.PCM.CON ---
History of Present Illness - History of Present Illness History of Present Illness: Reason for consultation: COPD 62-year-old male with COPD, diabetes, hypertension/noncompliance with medication presented to emergency room with left-sided weakness and facial droop. CAT scan of the head followed by MRI consistent with acute infarct. Patient getting nebulizer treatmen for COPD and on and off wheezing and shortness of breath PMH as above PSH none Social live with GF in [facility], denies alcohol, smoking Allergies NKDA Family history not contributory Review of Systems - Review of Systems Systems not reviewed;Unavailable: Uncooperative Past Patient History - Infectious Disease Hx of Infectious Diseases: None - Tetanus Immunizations Tetanus Immunization: Unknown - Past Medical History & Family History Past Medical History?: Yes - Past Social History Smoking Status: Never Smoked - CARDIAC Hx Hypertension: Yes - PULMONARY Hx Chronic Obstructive Pulmonary Disease (COPD): Yes - NEUROLOGICAL Hx Neurological Disorder: No - HEENT Hx HEENT Problems: No - RENAL Hx Chronic Kidney Disease: No - ENDOCRINE/METABOLIC Hx Diabetes Mellitus Type 2: Yes - HEMATOLOGICAL/ONCOLOGICAL Hx Blood Disorders: No - INTEGUMENTARY Hx Dermatological Problems: No - MUSCULOSKELETAL/RHEUMATOLOGICAL Hx Musculoskeletal Disorders: Yes Hx Falls: Yes - GASTROINTESTINAL Hx Gastrointestinal Disorders: Yes Hx Pancreatitis: Yes - GENITOURINARY/GYNECOLOGICAL Hx Genitourinary Disorders: No - PSYCHIATRIC Hx Psychophysiologic Disorder: No Hx Substance Use: No - SURGICAL HISTORY Hx Surgeries: Yes Other/Comment: endoscopy of small intestines 03/26/15-per medical record - ANESTHESIA Hx Anesthesia: Yes Hx Anesthesia Reactions: No Hx Malignant Hyperthermia: No Meds Allergies/Adverse Reactions: Allergies Allergy/AdvReac Type Severity Reaction Status Date / Time No Known Allergies Allergy Verified 02/19/18 15:39 - Medications Medications: Current Medications Acetaminophen (Tylenol 650mg/20.3ml Solution Ud) 650 mg PO Q6 PRN PRN Reason: for generalized pain Last Admin: 02/23/18 00:33 Dose: 650 mg Albuterol/Ipratropium (Duoneb 3 Mg/0.5 Mg (3 Ml) Ud) 3 ml INH RQ6 [facility] Last Admin: 02/23/18 13:49 Dose: Not Given Bisacodyl (Dulcolax) 5 mg PO DAILY PRN PRN Reason: Constipation Last Admin: 02/21/18 11:54 Dose: 5 mg Dextrose (Dextrose 50% Inj) 0 ml IV STAT PRN; Protocol PRN Reason: Hypoglycemia Protocol Dextrose (Glutose 15) 0 gm PO ONCE PRN; Protocol PRN Reason: Hypoglycemia Protocol Docusate Sodium (Colace) 100 mg PO BID [facility] Last Admin: 02/23/18 09:25 Dose: 100 mg Gabapentin (Neurontin) 300 mg PO BID [facility] Last Admin: 02/23/18 09:25 Dose: 300 mg Glucagon (Glucagen Diagnostic Kit) 0 mg IM STAT PRN; Protocol PRN Reason: Hypoglycemia Protocol Hydralazine HCl (Apresoline) 25 mg PO QID [facility] Last Admin: 02/23/18 13:41 Dose: 25 mg Ciprofloxacin (Cipro 400mg/200ml Dsw) 400 mg in 200 mls @ 133 mls/hr IVPB Q12H [facility] PRN Reason: Protocol Last Admin: 02/23/18 04:18 Dose: 133 mls/hr Insulin Human Regular (Novolin R) 0 unit SC ACHS KEVIN PRN Reason: Protocol Last Admin: 02/23/18 12:30 Dose: 6 u Lorazepam (Ativan) 1 mg IVP Q8H PRN PRN Reason: Anxiety Last Admin: 02/23/18 00:32 Dose: 1 mg Losartan Potassium (Cozaar) 25 mg PO BID [facility] Last Admin: 02/23/18 09:25 Dose: 25 mg Pantoprazole Sodium (Protonix Inj) 40 mg IVP DAILY [facility] Last Admin: 02/23/18 09:25 Dose: 40 mg Rosuvastatin Calcium (Crestor) 20 mg PO HS [facility] Last Admin: 02/22/18 21:29 Dose: 20 mg Tiotropium [place] (Spiriva) 18 mcg INH RQ24 [facility] Last Admin: 02/23/18 07:31 Dose: 18 mcg Physical Exam - Head Exam Head Exam: ATRAUMATIC, NORMOCEPHALIC - ENT Exam ENT Exam: Mucous Membranes Moist - Respiratory Exam Respiratory Exam: Rhonchi - Cardiovascular Exam Cardiovascular Exam: REGULAR RHYTHM - GI/Abdominal Exam GI & Abdominal Exam: Normal Bowel Sounds Results - Vital Signs Recent Vital Signs: Last Vital Signs Temp 97.8 F 02/23/18 08:00 Pulse 87 02/23/18 12:00 Resp 18 02/23/18 12:00 BP 124/76 02/23/18 11:22 Pulse Ox 94 L 02/23/18 12:00 - Labs Result Diagrams: 02/23/18 06:21 02/23/18 06:21 Labs: Laboratory Results - last 24 hr 02/20/18 02/20/18 02/20/18 06:43 06:43 07:26 WBC RBC Hgb Hct MCV MCH MCHC RDW Plt Count MPV Neut % (Auto) Lymph % (Auto) Mclennan % (Auto) Eos % (Auto) Baso % (Auto) Neut # (Auto) Lymph # (Auto) Mclennan # (Auto) Eos # (Auto) Baso # (Auto) PT INR APTT Lupus Anticoagulant see note LA PTT Screen 32 dRVVT Mixing Study 34 dRVVT Mix Interpret Not indicated Sodium Potassium Chloride Carbon Dioxide Anion Gap BUN Creatinine Est GFR ( Amer) Est GFR (Non-Af Amer) POC Glucose (mg/dL) Random Glucose Calcium Phosphorus Magnesium Total Bilirubin AST ALT Alkaline Phosphatase Total Protein Albumin Globulin Albumin/Globulin Ratio U Ethyl Alcohol Screen 112 Prothrombin Mut Interp see note Prothrombin Gene Mutate see note Prothromb Gene Review see note 02/22/18 02/23/18 02/23/18 21:06 06:21 06:21 WBC 6.5 RBC 3.96 L Hgb 12.0 Hct 35.4 MCV 89.4 MCH 30.2 MCHC 33.8 RDW 13.2 Plt Count 225 MPV 9.2 Neut % (Auto) 60.5 Lymph % (Auto) 21.8 Mclennan % (Auto) 10.6 H Eos % (Auto) 6.3 H Baso % (Auto) 0.8 Neut # (Auto) 3.9 Lymph # (Auto) 1.4 Mclennan # (Auto) 0.7 Eos # (Auto) 0.4 Baso # (Auto) 0.0 PT 10.7 INR 1.0 APTT 29 Lupus Anticoagulant LA PTT Screen dRVVT Mixing Study dRVVT Mix Interpret Sodium Potassium Chloride Carbon Dioxide Anion Gap BUN Creatinine Est GFR ( Amer) Est GFR (Non-Af Amer) POC Glucose (mg/dL) 169 H Random Glucose Calcium Phosphorus Magnesium Total Bilirubin AST ALT Alkaline Phosphatase Total Protein Albumin Globulin Albumin/Globulin Ratio U Ethyl Alcohol Screen Prothrombin Mut Interp Prothrombin Gene Mutate Prothromb Gene Review 02/23/18 02/23/18 02/23/18 06:21 07:50 11:38 WBC RBC Hgb Hct MCV MCH MCHC RDW Plt Count MPV Neut % (Auto) Lymph % (Auto) Mclennan % (Auto) Eos % (Auto) Baso % (Auto) Neut # (Auto) Lymph # (Auto) Mclennan # (Auto) Eos # (Auto) Baso # (Auto) PT INR APTT Lupus Anticoagulant LA PTT Screen dRVVT Mixing Study dRVVT Mix Interpret Sodium 137 Potassium 3.4 L Chloride 101 Carbon Dioxide 28 Anion Gap 11 BUN 13 Creatinine 0.9 Est GFR ( Amer) > 60 Est GFR (Non-Af Amer) > 60 POC Glucose (mg/dL) 223 H 381 H Random Glucose 233 H Calcium 8.5 L Phosphorus 4.0 Magnesium 1.8 Total Bilirubin 0.4 AST 18 ALT 24 Alkaline Phosphatase 87 Total Protein 5.3 L Albumin 2.8 L Globulin 2.5 Albumin/Globulin Ratio 1.1 U Ethyl Alcohol Screen Prothrombin Mut Interp Prothrombin Gene Mutate Prothromb Gene Review Assessment & Plan (1) CVA (cerebral vascular accident) Status: Acute Priority: High (2) COPD exacerbation Status: Acute
--- NOTE | 2018-02-23 17:32 | CP.PCM.PN ---
Subjective - Date & Time of Evaluation Date of Evaluation: 02/23/18 Time of Evaluation: 11:20 - Subjective Subjective: clinically same Objective - Vital Signs/Intake and Output Vital Signs (last 24 hours): Temp Pulse Resp BP Pulse Ox 97.8 F 87 18 124/76 94 L 02/23/18 08:00 02/23/18 12:00 02/23/18 12:00 02/23/18 11:22 02/23/18 12:00 Intake and Output: 02/23/18 02/23/18 06:59 18:59 Intake Total 450 Output Total 700 Balance -250 - Medications Medications: Current Medications Acetaminophen (Tylenol 650mg/20.3ml Solution Ud) 650 mg PO Q6 PRN PRN Reason: for generalized pain Last Admin: 02/23/18 00:33 Dose: 650 mg Albuterol/Ipratropium (Duoneb 3 Mg/0.5 Mg (3 Ml) Ud) 3 ml INH RQ6 [facility] Last Admin: 02/23/18 13:49 Dose: Not Given Bisacodyl (Dulcolax) 5 mg PO DAILY PRN PRN Reason: Constipation Last Admin: 02/21/18 11:54 Dose: 5 mg Dextrose (Dextrose 50% Inj) 0 ml IV STAT PRN; Protocol PRN Reason: Hypoglycemia Protocol Dextrose (Glutose 15) 0 gm PO ONCE PRN; Protocol PRN Reason: Hypoglycemia Protocol Docusate Sodium (Colace) 100 mg PO BID [facility] Last Admin: 02/23/18 17:30 Dose: 100 mg Gabapentin (Neurontin) 300 mg PO BID [facility] Last Admin: 02/23/18 17:30 Dose: 300 mg Glucagon (Glucagen Diagnostic Kit) 0 mg IM STAT PRN; Protocol PRN Reason: Hypoglycemia Protocol Hydralazine HCl (Apresoline) 25 mg PO QID [facility] Last Admin: 02/23/18 17:30 Dose: 25 mg Ciprofloxacin (Cipro 400mg/200ml Dsw) 400 mg in 200 mls @ 133 mls/hr IVPB Q12H KEVIN PRN Reason: Protocol Last Admin: 02/23/18 17:00 Dose: 133 mls/hr Insulin Human Regular (Novolin R) 0 unit SC ACHS KEVIN PRN Reason: Protocol Last Admin: 02/23/18 17:28 Dose: 4 u Lorazepam (Ativan) 1 mg IVP Q8H PRN PRN Reason: Anxiety Last Admin: 02/23/18 00:32 Dose: 1 mg Losartan Potassium (Cozaar) 25 mg PO BID [facility] Last Admin: 02/23/18 17:30 Dose: 25 mg Pantoprazole Sodium (Protonix Inj) 40 mg IVP DAILY [facility] Last Admin: 02/23/18 09:25 Dose: 40 mg Rosuvastatin Calcium (Crestor) 20 mg PO HS [facility] Last Admin: 02/22/18 21:29 Dose: 20 mg Tiotropium [place] (Spiriva) 18 mcg INH RQ24 [facility] Last Admin: 02/23/18 07:31 Dose: 18 mcg - Labs Labs: 02/23/18 06:21 02/23/18 06:21 PT 10.7 SECONDS (9.7-12.2) 02/23/18 06:21 INR 1.0 02/23/18 06:21 APTT 29 SECONDS (21-34) 02/23/18 06:21 - Constitutional Appears: Well - Head Exam Head Exam: ATRAUMATIC, NORMAL INSPECTION, NORMOCEPHALIC - Eye Exam Eye Exam: EOMI, Normal appearance, PERRL Pupil Exam: NORMAL ACCOMODATION, PERRL - ENT Exam ENT Exam: Mucous Membranes Moist, Normal Exam - Neck Exam Neck Exam: Full ROM, Normal Inspection. absent: Lymphadenopathy - Respiratory Exam Respiratory Exam: Decreased Breath Sounds - Cardiovascular Exam Cardiovascular Exam: REGULAR RHYTHM, +S1, +S2 - GI/Abdominal Exam GI & Abdominal Exam: Soft, Diminished Bowel Sounds - Rectal Exam Rectal Exam: Deferred
[2018-02-23] MEDS ORDERED: Valproic Acid 250 mg/5 ml UD Cup PO SCH (18:00)
[2018-02-23] MEDS ORDERED: Albuterol-Ipratrop 3 mg / 0.5 (3 ml) UD INH STA (21:41)
[2018-02-24] MEDS: Albuterol-Ipratrop 3 mg / 0.5 (3 ml) UD INH SCH ×4 (02:39→19:24)
[2018-02-24] MEDS: Ciprofloxacin 400mg/200ml D5W 400 MG/200 ML BAG IVPB SCH ×2 (05:50→17:00)
[2018-02-24 06:08] LABS: BASO % 0.3 % (0.0-2.0); EOS # 0.2 K/uL (0.0-0.7); EOS % 3.2 % (0.0-4.0); HEMOGLOBIN 12.1 g/dL (12.0-18.0); LYMPH # 0.9 K/uL (1.0-4.3); LYMPH % 12.6 % (20.0-40.0); MEAN CELL VOLUME 88.9 fL (80.0-94.0); MEAN CORPUSCULAR HGB CONC 34.8 g/dL (33.0-37.0); MEAN PLATELET VOLUME 8.7 fL (7.2-11.7); MONO # 0.6 K/uL (0.0-0.8); MONO % 7.6 % (0.0-10.0); NEUT # 5.7 K/uL (1.8-7.0); NEUT % 76.3 % (50.0-75.0); NRBC % 0.1 % (0.0-2.0); RBC 3.9 Mil/uL (4.40-5.90); RED CELL DISTRIBUTION WIDTH 13.5 % (11.5-14.5); WHITE BLOOD COUNT 7.4 K/uL (4.8-10.8)
[2018-02-24 06:14] LABS: INR 1.1; PROTHROMBIN TIME 11.5 SECONDS (9.7-12.2)
--- NOTE | 2018-02-24 06:29 | CP.PCM.PN ---
Subjective - Date & Time of Evaluation Date of Evaluation: 02/24/18 Time of Evaluation: 06:20 - Subjective Subjective: Mr. Whelan was seen and examined at the bedside in ICU. He is much calmer this am, alert, oriented x2 ( place and person), but not time. He is able to verbalize that he does not know the answer to questions. He denies any headache , dizziness and remains with minimal left facial droop, left side flaccidity, and left side neglect. His left hand is contracted,swollen double the size since previous examination,and painful to touch.He is able to follow simple commands such as finger accommodation, raising his right upper and lower extremities. He has bilateral lower SCD's. He had an episode of choking episode last night wherein NPO was re-ordered. Objective - Vital Signs/Intake and Output Vital Signs (last 24 hours): Temp Pulse Resp BP Pulse Ox 98.8 F 96 H 19 142/87 95 02/24/18 04:00 02/24/18 05:22 02/24/18 05:22 02/24/18 05:22 02/24/18 05:22 Intake and Output: 02/23/18 02/24/18 18:59 06:59 Intake Total 450 Output Total 600 Balance -150 - Medications Medications: Current Medications Acetaminophen (Tylenol 650mg/20.3ml Solution Ud) 650 mg PO Q6 PRN PRN Reason: for generalized pain Last Admin: 02/23/18 00:33 Dose: 650 mg Albuterol/Ipratropium (Duoneb 3 Mg/0.5 Mg (3 Ml) Ud) 3 ml INH RQ6 [facility] Last Admin: 02/24/18 02:39 Dose: 3 ml Bisacodyl (Dulcolax) 5 mg PO DAILY PRN PRN Reason: Constipation Last Admin: 02/21/18 11:54 Dose: 5 mg Dextrose (Dextrose 50% Inj) 0 ml IV STAT PRN; Protocol PRN Reason: Hypoglycemia Protocol Dextrose (Glutose 15) 0 gm PO ONCE PRN; Protocol PRN Reason: Hypoglycemia Protocol Docusate Sodium (Colace) 100 mg PO BID [facility] Last Admin: 02/23/18 17:30 Dose: 100 mg Gabapentin (Neurontin) 300 mg PO BID [facility] Last Admin: 02/23/18 17:30 Dose: 300 mg Glucagon (Glucagen Diagnostic Kit) 0 mg IM STAT PRN; Protocol PRN Reason: Hypoglycemia Protocol Hydralazine HCl (Apresoline) 25 mg PO QID [facility] Last Admin: 02/23/18 21:26 Dose: Not Given Ciprofloxacin (Cipro 400mg/200ml Dsw) 400 mg in 200 mls @ 133 mls/hr IVPB Q12H [facility] PRN Reason: Protocol Last Admin: 02/24/18 05:50 Dose: 133 mls/hr Insulin Human Regular (Novolin R) 0 unit SC ACHS [facility] PRN Reason: Protocol Last Admin: 02/23/18 21:27 Dose: Not Given Lorazepam (Ativan) 1 mg IVP Q8H PRN PRN Reason: Anxiety Last Admin: 02/23/18 00:32 Dose: 1 mg Losartan Potassium (Cozaar) 25 mg PO BID [facility] Last Admin: 02/23/18 17:30 Dose: 25 mg Pantoprazole Sodium (Protonix Inj) 40 mg IVP DAILY [facility] Last Admin: 02/23/18 09:25 Dose: 40 mg Rosuvastatin Calcium (Crestor) 20 mg PO HS [facility] Last Admin: 02/23/18 21:27 Dose: Not Given Tiotropium [place] (Spiriva) 18 mcg INH RQ24 [facility] Last Admin: 02/23/18 07:31 Dose: 18 mcg - Labs Labs: 02/24/18 05:57 02/23/18 06:21 PT 11.5 SECONDS (9.7-12.2) 02/24/18 05:57 INR 1.1 02/24/18 05:57 APTT 30 SECONDS (21-34) 02/24/18 05:57 - Constitutional Appears: No Acute Distress - Head Exam Head Exam: NORMAL INSPECTION - Eye Exam Pupil Exam: PERRL - Neurological Exam Neurological Exam: Alert, Awake Neuro motor strength exam: Left Upper Extremity: 0, Right Upper Extremity: 4, Left Lower Extremity: 0, Right Lower Extremity: 4 Additional comments: neurological improved from previous examination, much calmer with no hallucinations, follows simple commands, sensation is intact. Assessment and Plan (1) CVA (cerebral vascular accident) Assessment & Plan: Continue all current medical, physical, occupational, speech therapies. Recommend to hold any anticoagulant until hemorrhagic conversion is resolve,for CT scan of the head without contrast dena., left upper extremity duplex to rule out any DVT, ICU team to manage blood pressure, keep head of bed elevated at least 30 degrees. If patient becomes agitated to start on seroquel 25 mg PO Q HS. Status: Acute
[2018-02-24 06:32] LABS: ALBUMIN 2.7 g/dL (3.5-5.0); ALT/SGPT 20 U/L (21-72); AST/SGOT 12 U/L (17-59); BLOOD UREA NITROGEN 20 mg/dL (9-20); CALCIUM 8.6 mg/dl (8.6-10.4); GFR AFRICAN-AMERICAN > 60; GFR NON-AFRICAN AMERICAN 51
[2018-02-24] MEDS: Tiotropium 18 mcg Cap For Inhalation INH SCH (07:27)
--- NOTE | 2018-02-24 08:08 | RAD ---
Date of service: 02/23/2018 HISTORY: congestion COMPARISON: 02/19/2018. FINDINGS: LUNGS: The right lung is well inflated and clear. PLEURA: Blunting of the left costophrenic angle, no pneumothorax apparent. CARDIOVASCULAR: Normal. OSSEOUS STRUCTURES: No significant abnormalities. VISUALIZED UPPER ABDOMEN: Normal. OTHER FINDINGS: None. IMPRESSION: Question of small left pleural effusion versus pleural thickening. No active pulmonary disease.
[2018-02-24] MEDS: (Novolin R) Insulin Human Regular 100 units/ml vial SC SCH ×4 (08:30→21:18)
--- NOTE | 2018-02-24 19:42 | CP.PCM.PN ---
Subjective - Date & Time of Evaluation Date of Evaluation: 02/24/18 Time of Evaluation: 10:30 - Subjective Subjective: clinically same Objective - Vital Signs/Intake and Output Vital Signs (last 24 hours): Temp Pulse Resp BP Pulse Ox 98.9 F 94 H 16 161/96 H 93 L 02/24/18 16:00 02/24/18 18:00 02/24/18 18:00 02/24/18 17:22 02/24/18 18:00 Intake and Output: 02/24/18 02/25/18 18:59 06:59 Intake Total 600 Output Total 400 Balance 200 - Medications Medications: Current Medications Acetaminophen (Tylenol 650mg/20.3ml Solution Ud) 650 mg PO Q6 PRN PRN Reason: for generalized pain Last Admin: 02/23/18 00:33 Dose: 650 mg Albuterol/Ipratropium (Duoneb 3 Mg/0.5 Mg (3 Ml) Ud) 3 ml INH RQ6 [facility] Last Admin: 02/24/18 19:24 Dose: 3 ml Bisacodyl (Dulcolax) 5 mg PO DAILY PRN PRN Reason: Constipation Last Admin: 02/21/18 11:54 Dose: 5 mg Dextrose (Dextrose 50% Inj) 0 ml IV STAT PRN; Protocol PRN Reason: Hypoglycemia Protocol Dextrose (Glutose 15) 0 gm PO ONCE PRN; Protocol PRN Reason: Hypoglycemia Protocol Docusate Sodium (Colace) 100 mg PO BID [facility] Last Admin: 02/24/18 18:17 Dose: 100 mg Gabapentin (Neurontin) 300 mg PO BID [facility] Last Admin: 02/24/18 18:17 Dose: 300 mg Glucagon (Glucagen Diagnostic Kit) 0 mg IM STAT PRN; Protocol PRN Reason: Hypoglycemia Protocol Hydralazine HCl (Apresoline) 25 mg PO QID [facility] Last Admin: 02/24/18 17:00 Dose: 25 mg Ciprofloxacin (Cipro 400mg/200ml Dsw) 400 mg in 200 mls @ 133 mls/hr IVPB Q12H [facility] PRN Reason: Protocol Last Admin: 02/24/18 17:00 Dose: 133 mls/hr Insulin Human Regular (Novolin R) 0 unit SC ACHS [facility] PRN Reason: Protocol Last Admin: 02/24/18 17:00 Dose: Not Given Lorazepam (Ativan) 1 mg IVP Q8H PRN PRN Reason: Anxiety Last Admin: 02/23/18 00:32 Dose: 1 mg Losartan Potassium (Cozaar) 25 mg PO BID [facility] Last Admin: 02/24/18 18:17 Dose: 25 mg Pantoprazole Sodium (Protonix Inj) 40 mg IVP DAILY [facility] Last Admin: 02/24/18 10:00 Dose: 40 mg Rosuvastatin Calcium (Crestor) 20 mg PO HS [facility] Last Admin: 02/23/18 21:27 Dose: Not Given Tiotropium [place] (Spiriva) 18 mcg INH RQ24 [facility] Last Admin: 02/24/18 07:27 Dose: Not Given - Labs Labs: 02/24/18 05:57 02/24/18 05:57 PT 11.5 SECONDS (9.7-12.2) 02/24/18 05:57 INR 1.1 02/24/18 05:57 APTT 30 SECONDS (21-34) 02/24/18 05:57 - Constitutional Appears: Well - Head Exam Head Exam: ATRAUMATIC, NORMAL INSPECTION, NORMOCEPHALIC - Eye Exam Eye Exam: EOMI, Normal appearance, PERRL Pupil Exam: NORMAL ACCOMODATION, PERRL - ENT Exam ENT Exam: Mucous Membranes Moist, Normal Exam - Neck Exam Neck Exam: Full ROM, Normal Inspection. absent: Lymphadenopathy - Respiratory Exam Respiratory Exam: Decreased Breath Sounds - Cardiovascular Exam Cardiovascular Exam: REGULAR RHYTHM, +S1, +S2 - GI/Abdominal Exam GI & Abdominal Exam: Soft, Diminished Bowel Sounds - Rectal Exam Rectal Exam: Deferred
[2018-02-25] MEDS: Albuterol-Ipratrop 3 mg / 0.5 (3 ml) UD INH SCH ×4 (02:31→20:04)
[2018-02-25] MEDS: Ciprofloxacin 400mg/200ml D5W 400 MG/200 ML BAG IVPB SCH ×2 (04:35→17:00)
[2018-02-25] MEDS: Acetaminophen 650mg/20.3ml solution UD PO PRN (07:53)
[2018-02-25] MEDS: (Novolin R) Insulin Human Regular 100 units/ml vial SC SCH ×4 (08:30→22:52)
--- NOTE | 2018-02-25 13:31 | CT ---
Date of service: 02/25/2018 PROCEDURE: CT HEAD WITHOUT CONTRAST. HISTORY: follow up hemorrhage in the occipito-parietal COMPARISON: Comparison is made with 02/20/2018 and previous MRI dated 02/22/2018 TECHNIQUE: Axial computed tomography images were obtained through the head/brain without intravenous contrast. Radiation dose: Total exam DLP = 868.1 mGy-cm. This CT exam was performed using one or more of the following dose reduction techniques: Automated exposure control, adjustment of the mA and/or kV according to patient size, and/or use of iterative reconstruction technique. FINDINGS: HEMORRHAGE: No intracranial hemorrhage. BRAIN: Again noted is 1 centimeter heterogeneous hyperintense lesion at the posterior right parietal occipital lobe best seen on image 22- 25 on series 4. This lesion has not significantly changed since the previous exam. No evidence of adjacent significant edema or mass effect in. Again seen are bilateral basal ganglia chronic lacunar infarcts. Mild atrophy and moderate to extensive chronic microvascular white matter ischemic disease are again noted. VENTRICLES: Unremarkable. No hydrocephalus. CALVARIUM: Unremarkable. PARANASAL SINUSES: Unremarkable as visualized. No significant inflammatory changes. MASTOID AIR CELLS: Unremarkable as visualized. No inflammatory changes. OTHER FINDINGS: None. IMPRESSION: Stable heterogeneous hypodense lesion at the posterior right parietal occipital lobe. No evidence of acute intracranial hemorrhage. No evidence of significant interval change noted since the previous study dated 02/20/2018 as described above.
[2018-02-25] MEDS: Tiotropium 18 mcg Cap For Inhalation INH SCH (14:07)
--- NOTE | 2018-02-25 16:00 | CP.PCM.PN ---
Subjective - Date & Time of Evaluation Date of Evaluation: 02/25/18 Time of Evaluation: 11:00 - Subjective Subjective: clinically same Objective - Vital Signs/Intake and Output Vital Signs (last 24 hours): Temp Pulse Resp BP Pulse Ox 98.7 F 88 19 141/84 93 L 02/25/18 12:00 02/25/18 12:00 02/25/18 12:00 02/25/18 11:57 02/25/18 10:00 Intake and Output: 02/25/18 02/25/18 06:59 18:59 Intake Total 440 Output Total 800 Balance -360 - Medications Medications: Current Medications Acetaminophen (Tylenol 650mg/20.3ml Solution Ud) 650 mg PO Q6 PRN PRN Reason: for generalized pain Last Admin: 02/25/18 07:53 Dose: 650 mg Albuterol/Ipratropium (Duoneb 3 Mg/0.5 Mg (3 Ml) Ud) 3 ml INH RQ6 [facility] Last Admin: 02/25/18 14:07 Dose: 3 ml Bisacodyl (Dulcolax) 5 mg PO DAILY PRN PRN Reason: Constipation Last Admin: 02/21/18 11:54 Dose: 5 mg Dextrose (Dextrose 50% Inj) 0 ml IV STAT PRN; Protocol PRN Reason: Hypoglycemia Protocol Dextrose (Glutose 15) 0 gm PO ONCE PRN; Protocol PRN Reason: Hypoglycemia Protocol Docusate Sodium (Colace) 100 mg PO BID [facility] Last Admin: 02/25/18 09:11 Dose: 100 mg Gabapentin (Neurontin) 300 mg PO BID [facility] Last Admin: 02/25/18 09:11 Dose: 300 mg Glucagon (Glucagen Diagnostic Kit) 0 mg IM STAT PRN; Protocol PRN Reason: Hypoglycemia Protocol Hydralazine HCl (Apresoline) 25 mg PO QID [facility] Last Admin: 02/25/18 13:27 Dose: 25 mg Ciprofloxacin (Cipro 400mg/200ml Dsw) 400 mg in 200 mls @ 133 mls/hr IVPB Q12H [facility] PRN Reason: Protocol Last Admin: 02/25/18 04:35 Dose: 133 mls/hr Insulin Human Regular (Novolin R) 0 unit SC ACHS [facility] PRN Reason: Protocol Last Admin: 02/25/18 12:26 Dose: Not Given Lorazepam (Ativan) 1 mg IVP Q8H PRN PRN Reason: Anxiety Last Admin: 02/25/18 14:20 Dose: 1 mg Losartan Potassium (Cozaar) 25 mg PO BID [facility] Last Admin: 02/25/18 09:11 Dose: 25 mg Pantoprazole Sodium (Protonix Inj) 40 mg IVP DAILY [facility] Last Admin: 02/25/18 09:11 Dose: 40 mg Rosuvastatin Calcium (Crestor) 20 mg PO HS [facility] Last Admin: 02/24/18 21:18 Dose: 20 mg Tiotropium [place] (Spiriva) 18 mcg INH RQ24 [facility] Last Admin: 02/25/18 14:07 Dose: 18 mcg - Labs Labs: 02/24/18 05:57 02/24/18 05:57 PT 11.5 SECONDS (9.7-12.2) 02/24/18 05:57 INR 1.1 02/24/18 05:57 APTT 30 SECONDS (21-34) 02/24/18 05:57 - Constitutional Appears: Well - Head Exam Head Exam: ATRAUMATIC, NORMAL INSPECTION, NORMOCEPHALIC - Eye Exam Eye Exam: EOMI, Normal appearance, PERRL Pupil Exam: NORMAL ACCOMODATION, PERRL - ENT Exam ENT Exam: Mucous Membranes Moist, Normal Exam - Neck Exam Neck Exam: Full ROM, Normal Inspection. absent: Lymphadenopathy - Respiratory Exam Respiratory Exam: Decreased Breath Sounds - Cardiovascular Exam Cardiovascular Exam: REGULAR RHYTHM, +S1, +S2 - GI/Abdominal Exam GI & Abdominal Exam: Soft, Diminished Bowel Sounds - Rectal Exam Rectal Exam: Deferred
--- NOTE | 2018-02-25 22:31 | CP.PCM.PN ---
Subjective - Date & Time of Evaluation Date of Evaluation: 02/25/18 Time of Evaluation: 20:40 - Subjective Subjective: Patient seen and examined No shortness of breath restless and agitative afebrile Left-sided weakness Continue nebulizer treatment for COPD Glycemic control A repeat CAT scan of head Objective - Vital Signs/Intake and Output Vital Signs (last 24 hours): Temp Pulse Resp BP Pulse Ox 99 F 114 H 22 160/90 H 96 02/25/18 20:00 02/25/18 20:00 02/25/18 20:00 02/25/18 20:00 02/25/18 20:00 Intake and Output: 02/25/18 02/26/18 18:59 06:59 Intake Total 480 240 Output Total 600 300 Balance -120 -60 - Medications Medications: Current Medications Acetaminophen (Tylenol 650mg/20.3ml Solution Ud) 650 mg PO Q6 PRN PRN Reason: for generalized pain Last Admin: 02/25/18 07:53 Dose: 650 mg Albuterol/Ipratropium (Duoneb 3 Mg/0.5 Mg (3 Ml) Ud) 3 ml INH RQ6 [facility] Last Admin: 02/25/18 20:04 Dose: 3 ml Bisacodyl (Dulcolax) 5 mg PO DAILY PRN PRN Reason: Constipation Last Admin: 02/21/18 11:54 Dose: 5 mg Dextrose (Dextrose 50% Inj) 0 ml IV STAT PRN; Protocol PRN Reason: Hypoglycemia Protocol Dextrose (Glutose 15) 0 gm PO ONCE PRN; Protocol PRN Reason: Hypoglycemia Protocol Docusate Sodium (Colace) 100 mg PO BID [facility] Last Admin: 02/25/18 17:32 Dose: 100 mg Gabapentin (Neurontin) 300 mg PO BID [facility] Last Admin: 02/25/18 17:32 Dose: 300 mg Glucagon (Glucagen Diagnostic Kit) 0 mg IM STAT PRN; Protocol PRN Reason: Hypoglycemia Protocol Hydralazine HCl (Apresoline) 25 mg PO QID [facility] Last Admin: 02/25/18 21:24 Dose: 25 mg Insulin Human Regular (Novolin R) 0 unit SC ACHS [facility] PRN Reason: Protocol Last Admin: 02/25/18 16:30 Dose: Not Given Lorazepam (Ativan) 1 mg IVP Q8H PRN PRN Reason: Anxiety Last Admin: 02/25/18 21:24 Dose: 1 mg Losartan Potassium (Cozaar) 25 mg PO BID [facility] Last Admin: 02/25/18 17:32 Dose: 25 mg Pantoprazole Sodium (Protonix Inj) 40 mg IVP DAILY [facility] Last Admin: 02/25/18 09:11 Dose: 40 mg Rosuvastatin Calcium (Crestor) 20 mg PO HS [facility] Last Admin: 02/25/18 21:24 Dose: 20 mg Tiotropium [place] (Spiriva) 18 mcg INH RQ24 [facility] Last Admin: 02/25/18 14:07 Dose: 18 mcg - Labs Labs: 02/24/18 05:57 02/24/18 05:57 PT 11.5 SECONDS (9.7-12.2) 02/24/18 05:57 INR 1.1 02/24/18 05:57 APTT 30 SECONDS (21-34) 02/24/18 05:57 Assessment and Plan (1) CVA (cerebral vascular accident) Status: Acute (2) COPD exacerbation Status: Acute
[2018-02-26] MEDS: Albuterol-Ipratrop 3 mg / 0.5 (3 ml) UD INH SCH ×2 (01:15→08:00)
[2018-02-26] MEDS ORDERED: Labetalol 5mg/ml (4ml) IVP ONE (05:45)
[2018-02-26] MEDS: Tiotropium 18 mcg Cap For Inhalation INH SCH (08:32)
[2018-02-26] MEDS: (Novolin R) Insulin Human Regular 100 units/ml vial SC SCH ×4 (08:44→21:39)
--- NOTE | 2018-02-26 10:33 | CP.PCM.PN ---
Subjective - Date & Time of Evaluation Date of Evaluation: 02/26/18 Time of Evaluation: 10:30 - Subjective Subjective: Mr. Whelan was seen and examined at the bedside. He is very sleep, attempts to opens his eyes, mumbles words with no sounds appreciated. He is able to move his right side spontaneously with his left side remains flaccid. He had episode of agitation last night which ativan was given. He is able to pass his second swallowing eval. Repeat CT scan of the head done yesterday showed Stable heterogeneous hypodense lesion at the posterior right parietal occipital lobe. No evidence of acute intracranial hemorrhage. No evidence of significant interval change noted since the previous study dated 02/20/2018 as described above. Objective - Vital Signs/Intake and Output Vital Signs (last 24 hours): Temp Pulse Resp BP Pulse Ox 99.7 F H 93 H 20 120/75 99 02/26/18 07:00 02/26/18 07:00 02/26/18 07:00 02/26/18 07:05 02/26/18 07:00 Intake and Output: 02/26/18 02/26/18 06:59 18:59 Intake Total 240 Output Total 300 Balance -60 - Medications Medications: Current Medications Acetaminophen (Tylenol 650mg/20.3ml Solution Ud) 650 mg PO Q6 PRN PRN Reason: for generalized pain Last Admin: 02/25/18 07:53 Dose: 650 mg Albuterol/Ipratropium (Duoneb 3 Mg/0.5 Mg (3 Ml) Ud) 3 ml INH RQ6 [facility] Last Admin: 02/26/18 08:00 Dose: 3 ml Bisacodyl (Dulcolax) 5 mg PO DAILY PRN PRN Reason: Constipation Last Admin: 02/21/18 11:54 Dose: 5 mg Dextrose (Dextrose 50% Inj) 0 ml IV STAT PRN; Protocol PRN Reason: Hypoglycemia Protocol Dextrose (Glutose 15) 0 gm PO ONCE PRN; Protocol PRN Reason: Hypoglycemia Protocol Docusate Sodium (Colace) 100 mg PO BID [facility] Last Admin: 02/25/18 17:32 Dose: 100 mg Gabapentin (Neurontin) 300 mg PO BID [facility] Last Admin: 02/25/18 17:32 Dose: 300 mg Glucagon (Glucagen Diagnostic Kit) 0 mg IM STAT PRN; Protocol PRN Reason: Hypoglycemia Protocol Hydralazine HCl (Apresoline) 25 mg PO QID [facility] Last Admin: 02/25/18 21:24 Dose: 25 mg Insulin Human Regular (Novolin R) 0 unit SC ACHS [facility] PRN Reason: Protocol Last Admin: 02/26/18 08:44 Dose: 8 units Lorazepam (Ativan) 1 mg IVP Q8H PRN PRN Reason: Anxiety Last Admin: 02/25/18 21:24 Dose: 1 mg Losartan Potassium (Cozaar) 25 mg PO BID [facility] Last Admin: 02/25/18 17:32 Dose: 25 mg Pantoprazole Sodium (Protonix Inj) 40 mg IVP DAILY [facility] Last Admin: 02/25/18 09:11 Dose: 40 mg Rosuvastatin Calcium (Crestor) 20 mg PO HS [facility] Last Admin: 02/25/18 21:24 Dose: 20 mg Tiotropium [place] (Spiriva) 18 mcg INH RQ24 [facility] Last Admin: 02/26/18 08:32 Dose: 18 mcg - Labs Labs: 02/24/18 05:57 02/24/18 05:57 PT 11.5 SECONDS (9.7-12.2) 02/24/18 05:57 INR 1.1 02/24/18 05:57 APTT 30 SECONDS (21-34) 02/24/18 05:57 - Constitutional Appears: No Acute Distress - Head Exam Head Exam: NORMAL INSPECTION - Neurological Exam Neuro motor strength exam: Left Upper Extremity: 0, Right Upper Extremity: 3, Left Lower Extremity: 0, Right Lower Extremity: 3 Additional comments: very sleepy, moves right side spontaneously, unable to participate during the assessment. Assessment and Plan (1) CVA (cerebral vascular accident) Assessment & Plan: Case discussed with Dr. Soria, Continue all current medical, physical, occupational, speech therapies. Recommend to hold any anticoagulant until hemorrhagic conversion is resolve, pending result of the left upper extremity duplex to rule out any DVT, blood pressure and glycemic control, keep head of bed elevated at least 30 degrees, seroquel 25 mg PO Q HS. Status: Acute
--- NOTE | 2018-02-26 13:24 | CP.PCM.PN ---
Subjective - Date & Time of Evaluation Date of Evaluation: 02/26/18 Time of Evaluation: 09:45 - Subjective Subjective: clinically same Objective - Vital Signs/Intake and Output Vital Signs (last 24 hours): Temp Pulse Resp BP Pulse Ox 99.7 F H 88 20 128/75 99 02/26/18 07:00 02/26/18 08:00 02/26/18 07:00 02/26/18 10:25 02/26/18 07:00 Intake and Output: 02/26/18 02/26/18 06:59 18:59 Intake Total 240 Output Total 300 Balance -60 - Medications Medications: Current Medications Acetaminophen (Tylenol 650mg/20.3ml Solution Ud) 650 mg PO Q6 PRN PRN Reason: for generalized pain Last Admin: 02/25/18 07:53 Dose: 650 mg Bisacodyl (Dulcolax) 5 mg PO DAILY PRN PRN Reason: Constipation Last Admin: 02/21/18 11:54 Dose: 5 mg Dextrose (Dextrose 50% Inj) 0 ml IV STAT PRN; Protocol PRN Reason: Hypoglycemia Protocol Dextrose (Glutose 15) 0 gm PO ONCE PRN; Protocol PRN Reason: Hypoglycemia Protocol Docusate Sodium (Colace) 100 mg PO BID [facility] Last Admin: 02/26/18 10:38 Dose: 100 mg Gabapentin (Neurontin) 300 mg PO BID [facility] Last Admin: 02/26/18 10:38 Dose: 300 mg Glucagon (Glucagen Diagnostic Kit) 0 mg IM STAT PRN; Protocol PRN Reason: Hypoglycemia Protocol Hydralazine HCl (Apresoline) 25 mg PO QID [facility] Last Admin: 02/26/18 10:38 Dose: 25 mg Insulin Human Regular (Novolin R) 0 unit SC ACHS [facility] PRN Reason: Protocol Last Admin: 02/26/18 12:30 Dose: 4 units Lorazepam (Ativan) 1 mg IVP Q8H PRN PRN Reason: Anxiety Last Admin: 02/25/18 21:24 Dose: 1 mg Losartan Potassium (Cozaar) 25 mg PO BID [facility] Last Admin: 02/26/18 10:38 Dose: 25 mg Pantoprazole Sodium (Protonix Inj) 40 mg IVP DAILY [facility] Last Admin: 02/26/18 10:38 Dose: 40 mg Quetiapine Fumarate (Seroquel) 25 mg PO Q24H [facility] Rosuvastatin Calcium (Crestor) 20 mg PO HS [facility] Last Admin: 02/25/18 21:24 Dose: 20 mg Tiotropium [place] (Spiriva) 18 mcg INH RQ24 [facility] Last Admin: 02/26/18 08:32 Dose: 18 mcg - Labs Labs: 02/24/18 05:57 02/24/18 05:57 PT 11.5 SECONDS (9.7-12.2) 02/24/18 05:57 INR 1.1 02/24/18 05:57 APTT 30 SECONDS (21-34) 02/24/18 05:57 - Constitutional Appears: Well - Head Exam Head Exam: ATRAUMATIC, NORMAL INSPECTION, NORMOCEPHALIC - Eye Exam Eye Exam: EOMI, Normal appearance, PERRL Pupil Exam: NORMAL ACCOMODATION, PERRL - ENT Exam ENT Exam: Mucous Membranes Moist, Normal Exam - Neck Exam Neck Exam: Full ROM, Normal Inspection. absent: Lymphadenopathy - Respiratory Exam Respiratory Exam: Decreased Breath Sounds - Cardiovascular Exam Cardiovascular Exam: REGULAR RHYTHM, +S1, +S2 - GI/Abdominal Exam GI & Abdominal Exam: Soft, Diminished Bowel Sounds - Rectal Exam Rectal Exam: Deferred
--- NOTE | 2018-02-26 16:02 | VASCLAB ---
Date of service: 02/24/2018 PROCEDURE: Left Upper Extremity Venous Duplex Exam HISTORY: r/o DVT PRIORS: None. TECHNIQUE: Left upper extremity, internal jugular, subclavian, axillary, brachial, ulnar, radial, basilic and upper cephalic veins were evaluated. Flow was assessed with color Doppler, compressibility, assessment of phasic flow and augmentation response. Report prepared by Marcos Gaytan, BS, RVT FINDINGS: LEFT: 1. Internal Jugular: 1.1. Compressibility - Fully compressible: Thrombus - None : Flow - Phasic: Augmentation -Normal: Reflux - None. 2. Subclavian: 2.1. Compressibility - Fully compressible: Thrombus - None : Flow - Phasic: Augmentation -Normal: Reflux - None. 3. Axillary: 3.1. Compressibility - Fully compressible: Thrombus - None : Flow - Phasic: Augmentation -Normal: Reflux - None. 4. Brachial: 4.1. Compressibility - Fully compressible: Thrombus - None: Flow - Phasic: Augmentation -Normal: Reflux - None. 5. Ulnar: 5.1. Compressibility - Fully compressible: Thrombus - None: Flow - Phasic: Augmentation -Normal: Reflux - None. 6. Radial: 6.1. Compressibility - Fully compressible: Thrombus - None: Flow - Phasic: Augmentation - Normal: Reflux - None. 7. Cephalic: 7.1. Compressibility - Fully compressible: Thrombus - None: Flow - Phasic: Augmentation -Normal: Reflux - None. 8. Basilic: 8.1. Compressibility - Fully compressible: Thrombus - None: Flow - Phasic: Augmentation -Normal: Reflux - None. OTHER FINDINGS: Left: None. IMPRESSION: Left: No evidence of vein thrombosis of the left upper extremity with excellent venous flow. Normal valve function noted of the left side. Normal venous flow noted in the right internal jugular and right subclavian veins.
[2018-02-27 07:32] LABS: HEMOGLOBIN 11.2 g/dL (12.0-18.0); MEAN CELL VOLUME 90.1 fL (80.0-94.0); MEAN CORPUSCULAR HEMOGLOBIN 30.9 pg (27.0-31.0); MEAN CORPUSCULAR HGB CONC 34.3 g/dL (33.0-37.0); MEAN PLATELET VOLUME 8.3 fL (7.2-11.7); RBC 3.62 Mil/uL (4.40-5.90); RED CELL DISTRIBUTION WIDTH 13.4 % (11.5-14.5); WHITE BLOOD COUNT 7.7 K/uL (4.8-10.8)
--- NOTE | 2018-02-27 07:34 | CP.PCM.PN ---
Subjective - Date & Time of Evaluation Date of Evaluation: 02/27/18 Time of Evaluation: 07:31 - Subjective Subjective: Mr. Whelan was seen and examined at the bedside. He is wake, refused to cooperate during assessment. He is able to verbalize " I will not answer or follow any commands." With minimal tactile stimuli, patient withdraws. He remains with left facial droop, left facial flaccidity and left side neglect, but able to move his right side spontaneously.He grimaces with touch with his left hand, elevated with pillow. He had an episode of hyptension yesterday, primary physician was made aware with order. Left gardner venous duplex showed no DVT. Objective - Vital Signs/Intake and Output Vital Signs (last 24 hours): Temp Pulse Resp BP Pulse Ox 98.1 F 83 20 129/73 95 02/26/18 23:47 02/26/18 23:47 02/26/18 23:47 02/26/18 23:47 02/26/18 23:47 Intake and Output: 02/27/18 02/27/18 06:59 18:59 Intake Total 250 Output Total 200 Balance 50 - Medications Medications: Current Medications Acetaminophen (Tylenol 650mg/20.3ml Solution Ud) 650 mg PO Q6 PRN PRN Reason: for generalized pain Last Admin: 02/25/18 07:53 Dose: 650 mg Bisacodyl (Dulcolax) 5 mg PO DAILY PRN PRN Reason: Constipation Last Admin: 02/21/18 11:54 Dose: 5 mg Dextrose (Dextrose 50% Inj) 0 ml IV STAT PRN; Protocol PRN Reason: Hypoglycemia Protocol Dextrose (Glutose 15) 0 gm PO ONCE PRN; Protocol PRN Reason: Hypoglycemia Protocol Docusate Sodium (Colace) 100 mg PO BID [facility] Last Admin: 02/26/18 17:44 Dose: 100 mg Gabapentin (Neurontin) 300 mg PO BID [facility] Last Admin: 02/26/18 17:44 Dose: 300 mg Glucagon (Glucagen Diagnostic Kit) 0 mg IM STAT PRN; Protocol PRN Reason: Hypoglycemia Protocol Hydralazine HCl (Apresoline) 25 mg PO QID [facility] Last Admin: 02/26/18 21:36 Dose: 25 mg Insulin Human Regular (Novolin R) 0 unit SC [facility] PRN Reason: Protocol Last Admin: 02/26/18 21:39 Dose: Not Given Lorazepam (Ativan) 1 mg IVP Q8H PRN PRN Reason: Anxiety Last Admin: 02/25/18 21:24 Dose: 1 mg Losartan Potassium (Cozaar) 25 mg PO BID [facility] Last Admin: 02/26/18 17:44 Dose: 25 mg Pantoprazole Sodium (Protonix Inj) 40 mg IVP DAILY [facility] Last Admin: 02/26/18 10:38 Dose: 40 mg Quetiapine Fumarate (Seroquel) 25 mg PO Q24H [facility] Last Admin: 02/26/18 17:44 Dose: 25 mg Rosuvastatin Calcium (Crestor) 20 mg PO HS [facility] Last Admin: 02/26/18 21:36 Dose: 20 mg Tiotropium [place] (Spiriva) 18 mcg INH RQ24 [facility] Last Admin: 02/26/18 08:32 Dose: 18 mcg - Labs Labs: 02/24/18 05:57 02/24/18 05:57 PT 11.5 SECONDS (9.7-12.2) 02/24/18 05:57 INR 1.1 02/24/18 05:57 APTT 30 SECONDS (21-34) 02/24/18 05:57 - Constitutional Appears: No Acute Distress - Neurological Exam Neurological Exam: Awake Neuro motor strength exam: Left Upper Extremity: 0, Right Upper Extremity: 3, Left Lower Extremity: 0, Right Lower Extremity: 3 Additional comments: wake, refused to cooperate during the assessment this am, moves his right side spontaneously. Assessment and Plan (1) CVA (cerebral vascular accident) Assessment & Plan: Case discussed with Dr. Soria, Continue all current medical, physical, occupational, speech therapies. Recommend to hold any anticoagulant until hemorrhagic conversion is resolve, will repeat CT scan of the head without contrast dena. blood pressure and glycemic control, keep head of bed elevated at least 30 degrees, hydration. Status: Acute
[2018-02-27 08:07] LABS: ALB/GLOB RATIO 1.1 (1.0-2.1); ALBUMIN 2.8 g/dL (3.5-5.0); CALCIUM 8.9 mg/dl (8.6-10.4)
[2018-02-27] MEDS: Tiotropium 18 mcg Cap For Inhalation INH SCH (08:39)
[2018-02-27] MEDS: (Novolin R) Insulin Human Regular 100 units/ml vial SC SCH ×4 (08:40→21:01)
[2018-02-27] MEDS: Potassium Chloride 10 mEq ER Tab PO SCH (10:30)
--- NOTE | 2018-02-27 18:35 | CP.PCM.PN ---
Subjective - Date & Time of Evaluation Date of Evaluation: 02/27/18 Time of Evaluation: 09:45 - Subjective Subjective: clinically same Objective - Vital Signs/Intake and Output Vital Signs (last 24 hours): Temp Pulse Resp BP Pulse Ox 97.7 F 81 22 156/94 H 97 02/27/18 16:00 02/27/18 16:00 02/27/18 16:00 02/27/18 16:00 02/27/18 16:00 Intake and Output: 02/27/18 02/27/18 06:59 18:59 Intake Total 250 Output Total 200 Balance 50 - Medications Medications: Current Medications Acetaminophen (Tylenol 650mg/20.3ml Solution Ud) 650 mg PO Q6 PRN PRN Reason: for generalized pain Last Admin: 02/25/18 07:53 Dose: 650 mg Bisacodyl (Dulcolax) 5 mg PO DAILY PRN PRN Reason: Constipation Last Admin: 02/21/18 11:54 Dose: 5 mg Dextrose (Dextrose 50% Inj) 0 ml IV STAT PRN; Protocol PRN Reason: Hypoglycemia Protocol Dextrose (Glutose 15) 0 gm PO ONCE PRN; Protocol PRN Reason: Hypoglycemia Protocol Docusate Sodium (Colace) 100 mg PO BID [facility] Last Admin: 02/27/18 10:30 Dose: 100 mg Gabapentin (Neurontin) 300 mg PO BID [facility] Last Admin: 02/27/18 10:30 Dose: 300 mg Glucagon (Glucagen Diagnostic Kit) 0 mg IM STAT PRN; Protocol PRN Reason: Hypoglycemia Protocol Hydralazine HCl (Apresoline) 25 mg PO QID [facility] Last Admin: 02/27/18 13:45 Dose: 25 mg Insulin Human Regular (Novolin R) 0 unit SC ACHS [facility] PRN Reason: Protocol Last Admin: 02/27/18 12:38 Dose: 6 units Lorazepam (Ativan) 1 mg IVP Q8H PRN PRN Reason: Anxiety Last Admin: 02/25/18 21:24 Dose: 1 mg Losartan Potassium (Cozaar) 25 mg PO BID [facility] Last Admin: 02/27/18 10:30 Dose: 25 mg Pantoprazole Sodium (Protonix Inj) 40 mg IVP DAILY [facility] Last Admin: 02/27/18 10:31 Dose: 40 mg Potassium Chloride (Klor-Con 10) 40 meq PO BRK [facility] Last Admin: 02/27/18 10:30 Dose: 40 meq Quetiapine Fumarate (Seroquel) 25 mg PO Q24H [facility] Last Admin: 02/26/18 17:44 Dose: 25 mg Rosuvastatin Calcium (Crestor) 20 mg PO HS [facility] Last Admin: 02/26/18 21:36 Dose: 20 mg Tiotropium [place] (Spiriva) 18 mcg INH RQ24 [facility] Last Admin: 02/27/18 08:39 Dose: Not Given - Labs Labs: 02/27/18 07:28 02/27/18 07:28 PT 11.5 SECONDS (9.7-12.2) 02/24/18 05:57 INR 1.1 02/24/18 05:57 APTT 30 SECONDS (21-34) 02/24/18 05:57 - Constitutional Appears: Well - Head Exam Head Exam: ATRAUMATIC, NORMAL INSPECTION, NORMOCEPHALIC - Eye Exam Eye Exam: EOMI, Normal appearance, PERRL Pupil Exam: NORMAL ACCOMODATION, PERRL - ENT Exam ENT Exam: Mucous Membranes Moist, Normal Exam - Neck Exam Neck Exam: Full ROM, Normal Inspection. absent: Lymphadenopathy - Respiratory Exam Respiratory Exam: Decreased Breath Sounds - Cardiovascular Exam Cardiovascular Exam: REGULAR RHYTHM, +S1, +S2 - GI/Abdominal Exam GI & Abdominal Exam: Soft, Diminished Bowel Sounds - Rectal Exam Rectal Exam: Deferred
[2018-02-28] MEDS ORDERED: Labetalol 25mg/5ml Syringe IVP STA (00:53)
[2018-02-28] MEDS: (Novolin R) Insulin Human Regular 100 units/ml vial SC SCH ×4 (08:11→21:19)
[2018-02-28] MEDS: Potassium Chloride 10 mEq ER Tab PO SCH (08:12)
[2018-02-28] MEDS: Tiotropium 18 mcg Cap For Inhalation INH SCH (08:23)
[2018-02-28 16:16] VITALS: RESP 20
--- NOTE | 2018-02-28 19:51 | CP.PCM.PN ---
Subjective - Date & Time of Evaluation Date of Evaluation: 02/28/18 Time of Evaluation: 09:45 - Subjective Subjective: clinically same Objective - Vital Signs/Intake and Output Vital Signs (last 24 hours): Temp Pulse Resp BP Pulse Ox 99 F 85 20 170/92 H 96 02/28/18 15:15 02/28/18 19:38 02/28/18 15:15 02/28/18 15:15 02/28/18 15:15 - Medications Medications: Current Medications Acetaminophen (Tylenol 650mg/20.3ml Solution Ud) 650 mg PO Q6 PRN PRN Reason: for generalized pain Last Admin: 02/25/18 07:53 Dose: 650 mg Bisacodyl (Dulcolax) 5 mg PO DAILY PRN PRN Reason: Constipation Last Admin: 02/21/18 11:54 Dose: 5 mg Dextrose (Dextrose 50% Inj) 0 ml IV STAT PRN; Protocol PRN Reason: Hypoglycemia Protocol Dextrose (Glutose 15) 0 gm PO ONCE PRN; Protocol PRN Reason: Hypoglycemia Protocol Docusate Sodium (Colace) 100 mg PO BID [facility] Last Admin: 02/28/18 17:12 Dose: 100 mg Gabapentin (Neurontin) 300 mg PO BID [facility] Last Admin: 02/28/18 17:12 Dose: 300 mg Glucagon (Glucagen Diagnostic Kit) 0 mg IM STAT PRN; Protocol PRN Reason: Hypoglycemia Protocol Hydralazine HCl (Apresoline) 25 mg PO QID [facility] Last Admin: 02/28/18 17:12 Dose: 25 mg Hydrochlorothiazide (Microzide) 12.5 mg PO DAILY [facility] Last Admin: 02/28/18 10:10 Dose: 12.5 mg Insulin Human Regular (Novolin R) 0 unit SC ACHS [facility] PRN Reason: Protocol Last Admin: 02/28/18 17:18 Dose: 4 units Lorazepam (Ativan) 1 mg IVP Q8H PRN PRN Reason: Anxiety Last Admin: 02/28/18 17:18 Dose: 1 mg Losartan Potassium (Cozaar) 25 mg PO BID [facility] Last Admin: 02/28/18 17:12 Dose: 25 mg Pantoprazole Sodium (Protonix Inj) 40 mg IVP DAILY [facility] Last Admin: 02/28/18 10:10 Dose: 40 mg Potassium Chloride (Klor-Con 10) 40 meq PO BRK [facility] Last Admin: 02/28/18 08:12 Dose: 40 meq Quetiapine Fumarate (Seroquel) 25 mg PO Q24H [facility] Last Admin: 02/28/18 17:12 Dose: 25 mg Rosuvastatin Calcium (Crestor) 10 mg PO HS [facility] Tiotropium [place] (Spiriva) 18 mcg INH RQ24 [facility] Last Admin: 02/28/18 08:23 Dose: Not Given - Labs Labs: 02/27/18 07:28 02/27/18 07:28 PT 11.5 SECONDS (9.7-12.2) 02/24/18 05:57 INR 1.1 02/24/18 05:57 APTT 30 SECONDS (21-34) 02/24/18 05:57 - Constitutional Appears: Well - Head Exam Head Exam: ATRAUMATIC, NORMAL INSPECTION, NORMOCEPHALIC - Eye Exam Eye Exam: EOMI, Normal appearance, PERRL Pupil Exam: NORMAL ACCOMODATION, PERRL - ENT Exam ENT Exam: Mucous Membranes Moist, Normal Exam - Neck Exam Neck Exam: Full ROM, Normal Inspection. absent: Lymphadenopathy - Respiratory Exam Respiratory Exam: Decreased Breath Sounds - Cardiovascular Exam Cardiovascular Exam: REGULAR RHYTHM, +S1, +S2 - GI/Abdominal Exam GI & Abdominal Exam: Soft, Diminished Bowel Sounds - Rectal Exam Rectal Exam: Deferred
--- NOTE | 2018-03-01 07:22 | CP.PCM.PN ---
Subjective - Date & Time of Evaluation Date of Evaluation: 03/01/18 Time of Evaluation: 07:22 - Subjective Subjective: Mr. Whelan was seen and examined at the bedside. He is awake, alert, more pleasant and cooperative this am. He denies any headache, dizziness, and agrred to to to CT [place] today. He is able to move right side extremities with left side remains flaccid with left side neglect. He had episode of agitation, restless, screamin yesterday wherein ativan was given. Objective - Vital Signs/Intake and Output Vital Signs (last 24 hours): Temp Pulse Resp BP Pulse Ox 98.5 F 90 20 165/91 H 95 02/28/18 23:15 03/01/18 00:00 02/28/18 23:15 02/28/18 23:15 02/28/18 23:15 Intake and Output: 03/01/18 03/01/18 06:59 18:59 Intake Total 400 Balance 400 - Medications Medications: Current Medications Acetaminophen (Tylenol 650mg/20.3ml Solution Ud) 650 mg PO Q6 PRN PRN Reason: for generalized pain Last Admin: 02/25/18 07:53 Dose: 650 mg Bisacodyl (Dulcolax) 5 mg PO DAILY PRN PRN Reason: Constipation Last Admin: 02/21/18 11:54 Dose: 5 mg Dextrose (Dextrose 50% Inj) 0 ml IV STAT PRN; Protocol PRN Reason: Hypoglycemia Protocol Dextrose (Glutose 15) 0 gm PO ONCE PRN; Protocol PRN Reason: Hypoglycemia Protocol Docusate Sodium (Colace) 100 mg PO BID [facility] Last Admin: 02/28/18 17:12 Dose: 100 mg Gabapentin (Neurontin) 300 mg PO BID [facility] Last Admin: 02/28/18 17:12 Dose: 300 mg Glucagon (Glucagen Diagnostic Kit) 0 mg IM STAT PRN; Protocol PRN Reason: Hypoglycemia Protocol Hydralazine HCl (Apresoline) 25 mg PO QID [facility] Last Admin: 02/28/18 21:41 Dose: 25 mg Hydrochlorothiazide (Microzide) 12.5 mg PO DAILY [facility] Last Admin: 02/28/18 10:10 Dose: 12.5 mg Insulin Human Regular (Novolin R) 0 unit SC ACHS [facility] PRN Reason: Protocol Last Admin: 02/28/18 21:19 Dose: Not Given Lorazepam (Ativan) 1 mg IVP Q8H PRN PRN Reason: Anxiety Last Admin: 02/28/18 17:18 Dose: 1 mg Losartan Potassium (Cozaar) 25 mg PO BID [facility] Last Admin: 02/28/18 17:12 Dose: 25 mg Pantoprazole Sodium (Protonix Inj) 40 mg IVP DAILY [facility] Last Admin: 02/28/18 10:10 Dose: 40 mg Potassium Chloride (Klor-Con 10) 40 meq PO BRK [facility] Last Admin: 02/28/18 08:12 Dose: 40 meq Quetiapine Fumarate (Seroquel) 25 mg PO Q24H [facility] Last Admin: 02/28/18 17:12 Dose: 25 mg Rosuvastatin Calcium (Crestor) 10 mg PO HS [facility] Last Admin: 02/28/18 21:41 Dose: 10 mg Tiotropium [place] (Spiriva) 18 mcg INH RQ24 [facility] Last Admin: 02/28/18 08:23 Dose: Not Given - Labs Labs: 02/27/18 07:28 02/27/18 07:28 PT 11.5 SECONDS (9.7-12.2) 02/24/18 05:57 INR 1.1 02/24/18 05:57 APTT 30 SECONDS (21-34) 02/24/18 05:57 - Constitutional Appears: No Acute Distress - Head Exam Head Exam: NORMAL INSPECTION - Eye Exam Pupil Exam: Miosis Additional comments: right eye 2 mm. - Neurological Exam Neurological Exam: Awake Neuro motor strength exam: Left Upper Extremity: 0, Right Upper Extremity: 4, Left Lower Extremity: 0, Right Lower Extremity: 3 Additional comments: awake, alert, able to participate during assessment - Skin Additional comments: fadinng ecchymosis noted in his right upper extremity Assessment and Plan (1) CVA (cerebral vascular accident) Assessment & Plan: Continue current medical, physical, occupational, and speech therapies. Recommend a repeat CT scan of the head without contrast to evaluate the progress of the hemorrhage, blood pressure and glycemic control, treat any electrolyte abnormalities, keep head of bed elevated at least 30 degrees, hydration. Status: Acute
[2018-03-01] MEDS: (Novolin R) Insulin Human Regular 100 units/ml vial SC SCH ×3 (08:31→17:45)
--- NOTE | 2018-03-01 09:31 | CT ---
Date of service: 03/01/2018 PROCEDURE: CT HEAD WITHOUT CONTRAST. HISTORY: follow up hemorrhage, CVA COMPARISON: Comparison made with CT scan of the brain dated 06/04 and MRI of the brain dated 02/22/2018. TECHNIQUE: Axial computed tomography images were obtained through the head/brain without intravenous contrast. Radiation dose: Total exam DLP = 1073.36 mGy-cm. This CT exam was performed using one or more of the following dose reduction techniques: Automated exposure control, adjustment of the mA and/or kV according to patient size, and/or use of iterative reconstruction technique. FINDINGS: HEMORRHAGE: Previously described small suspect subacute hemorrhage right posterior temporoparietal watershed zone is less well seen on this study as compared to prior MRI as well. BRAIN: Previously described small subacute infarct right basal ganglia on is less well seen on this exam as compared to high-resolution MRI. Re- demonstrated are moderate to fairly significant diffuse and confluent chronic periventricular white matter ischemic changes which extend peripherally into the deep and subcortical white matter both cerebral hemispheres. Multiple more discrete chronic appearing with in the changes also seen scattered about the deep and subcortical white matter as well both basal nuclei. Thus there may also be a few chronic brainstem lacunar type infarcts difficult to distinguish from crossing streak and beam hardening artifact. Note the possibility of a small hyperacute infarct cannot be excluded on this exam. Clinical correlation recommended. No obvious parenchymal nor extra-axial masses. . Moderate generalized volume loss. VENTRICLES: No obstructive hydrocephalus. CALVARIUM: Unremarkable. PARANASAL SINUSES: Unremarkable as visualized. No significant inflammatory changes. MASTOID AIR CELLS: Unremarkable as visualized. No inflammatory changes. OTHER FINDINGS: None. IMPRESSION: Small subacute infarct right basal ganglia as well as suspected tiny subacute hemorrhage right posterior temporoparietal watershed zone less well seen on this study as compared prior MRI. Moderate to fairly significant chronic white matter ischemic changes with scattered chronic bilateral basal nuclei and brainstem lacunar type infarcts also less well seen on this study compared the prior MRI.
[2018-03-01 09:37] LABS: HEMOGLOBIN 12.4 g/dL (12.0-18.0); MEAN CELL VOLUME 88.8 fL (80.0-94.0); MEAN CORPUSCULAR HEMOGLOBIN 30.8 pg (27.0-31.0); MEAN CORPUSCULAR HGB CONC 34.7 g/dL (33.0-37.0); MEAN PLATELET VOLUME 8.3 fL (7.2-11.7); RBC 4.03 Mil/uL (4.40-5.90); RED CELL DISTRIBUTION WIDTH 13.2 % (11.5-14.5); WHITE BLOOD COUNT 5.9 K/uL (4.8-10.8)
[2018-03-01 10:33] LABS: ALT/SGPT 6 U/L (21-72); AST/SGOT 16 U/L (17-59); BLOOD UREA NITROGEN 33 mg/dL (9-20); CALCIUM 9.2 mg/dl (8.6-10.4); GFR AFRICAN-AMERICAN > 60; GFR NON-AFRICAN AMERICAN 51
[2018-03-01] MEDS ORDERED: Potassium Chloride 20 mEq ER Tab PO SCH (14:15)
[2018-03-01 16:14] VITALS: BP 180/91; TEMP 97.7; O2SAT 95
--- NOTE | 2018-03-01 17:53 | CP.PCM.PN ---
Subjective - Date & Time of Evaluation Date of Evaluation: 03/01/18 Time of Evaluation: 09:45 - Subjective Subjective: clinically same Objective - Vital Signs/Intake and Output Vital Signs (last 24 hours): Temp Pulse Resp BP Pulse Ox 97.7 F 84 20 180/91 H 95 03/01/18 15:00 03/01/18 15:00 03/01/18 15:00 03/01/18 15:00 03/01/18 15:00 Intake and Output: 03/01/18 03/01/18 06:59 18:59 Intake Total 400 Balance 400 - Medications Medications: Current Medications Acetaminophen (Tylenol 650mg/20.3ml Solution Ud) 650 mg PO Q6 PRN PRN Reason: for generalized pain Last Admin: 02/25/18 07:53 Dose: 650 mg Bisacodyl (Dulcolax) 5 mg PO DAILY PRN PRN Reason: Constipation Last Admin: 02/21/18 11:54 Dose: 5 mg Dextrose (Dextrose 50% Inj) 0 ml IV STAT PRN; Protocol PRN Reason: Hypoglycemia Protocol Dextrose (Glutose 15) 0 gm PO ONCE PRN; Protocol PRN Reason: Hypoglycemia Protocol Docusate Sodium (Colace) 100 mg PO BID [facility] Last Admin: 03/01/18 17:45 Dose: 100 mg Gabapentin (Neurontin) 300 mg PO BID [facility] Last Admin: 03/01/18 17:45 Dose: 300 mg Glucagon (Glucagen Diagnostic Kit) 0 mg IM STAT PRN; Protocol PRN Reason: Hypoglycemia Protocol Hydralazine HCl (Apresoline) 25 mg PO QID [facility] Last Admin: 03/01/18 17:45 Dose: 25 mg Hydrochlorothiazide (Microzide) 12.5 mg PO DAILY [facility] Last Admin: 03/01/18 10:22 Dose: 12.5 mg Insulin Human Regular (Novolin R) 0 unit SC ACHS [facility] PRN Reason: Protocol Last Admin: 03/01/18 17:45 Dose: 3 units Lorazepam (Ativan) 1 mg IVP Q8H PRN PRN Reason: Anxiety Last Admin: 02/28/18 17:18 Dose: 1 mg Losartan Potassium (Cozaar) 25 mg PO BID [facility] Last Admin: 03/01/18 17:45 Dose: 25 mg Pantoprazole Sodium (Protonix Inj) 40 mg IVP DAILY [facility] Last Admin: 03/01/18 10:21 Dose: 40 mg Potassium Chloride (K-Dur 20 Meq Er Tab) 40 meq PO DAILY [facility] Last Admin: 03/01/18 14:52 Dose: 40 meq Quetiapine Fumarate (Seroquel) 25 mg PO Q24H [facility] Last Admin: 03/01/18 17:45 Dose: 25 mg Rosuvastatin Calcium (Crestor) 10 mg PO HS [facility] Last Admin: 02/28/18 21:41 Dose: 10 mg Tiotropium [place] (Spiriva) 18 mcg INH RQ24 [facility] Last Admin: 02/28/18 08:23 Dose: Not Given - Labs Labs: 03/01/18 09:21 03/01/18 09:21 PT 11.5 SECONDS (9.7-12.2) 02/24/18 05:57 INR 1.1 02/24/18 05:57 APTT 30 SECONDS (21-34) 02/24/18 05:57 - Constitutional Appears: Well - Head Exam Head Exam: ATRAUMATIC, NORMAL INSPECTION, NORMOCEPHALIC - Eye Exam Eye Exam: EOMI, Normal appearance, PERRL Pupil Exam: NORMAL ACCOMODATION, PERRL - ENT Exam ENT Exam: Mucous Membranes Moist, Normal Exam - Neck Exam Neck Exam: Full ROM, Normal Inspection. absent: Lymphadenopathy - Respiratory Exam Respiratory Exam: Decreased Breath Sounds - Cardiovascular Exam Cardiovascular Exam: REGULAR RHYTHM, +S1, +S2 - GI/Abdominal Exam GI & Abdominal Exam: Soft, Diminished Bowel Sounds - Rectal Exam Rectal Exam: Deferred
[2018-03-01 18:32] VITALS: PULSE 81
== END 2018-03-01 19:39 | DRG 65 ==
LOC: C.ER 15:36 → C.9I 18:39 → C.6T 02-25 21:50
PROVIDERS: ADMIT Internal Medicine Nephrology; ATTEND Internal Medicine Nephrology
DX: I62.9 Nontraumatic intracranial hemorrhage, unspecified (principal); G81.94 Hemiplegia, unspecified affecting left nondominant side; J44.1 Chronic obstructive pulmonary disease with (acute) exacerbation; R29.810 Facial weakness; E11.65 Type 2 diabetes mellitus with hyperglycemia; E78.00 Pure hypercholesterolemia, unspecified; E86.0 Dehydration; I10 Essential (primary) hypertension; I25.10 Atherosclerotic heart disease of native coronary artery without angina pectoris; I27.20 Pulmonary hypertension, unspecified; Z91.14 Patient's other noncompliance with medication regimen; Z79.4 Long term (current) use of insulin

== ENCOUNTER 2018-03-02 22:22 | Emergency (ER) | payer BC ==
[2018-03-02 22:22] VITALS: BMI 18.1
[2018-03-02 22:38] VITALS: BP 174/88; PULSE 100; RESP 18; TEMP 99.1
[2018-03-02 22:46] VITALS: O2SAT 96
[2018-03-02] MEDS ORDERED: Sodium Chloride 0.9% 1,000 ML IV ONE (22:54)
[2018-03-02 23:04] LABS: BASO % 0.3 % (0.0-2.0); EOS % 0.1 % (0.0-4.0); HEMOGLOBIN 13.3 g/dL (12.0-18.0); LYMPH # 0.7 K/uL (1.0-4.3); LYMPH % 5.8 % (20.0-40.0); MEAN CELL VOLUME 88.1 fL (80.0-94.0); MEAN CORPUSCULAR HEMOGLOBIN 30.8 pg (27.0-31.0); MEAN CORPUSCULAR HGB CONC 34.9 g/dL (33.0-37.0); MEAN PLATELET VOLUME 8.8 fL (7.2-11.7); MONO # 0.3 K/uL (0.0-0.8); MONO % 2.3 % (0.0-10.0); NEUT # 10.4 K/uL (1.8-7.0); NEUT % 91.5 % (50.0-75.0); PLATELET COUNT 383 K/uL (130-400); RBC 4.32 Mil/uL (4.40-5.90); RED CELL DISTRIBUTION WIDTH 13.2 % (11.5-14.5); WHITE BLOOD COUNT 11.4 K/uL (4.8-10.8)
[2018-03-02 23:18] LABS: ALB/GLOB RATIO 1.2 (1.0-2.1); ALBUMIN 3.6 g/dL (3.5-5.0); CALCIUM 9.6 mg/dl (8.6-10.4)
--- NOTE | 2018-03-02 23:21 | C.PDOC ---
History Of Present Illness 62 year old male presents to the ED c/o abdominal pain, distention that started tonight. Patient denies fever, chills, nausea, vomit, diarrhea, back pain, weakness, numbness. Chief Complaint (Nursing): Medical Clearance History Per: Patient, EMS History/Exam Limitations: no limitations Onset/Duration Of Symptoms: Days Current Symptoms Are (Timing): Still Present Recent travel outside of the [place]: No Additional History Per: Patient, EMS Past Medical History Reviewed: Historical Data, Nursing Documentation, Vital Signs Vital Signs: Last Vital Signs Temp 99.1 F 03/02/18 22:31 Pulse 100 H 03/02/18 22:31 Resp 18 03/02/18 22:31 BP 174/88 H 03/02/18 22:31 Pulse Ox 96 03/03/18 00:10 - Medical History PMH: Asthma, CAD, COPD, Diabetes, HTN, Hypercholesterolemia, Pancreatitis, Pneumonia Denies: Chronic Kidney Disease Surgical History: No Surg Hx - [facility] Procedures OTHER ENDOSCOPY OF SM INTEST (03/26/15) VACCINATION NEC (03/11/15) Family History: States: Unknown Family Hx, Hypertension - Social History Hx Tobacco Use: No Hx Alcohol Use: Yes Hx Substance Use: No - Immunization History Hx Tetanus Toxoid Vaccination: No Hx Influenza Vaccination: No Hx Pneumococcal Vaccination: No Review Of Systems Constitutional: Negative for: Fever, Chills Cardiovascular: Negative for: Chest Pain, Palpitations Respiratory: Negative for: Cough, Shortness of Breath Gastrointestinal: Positive for: Abdominal Pain. Negative for: Nausea, Vomiting Musculoskeletal: Negative for: Back Pain Skin: Negative for: Rash Neurological: Negative for: Weakness, Numbness Physical Exam - Physical Exam Appears: Non-toxic, In Acute Distress Skin: Normal Color, Warm, Dry Head: Atraumatic, Normacephalic Eye(s): bilateral: Normal Inspection Oral Mucosa: Moist Neck: Normal ROM, Supple Chest: Symmetrical Cardiovascular: Rhythm Regular, Murmur (systolic right base) Respiratory: Normal Breath Sounds, No Rales, No Rhonchi, No Wheezing Gastrointestinal/Abdominal: Soft, Tenderness, Mass (globular 6x6 inches ), Distention, No Rebound, Other (hard to touch area under umbilicus ) Extremity: Normal ROM, No Tenderness, No Swelling Neurological/Psych: Oriented x3, Normal Speech Gait: Steady ED Course And Treatment - Laboratory Results Result Diagrams: 03/02/18 22:59 03/02/18 22:59 O2 Sat by Pulse Oximetry: 96 (ON RA) Pulse Ox Interpretation: Normal Medical Decision Making Medical Decision Making: Plan: * CT abd/pelvis * Labs * IV fluids * Toradol 30 mg IVP * UA Spoke with Dr. Sandy Guzmán who states patient can return to his [facility] and will follow up with urologist Disposition Discussed With Dr.: Brent Guzmán (return to [place]) Counseled Patient/Family Regarding: Diagnosis - Disposition Referrals: Brent Guzmán MD [Staff Provider] - Disposition: TRANSF TO SNF Disposition Time: 00:08 Condition: IMPROVED Instructions: [place] Catheter, Male, Urinary Retention (DC) Forms: [employer] (Bengali) - POA Present On Arrival: None - Clinical Impression Clinical Impression: Acute urinary retention - Scribe Statement The provider has reviewed the documentation as recorded by the Scribe Fabian Linton All medical record entries made by the Scribe were at my direction and personally dictated by me. I have reviewed the chart and agree that the record accurately reflects my personal performance of the history, physical exam, medical decision making, and the department course for this patient. I have also personally directed, reviewed, and agree with the discharge instructions and disposition.
[2018-03-02 23:37] LABS: LYMPHOCYTE 7 % (20-40); MONOCYTE 5 % (0-10); NEUTROPHIL 88 % (50-75); PLATELET ESTIMATE NORMAL (NORMAL); TOTAL CELLS COUNTED 100
[2018-03-02 23:44] LABS: URINE BACTERIA RARE (<OCC); URINE BILIRUBIN NEGATIVE (NEGATIVE); URINE BLOOD 1+ (NEGATIVE); URINE CLARITY Clear (Clear); URINE COLOR Yellow (YELLOW); URINE GLUCOSE (UA) 2+ mg/dL (Normal); URINE LEUKOCYTE ESTERASE NEG Leu/uL (Negative); URINE PROTEIN 2+ mg/dL (NEGATIVE); URINE UROBILINOGEN NORMAL mg/dL (0.2-1.0)
== END 2018-03-03 01:01 ==
LOC: C.ER 22:22
DX: R33.9 Retention of urine, unspecified (principal)
CPT/HCPCS: 51702; 80053; 81001; 83690; 85025; 87086; 96360; 99283; J7030